=== PATIENT | female | born 1950 | race Caucasian/White ===

== ENCOUNTER → 2018-05-01 14:46 | Outpatient (CLI) | payer OTHER, SELFPAY ==
[2018-05-01 16:40] LABS: Alanine Aminotransfer ALT/SGPT 49 U/L (13-56); Creatinine, Serum 0.75 mg/dL (0.55-1.02); EST Glomerular Filtration Rate 82 mL/min (>60); Est Glom Filt Rate - Afr Amer 99 mL/min (>60); Thyroid Stim Hormone (TSH) 1.56 uIU/mL (0.358-3.74)
[2018-05-05 13:39] LABS: Hep C Antibodies <0.1 s/co ratio (0.0-0.9)
== END ==
PROVIDERS: Family Provider Family Medicine; PCP Family Medicine; Visit Provider Family Medicine
DX: E03.9 Hypothyroidism, unspecified (principal); E78.6 Lipoprotein deficiency
CPT/HCPCS: 36415; 82565; 84443; 84460; 86803

== ENCOUNTER → 2018-06-19 12:01 | Outpatient (CLI) | payer MEDICARE, SELFPAY ==
--- NOTE | 2018-06-19 12:05 | BI_ITS ---
MAMMOGRAPHY - BILATERAL SCREENING REASON FOR EXAM: Female, 67 years old. Routine annual screening examination. PERTINENT HISTORY: Mother with breast cancer. Aunt with breast cancer. TECHNIQUE: Digital bilateral breast rashawn (3D mammographic acquisition) in the CC and MLO projections. 2-D mediolateral oblique (MLO) and craniocaudad (CC) views of both breasts were obtained. CAD: Full Field Digital Mammography with Computer Added Detection was performed. COMPARISON: Comparison is made with prior study dated April 30, 2016 and January 26, 2015. FINDINGS: Breast Composition: The breasts are almost entirely fatty. There are no dominant masses or suspicious calcifications. Stable small bilateral axillary lymph nodes. No other significant abnormalities are identified. There has been no significant change since the prior study. BI/SCREENING MAMM (CAD), BILAT IMPRESSION: Stable bilateral screening mammogram. Yearly follow-up mammogram recommended. (A) ASSESSMENT CATEGORY: BIRADS Category 2: Benign. A letter regarding these results will be sent to the patient by the facility within 30 days. Approximately 10% of breast cancers are not detected by mammography. A normal mammogram should not delay biopsy of a clinically suspicious abnormality. [id number] Electronically Signed: Ritchie Mittal MD at 13:20 EST Tel [phone], Service support ,
== END ==
PROVIDERS: Family Provider Family Medicine; PCP Family Medicine; Referring Provider Family Medicine; Visit Provider Family Medicine
DX: Z12.31 Encounter for screening mammogram for malignant neoplasm of breast (principal)
CPT/HCPCS: 77063; 77067

== ENCOUNTER → 2019-07-08 14:52 | Outpatient (CLI) | payer MEDICARE, SELFPAY ==
[2019-07-08 16:10] LABS: Absolute Lymphocyte Count 2.86 X10^3/uL (0.83-4.51); Absolute Neutrophil Count 2.9 X10^3/uL (2.0-7.7); Basophil# 0.04 X10^3/uL; Basophil% 0.6 % (0-1); Eosinophil# 0.05 X10^3/uL; Eosinophils% 0.8 % (0-5); Hematocrit 41.3 % (37-47); Hemoglobin 13.6 g/dL (12.0-15.0); Lymphocyte # 2.86 X10^3/ul (4.0); Mean Corp Hgb Conc 32.9 g/dL (32-36); Mean Corpuscular Hgb 29.5 pg (27.0-32.0); Mean Corpuscular Volume 89.6 fL (81-99); Mean Platelet Vol. 10.2 fl (6.2-12.0); Monocyte# 0.44 X10^3/uL; Monocyte% 6.9 % (0-10); NRBC Flagged by Analyzer 0 % (0-5); Neutrophil # 2.94 X10^3/uL (2.7-7.7); Neutrophil % 46.2 % (47-70); Platelet Count 355 K/mm3 (150-450); RBC Distribution Width CV 13.6 % (11.6-14.6); RBC Distribution Width SD 44.6 fl (35.1-43.9); Red Blood Count 4.61 M/mm3 (4.2-5.4); White Blood Count 6.4 K/mm3 (4.4-11.0)
[2019-07-08 16:55] LABS: Vitamin D,25 Hydroxy 31.5 ng/mL (29.95-100.01)
[2019-07-08 17:13] LABS: ALB/GLOB Ratio 1.2 RATIO (0.9-2.4); AST(SGOT) 33 U/L (15-37); Alanine Aminotransfer ALT/SGPT 46 U/L (13-56); Albumin, Serum 4.3 g/dL (3.2-5.0); Alkaline Phosphatase 54 U/L (45-117); Anion Gap 5 (5-15); BUN 21 mg/dL (7-18); BUN/Creat Ratio 20.4 RATIO (10-20); Calcium,Total 9.2 mg/dL (8.5-10.1); Chloride 106 mmol/L (98-107); Cholesterol 186 mg/dL (200); Creatinine, Serum 1.03 mg/dL (0.55-1.02); EST Glomerular Filtration Rate 57 mL/min (>60); Est Glom Filt Rate - Afr Amer 69 mL/min (>60); Globulin 3.6 g/dL (2.2-4.2); Glucose 90 mg/dL (74-106); High Density Lipoprotein 52 mg/dL; Potassium 3.9 mmol/L (3.5-5.1); Protein, Total 7.9 g/dL (6.4-8.2); Sodium Level 139 mmol/L (136-145); Thyroid Stim Hormone (TSH) 2.04 uIU/mL (0.358-3.74); Triglycerides 93 mg/dL; Very Low Density Lipoprotein 19 mg/dL (5-40)
== END ==
PROVIDERS: Family Provider Family Medicine; PCP Family Medicine; Referring Provider Family Medicine; Visit Provider Family Medicine
DX: E78.1 Pure hyperglyceridemia (principal); M85.80 Other specified disorders of bone density and structure, unspecified site; E03.9 Hypothyroidism, unspecified
CPT/HCPCS: 36415; 80053; 80061; 82306; 84443; 85025

== ENCOUNTER → 2020-04-11 | Outpatient (CLI) | payer MEDICARE, SELFPAY ==
--- NOTE | 2020-04-11 09:45 | BI_ITS ---
MAMMOGRAPHY - BILATERAL SCREENING REASON FOR EXAM: Female, 69 years old. Routine annual screening examination. PERTINENT HISTORY: Mother with breast cancer. Aunt with breast cancer. TECHNIQUE: Digital bilateral breast chavo (3D mammographic acquisition) in the CC and MLO projections. 2-D mediolateral oblique (MLO) and craniocaudad (CC) views of both breasts were obtained. CAD: Full Field Digital Mammography with Computer Added Detection was performed. COMPARISON: Comparison is made with prior examination dated 06/19/2018 and 04/30/2016. FINDINGS: Breast Composition: The breasts are almost entirely fatty. There are no dominant masses or suspicious calcifications. Stable small benign appearing bilateral axillary lymph nodes. No other significant abnormalities are identified. There has been no significant change since the prior study. BI/SCREEN MAMM (CAD) W/CHAVO BILAT IMPRESSION: Stable bilateral screening mammogram. Yearly follow-up mammogram recommended. (A) ASSESSMENT CATEGORY: BIRADS Category 1: Negative. A letter regarding these results will be sent to the patient by the facility within 30 days. Approximately 10% of breast cancers are not detected by mammography. A normal mammogram should not delay biopsy of a clinically suspicious abnormality. [id number] Electronically Signed: Ritchie Mittal, at 11:17 EDT , Service support ,
== END | disposition home or self-care (01) ==
LOC: OPBI 09:43
PROVIDERS: Family Provider Family Medicine; PCP Family Medicine; Referring Provider Family Medicine; Visit Provider Family Medicine
DX: Z12.31 Encounter for screening mammogram for malignant neoplasm of breast (principal)
CPT/HCPCS: 77063; 77067

== ENCOUNTER → 2020-10-30 10:08 | Outpatient (CLI) | payer MEDICARE, SELFPAY ==
[2020-10-30 12:39] LABS: Vitamin D,25 Hydroxy 29.1 ng/mL
[2020-10-30 12:41] LABS: ALB/GLOB Ratio 1.1 RATIO (0.9-2.4); AST(SGOT) 26 U/L (15-37); Alanine Aminotransfer ALT/SGPT 37 U/L (13-56); Albumin, Serum 4.2 g/dL (3.2-5.0); Alkaline Phosphatase 51 U/L (45-117); Anion Gap 5 (5-15); BUN 16 mg/dL (7-18); BUN/Creat Ratio 18.4 RATIO (10-20); Calcium,Total 9.1 mg/dL (8.5-10.1); Chloride 101 mmol/L (98-107); Cholesterol 199 mg/dL (200); Creatinine, Serum 0.87 mg/dL (0.55-1.02); EST Glomerular Filtration Rate 69 mL/min (>60); Est Glom Filt Rate - Afr Amer 83 mL/min (>60); Globulin 3.7 g/dL (2.2-4.2); Glucose 94 mg/dL (74-106); High Density Lipoprotein 52 mg/dL; Potassium 4.3 mmol/L (3.5-5.1); Protein, Total 7.9 g/dL (6.4-8.2); Sodium Level 137 mmol/L (136-145); Thyroid Stim Hormone (TSH) 2.42 uIU/mL (0.358-3.74); Triglycerides 171 mg/dL; Very Low Density Lipoprotein 34 mg/dL (5-40)
[2020-10-30 13:00] LABS: Microalbumin,Random Urine < 5.0 mg/L (NO RANGE EST.)
== END ==
PROVIDERS: PCP Family Medicine; Visit Provider Family Medicine
DX: N18.2 Chronic kidney disease, stage 2 (mild) (principal); E03.9 Hypothyroidism, unspecified; E78.1 Pure hyperglyceridemia
CPT/HCPCS: 36415; 80053; 80061; 82043; 82306; 82570; 84443

== ENCOUNTER → 2020-11-09 08:18 | Outpatient (CLI) | payer MEDICARE, SELFPAY ==
--- NOTE | 2020-11-09 08:29 | BD_ITS ---
STUDY: DUAL ENERGY X-RAY ABSORPTIOMETRY / DXA REASON FOR EXAM: Female, 70 years old. M85.89. Early menopause. TECHNIQUE: Bone Mineral Density (BMD) measurements of lumbar spine and bilateral hips were obtained. COMPARISON: Comparison is made with prior study dated 04/30/2016. FINDINGS: Lumbar Spine (L1-L4): g/cm2 (0.928) / T-score (-2.0) / Z-score (-0.4) Findings are suggestive of osteopenia with a moderate fracture risk. Left Femur Total: g/cm2 (0.857) / T-score (-1.2) / Z-score (0.2) Left Femoral Neck: g/cm2 (0.863) / T-score (-1.3) / Z-score (0.4) Right Femur Total: g/cm2 (0.790) / T-score (-1.7) / Z-score (-0.3) Right Femoral Neck: g/cm2 (0.789) / T-score (-1.8) / Z-score (-0.1) The T-Scores on the most recent prior examination were: Lumbar Spine (L1-L4): There has been improvement of bone density since the previous examination. Left Femur Total: which represents a worsening of 3.3%. Right Femur Total: which represents a worsening of 5.7%. BD/Dexa Bone Density Study IMPRESSION: The patient is considered osteopenic as outlined below according to World [employer] Organization (WHO) criteria with a moderate fracture risk. There has been worsening of bone density since the previous examination. Reference Information: The T-score is the number of standard deviations above or below the standard which is normal for young adults at their peak bone mineral density. The World Health Organization (WHO) interprets the T-scores as follows: Above -1 Normal bone density Between -1 and -2.5 Osteopenia Equal to / or below -2.5 Osteoporosis As a practical clinical guideline, osteopenia may be graded as follows: Mild -1 through -1.5 Moderate -1.6 through -2.0 Severe -2.1 through -2.4 The Z-score is the number of standard deviations above or below age-matched controls. A Z-score of less than -1.5 would be considered abnormal. References: 1. NIH Osteoporosis and Related Bone Diseases www osteo.org 2. International Society for Clinical Densitometry www iscd.org 3. National Osteoporosis Foundation www nof.org Electronically Signed: Ritchie Mittal MD at 10:50 EDT , Service support ,
== END ==
PROVIDERS: PCP Family Medicine; Referring Provider Family Medicine; Visit Provider Family Medicine
DX: M85.89 Other specified disorders of bone density and structure, multiple sites (principal)
CPT/HCPCS: 77080

== ENCOUNTER → 2021-04-12 08:00 | Outpatient (CLI) | payer MEDICARE, SELFPAY ==
--- NOTE | 2021-04-12 08:16 | BI_ITS ---
MAMMOGRAPHY - BILATERAL SCREENING REASON FOR EXAM: Female, 70 years old. Routine annual screening examination. PERTINENT HISTORY: Mother with breast cancer. Aunt with breast cancer. TECHNIQUE: Digital bilateral breast chavo (3D mammographic acquisition) in the CC and MLO projections. 2-D mediolateral oblique (MLO) and craniocaudad (CC) views of both breasts were obtained. CAD: Full Field Digital Mammography with Computer Added Detection was performed. COMPARISON: Comparison is made with prior study 04/11/2020 and 06/19/2018. FINDINGS: Breast Composition: The breasts are almost entirely fatty. There are no dominant masses or suspicious calcifications. No other significant abnormalities are identified. There has been no significant change since the prior study. BI/SCRN MAMM (CAD)W/CHAVO BILAT IMPRESSION: Stable bilateral screening mammogram. Yearly follow-up mammogram recommended. (A) ASSESSMENT CATEGORY: BIRADS Category 1: Negative. A letter regarding these results will be sent to the patient by the facility within 30 days. Approximately 10% of breast cancers are not detected by mammography. A normal mammogram should not delay biopsy of a clinically suspicious abnormality. [id number] Electronically Signed: Ritchie Mittal MD at 8:56 EDT , Service support ,
== END ==
PROVIDERS: PCP Family Medicine; Referring Provider Family Medicine; Visit Provider Family Medicine
DX: Z12.31 Encounter for screening mammogram for malignant neoplasm of breast (principal)
CPT/HCPCS: 77063; 77067

== ENCOUNTER → 2021-12-04 | Outpatient (CLI) | payer MEDICARE, SELFPAY ==
[2021-12-04 10:08] LABS: Hematocrit 37.7 % (37-47); Mean Corp Hgb Conc 31.8 g/dL (32-36); Mean Corpuscular Hgb 27.1 pg (27.0-32.0); Mean Corpuscular Volume 85.3 fL (81-99); Mean Platelet Vol. 9.2 fl (6.2-12.0); Platelet Count 400 K/mm3 (150-450); RBC Distribution Width CV 14.6 % (11.6-14.6); RBC Distribution Width SD 45.1 fl (35.1-43.9); Red Blood Count 4.42 M/mm3 (4.2-5.4); White Blood Count 5.9 K/mm3 (4.4-11.0)
[2021-12-04 11:18] LABS: AST(SGOT) 26 U/L (15-37); Alanine Aminotransfer ALT/SGPT 40 U/L (13-56); Albumin, Serum 3.7 g/dL (3.2-5.0); Alkaline Phosphatase 57 U/L (45-117); Anion Gap 9 (5-15); BUN 15 mg/dL (7-18); BUN/Creat Ratio 19.9 RATIO (10-20); Chloride 102 mmol/L (98-107); Cholesterol 192 mg/dL (200); Creatinine, Serum 0.75 mg/dL (0.55-1.02); EST Glomerular Filtration Rate 81 mL/min (>60); Est Glom Filt Rate - Afr Amer 98 mL/min (>60); Globulin 3.8 g/dL (2.2-4.2); Glucose 98 mg/dL (74-106); High Density Lipoprotein 43 mg/dL; Potassium 3.9 mmol/L (3.5-5.1); Protein, Total 7.5 g/dL (6.4-8.2); Sodium Level 136 mmol/L (136-145); T4 Free Direct 1.15 ng/dL (0.76-1.46); Thyroid Stim Hormone (TSH) 3.78 uIU/mL (0.358-3.74); Triglycerides 139 mg/dL; Very Low Density Lipoprotein 28 mg/dL (5-40)
[2021-12-04 15:05] LABS: Microalbumin,Random Urine < 5.0 mg/L (NO RANGE EST.)
== END | disposition home or self-care (01) ==
LOC: MFPLAB 08:39
PROVIDERS: PCP Family Medicine; Referring Provider Family Medicine; Visit Provider Family Medicine
DX: I10 Essential (primary) hypertension (principal); E78.1 Pure hyperglyceridemia; E03.9 Hypothyroidism, unspecified; M25.50 Pain in unspecified joint
CPT/HCPCS: 36415; 80053; 80061; 82043; 82570; 84439; 84443; 85027

== ENCOUNTER 2022-04-05 17:12 | Emergency (ER) | payer MEDICARE, SELFPAY ==
[2022-04-05 17:14] VITALS: BP 135/64; PULSE 84; RESP 16; TEMP 36.4; O2SAT 98; BMI 23.8
--- NOTE | 2022-04-05 18:39 | EDS_ITS ---
HPI <LELA Vaughan - Last Filed: 04/05/22 19:56> History of Present Illness Chief Complaint: Vision Prob Narrative Narrative: Patient is a 71-year-old female with history of hyperlipidemia, hypothyroidism who presents to the emergency department with intermittent vision changes of the right eye. [facility] She saw her eye doctor today, had a full exam. He requested her to come to the emergency department for laboratory values including sed rate, CRP as well as 1 g of Solu- Medrol. Patient complains that for the last 5 days, she has had 3 separate instances where her right vision goes dark and blurry and then it comes back. 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 She is here for evaluation. PFSH <LELA Vaughan - Last Filed: 04/05/22 19:56> PFSH Allergy/AdvReac Type Severity Reaction Status Date / Time No Known Allergies Allergy Verified 04/05/22 18:53 Social History Smoking Status: Never smoker ROS <LELA Vaughan - Last Filed: 04/05/22 19:56> ROS ED ROS Narrative Constitutional: Negative for fever, chills, weight loss, weakness Eyes: Negative for double vision. Positive for vision loss, vision change of the right eye x3 the last 5 days ENT: Negative for any sore throat, ear pain, congestion Cardiovascular: Negative for any chest pain, tightness, palpitations Respiratory: Negative for any cough, sputum production, hemoptysis, dyspnea, dyspnea on exertion, orthopnea Gastrointestinal: Negative for any abdominal pain, nausea, vomiting, diarrhea, constipation, blood in stool, blood in vomit : Negative for any urinary frequency, dysuria, retention, blood in urine Muscle skeletal: Negative for any muscle joint pain, stiffness, myalgias, arthralgias, neck pain, back pain Neurological: Negative for any headache, syncope, numbness or tingling, dizziness Skin: Negative for any rashes, lumps, itching, abrasions, lacerations Psychiatric: Negative for any depression, anxiety, stress, suicidal ideation, homicidal ideation Hematologic: Negative for any easy bruising, excessive bruising, easy bleeding Allergies: Negative for any eczema, hives, rash EXAM <LELA Vaughan Last Filed: 04/05/22 19:56> Physical Exam Narrative Exam Narrative: Vital signs reviewed. Patient does not complain of any symptoms at this time. HEET: Head normocephalic atraumatic, TMs clear bilaterally. Posterior pharynx is clear, moist mucous membranes. Nares clear bilaterally. Pupils are large however the patient did have them dilated at the eye doctor. EOMs are intact. Asymptomatic at this time full vision. Neck: Supple with no lymphadenopathy or tenderness. No signs of meningismus, negative jolt sign. Cardiac: Regular rate and rhythm no murmurs gallops or rubs, equal peripheral pulses bilaterally. Respiratory: Lungs clear to auscultation bilaterally. No chest tenderness. Abdomen: Soft, nontender, nondistended. No abdominal bruit or pulsatile masses. No hepatosplenomegaly Extremities: No peripheral edema, no signs of gross trauma or deformity. Active full range of motion of all extremities. Neuro: Cranial nerves II through XII intact, no focal neurological deficits. Skin: Clean dry and intact with no rash, purpura, petechiae, vesicles or pustules. Backs/flank: No CVA tenderness, no midline spinal tenderness, no deformity. Psych: Normal mood and affect. No SI, HI or acute psychosis. Const Vital Signs: 04/05/22 17:14 Temperature 97.6 F L Temperature Source Temporal Pulse Rate 84 Respiratory Rate 16 Blood Pressure 135/64 H Blood Pressure Mean 87 Pulse Ox 98 Oxygen Delivery Method Room Air <Dr. Vicente Butcher MD - Last Filed: 04/05/22 19:56> Physical Exam Const Vital Signs: 04/05/22 17:14 Temperature 97.6 F L Temperature Source Temporal Pulse Rate 84 Respiratory Rate 16 Blood Pressure 135/64 H Blood Pressure Mean 87 Pulse Ox 98 Oxygen Delivery Method Room Air [facility] <LELA Vaughan - Last Filed: 04/05/22 19:56> [facility] Lab Data Labs: Laboratory Results - last 24 hr 04/05/22 04/05/22 18:50 18:50 WBC 8.2 RBC 4.71 Hgb 12.1 Hct 38.0 MCV 80.7 L MCH 25.7 L MCHC 31.8 L RDW Std Deviation 46.7 H RDW Coeff of Becki 16.0 H Plt Count 567 H MPV 8.8 Immature Gran % (Auto) 0.400 Neut % (Auto) 56.0 Lymph % (Auto) 34.6 [place] % (Auto) 7.2 Eos % (Auto) 1.2 Baso % (Auto) 0.6 Absolute Neuts (auto) 4.6 Absolute Lymphs (auto) 2.82 Nucleated RBC % 0 ESR 37 H Sodium 135 L Potassium 4.2 Chloride 101 Carbon Dioxide 27.0 Anion Gap 7 BUN 11 Creatinine 0.76 Estim Creat Clear Calc 41.40 Est GFR (MDRD) Af Amer 97 Est GFR (MDRD) Non-Af 80 BUN/Creatinine Ratio 14.6 Glucose 101 Calcium 9.6 C-React Prot Ext Range 19.30 H Treatment and Re-Evaluation Narrative: Patient appears well, patient appears nontoxic, vital signs are stable. Patient presents to the emergency department for intermittent vision loss to the right eye. Patient was seen after wood room supervisor who sent over for blood work as well as Solu-Medrol 1 g IV. Patient CBC, chemistries were unremarkable, patient's inflammatory markers were elevated with a sed rate of 37 as well as a C-reactive protein 19.3. Patient was given 1 g of Solu-Medrol. She is going to the infusion center for 2 days for Solu-Medrol 1 g. Patient during my exam here was unremarkable. Patient has no symptoms at this time. Patient is stable for discharge instructed return for any worsening symptoms. 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 <Dr. Vicente Butcher MD - Last Filed: 04/05/22 19:56> [facility] Narrative Medical decision making narrative: I have personally performed a face to face assessment of the patient and have reviewed the MARILYN Note. I performed a substantive portion of the visit including all aspects of the following. My moore findings include: History is [71-year-old sent in by ophthalmology for concern for giant cell arteritis. She has had right zoroastrian discomfort and visual change. He examined her today. He wanted her to get screening labs and a gram of Solu-Medrol. He set up the infusions for Friday and Friday. She denies other complaints.] Exam is [well-appearing 8-year-old. Vital signs stable afebrile. H EENT exam pupils round react light expressions are intact. Pupils are dilated equal and symmetrical. There are dilated eye doctor's office. Neck nontender. Lungs are clear. Heart regular rhythm no murmur. Moving all 4 extremities. Neurologically she is awake and alert. No focal motor deficits.] Medical Decision Making [screening labs are obtained.] Other additions or changes: [None] Lab Data Attestation: I reviewed the patient's lab results. Lab results narrative: Given a gram of IV Solu-Medrol. Discharge. CBC shows white count 8. H&H 12.1 and 38. Platelets 567. Electrolytes unremarkable gap of 7 normal BUN and creatinine. Glucose 101. C-reactive protein elevated 19.3. Sed rate elevated 37. Labs: Laboratory Results - last 24 hr 04/05/22 04/05/22 18:50 18:50 WBC 8.2 RBC 4.71 Hgb 12.1 Hct 38.0 MCV 80.7 L MCH 25.7 L MCHC 31.8 L RDW Std Deviation 46.7 H RDW Coeff of Becki 16.0 H Plt Count 567 H MPV 8.8 Immature Gran % (Auto) 0.400 Neut % (Auto) 56.0 Lymph % (Auto) 34.6 [place] % (Auto) 7.2 Eos % (Auto) 1.2 Baso % (Auto) 0.6 Absolute Neuts (auto) 4.6 Absolute Lymphs (auto) 2.82 Nucleated RBC % 0 ESR 37 H Sodium 135 L Potassium 4.2 Chloride 101 Carbon Dioxide 27.0 Anion Gap 7 BUN 11 Creatinine 0.76 Estim Creat Clear Calc 41.40 Est GFR (MDRD) Af Amer 97 Est GFR (MDRD) Non-Af 80 BUN/Creatinine Ratio 14.6 Glucose 101 Calcium 9.6 C-React Prot Ext Range 19.30 H Discharge Plan Triage Chief Complaint: Vision Prob ED Midlevel Provider: Louie Pérez ED Provider: Vicente Butcher Dx/Rx/DC Orders Primary Care Provider: Presley Tidwell Referrals: Presley Tidwell MD [Primary Care Provider] -
[2022-04-05 19:04] LABS: Erythrocyte Sedimentation Rate 37 mm/hr (0-30)
[2022-04-05 19:05] LABS: Absolute Lymphocyte Count 2.82 X10^3/uL (0.83-4.51); Absolute Neutrophil Count 4.6 X10^3/uL (2.0-7.7); Basophil# 0.05 X10^3/uL; Basophil% 0.6 % (0-1); Eosinophils% 1.2 % (0-5); Hemoglobin 12.1 g/dL (12.0-15.0); Lymphocyte # 2.82 X10^3/ul (0.83-4.51); Lymphocyte % 34.6 % (19-41); Mean Corp Hgb Conc 31.8 g/dL (32-36); Mean Corpuscular Hgb 25.7 pg (27.0-32.0); Mean Corpuscular Volume 80.7 fL (81-99); Mean Platelet Vol. 8.8 fl (6.2-12.0); Monocyte# 0.59 X10^3/uL; Monocyte% 7.2 % (0-10); NRBC Flagged by Analyzer 0 % (0-5); Neutrophil # 4.57 X10^3/uL (2.7-7.7); Platelet Count 567 K/mm3 (150-450); RBC Distribution Width SD 46.7 fl (35.1-43.9); Red Blood Count 4.71 M/mm3 (4.2-5.4); White Blood Count 8.2 K/mm3 (4.4-11.0)
[2022-04-05 19:13] LABS: Anion Gap 7 (5-15); BUN 11 mg/dL (7-18); BUN/Creat Ratio 14.6 RATIO (10-20); Calcium,Total 9.6 mg/dL (8.5-10.1); Chloride 101 mmol/L (98-107); Creatinine, Serum 0.76 mg/dL (0.55-1.02); EST Glomerular Filtration Rate 80 mL/min (>60); Est Glom Filt Rate - Afr Amer 97 mL/min (>60); Glucose 101 mg/dL (74-106); Potassium 4.2 mmol/L (3.5-5.1); Sodium Level 135 mmol/L (136-145)
== END 2022-04-05 20:23 | disposition home or self-care (01) ==
PROVIDERS: Nurse Practitioner; Emergency Provider Emergency Medicine; PCP Family Medicine; Visit Provider Emergency Medicine
DX: H53.9 Unspecified visual disturbance (principal); M31.6 Other giant cell arteritis; E78.5 Hyperlipidemia, unspecified; E03.9 Hypothyroidism, unspecified; G44.89 Other headache syndrome
CPT/HCPCS: 36415; 80048; 85025; 85652; 86140; 96365; 99282; A4216; J2930

== ENCOUNTER → 2022-04-05 | Outpatient (CLI) | payer MEDICARE, SELFPAY ==
[2022-04-05 17:13] LABS: Absolute Lymphocyte Count 3.06 X10^3/uL (0.83-4.51); Absolute Neutrophil Count 4.4 X10^3/uL (2.0-7.7); Basophil# 0.05 X10^3/uL; Basophil% 0.6 % (0-1); Eosinophil# 0.12 X10^3/uL; Eosinophils% 1.5 % (0-5); Hematocrit 37.6 % (37-47); Lymphocyte # 3.06 X10^3/ul (0.83-4.51); Lymphocyte % 37.5 % (19-41); Mean Corp Hgb Conc 31.9 g/dL (32-36); Mean Corpuscular Volume 81.4 fL (81-99); Monocyte# 0.52 X10^3/uL; Monocyte% 6.4 % (0-10); NRBC Flagged by Analyzer 0 % (0-5); Neutrophil % 53.8 % (47-70); Platelet Count 578 K/mm3 (150-450); RBC Distribution Width CV 15.9 % (11.6-14.6); RBC Distribution Width SD 47.5 fl (35.1-43.9); Red Blood Count 4.62 M/mm3 (4.2-5.4); White Blood Count 8.2 K/mm3 (4.4-11.0)
[2022-04-05 17:17] LABS: Erythrocyte Sedimentation Rate 28 mm/hr (0-30)
== END | disposition home or self-care (01) ==
LOC: LAB 16:44
PROVIDERS: PCP Family Medicine; Referring Provider Ophthalmology; Visit Provider Ophthalmology
DX: M31.6 Other giant cell arteritis (principal)
CPT/HCPCS: 36415; 85025; 85652; 86140

== ENCOUNTER 2022-04-06 15:27 | Outpatient (CLI) | payer MEDICARE, SELFPAY ==
[2022-04-06 16:46] VITALS: BP 151/72; PULSE 72; RESP 18; TEMP 36.6; O2SAT 98
== END 2022-04-06 18:20 | disposition home or self-care (01) ==
LOC: PCUOUT 15:29 → PCU 15:31
PROVIDERS: PCP Family Medicine; Visit Provider Ophthalmology
DX: M31.6 Other giant cell arteritis (principal)
CPT/HCPCS: 96365; 96366; J7040; J2930

== ENCOUNTER 2022-04-07 13:52 | Outpatient (CLI) | payer MEDICARE, SELFPAY | END 2022-04-07 16:22 | disposition home or self-care (01) | LOC: PCUOUT 13:53 → PCU 14:19 | PROVIDERS: PCP Family Medicine; Visit Provider Ophthalmology | DX: M31.6 Other giant cell arteritis (principal) | CPT/HCPCS: 96365; 96366; J7040; J2930 ==

== ENCOUNTER → 2022-04-08 | Outpatient (CLI) | payer MEDICARE, SELFPAY ==
[2022-04-08 10:27] LABS: Erythrocyte Sedimentation Rate 31 mm/hr (0-30)
[2022-04-08 10:29] LABS: Absolute Lymphocyte Count 1.91 X10^3/uL (0.83-4.51); Absolute Neutrophil Count 7.9 X10^3/uL (2.0-7.7); Basophil# 0.01 X10^3/uL; Basophil% 0.1 % (0-1); Hematocrit 35.2 % (37-47); Hemoglobin 11.1 g/dL (12.0-15.0); Lymphocyte # 1.91 X10^3/ul (0.83-4.51); Mean Corp Hgb Conc 31.5 g/dL (32-36); Mean Corpuscular Volume 82.4 fL (81-99); Mean Platelet Vol. 9.7 fl (6.2-12.0); Monocyte# 0.73 X10^3/uL; Monocyte% 6.9 % (0-10); NRBC Flagged by Analyzer 0 % (0-5); Neutrophil # 7.88 X10^3/uL (2.7-7.7); Neutrophil % 74.2 % (47-70); Platelet Count 611 K/mm3 (150-450); RBC Distribution Width CV 16.4 % (11.6-14.6); RBC Distribution Width SD 49.1 fl (35.1-43.9); Red Blood Count 4.27 M/mm3 (4.2-5.4); White Blood Count 10.6 K/mm3 (4.4-11.0)
[2022-04-08 11:20] LABS: ALB/GLOB Ratio 0.9 RATIO (0.9-2.4); AST(SGOT) 10 U/L (15-37); Alanine Aminotransfer ALT/SGPT 20 U/L (13-56); Albumin, Serum 3.6 g/dL (3.2-5.0); Alkaline Phosphatase 65 U/L (45-117); Anion Gap 9 (5-15); BUN 20 mg/dL (7-18); BUN/Creat Ratio 27.1 RATIO (10-20); CRP < 2.90 mg/L (0.0-3.0); Calcium,Total 9.5 mg/dL (8.5-10.1); Chloride 103 mmol/L (98-107); Creatinine, Serum 0.74 mg/dL (0.55-1.02); EST Glomerular Filtration Rate 83 mL/min (>60); Est Glom Filt Rate - Afr Amer 100 mL/min (>60); Globulin 4.1 g/dL (2.2-4.2); Glucose 111 mg/dL (74-106); Potassium 3.4 mmol/L (3.5-5.1); Protein, Total 7.7 g/dL (6.4-8.2); Sodium Level 140 mmol/L (136-145)
[2022-04-09 13:08] LABS: Anti-Centromere B Ab <0.2 AI (0.0-0.9); Anti-Chromatin <0.2 AI (0.0-0.9); Anti-Jo <0.2 AI (0.0-0.9); Anti-Scleroderma-70 AB <0.2 AI (0.0-0.9); Anti-ribosomal P Antibodies <0.2 AI (0.0-0.9); RNP Ab 0.4 AI (0.0-0.9); SJOGREN'S Anti-SS-A test < 0.2 AI (0.0-0.9); SJOGREN'S Anti-SS-B test < 0.2 AI (0.0-0.9); Smith Ab <0.2 AI (0.0-0.9); Smith/RNP Ab <0.2 AI (0.0-0.9)
[2022-04-09 14:09] LABS: PROEL- Albumin 3.6 g/dL (2.9-4.4); PROEL- Alpha-1 Globulin 0.3 g/dL (0.0-0.4); PROEL- Beta Globulin 1.1 g/dL (0.7-1.3); PROEL- Globulin, Total 3.5 g/dL (2.2-3.9); PROEL- TOTAL PROTEIN 7.1 g/dL (6.0-8.5)
[2022-04-09 15:22] LABS: ANTINUCLEAR ANTIBODIES DIRECT Negative (Negative); Anti-dsDNA Ab 1 IU/mL (0-9)
== END | disposition home or self-care (01) ==
LOC: MFPLAB 08:37
PROVIDERS: PCP Family Medicine; Visit Provider Family Medicine
DX: M31.6 Other giant cell arteritis (principal)
CPT/HCPCS: 36415; 80053; 84165; 85025; 85652; 86038; 86140; 86225; 86235

== ENCOUNTER 2022-04-15 10:57 | Day surgery (SDC) | payer MEDICARE, SELFPAY ==
[2022-04-15] VITALS (7 sets, daily range): BP systolic 139–155; BP diastolic 5–75; PULSE 54–61; RESP 14–16; TEMP 36.9–37.3; O2SAT 95–99; BMI 23.1
--- NOTE | 2022-04-15 | TEM_PTH ---
PATIENT: JOSH MONTES [place] [facility][id number] AGE/SX: 71/F ROOM: RE04/15/[address]: Dr. Lyle Tran MD : 1950 BED: DIS: 04/15/2022 SPEC #: [id number] RECD: 04/15/22 13:14 STATUS: GAURAV RERobbie #: [id number] FABIANA: 04/15/22 00:[address]: Lyle Tran DEPT: SURGICAL PATHOLOGY RECD BY: Sebastian Celis ENTERED: 04/15/22 13:14 SP TYPE: TEMPORAL OTHR DR: Dr. 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 See comment. AM:carla 04/16/2022 COMMENT Elastin stain with matched control was used in the evaluation of this case. Case has been reviewed in consultation with Dr. Kitchen who concurs with the above diagnosis. IDC:LISSY MICROSCOPIC DESCRIPTION Slides are reviewed. GROSS DESCRIPTION Received in fixative is one container labeled with the patient's name and designated right temporal artery biopsy. The specimen consists of a tubular piece of andrade-pink soft tissue measuring 2 cm in length and 0.2 cm in diameter. The entire specimen is submitted in one cassette. / SJ:carla 04/15/2022 TC:3 CPT: 15401, 07086
[2022-04-15] MEDS: Lactated Ringers 1,000 ML 15 ML IV (11:35)
--- NOTE | 2022-04-15 12:15 | HP.PCM_ITS ---
History and Physical Date of Admission: 04/15/22 Intake Vital Signs ? 04/05/2217:14 04/11/2208:11 Height 5 ft 2 in ? Weight: ? 128 lb 8 oz BP ? 168/82 H Blood Pressure Location ? Rt popliteal Position ? Sitting Respiration ? 18 Pulse ? 70 Pulse Source ? Monitor Temp ? 97.7 F L Temp Source ? Temporal Pulse Oximetry (%) ? 96 Oxygen Delivery Method ? room air Intake Visit Reasons:?R TEMPORAL ARTERY BIOPSY Chief Complaint: right temporal artery biopsy Domestic Freight Forwarder Required: No Is patient in pain?: No Allergies No Known Allergies Allergy (Verified 04/11/22 08:21) Medications Ca 600 mg-D3 20 mcg-mag oxide 50 ql-Fq-klsuid-manganese-boron tablet (Calcium 600-D3 Plus (mag-zinc)) 2 tab PO BID 04/11/22 [History Confirmed 04/11/22] cinnamon bark 500 mg capsule (Cinnamon) 500 mg PO DAILY 04/11/22 [History Confirmed 04/11/22] famotidine 20 mg tablet 20 mg PO BID 04/11/22 [History Confirmed 04/11/22] fenofibrate nanocrystallized 145 mg tablet 145 mg PO DAILY 04/11/22 [History Confirmed 04/11/22] flaxseed oil 1,000 mg capsule 1,000 mg PO DAILY 04/11/22 [History Confirmed 04/11/22] levothyroxine 88 mcg tablet (Synthroid) 88 mcg PO DAILY 04/11/22 [History Confirmed 04/11/22] milk thistle 175 mg tablet 175 mg PO DAILY 04/11/22 [History Confirmed 04/11/22] prednisone 20 mg tablet 80 mg PO DAILY 04/11/22 [History Confirmed 04/11/22] PFSH Surgical History?(Updated 04/11/22 @ 08:09 by Mirna Bonilla) H/O: hysterectomy Family History?(Updated 04/11/22 @ 08:10 by Mirna Bonilla) Father Asthma HypertensionMother Breast cancer Hypertension Thyroid disorderSister Diabetes Social History?(Updated 04/11/22 @ 08:11 by Mirna Bonilla) Smoking Status:? Never smoker alcohol intake:? current alcohol intake frequency: holidays/special occasions only HPI HPI HPI: Patient is a 71-year-old female here for temporal artery biopsy.? She has been having visual and jaw symptoms on the right side and she has been started on steroids. ROS General General: Yes weight change; No appetite, fatigue, colon cancer, breast cancer or weakness HEENT HEENT: No difficulty swallowing, eye injury, eye surgery, swollen glands or hoarseness Endo Endocrine: Yes thyroid disease; No diabetes mellitus, thyroid cancer, Hair loss, heat intolerance or cold intolerance Skin Skin: No rash or changing moles Breast Breast: No left breast lump, right breast lump, nipple discharge, breast pain, abnormal mammogram, abnormal US or breast enlargement Musc Musculoskeletal: No back problems, arthritis, rheumatoid arthritis, gout or joint pain Cardio Cardiovascular: No murmur, pacemaker, heart disease, atrial fibrillation, high blood pressure, heart attack, heart stent, palpitations, shortness of breat with exertion or chest pain Psych Psychiatric: No depression, anxiety or hearing voices Resp Respiratory: No shortness of breath, No sleep apnea, No cough, No COPD, No asthma, No emphysema and No wheezing Gastro Gastrointestinal: No abdominal pain, No nausea or vomiting, No diarrhea, No constipation, No blood in stool, No acid reflux, No hemorrhoids, No ulcers, No gallbladder problem and No black,tarry stools Rene Hematologic: No blood thinners, No blood disorders, No bleeding, No anemia and No blood clots Neuro Neurologic: No system reviewed and no additional complaints, except as documented, No as per HPI, No abnormal gait, No abnormal hearing, No abnormal movements, No abnormal speech, No behavioral changes, No burning sensations, No confusion, No convulsions, No disequilibrium, No dizziness, No localized weakness, No frequent falls, No headache(s), No lack of coordination, No loss of vision, No memory loss, No numbness, No other visual disturbances, No radicular pain, No restless legs, No sensory deficit, No syncope, No tingling, No tremor(s), No weakness and No other Exam Const General: cooperative Orientation: alert and oriented x3 HENND Head: normal to inspection Neck Neck: normal visual inspection and full ROM Chest Chest palpation & inspection: normal inspection of the chest Resp Effort & Inspection: normal respiratory effort Auscultation: clear to auscultation bilaterally Cardio Rate: regular rate Rhythm: regular rhythm GI Inspection: non-distended Palpation: soft and nontender Skin General: no rashes or lesions noted Neuro General: patient alert and patient oriented x3 Extrem General: full ROM Psych Appearance: grossly normal Mental Status: mental status grossly normal Assessment and Plan Assessment and Plan (1) Temporal headache: ?Status:?Acute ?Plan: Patient was having headache and vision changes and jaw pain on the right side which have slightly improved.? Patient is here for temporal artery biopsy.? I discussed temporal artery biopsy in detail with her.? I discussed the risks including not limited to bleeding, infection, nondiagnosis.? Patient understands the risks and is willing to proceed. Lyle Tran MD Pager: [facility] [address] [place] [address], [address] [place] [address] Office: I have re-examined the patient. There are no clinical changes since date of exam.
[2022-04-15] MEDS: Lidocaine 1% (20 ml mdv) 20 ML Vial (12:36)
--- NOTE | 2022-04-15 12:41 | OP.PCM_ITS ---
Report of Operation Date of Procedure: 04/15/22 Pre-Operative Diagnosis: Right temporal headaches and vision changes Post-Operative Diagnosis: Same Surgery/Procedure Performed:: Ultrasound-guided right temporal artery biopsy Specimen's removed: Right temporal artery Description of Procedure: Patient was brought back to the operating room and MAC anesthesia was induced. The right alevism was trimmed of hair and inspected with ultrasound and the route of the temporal artery was marked with marker. Next the right alevism was prepped and draped in usual sterile fashion and then the proposed incision area was injected with local anesthetic. An incision was made with a scalpel and then retractors were placed and then the deep fascia was incised using scissors and this exposed the temporal artery. Dissection was carried circumferentially superiorly and inferiorly. On either end of the artery segment the artery was clipped and then suture-ligated. The artery was sent for pathology. The cavity had good hemostasis. He was irrigated and then closed with 4-0 Monocryl suture. Glue was applied. Patient tolerated the procedure was brought to PACU in stable condition. Admit VTE Documentation VTE Mechan Device Prophylaxis: SCD's
--- NOTE | 2022-04-15 12:43 | DCINST_ITS ---
Discharge Instructions Diet Discharge Diet: No restrictions Activity Discharge Activity: May Drive (After 24 hours) and May Shower Lifting Restrictions: 15 lbs and light activity for 7 days Additional Activity Instructions:: Ibuprofen and Tylenol alternating for pain Dressing / Incision Call your doctor if your incision/area has: Continuous Slow Oozing, Sudden Increased Bleeding, Increased Pain/ Swelling, Increased Redness, Foul Smelling Discharge and Swelling at the incision site Call your doctor if you observe: Fever of 101 or Higher Cleanse incision/area with: Soap & Water Follow Up Care Please Follow Up With: Lyle Tran MD When: Please call to schedule 2 week follow up appointment. [phone] Test Results: Test results from this visit will be discussed in further detail at your follow- up appointment, if applicable. Discharge Plan Admission Attending Provider: Lyle Tran Primary Care Provider: Presley Tidwell Discharge Orders/Prescriptions Prescriptions: No Action levothyroxine [Synthroid] 88 mcg tablet 88 mcg PO DAILY fenofibrate nanocrystallized 145 mg tablet 145 mg PO DAILY famotidine 20 mg tablet 20 mg PO BID prednisone 20 mg tablet 80 mg PO DAILY cinnamon bark [Cinnamon] 500 mg capsule 500 mg PO DAILY flaxseed oil 1,000 mg capsule 1,000 mg PO DAILY Rx Instructions: administer with a meal milk thistle 175 mg tablet 175 mg PO DAILY Rx Instructions: give with meal/snack Ca-D3-mag aq-ffxv-zsj-omero-bor [Calcium 600-D3 Plus (mag-zinc)] 600 mg calcium- 20 mcg-50 mg tablet 2 tab PO BID aspirin [Aspir-81] 81 mg Tablet,Delayed Release (Dr/Ec) 81 mg PO DAILY Referrals / Follow Up: Presley Tidwell MD [Primary Care Provider] - Disposition Disposition (needs filled in before D/C Order can be placed): Home, Self Care
== END 2022-04-15 13:59 | disposition home or self-care (01) ==
LOC: SDC 10:59 → AC 11:36
PROVIDERS: PCP Family Medicine; Referring Provider Surgery; Visit Provider Surgery
PROC: (CPT 37609; principal; 2022-04-15 12:15)
DX: R51.9 Headache, unspecified (principal); R68.84 Jaw pain; E78.00 Pure hypercholesterolemia, unspecified; E07.9 Disorder of thyroid, unspecified
CPT/HCPCS: 37609; 00352; 88305; 88313; J7120

== ENCOUNTER → 2022-04-18 | Outpatient (CLI) | payer MEDICARE, SELFPAY ==
--- NOTE | 2022-04-18 09:12 | BI_ITS ---
MAMMOGRAPHY - BILATERAL SCREENING 3-D TOMOSYNTHESIS REASON FOR EXAM: Female, 71 years old. SCREENING PERTINENT HISTORY: Mother and aunt with breast cancer.. TECHNIQUE: 2-D mammograms and 3-D Tomosynthesis of the breast (s) were performed. CAD was performed. COMPARISON: 04/11/2020 FINDINGS: The breast composition is almost entirely fat. Scattered benign calcifications are seen. No dense spiculated masses or suspicious microcalcifications are identified. No architectural distortion is identified. There is no skin thickening or retraction. There has been no significant change since the prior study. BI/SCRN MAMM (CAD)W/CHAVO BILAT IMPRESSION: No mammographic signs of malignancy. Routine yearly mammograms recommended. ASSESSMENT CATEGORY: BIRADS Category 1: Negative. A letter regarding these results will be sent to the patient by the facility within 30 days. FOLLOW UP RECOMMENDATION: Yearly follow up mammogram recommended. (A) Approximately 10% of breast cancers are not detected by mammography. A normal mammogram should not delay biopsy of a clinically suspicious abnormality. Electronically Signed: Campbell Sánchez MD at 10:09 EDT ,
== END | disposition home or self-care (01) ==
LOC: OPBI 09:10
PROVIDERS: PCP Family Medicine; Referring Provider Family Medicine; Visit Provider Family Medicine
DX: Z12.31 Encounter for screening mammogram for malignant neoplasm of breast (principal); Z80.3 Family history of malignant neoplasm of breast
CPT/HCPCS: 77063; 77067

== ENCOUNTER → 2022-04-20 | Outpatient (CLI) | payer MEDICARE, SELFPAY ==
--- NOTE | 2022-04-20 09:32 | MRI_ITS ---
STUDY: MRI BRAIN WITHOUT CONTRAST REASON FOR EXAM: Female, 71 years old. Vision loss, probable arteritis, possible CVA TECHNIQUE: Standardized multiplanar fat and water weighted pulse sequences were obtained. COMPARISON: None. FINDINGS: Normal size of the ventricles and extra-axial spaces for the patient''s age. Normal white matter tracts of the supratentorial brain. Normal bilateral basal ganglia. Normal thalami. There is no extra-axial fluid accumulation. Normal flow voids within the major intracranial circulation suggesting patency by spin echo criteria. Normal sella turcica, pituitary gland, infundibular stalk, optic chiasm and hypothalamus. Normal tectal plate and pineal gland. Normal midbrain, lorri and medulla. Normal cerebellum. Normal basal cisterns. Normal bilateral temporal bones. Normal bilateral internal auditory canals. No demonstrated orbital abnormality, within the constraints of a routine brain study. Normal visualized paranasal sinuses. Normal calvarium and skull base. Normal visualized soft tissue structures. Normal visualized upper cervical spine. MRI/Brain without Contrast IMPRESSION: Normal unenhanced MRI of the brain. Electronically Signed: Vladimir Monte MD at 12:16 EDT ,
== END | disposition home or self-care (01) ==
LOC: MRI 09:27
PROVIDERS: PCP Family Medicine; Referring Provider Family Medicine; Visit Provider Family Medicine
DX: H53.139 Sudden visual loss, unspecified eye (principal); M31.6 Other giant cell arteritis
CPT/HCPCS: 70551

== ENCOUNTER → 2022-04-30 | Outpatient (CLI) | payer MEDICARE, SELFPAY ==
--- NOTE | 2022-04-30 08:55 | CDU_ITS ---
Reason For Study: Sudden vision loss Rt. Velocities/BP Lt. Velocities/BP Prox CCA 77.8/21.1 cm/sec. Prox CCA 87.2/30 cm/sec. Mid CCA 76.8/23 cm/sec. Mid CCA 79.5/23.4 cm/sec. Dist CCA 58.9/14.5 cm/sec. Dist CCA 82.8/27.8 cm/sec. Prox ICA 51.3/14.5 cm/sec. Prox ICA 69.6/24.5 cm/sec. Mid ICA 75.9/27.7 cm/sec. Mid ICA 76.2/31.1 cm/sec. Dist ICA 74.9/25.8 cm/sec. Dist ICA 83.9/33.3 cm/sec. Rt. ICA/CCA = 0.99. Lt. ICA/CCA = 1.01. Prox ECA 70.2/11.6 cm/sec. Prox ECA 83.9/13.5 cm/sec. Rt. Vert. 59.8/16.3 cm/sec. Lt. Vert. 47.6/16.8 cm/sec. Right Extracranial There is intimal thickening but no significant atherosclerotic plaque noted in the right common carotid artery. There is homogeneous, smooth atherosclerotic plaque noted in the right internal carotid artery. There is intimal thickening but no significant atherosclerotic plaque noted in the right external carotid artery. Antegrade flow is noted in the right vertebral artery. Left Extracranial There is homogeneous, smooth atherosclerotic plaque noted in the left common carotid artery. There is intimal thickening but no significant atherosclerotic plaque noted in the left internal carotid artery. There is intimal thickening but no significant atherosclerotic plaque noted in the left external carotid artery. Antegrade flow is noted in the left vertebral artery. Procedure Carotid Duplex [id number]. This is a Carotid Duplex examination using B-mode, color flow and specral Doppler. Exam performed in department. VL/Carotid Duplex Ultrasound Interpretation Summary Smooth plaque at the proximal right internal carotid artery with less than 50% stenosis Less than 50% stenosis right external carotid artery Intimal thickening at the proximal left internal carotid artery with less than 50% stenosis Less than 50% stenosis left external carotid artery Patent and antegrade vertebral arteries bilaterally Ordering Physician: Presley Tidwell Referring Physician: Presley Tidwell Performed By: Gabriella Camarillo RVT
== END | disposition home or self-care (01) ==
LOC: CVS 08:54
PROVIDERS: PCP Family Medicine; Referring Provider Family Medicine; Visit Provider Family Medicine
DX: H53.139 Sudden visual loss, unspecified eye (principal); I65.23 Occlusion and stenosis of bilateral carotid arteries
CPT/HCPCS: 93880

== ENCOUNTER → 2022-09-02 | Outpatient (CLI) | payer MEDICARE, OTHER, SELFPAY ==
[2022-09-02 12:49] LABS: Absolute Lymphocyte Count 3.01 X10^3/uL (0.83-4.51); Basophil# 0.04 X10^3/uL; Basophil% 0.5 % (0-1); Eosinophil# 0.06 X10^3/uL; Eosinophils% 0.8 % (0-5); Hematocrit 40.9 % (37-47); Lymphocyte # 3.01 X10^3/ul (0.83-4.51); Lymphocyte % 39.7 % (19-41); Mean Corp Hgb Conc 31.8 g/dL (32-36); Mean Corpuscular Hgb 28.4 pg (27.0-32.0); Mean Corpuscular Volume 89.5 fL (81-99); Mean Platelet Vol. 10.1 fl (6.2-12.0); Monocyte% 6.6 % (0-10); NRBC Flagged by Analyzer 0 % (0-5); Neutrophil # 3.95 X10^3/uL (2.7-7.7); Platelet Count 302 K/mm3 (150-450); RBC Distribution Width CV 13.5 % (11.6-14.6); RBC Distribution Width SD 44.3 fl (35.1-43.9); Red Blood Count 4.57 M/mm3 (4.2-5.4); White Blood Count 7.6 K/mm3 (4.4-11.0)
[2022-09-02 12:57] LABS: Erythrocyte Sedimentation Rate 1 mm/hr (0-30)
[2022-09-02 13:08] LABS: Microalbumin:Creatinine Ratio 11.6 mg/g CRE (<30 mg/g CRE)
[2022-09-02 13:39] LABS: Vitamin D,25 Hydroxy 32.9 ng/mL
[2022-09-02 14:13] LABS: ALB/GLOB Ratio 1.4 RATIO (0.9-2.4); AST(SGOT) 21 U/L (15-37); Alanine Aminotransfer ALT/SGPT 29 U/L (13-56); Albumin, Serum 3.9 g/dL (3.2-5.0); Alkaline Phosphatase 38 U/L (45-117); Anion Gap 7 (5-15); BUN 21 mg/dL (7-18); BUN/Creat Ratio 23.4 RATIO (10-20); CRP < 2.90 mg/L (0.0-3.0); Calcium,Total 8.9 mg/dL (8.5-10.1); Chloride 105 mmol/L (98-107); EST Glomerular Filtration Rate 66 mL/min (>60); Est Glom Filt Rate - Afr Amer 80 mL/min (>60); Globulin 2.8 g/dL (2.2-4.2); Glucose 109 mg/dL (74-106); Potassium 3.7 mmol/L (3.5-5.1); Protein, Total 6.7 g/dL (6.4-8.2); Sodium Level 138 mmol/L (136-145); T4 Free Direct 1.16 ng/dL (0.76-1.46); Thyroid Stim Hormone (TSH) 2.24 uIU/mL (0.358-3.74)
== END | disposition home or self-care (01) ==
LOC: MFPLAB 09:59
PROVIDERS: PCP Family Medicine; Visit Provider Family Medicine
DX: M85.80 Other specified disorders of bone density and structure, unspecified site (principal); E03.9 Hypothyroidism, unspecified
CPT/HCPCS: 36415; 80053; 82043; 82306; 82570; 84439; 84443; 85025; 85652; 86140

== ENCOUNTER → 2022-09-25 | Outpatient (CLI) | payer MEDICARE, SELFPAY ==
--- NOTE | 2022-09-25 11:00 | BD_ITS ---
STUDY: DUAL ENERGY X-RAY ABSORPTIOMETRY / DXA REASON FOR EXAM: Female, 72 years old. Z79.52 TECHNIQUE: Bone Mineral Density (BMD) measurements of lumbar spine and bilateral hips were obtained. COMPARISON: Comparison is made with prior study dated November 09, 2020. FINDINGS: Lumbar Spine (L1-L4): g/cm2 (0.865) / T-score (-1.7) / Z-score (0.5) Findings are suggestive of osteopenia with a moderate fracture risk. Left Femur Total: g/cm2 (0.763) / T-score (-1.5) / Z-score (0.1) Left Femoral Neck: g/cm2 (0.655) / T-score (-1.7) / Z-score (0.1) Right Femur Total: g/cm2 (0.751) / T-score (-1.6) / Z-score (0.0) Right Femoral Neck: g/cm2 (0.598) / T-score (-2.3) / Z-score (-0.4) The T-Scores on the most recent prior examination were: Lumbar Spine (L1-L4): There has been improvement of bone density since the previous examination. Left Femur Total: which represents a worsening of 4%. Right Femur Total: which represents an improvement of 3%. BD/Dexa Bone Density Study IMPRESSION: The patient is considered osteopenic as outlined below according to World [employer] Organization (WHO) criteria with a high fracture risk. There has been improvement of bone density since the previous examination. Reference Information: The T-score is the number of standard deviations above or below the standard which is normal for young adults at their peak bone mineral density. The World Health Organization (WHO) interprets the T-scores as follows: Above -1 Normal bone density Between -1 and -2.5 Osteopenia Equal to / or below -2.5 Osteoporosis As a practical clinical guideline, osteopenia may be graded as follows: Mild -1 through -1.5 Moderate -1.6 through -2.0 Severe -2.1 through -2.4 The Z-score is the number of standard deviations above or below age-matched controls. A Z-score of less than -1.5 would be considered abnormal. References: 1. NIH Osteoporosis and Related Bone Diseases www osteo.org 2. International Society for Clinical Densitometry www iscd.org 3. National Osteoporosis Foundation www nof.org Electronically Signed: Ritchie Mittal MD at 11:17 EDT ,
== END | disposition home or self-care (01) ==
LOC: OPBD 10:52
PROVIDERS: PCP Family Medicine; Visit Provider Family Medicine
DX: M85.80 Other specified disorders of bone density and structure, unspecified site (principal); M31.6 Other giant cell arteritis; Z79.52 Long term (current) use of systemic steroids
CPT/HCPCS: 77080

== ENCOUNTER → 2023-04-28 | Outpatient (CLI) | payer MEDICARE, SELFPAY ==
--- NOTE | 2023-04-28 09:53 | BI_ITS ---
MAMMOGRAPHY - BILATERAL SCREENING REASON FOR EXAM: Female, 72 years old. Routine annual screening examination. PERTINENT HISTORY: Mother with breast cancer. Aunt with breast cancer. TECHNIQUE: Digital bilateral breast chavo (3D mammographic acquisition) in the CC and MLO projections. 2-D mediolateral oblique (MLO) and craniocaudad (CC) views of both breasts were obtained. CAD: Full Field Digital Mammography with Computer Added Detection was performed. COMPARISON: Comparison is made with prior study April 18, 2022 and April 12, 2020 FINDINGS: Breast Composition: The breasts are almost entirely fatty. There are no dominant masses or suspicious calcifications. Stable small benign-appearing bilateral axillary lymph nodes. No other significant abnormalities are identified. There has been no significant change since the prior study. BI/SCRN MAMM (CAD)W/CHAVO BILAT IMPRESSION: Stable bilateral screening mammogram. Yearly follow-up mammogram recommended. (A) ASSESSMENT CATEGORY: BIRADS Category 2: Benign. A letter regarding these results will be sent to the patient by the facility within 30 days. Approximately 10% of breast cancers are not detected by mammography. A normal mammogram should not delay biopsy of a clinically suspicious abnormality. [id number] Electronically Signed: Ritchie Mittal MD at 12:49 EDT ,
== END | disposition home or self-care (01) ==
LOC: OPBI 09:52
PROVIDERS: PCP Family Medicine; Referring Provider Family Medicine; Visit Provider Family Medicine
DX: Z12.31 Encounter for screening mammogram for malignant neoplasm of breast (principal); Z80.3 Family history of malignant neoplasm of breast
CPT/HCPCS: 77063; 77067

== ENCOUNTER → 2023-11-12 | Outpatient (CLI) | payer MEDICARE, SELFPAY ==
--- NOTE | 2023-11-12 09:20 | BD_ITS ---
STUDY: DUAL ENERGY X-RAY ABSORPTIOMETRY / DXA REASON FOR EXAM: Female, 73 years old. M85.89 TECHNIQUE: Bone Mineral Density (BMD) measurements of lumbar spine and bilateral hips were obtained. COMPARISON: Comparison is made with prior study September 25, 2022. FINDINGS: Lumbar Spine (L1-L4): g/cm2 (0.873) / T-score (-1.6) / Z-score (0.7) Findings are suggestive of osteopenia with a moderate fracture risk. Left Femur Total: g/cm2 (0.756) / T-score (-1.5) / Z-score (0.1) Left Femoral Neck: g/cm2 (0.686) / T-score (-1.5) / Z-score (0.5) Right Femur Total: g/cm2 (0.771) / T-score (-1.4) / Z-score (0.2) Right Femoral Neck: g/cm2 (0.632) / T-score (-2.0) / Z-score (0.0) The T-Scores on the most recent prior examination were: Lumbar Spine (L1-L4): There has been improvement of bone density since the previous examination. Left Femur Total: which represents a worsening of 0.9%. Right Femur Total: which represents an improvement of 2.6%. BD/Dexa Bone Density Study IMPRESSION: The patient is considered osteopenic as outlined below according to World [employer] Organization (WHO) criteria with a moderate fracture risk. There has been improvement of bone density since the previous examination. Reference Information: The T-score is the number of standard deviations above or below the standard which is normal for young adults at their peak bone mineral density. The World Health Organization (WHO) interprets the T-scores as follows: Above -1 Normal bone density Between -1 and -2.5 Osteopenia Equal to / or below -2.5 Osteoporosis As a practical clinical guideline, osteopenia may be graded as follows: Mild -1 through -1.5 Moderate -1.6 through -2.0 Severe -2.1 through -2.4 The Z-score is the number of standard deviations above or below age-matched controls. A Z-score of less than -1.5 would be considered abnormal. References: 1. NIH Osteoporosis and Related Bone Diseases www osteo.org 2. International Society for Clinical Densitometry www iscd.org 3. National Osteoporosis Foundation www nof.org Electronically Signed: Ritchie Mittal MD at 9:46 EDT ,
== END | disposition home or self-care (01) ==
PROVIDERS: PCP Family Medicine; Referring Provider Internal Medicine Rheumatology; Visit Provider Internal Medicine Rheumatology
DX: M85.80 Other specified disorders of bone density and structure, unspecified site (principal); T38.0X5A Adverse effect of glucocorticoids and synthetic analogues, initial encounter
CPT/HCPCS: 77080

== ENCOUNTER → 2023-11-28 | Outpatient (CLI) | payer MEDICARE, SELFPAY ==
[2023-11-28 11:15] LABS: ALB/GLOB Ratio 1.3 RATIO (0.9-2.4); AST(SGOT) 32 U/L (15-37); Alanine Aminotransfer ALT/SGPT 35 U/L (13-56); Albumin, Serum 4.1 g/dL (3.2-5.0); Alkaline Phosphatase 34 U/L (45-117); Anion Gap 5 (5-15); BUN 21 mg/dL (7-18); BUN/Creat Ratio 23.9 RATIO (10-20); Calcium,Total 8.9 mg/dL (8.5-10.1); Chloride 104 mmol/L (98-107); Cholesterol 165 mg/dL (200); Creatinine, Serum 0.88 mg/dL (0.55-1.02); EST Glomerular Filtration Rate 67 mL/min (>60); Est Glom Filt Rate - Afr Amer 81 mL/min (>60); Globulin 3.1 g/dL (2.2-4.2); Glucose 104 mg/dL (74-106); High Density Lipoprotein 45 mg/dL; Potassium 4.3 mmol/L (3.5-5.1); Protein, Total 7.2 g/dL (6.4-8.2); Sodium Level 137 mmol/L (136-145); Thyroid Stim Hormone (TSH) 2.68 uIU/mL (0.358-3.74); Triglycerides 137 mg/dL; Very Low Density Lipoprotein 27 mg/dL (5-40)
[2023-11-28 11:53] LABS: Vitamin D,25 Hydroxy 42.7 ng/mL
[2023-11-28 12:06] LABS: Microalbumin,Random Urine < 5.0 mg/L (NO RANGE EST.)
[2023-11-28 12:30] LABS: Hemoglobin A1c 5.7 % (3.8-5.6)
== END | disposition home or self-care (01) ==
LOC: MFPLAB 08:35
PROVIDERS: PCP Family Medicine; Visit Provider Family Medicine
DX: M85.80 Other specified disorders of bone density and structure, unspecified site (principal); E78.1 Pure hyperglyceridemia; Z79.899 Other long term (current) drug therapy
CPT/HCPCS: 36415; 80053; 80061; 82043; 82306; 82570; 83036; 84443

== ENCOUNTER → 2024-05-24 | Outpatient (CLI) | payer MEDICARE, SELFPAY ==
[2024-05-24 10:35] LABS: Erythrocyte Sedimentation Rate < 1 mm/hr (0-30)
[2024-05-24 11:14] LABS: Microalbumin,Random Urine < 5.0 mg/L (NO RANGE EST.)
[2024-05-24 11:47] LABS: Anion Gap 9 (5-15); BUN 17 mg/dL (7-18); BUN/Creat Ratio 19.7 RATIO (10-20); CRP < 2.90 mg/L (0.0-3.0); Calcium,Total 9.1 mg/dL (8.5-10.1); Chloride 106 mmol/L (98-107); Creatinine, Serum 0.86 mg/dL (0.55-1.02); EST Glomerular Filtration Rate 69 mL/min (>60); Est Glom Filt Rate - Afr Amer 83 mL/min (>60); Glucose 101 mg/dL (74-106); Potassium 4.1 mmol/L (3.5-5.1); Sodium Level 138 mmol/L (136-145)
== END | disposition home or self-care (01) ==
LOC: MFPLAB 08:49
PROVIDERS: PCP Family Medicine; Visit Provider Family Medicine
DX: E03.9 Hypothyroidism, unspecified (principal); M31.6 Other giant cell arteritis; I10 Essential (primary) hypertension
CPT/HCPCS: 36415; 80048; 82043; 82570; 84443; 85652; 86140

== ENCOUNTER → 2024-07-01 | Outpatient (CLI) | payer MEDICARE, SELFPAY ==
--- NOTE | 2024-07-01 09:35 | BI_ITS ---
MAMMOGRAPHY - BILATERAL SCREENING 3-D TOMOSYNTHESIS REASON FOR EXAM: Female, 73 years old. Routine screening PERTINENT HISTORY: No significant family history. TECHNIQUE: 2-D mammograms and 3-D Tomosynthesis of the breast (s) were performed. CAD was performed. COMPARISON: 04/28/2023 FINDINGS: The breast composition is almost entirely fat. Scattered benign calcifications are seen. No dense spiculated masses or suspicious microcalcifications are identified. No architectural distortion is identified. There is no skin thickening or retraction. There has been no significant change since the prior study. BI/SCRN MAMM (CAD)W/CHAVO BILAT IMPRESSION: No mammographic signs of malignancy. Routine yearly mammograms recommended. ASSESSMENT CATEGORY: BIRADS Category 1: Negative. A letter regarding these results will be sent to the patient by the facility within 30 days. FOLLOW UP RECOMMENDATION: Yearly follow up mammogram recommended. (A) Approximately 10% of breast cancers are not detected by mammography. A normal mammogram should not delay biopsy of a clinically suspicious abnormality. Electronically Signed: Campbell Sánchez MD at 11:15 EST ,
== END | disposition home or self-care (01) ==
LOC: OPBI 09:35
PROVIDERS: PCP Family Medicine; Referring Provider Family Medicine; Visit Provider Family Medicine
DX: Z12.31 Encounter for screening mammogram for malignant neoplasm of breast (principal)
CPT/HCPCS: 77063; 77067

== ENCOUNTER → 2024-12-17 | Outpatient (CLI) | payer MEDICARE, SELFPAY ==
--- OUTSIDE RECORDS SUMMARY | 2024-12-17 09:20 | XMS RPT_ITS | CCD ---
Author Organization [facility] Care Team Providers Care Launch Check Out Name Role Phone Dr. Berenice Tidwell Primary Care Provider [phone] Berenice Tidwell Referring Provider Dr. Lyle Tran Attending Provider Pcp, No Primary Care Provider Alyssa Fernandez MD Unavailable Dr. Lyle Tran Referring Provider Dr. Lyle Tran Other Provider Berenice Tidwell MD Primary Care Provider [phone] Dr. Berenice Tidwell Primary Care Provider [phone] Berenice Tidwell Referring Provider Dr. Lyle Tran Attending Provider Dr. Lyle Tran Referring Provider Dr. Lyle Tran Other Provider Dr. Gianni Goodman Attending Provider Alyssa Riggs MD Unavailable Berenice Tidwell MD Primary Care Provider Berenice Tidwell MD Primary Care Provider [phone] Berenice Tidwell MD Primary Care Provider [phone] Berenice Tidwell MD Primary Care Provider Dr. Berenice Tidwell MD Primary Care Provider Dr. Berenice Tidwell MD Attending Provider [phone] Berenice Tidwell MD Referring Provider [phone] Sandhu Forte, Feli Referring Unavailab le Tidwell, Berneice Primary Care Unavailable Sandhu Imamnuele, Feli Attending Unavailab le Tidwell, Berenice Primary Care Unavailable Tidwell, Berenice Attending Unavailable Tidwell, Berenice Primary Care Unavailable Tidwell, Berenice Attending Unavailable Tidwell, Berenice Attending Unavailable Tidwell, Berenice Referring Unavailable Tidwell, Berenice Primary Care Unavailable SANDHU FORTE, FELI Referring Unavailab le TIDWELL, BERENICE A Primary Care Unavailable SANDHU FORTE, FELI Referring Unavailab le TIDWELL, BERENICE A Primary Care Unavailable SANDHU FORTE, FELI Attending Unavailab le TIDWELL, BERENICE A Primary Care Unavailable SANDHU FORTE, FELI Referring Unavailab le TIDWELL, BERENICE A Primary Care Unavailable SANDHU FORTE, FELI Referring Unavailab le TIDWELL, BERENICE A Primary Care Unavailable SANDHU FORTE, FELI Referring Unavailab le TIDWELL, BERENICE A Primary Care Unavailable Allergies Allergy Classification Reported Allergen(s) Allergy Type Date of Onset Reaction(s) Facility Adrenergic Agonists (2 sources) Pseudoephedrine Drug Allergy 5 [facility] (20 sources) Pseudoephedrine; Translations: [PSEUDOEPHEDRINE HCL] Drug Allergy 5 [facility] (7 sources) Pseudoephedrine Drug Allergy 2 Other [facility] Comment on above: anxiety (1 source) Pseudoephedrine Drug Allergy 2 [facility] Repository Medications Current Medications Medication Drug Class(es) Dates Sig (Normalized) Sig (Original) alendronic acid 70 mg oral tablet (20 sources) Bisphosphonate Start: 07-07-2024 alendronate (FOSAMAX) 70 mg tablet Indications: Steroid-induced osteopenia TAKE 1 TABLET BY MOUTH WEEKLY IN THE MORNING WITH FULL GLASS OF WATER ON EMPTY STOMACH. NOTHING ELSE FOR 1/2 HOUR AND STAY UPRIGHT FOR 60 MINUTES 12 tablet 1 07/07/2024 Active Start: 05-08-2023 End: 03-26-2024 alendronate (FOSAMAX) 70 mg tablet Indications: Steroid-induced osteopenia TAKE 1 TABLET BY MOUTH ONCE A WEEK IN THE MORNING WITH FULL GLASS OF WATER ON EMPTY STOMACH. NOTHING ELSE BY MOUTH FOR 30 MIN AND STAY UPRIGHT FOR 60 MIN. 12 tablet 1 03/26/2024 Active Start: 09-07-2023 alendronate (F OSAMAX) 70 mg tablet Indications: Steroid- induced osteopenia Take 1 tablet by mouth one time a week. In AM with full glass of water on empty stomach. Nothing else by mouth for 30 min and stay upright for 60 min. 12 tablet 0 03/06/2023 Active Comment on above: Take 1 tablet by margaret one time a week. In AM with full glass of water on empty stomach. Nothing else by mouth for 30 min and stay upright for 60 min. TAKE 1 TABLET BY MARGARET ONCE A WEEK IN THE MORNING WITH FULL GLASS OF WATER ON EMPTY STOMACH. NOTHING ELSE BY MOUTH FOR 30 MIN AND STAY UPRIGHT FOR 60 MIN. aspirin 81 mg delayed release oral tablet (20 sources) Platelet Aggregation Inhibitor, Nonsteroidal Anti-inflammatory Drug Start: 04-11-2022 take 1 tablet by mouth once daily Aspirin (Aspir-81) 81 mg Tablet,Delayed Release (Dr/Ec) Active 81 mg PO DAILY April 11, 2022 12:00am take 1 capsule by mouth once valeriy ly aspirin 81 mg cap Take 81 mg by mouth once daily. Active B1/B2/niacin/B12/protease (B-COMPLEX WITH B-12 ORAL) (20 sources) Start: 12-10-2022 B1/B2/niacin/B 12/protease (B-COMPLEX WITH B-12 ORAL) once daily. 12/10/2022 Active Start: 12-10-2022 B1/B2/niacin/B 12/protease (B-COMPLEX WITH B-12 ORAL) once daily. 0 12/10/2022 Active Comment on above: once daily. Ca-D3-Mag Ic-Joij-Byn-Tito-Bor (Calcium 600-D3 Plus (Mag-Zinc)) 600 mg calcium- 20 mcg-50 mg tablet (8 sources) Start: 04-11-2022 Ca-D3-Mag Ol-Gdms-Uzo-Tito-Bor (Calcium 600-D3 Plus (Mag-Zinc)) 600 mg calcium- 20 mcg-50 mg tablet Active 2 {tbl} PO TWICE A DAY April 11, 2022 12:00am Start: 04-11-2022 take 2 tablets by mo [facility] twice daily Ca-D3-Mag Ml-Evvp-Dsb-Tito-Bor (Calcium 600-D3 Plus (Mag-Zinc)) 600 mg calcium- 20 mcg-50 mg tablet Active 2 TABLET PO TWICE A DAY April 10, 2022 11:00pm Start: 04-11-2022 take 2 tablets by [facility] twice daily Ca-D3-Mag Cx-Hkzm-Epg-Tito-Bor (Calcium 600-D3 Plus (Mag-Zinc)) 600 mg calcium- 20 mcg-50 mg tablet Active 2 TABLET PO TWICE A DAY April 11, 2022 12:00am CALCIUM-VITAMIN D3-MAGNESIUM ORAL (14 sources) CALCIUM-VITAMIN D3-MAGNESIUM ORAL Take by mouth once daily. Active cinnamon bark 500 mg oral capsule (20 sources) Start: take 1 capsule by mouth once daily Cinnamon Bark 500 mg cap Take by mouth once daily. 04/11/2022 Active estrogens, conjugated ([facility]) 0.625 mg/ml vaginal cream (20 sources) Estrogen Start: PREMARIN 0.625 MG/G VAGL CREA 2 times a week 0 03/22/2005 Active Comment on above: 2 times a week famotidine 20 mg oral tablet (20 sources) Histamine-2 Receptor Antagonist Start: End: take 1 tablet by mouth twice daily Famotidine 20 mg tablet Active 20 mg PO TWICE A DAY April 11, 2022 12:00am fenofibrate 145 mg oral tablet (20 sources) Peroxisome Proliferator Receptor alpha Agonist Start: fenofibrate nanocrystallized (TRICOR) 145 mg tablet 04/20/2022 Active FLAXSEED OIL ORAL (14 sources) take 1000 mg by mouth twice daily FLAXSEED OIL ORAL Take 1,000 mg by mouth two times a day. Active levothyroxine sodium 0.088 mg oral tablet (20 sources) l-Thyroxine Start: SYNTHROID 88 mcg tablet 04/20/2022 Active linseed oil 1000 mg oral capsule (8 sources) Start: take 1 capsule by mouth once daily Flaxseed Oil 1,000 mg capsule Active 1000 mg PO DAILY April 11, 2022 12:00am administer with a meal Milk Thistle (20 sources) Start: take 1 tablet by mouth once daily Milk Thistle 175 mg tablet Active 175 mg PO DAILY April 11, 2022 12:00am give with meal/snack Start: 04-11-2022 take 175 mg by mouth once yaima y Milk Thistle Active 175 MG PO DAILY April 10, 2022 11:00pm give with meal/snack Start: 04-11-2022 take 175 mg by mouth once yaima y Milk Thistle Active 175 MG PO DAILY April 11, 2022 12:00am give with meal/snack take 1 tablet by margaret th once daily Milk Thistle 175 mg tab Take 175 mg by mouth once daily. Active ramipril 1.25 mg oral tablet (20 sources) Angiotensin Converting Enzyme Inhibitor Start: 12-10-2022 take 1.25 mg by mouth once daily RAMIPRIL ORAL 1.25 mg once daily. 12/10/2022 Active Comment on above: 1.25 mg once daily. 0.9 ml tocilizumab 180 mg/ml auto-injector (20 sources) Interleukin-6 Receptor Antagonist Start: 07-15-2024 tocilizumab (ACTEMRA ACTPEN) 162 mg/0.9 mL Indications: Giant cell arteritis (HCC) Inject 1 pen (162 mg) under the skin once weekly 3.6 mL 5 11/10/2024 11:27 AM EDT 07/15/2024 Active Start: 02-05-2024 End: 07-13-2024 tocilizumab (ACTEMRA ACTPEN) 162 mg/0.9 mL Indications: Giant cell arteritis (HCC) Inject 1 pen (162 mg) under the skin once weekly 3.6 mL 5 02/05/2024 07/13/2024 Discontinued Start: 08-22-2023 tocilizumab (A CTEMRA ACTPEN) 162 mg/0.9 mL Indications: Giant cell arteritis (HCC) Inject 1 pen (162 mg) under the skin once weekly 3.6 mL 5 08/22/2023 Active Start: 12-12-2022 End: 08-18-2023 tocilizumab (ACTEMRA ACTPEN) 162 mg/0.9 mL Inject 1 pen (162 mg) under the skin once weekly 3.6 mL 5 03/06/2023 08/18/2023 Discontinued Start: 08-22-2022 End: 12-09-2022 tocilizumab (ACTEMRA ACTPEN) 162 mg/0.9 mL Inject 1 pen (162 mg) under the skin once weekly 3.6 mL 3 08/22/2022 12/09/2022 Discontinued Start: 05-02-2022 tocilizumab (A CTEMRA ACTPEN) 162 mg/0.9 mL Inject 1 pen (162 mg) under the skin once weekly 3.6 mL 3 05/02/2022 Active Start: 04-22-2022 inject 162 mg by sub cutaneous injection every week tocilizumab (ACTEMRA) 162 mg/0.9 mL Indications: Giant cell arteritis (HCC) Inject 162mg (1 syringe) subcutaneously one time a week. 3.6 mL 3 04/22/2022 Active Comment on above: Inject 162mg (1 syri nge) subcutaneously one time a week. Inject 1 pen (162 mg ) under the skin once weekly Completed/Discontinued Medications Medication Drug Class(es) Dates Sig (Normalized) Sig (Original) iv contrast (will be provided with radiology test) (1 source) Start: 04-01-2024 End: 04-02-2024 inject 1 dose intravenously once iv contrast (will be provided with radiology test) Indications: Large vessel vasculitis (HCC) MRA Arteries Inject, intravenously, once for 1 dose. No IV access, insert saline lock prior to the beginning of sedation, infusion, injection of imaging exam. Discontinue saline lock post exam. If Pt has a central line or IVAD, may access for administration according to line specific nursing protocol.Once exam is complete flush line and de-access according to line specific nursing protocol in the MR contrast administration guidelines link 1 Each 04/01/2024 04/02/2024 predniSONE 2.5 mg oral tablet (20 sources) Start: 08-22-2022 End: 10-11-2022 take 1 tablet by mouth once daily predniSONE (DELTASONE) 2.5 mg tablet Take 1 tablet by mouth once daily. 60 tablet 0 08/22/2022 10/11/2022 Start: 06-16-2022 End: 03-06-2023 take 2 tablets by mouth once daily predniSONE (DELTASONE) 10 mg tablet TAKE 2 TABLETS BY MOUTH EVERY DAY 60 tablet 0 07/24/2022 03/06/2023 Discontinued Start: 06-16-2022 End: 03-06-2023 take 3 tablets by mouth once daily predniSONE (DELTASONE) 5 mg tablet TAKE 3 TABLETS BY MOUTH EVERY DAY 90 tablet 0 07/24/2022 03/06/2023 Discontinued Start: 04-29-2022 End: 03-06-2023 take 2 tablets by mouth once daily predniSONE (DELTASONE) 20 mg tablet Take 2 tablets by mouth once daily. 60 tablet 2 05/09/2022 03/06/2023 Discontinued Start: 04-29-2022 take 40 mg by mouth once daily Prednisone Active 40 MG PO DAILY April 29, 2022 12:00am Start: 04-18-2022 End: 05-08-2022 predniSONE (DELTASONE) 20 mg tablet Start: 04-11-2022 End: 04-29-2022 take 4 tablets by mouth once daily Prednisone 20 mg tablet Discontinued 80 mg PO DAILY April 11, 2022 12:00am April 29, 2022 9:08am Start: 04-11-2022 End: 04-29-2022 take 80 mg by mouth once daily Prednisone Discontinued 80 MG PO DAILY April 11, 2022 12:00am April 29, 2022 9:08am Comment on above: Take 2 tablets by mo uth once daily. Take 3 tablets by mo uth once daily. TAKE 2 TABLETS BY MO UTH EVERY DAY TAKE 3 TABLETS BY MO UTH EVERY DAY Take 1 tablet by margaret th once daily. Problems Active Problems Problem Classification Problem Date Documented Da te Episodic/Chronic Blindness and vision defects (12 sources) Visual alteration; Translations: [Unspecified visual loss] 04-13-2022 Chronic Headache; including migraine (14 sources) Temporal headache; Translations: [Temporal headache] Episodic Menopausal disorders (1 source) Menopausal and postmenopausal disorders; Translations: [Other specified menopausal and perimenopausal disorders] Chronic Other aftercare (1 source) Long-term current use of systemic steroid; Translations: [intermediate (current) use of systemic steroids] Episodic Other bone disease and musculoskeletal deformities (3 sources) Steroid-induced osteopenia; Translations: [Other specified disorders of bone density and structure, unspecified site] 03-06-2023 Episodic Other bone disease and musculoskeletal deformities (1 source) Other specified disorders of bone density and structure, unspecified site; Translations: [Other specified disorders of bone density and structure, unspecified site] Onset: 10-04-2024 Episodic Other circulatory disease (2 sources) Vasculitis 11-23-2024 Chronic Other screening for suspected conditions (not mental disorders or infectious disease) (2 sources) Patient encounter status; Translations: [Encounter for screening for osteoporosis] Onset: 07-24-2024 Episodic Systemic lupus erythematosus and connective tissue disorders (20 sources) Temporal arteritis; Translations: [Other giant cell arteritis] Onset: 01-02-2024 Chronic Thyroid disorders (1 source) Hypothyroidism, unspecified; Translations: [Hypothyroidism, unspecified] Onset: 06-21-2024 Chronic Thyroid disorders (8 sources) Disorder of thyroid gland; Translations: [Disorder of thyroid, unspecified] 04-11-2022 Episodic Past or Other Problems Problem Classification Problem Date Documented Da te Episodic/Chronic Melanomas of skin (20 sources) History of malignant melanoma of the skin; Translations: [Personal history of malignant melanoma of skin] Onset: 09-29-2006 09-29-2006 Episodic Results Test Name Value Interpretation Reference Range Facility MRA ABDOMEN WO/W IVCONon MRA ABDOMEN WO/W IVCON * * *Final Report * * * DATE OF EXAM: Nov 23 2024 12:48PM [facility] 0673 - MRA ABDOMEN WO/W IVCON / PROCEDURE REASON: Large vessel vasculitis (HCC) * * * * Physician Interpretation * * * * Cardiac MRI Report: [facility] Date of service: 11/23/2024 12:25:14 PM Linked orders:[id number] CHEST W IVCON;[id number] ABDOMEN WO/W IVCON. Ordering physician: FELI GAMBOA Technologist: PATRICIO ANDERSON Fellow: Ezequiel Francois MD Interpreting physician: Jez Koch MD PATIENT: Name: MRS. ANDREEA MONTES Age: 74 years Gender: F MRI Scanner: Siemens Tianna 1.5T 74-year-old female with history of giant cell arteritis. This study is performed to assess thoracic aortic anatomy, with a clinical need to assess aortic/large vessel wall thickening, stenosis, and/or aneurysmal change. MRI Techniques: * Turbo spin echo and gradient echo imaging for anatomic definition. * Dynamic cine imaging (SSFP and GRE) for cardiac chamber and wall-motion analysis, and valvular analysis. * Contrast-enhanced volume sets acquired for three-dimensional MRA reconstructions after injection of gadolinium-chelate. Gadolinium Agent: 9 cc of Gadavist was administered. Height: 158.00 cm BSA: 1.64 m? Weight: 61.00 kg BMI: 24.4 kg/m? FINDINGS: Extracardiac findings: The chest wall appears normal. The mediastinum is normal. No significant adenopathy is identified. Limited imaging of the lungs reveals no gross abnormalities. Cardiac structures: The cardiac chambers demonstrate normal atrioventricular and normal ventriculoarterial concordance. Systemic and pulmonary venous return is normal. Aorta: Mid ascendin.4 cm Mid arch: 2.7 cm Proximal descending isthmus: 2.7 cm Descending mid thoracic: 2.4 cm Distal descending diaphragmatic level: 2.3 cm Mesenteric: 2.2 cm Renal: 1.7 cm Inferior renal: 1.6 cm Symmetric aortic root. Acute Aortic Pathology: no Sinotubular Junction: Preserved Wall thickening: None Arch: Left Arch vessel branching pattern: separate left vertebral artery Arch branch vessels: Widely patent Celiac axis: Widely patent SMA: Widely patent Renal arteries: Widely patent Common Iliac Arteries: Widely patent Normal caliber of aorta and branch arteries. No significant narrowings or dilation identified. No definitive wall thickening seen. Pulmonary Arteries: Pulmonary Arteries: Normal Limited imaging of the abdomen reveals no gross abnormalities. IMPRESSION: Normal thoracoabdominal aorta course, caliber and contour. The arch, abdominal visceral branch vessels and iliac arteries appear unremarkable. There is no definitive wall thickening, irregularities or stenoses identified. There is no acute aortic pathology. * * * Final * * * RP Podiatric Technician: GINA Transcribe Date/Time: Nov 23 2024 12:25P Dictated by : JEZ KOCH MD This examination was interpreted and the report reviewed and electronically signed by: JEZ KOCH MD on Nov 23 2024 3:25PM EST [id number] Normal [facility] MRA Abdominal vessels WO and W contrast Alverto 11-23-2024 * * *Final Report* * * DATE OF EXAM: Nov 23 2024 12:48PM [facility] 0673 - MRA ABDOMEN WO/W IVCON / PROCEDURE REASON: Large vessel vasculitis (HCC) * * * * Physician Interpretation * * * * Cardiac MRI Report: [facility] Date of service: 11/23/2024 12:25:14 PM Linked orders:[id number] CHEST W IVCON;[id number] ABDOMEN WO/W IVCON. Ordering physician: FELI GAMBOA Technologist: PATRICIO ANDERSON Fellow: Ezequiel Francois MD Interpreting physician: Jez Koch MD PATIENT: Name: MRS. ANDREEA MONTES Age: 74 years Gender: F MRI Scanner: Siemens Tianna 1.5T 74-year-old female with history of giant cell arteritis. This study is performed to assess thoracic aortic anatomy, with a clinical need to assess aortic/large vessel wall thickening, stenosis, and/or aneurysmal change. MRI Techniques: * Turbo spin echo and gradient echo imaging for anatomic definition. * Dynamic cine imaging (SSFP and GRE) for cardiac chamber and wall-motion analysis, and valvular analysis. * Contrast-enhanced volume sets acquired for three-dimensional MRA reconstructions after injection of gadolinium-chelate. Gadolinium Agent: 9 cc of Gadavist was administered. Height: 158.00 cm BSA: 1.64 m Weight: 61.00 kg BMI: 24.4 kg/m FINDINGS: Extracardiac findings: The chest wall appears normal. The mediastinum is normal. No significant adenopathy is identified. Limited imaging of the lungs reveals no gross abnormalities. Cardiac structures: The cardiac chambers demonstrate normal atrioventricular and normal ventriculoarterial concordance. Systemic and pulmonary venous return is normal. Aorta: Mid ascendin.4 cm Mid arch: 2.7 cm Proximal descending isthmus: 2.7 cm Descending mid thoracic: 2.4 cm Distal descending diaphragmatic level: 2.3 cm Mesenteric: 2.2 cm Renal: 1.7 cm Inferior renal: 1.6 cm Symmetric aortic root. Acute Aortic Pathology: no Sinotubular Junction: Preserved Wall thickening: None Arch: Left Arch vessel branching pattern: separate left vertebral artery Arch branch vessels: Widely patent Celiac axis: Widely patent SMA: Widely patent Renal arteries: Widely patent Common Iliac Arteries: Widely patent Normal caliber of aorta and branch arteries. No significant narrowings or dilation identified. No definitive wall thickening seen. Pulmonary Arteries: Pulmonary Arteries: Normal Limited imaging of the abdomen reveals no gross abnormalities. DIVISION OF RADIOLOGY Provider, [facility] - 11/23/2024 * * *Final Report* * * DATE OF EXAM: Nov 23 2024 12:48PM [facility] 0673 - MRA ABDOMEN WO/W IVCON / PROCEDURE REASON: Large vessel vasculitis (HCC) * * * * Physician Interpretation * * * * Cardiac MRI Report: [facility] [place] Date of service: 11/23/2024 12:25:14 PM Linked orders:[id number] CHEST W IVCON;[id number] ABDOMEN WO/W IVCON. Ordering physician: FELI GAMBOA Technologist: PATRICIO ANDERSON Fellow: Ezequiel Francois MD Interpreting physician: Jez Koch MD PATIENT: Name: MRS. ANDREEA MONTES Age: 74 years Gender: F MRI Scanner: Siemens Tianna 1.5T 74-year-old female with history of giant cell arteritis. This study is performed to assess thoracic aortic anatomy, with a clinical need to assess aortic/large vessel wall thickening, stenosis, and/or aneurysmal change. MRI Techniques: * Turbo spin echo and gradient echo imaging for anatomic definition. * Dynamic cine imaging (SSFP and GRE) for cardiac chamber and wall-motion analysis, and valvular analysis. * Contrast-enhanced volume sets acquired for three-dimensional MRA reconstructions after injection of gadolinium-chelate. Gadolinium Agent: 9 cc of Gadavist was administered. Height: 158.00 cm BSA: 1.64 m Weight: 61.00 kg BMI: 24.4 kg/m FINDINGS: Extracardiac findings: The chest wall appears normal. The mediastinum is normal. No significant adenopathy is identified. Limited imaging of the lungs reveals no gross abnormalities. Cardiac structures: The cardiac chambers demonstrate normal atrioventricular and normal ventriculoarterial concordance. Systemic and pulmonary venous return is normal. Aorta: Mid ascendin.4 cm Mid arch: 2.7 cm Proximal descending isthmus: 2.7 cm Descending mid thoracic: 2.4 cm Distal descending diaphragmatic level: 2.3 cm Mesenteric: 2.2 cm Renal: 1.7 cm Inferior renal: 1.6 cm Symmetric aortic root. Acute Aortic Pathology: no Sinotubular Junction: Preserved Wall thickening: None Arch: Left Arch vessel branching pattern: separate left vertebral artery Arch branch vessels: Widely patent Celiac axis: Widely patent SMA: Widely patent Renal arteries: Widely patent Common Iliac Arteries: Widely patent Normal caliber of aorta and branch arteries. No significant narrowings or dilation identified. No definitive wall thickening seen. Pulmonary Arteries: Pulmonary Arteries: Normal Limited imaging of the abdomen reveals no gross abnormalities. IMPRESSION IMPRESSION: Normal thoracoabdominal aorta course, caliber and contour. The arch, abdominal visceral branch vessels and iliac arteries appear unremarkable. There is no definitive wall thickening, irregularities or stenoses identified. There is no acute aortic pathology. * * * Final * * * RP Podiatric Technician: GINA Transcribe Date/Time: Nov 23 2024 12:25P Dictated by : JEZ KOCH MD This examination was interpreted and the report reviewed and electronically signed by: JEZ KOCH MD on Nov 23 2024 3:25PM [facility] MRA CAROTID WO IVCONon 11-23 MRA CAROTID WO IVCON * * *Final Report* * * DATE OF EXAM: Nov 23 2024 12:29PM [id number] - MRA CAROTID WO IVCON / PROCEDURE REASON: Large vessel vasculitis (HCC) * * * * Physician Interpretation * * * * EXAMINATION: MRA CAROTID WO IVCON CLINICAL HISTORY: Large vessel vasculitis TECHNIQUE: Extracranial 3D sify-wc-dwupji MRA with post-processing performed at the modality and 2D multiplanar and 3D maximum intensity projections were created, reviewed and archived. Axial T2 fat sat sequence through the neck was also obtained. MQ: [id number] COMPARISON: None. RESULT: EXTRACRANIAL MRA: Conventional branching pattern is super aortic great vessels seen on T2-weighted sequence Carotid Stenosis: Right Common: No significant stenosis. Right Internal Plaque: No significant plaque formation. Right Internal Carotid Stenosis (% by NASCET Criteria): 0% Left Common: No significant stenosis. Left Internal Carotid Plaque: No significant plaque formation. Left Internal Carotid Stenosis (% by NASCET Criteria): 0% Cervical Vertebral Arteries: Patency: Bilateral Dominance: Codominant There is a small subcentimeter T2 hyperintense nodule of the thyroid isthmus. Soft tissues of the neck are otherwise grossly unremarkable. IMPRESSION: Bilateral carotid and vertebral vessels in the neck are patent without hemodynamically significant stenosis Podiatric Technician: PSCB Transcribe Date/Time: Nov 23 2024 1:02P Dictated by : RAJESH MERCHANT MD This examination was interpreted and the report reviewed and electronically signed by: RAJESH MERCHANT MD on Nov 23 2024 1:27PM EST [id number] Normal [facility] MRA CHEST W IVCONon 11-24-19 25 MRA CHEST W IVCON * * *Final Report* * * DATE OF EXAM: Nov 23 2024 12:48PM [facility] [id number] - MRA CHEST W IVCON / PROCEDURE REASON: Large vessel vasculitis (HCC) * * * * Physician Interpretation * * * * Cardiac MRI Report: [facility] Date of service: 11/23/2024 12:25:14 PM Linked orders:[id number] CHEST W IVCON;[id number] ABDOMEN WO/W IVCON. Ordering physician: FELI GAMBOA Technologist: PATRICIO ANDERSON Fellow: Ezequiel Francois MD Interpreting physician: Jez Koch MD PATIENT: Name: MRS. ANDREEA MONTES Age: 74 years Gender: F MRI Scanner: Siemens Tianna 1.5T 74-year-old female with history of giant cell arteritis. This study is performed to assess thoracic aortic anatomy, with a clinical need to assess aortic/large vessel wall thickening, stenosis, and/or aneurysmal change. MRI Techniques: * Turbo spin echo and gradient echo imaging for anatomic definition. * Dynamic cine imaging (SSFP and GRE) for cardiac chamber and wall-motion analysis, and valvular analysis. * Contrast-enhanced volume sets acquired for three-dimensional MRA reconstructions after injection of gadolinium-chelate. Gadolinium Agent: 9 cc of Gadavist was administered. Height: 158.00 cm BSA: 1.64 m? Weight: 61.00 kg BMI: 24.4 kg/m? FINDINGS: Extracardiac findings: The chest wall appears normal. The mediastinum is normal. No significant adenopathy is identified. Limited imaging of the lungs reveals no gross abnormalities. Cardiac structures: The cardiac chambers demonstrate normal atrioventricular and normal ventriculoarterial concordance. Systemic and pulmonary venous return is normal. Aorta: Mid ascendin.4 cm Mid arch: 2.7 cm Proximal descending isthmus: 2.7 cm Descending mid thoracic: 2.4 cm Distal descending diaphragmatic level: 2.3 cm Mesenteric: 2.2 cm Renal: 1.7 cm Inferior renal: 1.6 cm Symmetric aortic root. Acute Aortic Pathology: no Sinotubular Junction: Preserved Wall thickening: None Arch: Left Arch vessel branching pattern: separate left vertebral artery Arch branch vessels: Widely patent Celiac axis: Widely patent SMA: Widely patent Renal arteries: Widely patent Common Iliac Arteries: Widely patent Normal caliber of aorta and branch arteries. No significant narrowings or dilation identified. No definitive wall thickening seen. Pulmonary Arteries: Pulmonary Arteries: Normal Limited imaging of the abdomen reveals no gross abnormalities. IMPRESSION: Normal thoracoabdominal aorta course, caliber and contour. The arch, abdominal visceral branch vessels and iliac arteries appear unremarkable. There is no definitive wall thickening, irregularities or stenoses identified. There is no acute aortic pathology. * * * Final * * * RP Podiatric Technician: Startist Transcribe Date/Time: Nov 23 2024 12:25P Dictated by : JEZ KOCH MD This examination was interpreted and the report reviewed and electronically signed by: JEZ KOCH MD on Nov 23 2024 3:25PM EST [id number] Normal [facility] MRA Chest vessels W contrast Alverto 11-23-2024 * * *Final Report* * * DATE OF EXAM: Nov 23 2024 12:48PM [facility] 0674 - MRA CHEST W IVCON / PROCEDURE REASON: Large vessel vasculitis (HCC) * * * * Physician Interpretation * * * * Cardiac MRI Report: [facility] Date of service: 11/23/2024 12:25:14 PM Linked orders:[id number] CHEST W IVCON;[id number] ABDOMEN WO/W IVCON. Ordering physician: FELI GAMBOA Technologist: PATRICIO ANDERSON Fellow: Ezequiel Francois MD Interpreting physician: Jez Koch MD PATIENT: Name: MRS. ANDREEA MONTES Age: 74 years Gender: F MRI Scanner: Siemens Tianna 1.5T 74-year-old female with history of giant cell arteritis. This study is performed to assess thoracic aortic anatomy, with a clinical need to assess aortic/large vessel wall thickening, stenosis, and/or aneurysmal change. MRI Techniques: * Turbo spin echo and gradient echo imaging for anatomic definition. * Dynamic cine imaging (SSFP and GRE) for cardiac chamber and wall-motion analysis, and valvular analysis. * Contrast-enhanced volume sets acquired for three-dimensional MRA reconstructions after injection of gadolinium-chelate. Gadolinium Agent: 9 cc of Gadavist was administered. Height: 158.00 cm BSA: 1.64 m Weight: 61.00 kg BMI: 24.4 kg/m FINDINGS: Extracardiac findings: The chest wall appears normal. The mediastinum is normal. No significant adenopathy is identified. Limited imaging of the lungs reveals no gross abnormalities. Cardiac structures: The cardiac chambers demonstrate normal atrioventricular and normal ventriculoarterial concordance. Systemic and pulmonary venous return is normal. Aorta: Mid ascendin.4 cm Mid arch: 2.7 cm Proximal descending isthmus: 2.7 cm Descending mid thoracic: 2.4 cm Distal descending diaphragmatic level: 2.3 cm Mesenteric: 2.2 cm Renal: 1.7 cm Inferior renal: 1.6 cm Symmetric aortic root. Acute Aortic Pathology: no Sinotubular Junction: Preserved Wall thickening: None Arch: Left Arch vessel branching pattern: separate left vertebral artery Arch branch vessels: Widely patent Celiac axis: Widely patent SMA: Widely patent Renal arteries: Widely patent Common Iliac Arteries: Widely patent Normal caliber of aorta and branch arteries. No significant narrowings or dilation identified. No definitive wall thickening seen. Pulmonary Arteries: Pulmonary Arteries: Normal Limited imaging of the abdomen reveals no gross abnormalities. DIVISION OF RADIOLOGY Provider, [facility] - 11/23/2024 * * *Final Report* * * DATE OF EXAM: Nov 23 2024 12:48PM [facility] 0674 - MRA CHEST W IVCON / PROCEDURE REASON: Large vessel vasculitis (HCC) * * * * Physician Interpretation * * * * Cardiac MRI Report: [facility] [place] Date of service: 11/23/2024 12:25:14 PM Linked orders:[id number] CHEST W IVCON;[id number] ABDOMEN WO/W IVCON. Ordering physician: FELI GAMBOA Technologist: PATRICIO ANDERSON Fellow: Ezequiel Francois MD Interpreting physician: Jez Koch MD PATIENT: Name: MRS. ANDREEA MONTES Age: 74 years Gender: F MRI Scanner: Siemens Tianna 1.5T 74-year-old female with history of giant cell arteritis. This study is performed to assess thoracic aortic anatomy, with a clinical need to assess aortic/large vessel wall thickening, stenosis, and/or aneurysmal change. MRI Techniques: * Turbo spin echo and gradient echo imaging for anatomic definition. * Dynamic cine imaging (SSFP and GRE) for cardiac chamber and wall-motion analysis, and valvular analysis. * Contrast-enhanced volume sets acquired for three-dimensional MRA reconstructions after injection of gadolinium-chelate. Gadolinium Agent: 9 cc of Gadavist was administered. Height: 158.00 cm BSA: 1.64 m Weight: 61.00 kg BMI: 24.4 kg/m FINDINGS: Extracardiac findings: The chest wall appears normal. The mediastinum is normal. No significant adenopathy is identified. Limited imaging of the lungs reveals no gross abnormalities. Cardiac structures: The cardiac chambers demonstrate normal atrioventricular and normal ventriculoarterial concordance. Systemic and pulmonary venous return is normal. Aorta: Mid ascendin.4 cm Mid arch: 2.7 cm Proximal descending isthmus: 2.7 cm Descending mid thoracic: 2.4 cm Distal descending diaphragmatic level: 2.3 cm Mesenteric: 2.2 cm Renal: 1.7 cm Inferior renal: 1.6 cm Symmetric aortic root. Acute Aortic Pathology: no Sinotubular Junction: Preserved Wall thickening: None Arch: Left Arch vessel branching pattern: separate left vertebral artery Arch branch vessels: Widely patent Celiac axis: Widely patent SMA: Widely patent Renal arteries: Widely patent Common Iliac Arteries: Widely patent Normal caliber of aorta and branch arteries. No significant narrowings or dilation identified. No definitive wall thickening seen. Pulmonary Arteries: Pulmonary Arteries: Normal Limited imaging of the abdomen reveals no gross abnormalities. IMPRESSION IMPRESSION: Normal thoracoabdominal aorta course, caliber and contour. The arch, abdominal visceral branch vessels and iliac arteries appear unremarkable. There is no definitive wall thickening, irregularities or stenoses identified. There is no acute aortic pathology. * * * Final * * * RP Podiatric Technician: GINA Transcribe Date/Time: Nov 23 2024 12:25P Dictated by : JEZ KOCH MD This examination was interpreted and the report reviewed and electronically signed by: JEZ KOCH MD on Nov 23 2024 3:25PM EST [facility] MRA Neck vessels WO contrast on 11-23-2024 IMPRESSION: Bilateral carotid and vertebral vessels in the neck are patent without hemodynamically significant stenosis Podiatric Technician: JESSICA Transcribe Date/Time: Nov 23 2024 1:02P Dictated by : RAJESH MERCHANT MD This examination was interpreted and the report reviewed and electronically signed by: RAJESH MERCHANT MD on Nov 23 2024 1:27PM [facility] DIVISION OF RADIOLOGY * * *Final Report* * * DATE OF EXAM: Nov 23 2024 12:29PM [facility] 0275 - MRA CAROTID WO IVCON / PROCEDURE REASON: Large vessel vasculitis (HCC) * * * * Physician Interpretation * * * * EXAMINATION: MRA CAROTID WO IVCON CLINICAL HISTORY: Large vessel vasculitis TECHNIQUE: Extracranial 3D [id number] MRA with post-processing performed at the modality and 2D multiplanar and 3D maximum intensity projections were created, reviewed and archived. Axial T2 fat sat sequence through the neck was also obtained. MQ: MRAB_4 COMPARISON: None. RESULT: EXTRACRANIAL MRA: Conventional branching pattern is super aortic great vessels seen on T2-weighted sequence Carotid Stenosis: Right Common: No significant stenosis. Right Internal Plaque: No significant plaque formation. Right Internal Carotid Stenosis (% by NASCET Criteria): 0% Left Common: No significant stenosis. Left Internal Carotid Plaque: No significant plaque formation. Left Internal Carotid Stenosis (% by NASCET Criteria): 0% Cervical Vertebral Arteries: Patency: Bilateral Dominance: Codominant There is a small subcentimeter T2 hyperintense nodule of the thyroid isthmus. Soft tissues of the neck are otherwise grossly unremarkable. DIVISION OF RADIOLOGY Provider, [facility] - 11/23/2024 * * *Final Report* * * DATE OF EXAM: Nov 23 2024 12:29PM [facility] 0275 - MRA CAROTID WO IVCON / PROCEDURE REASON: Large vessel vasculitis (HCC) * * * * Physician Interpretation * * * * EXAMINATION: MRA CAROTID WO IVCON CLINICAL HISTORY: Large vessel vasculitis TECHNIQUE: Extracranial 3D sehu-cs-zdvaje MRA with post-processing performed at the modality and 2D multiplanar and 3D maximum intensity projections were created, reviewed and archived. Axial T2 fat sat sequence through the neck was also obtained. MQ: MRAB_4 COMPARISON: None. RESULT: EXTRACRANIAL MRA: Conventional branching pattern is super aortic great vessels seen on T2-weighted sequence Carotid Stenosis: Right Common: No significant stenosis. Right Internal Plaque: No significant plaque formation. Right Internal Carotid Stenosis (% by NASCET Criteria): 0% Left Common: No significant stenosis. Left Internal Carotid Plaque: No significant plaque formation. Left Internal Carotid Stenosis (% by NASCET Criteria): 0% Cervical Vertebral Arteries: Patency: Bilateral Dominance: Codominant There is a small subcentimeter T2 hyperintense nodule of the thyroid isthmus. Soft tissues of the neck are otherwise grossly unremarkable. IMPRESSION IMPRESSION: Bilateral carotid and vertebral vessels in the neck are patent without hemodynamically significant stenosis Podiatric Technician: JESSICA Transcribe Date/Time: Nov 23 2024 1:02P Dictated by : RAJESH MERCHANT MD This examination was interpreted and the report reviewed and electronically signed by: RAJESH MERCHANT MD on Nov 23 2024 1:27PM [facility] MRA Neck vessels WO contrast Ordered By: [facility] Provider on 11-23-2024 [facility] No Panel Informationon 11-23 IMPRESSION: Normal thoracoabdominal aorta course, caliber and contour. The arch, abdominal visceral branch vessels and iliac arteries appear unremarkable. There is no definitive wall thickening, irregularities or stenoses identified. There is no acute aortic pathology. * * * Final * * * Podiatric Technician: GINA Transcribe Date/Time: Nov 23 2024 12:25P Dictated by : JEZ KOCH MD This examination was interpreted and the report reviewed and electronically signed by: JEZ KOCH MD on Nov 23 2024 3:25PM [facility] DIVISION OF RADIOLOGY [facility] Radiology Study observation (narrative) [facility] CBC W Auto Differential pane l (Bld)on 11-19-2024 Basophils (Bld) [#/Vol] 0.05 10*3/uL Normal <0.11 [facility] Comment on above: Order Comment: Speci men Type: BLOOD SPECIMENOrdering Facility: [facility] Address: [address] [place] [address] Performed By: #### 5 7021-8 ####[facility] MILLWNCLIA [id number] [place] [address] [place] Basophils/100 WBC (Bld) 1.0 % Normal [facility] Comment on above: Order Comment: Speci men Type: BLOOD SPECIMENOrdering Facility: [facility] Address: [address] [place] [address] Performed By: #### 5 7021-8 ####[facility] HOSPITALWGALIA [id number] [place] [address] [place] Differential cell count method Nom (Bld) Auto Normal [facility] Comment on above: Order Comment: Speci men Type: BLOOD SPECIMENOrdering Facility: [facility] Address: [address] [place] [address] Performed By: #### 5 7021-8 ####[facility] MILLTOWNCLIA [id number] [place] [address] [place] Eosinophils (Bld) [#/Vol] 0.16 10*3/uL Normal <0.46 [facility] Comment on above: Order Comment: Speci men Type: BLOOD SPECIMENOrdering Facility: [facility] Address: [address] [place] [address] Performed By: #### 5 7021-8 ####[facility] MILLTOWNCLIA [id number] [place] [address] [place] Eosinophils/100 WBC (Bld) 3.2 % Normal [facility] Comment on above: Order Comment: Speci men Type: BLOOD SPECIMENOrdering Facility: [facility] Address: [address] [place] [address] Performed By: #### 5 7021-8 ####[facility] HOSPITALJARVISKylah [id number] [place] [address] [place] Erythrocyte distribution width (RBC) [Ratio] 15.4 % High 11.5-15.0 [facility] Comment on above: Order Comment: Speci men Type: BLOOD SPECIMENOrdering Facility: [facility] Address: [address] [place] [address] Performed By: #### 5 7021-8 ####[facility] HOSPITALJARVISKylah [id number] [place] [address] [place] Hematocrit (Bld) [Volume fraction] 37.6 % Normal 36.0-46.0 [facility] Comment on above: Order Comment: Speci men Type: BLOOD SPECIMENOrdering Facility: [facility] Address: [address] [place] [address] Performed By: #### 5 7021-8 ####[facility] HOSPITALLI [id number] [place] [address] [place] Hemoglobin (Bld) [Mass/Vol] 12.0 g/dL Normal 11.5-15.5 [facility] Comment on above: Order Comment: Speci men Type: BLOOD SPECIMENOrdering Facility: [facility] Address: [address] [place] [address] Performed By: #### 5 7021-8 ####[facility] HOSPITALNCLIA [id number] [place] [address] [place] Immature granulocytes (Bld) [#/Vol] 10*3/uL Normal <0.10 [facility] Comment on above: Order Comment: Speci men Type: BLOOD SPECIMENOrdering Facility: [facility] Address: [address] [place] [address] Performed By: #### 5 7021-8 ####[facility] SERAJULIANNE [id number] [place] [address] [place] Immature granulocytes/100 WBC (Bld) 0.2 % Normal [facility] Comment on above: Order Comment: Speci men Type: BLOOD SPECIMENOrdering Facility: [facility] Address: [address] [place] [address] Performed By: #### 5 7021-8 ####[facility]OSPITALNCMOAB [facility] [id number] [place] [address] [place] Lymphocytes (Bld) [#/Vol] 3.03 10*3/uL Normal 1.00-4.00 [facility] Comment on above: Order Comment: Speci men Type: BLOOD SPECIMENOrdering Facility: [facility] Address: [address] [place] [address] Performed By: #### 5 7021-8 ####[facility] [id number] [place] [address] [place] Lymphocytes/100 WBC (Bld) 60.6 % Normal [facility] Comment on above: Order Comment: Speci men Type: BLOOD SPECIMENOrdering Facility: [facility] Address: [address] [place] [address] Performed By: #### 5 7021-8 ####[facility] [id number] [place] [address] [place] MCH (RBC) [Entitic mass] 25.8 pg Low 26.0-34.0 [facility] Comment on above: Order Comment: Speci men Type: BLOOD SPECIMENOrdering Facility: [facility] Address: [address] [place] [address] Performed By: #### 5 7021-8 ####[facility] HOSPITALWNCLIA [id number] [place] [address] [place] MCHC (RBC) [Mass/Vol] 31.9 g/dL Normal 30.5-36.0 [facility] Comment on above: Order Comment: Speci men Type: BLOOD SPECIMENOrdering Facility: [facility] Address: [address] [place] [address] Performed By: #### 5 7021-8 ####[facility] HOSPITALNCLIA [id number] [place] [address] [place] MCV (RBC) [Entitic vol] 80.7 fL Normal 80.0-100.0 [facility] Comment on above: Order Comment: Speci men Type: BLOOD SPECIMENOrdering Facility: [facility] Address: [address] [place] [address] Performed By: #### 5 7021-8 ####[facility] HOSPITALNCA [id number] [place] [address] [place] Monocytes (Bld) [#/Vol] 0.39 10*3/uL Normal <0.87 [facility] Comment on above: Order Comment: Speci men Type: BLOOD SPECIMENOrdering Facility: [facility] Address: [address] [place] [address] Performed By: #### 5 7021-8 ####[facility] HOSPITALNCLIA [id number] [address] [facility] Monocytes/100 WBC (Bld) 7.8 % Normal [facility] Comment on above: Order Comment: Speci men Type: BLOOD SPECIMENOrdering Facility: [facility] Address: [address] [place], [place] [address] Performed By: #### 5 7021-8 ####[facility] HOSPITALNCLIA [id number] [place] [id number] [place] Neutrophils (Bld) [#/Vol] 1.36 10*3/uL Low 1.45-7.50 [facility] Comment on above: Order Comment: Speci men Type: BLOOD SPECIMENOrdering Facility: [facility] Address: [address] [place] [address] Performed By: #### 5 7021-8 ####[facility] ERA [id number] [place] [address] [place] Neutrophils/100 WBC (Bld) 27.2 % Normal [facility] Comment on above: Order Comment: Speci men Type: BLOOD SPECIMENOrdering Facility: [facility] Address: [address] [place] [address] Performed By: #### 5 7021-8 ####[facility] HOSPITALNCMOAB [facility] [id number] [place] [address] [place] Nucleated RBC (Bld) [#/Vol] 10*3/uL Normal <0.01 [facility] Comment on above: Order Comment: Speci men Type: BLOOD SPECIMENOrdering Facility: [facility] Address: [address] [place] [address] Performed By: #### 5 7021-8 ####[facility] [id number] [place] [address] [place] Nucleated RBC/100 WBC (Bld) [Ratio] 0.0 /100 WBC Normal [facility] Comment on above: Order Comment: Speci men Type: BLOOD SPECIMENOrdering Facility: [facility] Address: [address] [place] [address] Performed By: #### 5 7021-8 ####[facility] HOSPITALNCLI [id number] [place] [address] [place] Platelet mean volume (Bld) [Entitic vol] 9.5 fL Normal 9.0-12.7 [facility] Comment on above: Order Comment: Speci men Type: BLOOD SPECIMENOrdering Facility: [facility] Address: [address] [place] [address] Performed By: #### 5 7021-8 ####[facility] PENELOPENCLIA [id number] [place] [address] [place] Platelets (Bld) [#/Vol] 271 10*3/uL Normal 150-400 [facility] Comment on above: Order Comment: Speci men Type: BLOOD SPECIMENOrdering Facility: [facility] Address: [address] [place] [address] Performed By: #### 5 7021-8 ####[facility] SERACRANE LAKENCLIA [id number] [place] [address] [place] RBC (Bld) [#/Vol] 4.66 10*6/uL Normal 3.90-5.20 [facility] Comment on above: Order Comment: Speci men Type: BLOOD SPECIMENOrdering Facility: [facility] Address: [address] [place] [address] Performed By: #### 5 7021-8 ####[facility] SERACRANE LAKENCLIA [id number] [place] [address] [place] WBC (Bld) [#/Vol] 5.00 10*3/uL Normal 3.70-11.00 [facility] Comment on above: Order Comment: Speci men Type: BLOOD SPECIMENOrdering Facility: [facility] Address: [address] [place] [address] Performed By: #### 5 7021-8 ####[facility] HOSPITALNCLIA [id number] [place] [address] [place] CRP [facility] 11-19-2024 CRP [Mass/Vol] mg/L Normal <0.9 [facility] Comment on above: Order Comment: Speci men Type: BLOOD SPECIMENOrdering Facility: [facility] Address: [address] [place] [address] Performed By: #### 1 988-5 ####[facility] LABCLIA [id number] [place] [address] [place] [facility] Comprehensive metabolic 2000 panelon 11-19-2024 Albumin [Mass/Vol] 4.5 g/dL Normal 3.9-4.9 [facility] Comment on above: Order Comment: Speci men Type: BLOOD SPECIMENOrdering Facility: [facility] Address: [address] [place] [address] Performed By: #### 2 4323-8 ####[facility] JUAN LUIS MILLTOWNCLIA [id number] [place] [address] [place] ALP [Catalytic activity/Vol] 35 U/L Normal 34-123 [facility] Comment on above: Order Comment: Speci men Type: BLOOD SPECIMENOrdering Facility: [facility] Address: [address] [place] [address] Performed By: #### 2 4323-8 ####[facility] JUAN LUIS MILLTOWNCLIA [id number] [place] [address] [place] ALT [Catalytic activity/Vol] 24 U/L Normal 7-38 [facility] Comment on above: Order Comment: Speci men Type: BLOOD SPECIMENOrdering Facility: [facility] Address: [address] [place] [address] Performed By: #### 2 4323-8 ####[facility] JUAN LUIS MILLTOWNCLIA [id number] [place] [address] [place] Anion gap [Moles/Vol] 12 mmol/L Normal 8-15 [facility] Comment on above: Order Comment: Speci men Type: BLOOD SPECIMENOrdering Facility: [facility] Address: [address] [place] [address] Performed By: #### 2 4323-8 ####[facility] JUAN LUIS MILLTOWNCLIA [id number] [place] [address] [place] AST [Catalytic activity/Vol] 27 U/L Normal 13-35 [facility] Comment on above: Order Comment: Speci men Type: BLOOD SPECIMENOrdering Facility: [facility] Address: [address] [place] [address] Performed By: #### 2 4323-8 ####[facility] MILLWNCLIA [id number] [place] [address] [place] Bilirubin [Mass/Vol] 0.4 mg/dL Normal 0.2-1.3 [facility] Comment on above: Order Comment: Speci men Type: BLOOD SPECIMENOrdering Facility: [facility] Address: [address] [place] [address] Performed By: #### 2 4323-8 ####[facility]ITALNCLIA [id number] [place] [address] [place] Calcium [Mass/Vol] 9.5 mg/dL Normal 8.5-10.2 [facility] Comment on above: Order Comment: Speci men Type: BLOOD SPECIMENOrdering Facility: [facility] Address: [address] [place] [address] Performed By: #### 2 4323-8 ####[facility]ITALWNCLIA [id number] [place] [address] [place] Chloride [Moles/Vol] 105 mmol/L Normal 98-107 [facility] Comment on above: Order Comment: Speci men Type: BLOOD SPECIMENOrdering Facility: [facility] Address: [address] [place] [address] Performed By: #### 2 4323-8 ####[facility] JUAN LUIS MILLTOWNCLIA [id number] [place] [address] [place] CO2 [Moles/Vol] 24 mmol/L Normal 22-30 [facility] Comment on above: Order Comment: Speci men Type: BLOOD SPECIMENOrdering Facility: [facility] Address: [address] [place] [address] Performed By: #### 2 4323-8 ####[facility] JUAN LUIS SERACRANE LAKENCCHARLES [id number] [place] [address] [place] Creatinine [Mass/Vol] 0.85 mg/dL Normal 0.58-0.96 [facility] Comment on above: Order Comment: Speci men Type: BLOOD SPECIMENOrdering Facility: [facility] Address: [address] [place] [address] Performed By: #### 2 4323-8 ####[facility]ITALNCMO[facility] [id number] [place] [address] [place] Creatinine and Glomerular filtration rate.predicted panel (S/P/Bld) 72 mL/min/1.73m??? Normal >=60 [facility] Comment on above: Order Comment: Speci men Type: BLOOD SPECIMENOrdering Facility: [facility] Address: [address] [place] [address] Result Comment: Lucía mated Glomerular Filtration Rate (eGFR) is calculated using the 2020 CKD-EPI creatinine equation. This equation utilizes serum creatinine, sex, and age as parameters. The creatinine assay has traceable calibration to isotope dilution-mass spectrometry. Refer to KDIGO guidelines for clinical interpretation. In patients with unstable renal function, e.g. those with acute kidney injury, the eGFR may not accurately reflect actual GFR. Performed By: #### 2 4323-8 ####[facility] HOSPITALNCLIA [id number] [place] [address] [place] Glucose [Mass/Vol] 101 mg/dL High 74-99 [facility] Comment on above: Order Comment: Speci men Type: BLOOD SPECIMENOrdering Facility: [facility] Address: [address] [place] [address] Result Comment: The [place] Diabetes Association (ADA) provides guidance for cutoff values for fasting glucose and random glucose. The ADA defines fasting as no caloric intake for at least 8 hours. Fasting plasma glucose results between 100 to 125 mg/dL indicate increased risk for diabetes (prediabetes). Fasting plasma glucose results greater than or equal to 126 mg/dL meet the criteria for diagnosis of diabetes. In the absence of unequivocal hyperglycemia, results should be confirmed by repeat testing. In a patient with classic symptoms of hyperglycemia or hyperglycemic crisis, random plasma glucose results greater than or equal to 200 mg/dL meet the criteria for diagnosis of diabetes. Reference: Standards of Medical Care in Diabetes 2016, [place] [employer] Association. Diabetes Care. 2016.39(Suppl 1). Performed By: #### 2 4323-8 ####[facility] MILLTOWNCLIA [id number] [place] [address] [place] Potassium [Moles/Vol] 4.2 mmol/L Normal 3.7-5.1 [facility] Comment on above: Order Comment: Speci men Type: BLOOD SPECIMENOrdering Facility: [facility] Address: [address] [place] [address] Performed By: #### 2 4323-8 ####[facility] MILLTOWNCLIA [id number] [place] [address] [place] Protein [Mass/Vol] 6.7 g/dL Normal 6.3-8.0 [facility] Comment on above: Order Comment: Speci men Type: BLOOD SPECIMENOrdering Facility: [facility] Address: [address] [place] [address] Performed By: #### 2 4323-8 ####[facility] MILLTOWNCLIA [id number] [place] [address] [place] Sodium [Moles/Vol] 141 mmol/L Normal 136-144 [facility] Comment on above: Order Comment: Speci men Type: BLOOD SPECIMENOrdering Facility: [facility] Address: [address] [place], [place] [address] Performed By: #### 2 4323-8 ####[facility] MILLTOWNCLIA [id number] [place] [address] [place] Urea nitrogen [Mass/Vol] 19 mg/dL Normal 7-21 [facility] Comment on above: Order Comment: Speci men Type: BLOOD SPECIMENOrdering Facility: [facility] Address: [address] [place] [address] Performed By: #### 2 4323-8 ####[facility] [id number] [place] [address] [place] ESR Westergren method (Bld) [Velocity]on 11-19-2024 ESR (Bld) [Velocity] 2 mm/h Normal 0-20 [facility] Comment on above: Order Comment: Speci men Type: BLOOD SPECIMENOrdering Facility: [facility] Address: [address] [place] [address] Performed By: #### 4 537-7 ####[facility] LABCLIA [id number] [place] [address] [place] SCRN MAMM (CAD)W/CHAVO BILATo n 07-01-2024 SCRN MAMM (CAD)W/CHAVO BILAT [facility] Imaging Services [address] [place] [address] SCRN MAMM (CAD)W/CHAVO BILAT MR#: [id number] Acct: [id number] Name: ANDREEA MONTES Rep #: [id number] : 1950 F 73 From: Philippe Sánchez MD PCP: Dr. Berenice Tidwell MD Status: REG [facility] Study: SCRN MAMM (CAD)W/CHAVO BILAT Date of Exam: 08/24 Exam# [id number] Ordering [place]: [place] [id number] MAMMOGRAPHY - BILATERAL SCREENING 3-D TOMOSYNTHESIS REASON FOR EXAM: Female, 73 years old. Routine screening PERTINENT HISTORY: No significant family history. TECHNIQUE: 2-D mammograms and 3-D Tomosynthesis of the breast (s) were performed. CAD was performed. COMPARISON: 04/28/2023 FINDINGS: The breast composition is almost entirely fat. Scattered benign calcifications are seen. No dense spiculated masses or suspicious microcalcifications are identified. No architectural distortion is identified. There is no skin thickening or retraction. There has been no significant change since the prior study. BI/SCRN MAMM (CAD)W/CHAVO BILAT IMPRESSION: No mammographic signs of malignancy. Routine yearly mammograms recommended. ASSESSMENT CATEGORY: BIRADS Category 1: Negative. A letter regarding these results will be sent to the patient by the facility within 30 days. FOLLOW UP RECOMMENDATION: Yearly follow up mammogram recommended. (A) Approximately 10% of breast cancers are not detected by mammography. A normal mammogram should not delay biopsy of a clinically suspicious abnormality. Electronically Signed: Campbell Sánchez MD at 11:15 EST Reading Location ID and State: [address] [place] [address] , Service support , CC: Dr. Berenice Tidwell MD Podiatric Technician: Signed Normal [facility] CBC W Auto Differential pane l (Bld)on 06-18-2024 Basophils (Bld) [#/Vol] 0.06 10*3/uL Normal <0.11 [facility] Comment on above: Order Comment: Speci men Type: BLOOD SPECIMENOrdering Facility: [facility] Address: [address] [place] [address] Performed By: #### 5 7021-8 ####[facility] [id number] [place] [address] [place] Basophils/100 WBC (Bld) 1.1 % Normal [facility] Comment on above: Order Comment: Speci men Type: BLOOD SPECIMENOrdering Facility: [facility] Address: [address] [place] [address] Performed By: #### 5 7021-8 ####[facility] [id number] [place] [address] [place] Differential cell count method Nom (Bld) Auto Normal [facility] Comment on above: Order Comment: Speci men Type: BLOOD SPECIMENOrdering Facility: [facility] Address: [address] [place] [address] Performed By: #### 5 7021-8 ####[facility] HOSPITALWNCA [id number] [place] [address] [place] Eosinophils (Bld) [#/Vol] 0.19 10*3/uL Normal <0.46 [facility] Comment on above: Order Comment: Speci men Type: BLOOD SPECIMENOrdering Facility: [facility] Address: [address] [place] [address] Performed By: #### 5 7021-8 ####[facility] [id number] [place] [address] [place] Eosinophils/100 WBC (Bld) 3.4 % Normal [facility] Comment on above: Order Comment: Speci men Type: BLOOD SPECIMENOrdering Facility: [facility] Address: [address] [place] [address] Performed By: #### 5 7021-8 ####[facility]OSPITALNCMO[facility] [id number] [place] [address] [place] Erythrocyte distribution width (RBC) [Ratio] 14.9 % Normal 11.5-15.0 [facility] Comment on above: Order Comment: Speci men Type: BLOOD SPECIMENOrdering Facility: [facility] Address: [address] [place] [address] Performed By: #### 5 7021-8 ####[facility]PITALNCMO[facility] [id number] [place] [address] [place] Hematocrit (Bld) [Volume fraction] 38.5 % Normal 36.0-46.0 [facility] Comment on above: Order Comment: Speci men Type: BLOOD SPECIMENOrdering Facility: [facility] Address: [address] [place] [address] Performed By: #### 5 7021-8 ####[facility] SERACRANE LAKEJARVISKylah [id number] [place] [address] [place] Hemoglobin (Bld) [Mass/Vol] 12.5 g/dL Normal 11.5-15.5 [facility] Comment on above: Order Comment: Speci men Type: BLOOD SPECIMENOrdering Facility: [facility] Address: [address] [place] [address] Performed By: #### 5 7021-8 ####[facility] [id number] [place] [address] [place] Immature granulocytes (Bld) [#/Vol] 10*3/uL Normal <0.10 [facility] Comment on above: Order Comment: Speci men Type: BLOOD SPECIMENOrdering Facility: [facility] Address: [address] [place] [address] Performed By: #### 5 7021-8 ####[facility] [id number] [place] [address] [place] Immature granulocytes/100 WBC (Bld) 0.2 % Normal [facility] Comment on above: Order Comment: Speci men Type: BLOOD SPECIMENOrdering Facility: [facility] Address: [address] [place] [address] Performed By: #### 5 7021-8 ####[facility] HOSPITALNCLIA [id number] [place] [address] [place] Lymphocytes (Bld) [#/Vol] 3.50 10*3/uL Normal 1.00-4.00 [facility] Comment on above: Order Comment: Speci men Type: BLOOD SPECIMENOrdering Facility: [facility] Address: [address] [place] [address] Performed By: #### 5 7021-8 ####[facility] SERARemaNCLIA [id number] [place] [address] [place] Lymphocytes/100 WBC (Bld) 63.2 % Normal [facility] Comment on above: Order Comment: Speci men Type: BLOOD SPECIMENOrdering Facility: [facility] Address: [address] [place] [address] Performed By: #### 5 7021-8 ####[facility] HOSPITALJARVISLIA [id number] [place] [address] [place] MCH (RBC) [Entitic mass] 26.4 pg Normal 26.0-34.0 [facility] Comment on above: Order Comment: Speci men Type: BLOOD SPECIMENOrdering Facility: [facility] Address: [address] [place] [address] Performed By: #### 5 7021-8 ####[facility] HOSPITALJARVISNGHIAKylah [id number] [place] [address] [place] MCHC (RBC) [Mass/Vol] 32.5 g/dL Normal 30.5-36.0 [facility] Comment on above: Order Comment: Speci men Type: BLOOD SPECIMENOrdering Facility: [facility] Address: [address] [place] [address] Performed By: #### 5 7021-8 ####[facility]OSPITALJARVISNGHIAKylah [id number] [place] [address] [place] MCV (RBC) [Entitic vol] 81.2 fL Normal 80.0-100.0 [facility] Comment on above: Order Comment: Speci men Type: BLOOD SPECIMENOrdering Facility: [facility] Address: [address] [place] [address] Performed By: #### 5 7021-8 ####[facility] HOSPITALNCLI [id number] [place] [address] [place] Monocytes (Bld) [#/Vol] 0.45 10*3/uL Normal <0.87 [facility] Comment on above: Order Comment: Speci men Type: BLOOD SPECIMENOrdering Facility: [facility] Address: [address] [place] [address] Performed By: #### 5 7021-8 ####[facility] [id number] [place] [address] [place] Monocytes/100 WBC (Bld) 8.1 % Normal [facility] Comment on above: Order Comment: Speci men Type: BLOOD SPECIMENOrdering Facility: [facility] Address: [address] [place] [address] Performed By: #### 5 7021-8 ####[facility] [id number] [place] [address] [place] Neutrophils (Bld) [#/Vol] 1.33 10*3/uL Low 1.45-7.50 [facility] Comment on above: Order Comment: Speci men Type: BLOOD SPECIMENOrdering Facility: [facility] Address: [address] [place] [address] Performed By: #### 5 7021-8 ####[facility] [id number] [place] [address] [place] Neutrophils/100 WBC (Bld) 24.0 % Normal [facility] Comment on above: Order Comment: Speci men Type: BLOOD SPECIMENOrdering Facility: [facility] Address: [address] [place] [address] Performed By: #### 5 7021-8 ####[facility] [id number] [place] [address] [place] Nucleated RBC (Bld) [#/Vol] 10*3/uL Normal <0.01 [facility] Comment on above: Order Comment: Speci men Type: BLOOD SPECIMENOrdering Facility: [facility] Address: [address] [place] [address] Performed By: #### 5 7021-8 ####[facility] KARIS [id number] [place] [address] [place] Nucleated RBC/100 WBC (Bld) [Ratio] 0.0 /100 WBC Normal [facility] Comment on above: Order Comment: Speci men Type: BLOOD SPECIMENOrdering Facility: [facility] Address: [address] [place] [address] Performed By: #### 5 7021-8 ####[facility] SERACRANE LAKECAITLYN [id number] [place] [address] [place] Platelet mean volume (Bld) [Entitic vol] 9.4 fL Normal 9.0-12.7 [facility] Comment on above: Order Comment: Speci men Type: BLOOD SPECIMENOrdering Facility: [facility] Address: [address] [place] [address] Performed By: #### 5 7021-8 ####[facility] HOSPITALCAITLYN [id number] [place] [address] [place] Platelets (Bld) [#/Vol] 272 10*3/uL Normal 150-400 [facility] Comment on above: Order Comment: Speci men Type: BLOOD SPECIMENOrdering Facility: [facility] Address: [address] [place] [address] Performed By: #### 5 7021-8 ####[facility] HOSPITALJARVISLIKylah [id number] [place] [address] [place] RBC (Bld) [#/Vol] 4.74 10*6/uL Normal 3.90-5.20 [facility] Comment on above: Order Comment: Speci men Type: BLOOD SPECIMENOrdering Facility: [facility] Address: [address] [place] [address] Performed By: #### 5 7021-8 ####[facility] MILLWNCLIA [id number] [place] [address] [place] WBC (Bld) [#/Vol] 5.54 10*3/uL Normal 3.70-11.00 [facility] Comment on above: Order Comment: Speci men Type: BLOOD SPECIMENOrdering Facility: [facility] Address: [address] [place] [address] Performed By: #### 5 7021-8 ####[facility] HOSPITALNCLIA [id number] [place] [address] [place] [facility] Comprehensive metabolic 2000 panelon 06-18-2024 Albumin [Mass/Vol] 4.8 g/dL Normal 3.9-4.9 [facility] Comment on above: Order Comment: Speci men Type: BLOOD SPECIMENOrdering Facility: [facility] Address: [address] [place] [address] Performed By: #### 2 4323-8 ####[facility] HOSPITALNCLIA [id number] [place] [address] [place] ALP [Catalytic activity/Vol] 32 U/L Low 34-123 [facility] Comment on above: Order Comment: Speci men Type: BLOOD SPECIMENOrdering Facility: [facility] Address: [address] [place] [address] Performed By: #### 2 4323-8 ####[facility] HOSPITALWNCLIA [id number] [address] [place] ALT [Catalytic activity/Vol] 21 U/L Normal 7-38 [facility] Comment on above: Order Comment: Speci men Type: BLOOD SPECIMENOrdering Facility: [facility] Address: [address] [place] [address] Performed By: #### 2 4323-8 ####[facility] HOSPITALNCLIA [id number] [place] [address] [place] Anion gap [Moles/Vol] 12 mmol/L Normal 8-15 [facility] Comment on above: Order Comment: Speci men Type: BLOOD SPECIMENOrdering Facility: [facility] Address: [address] [place] [address] Performed By: #### 2 4323-8 ####[facility]OSPITALWNCLIA [id number] [place] [address] [place] AST [Catalytic activity/Vol] 30 U/L Normal 13-35 [facility] Comment on above: Order Comment: Speci men Type: BLOOD SPECIMENOrdering Facility: [facility] Address: [address] [place] [address] Performed By: #### 2 4323-8 ####[facility] HOSPITALNCA [id number] [place] [address] [place] Bilirubin [Mass/Vol] 0.5 mg/dL Normal 0.2-1.3 [facility] Comment on above: Order Comment: Speci men Type: BLOOD SPECIMENOrdering Facility: [facility] Address: [address] [place] [address] Performed By: #### 2 4323-8 ####[facility] HOSPITALNCLIA [id number] [place] [address] [place] Calcium [Mass/Vol] 9.2 mg/dL Normal 8.5-10.2 [facility] Comment on above: Order Comment: Speci men Type: BLOOD SPECIMENOrdering Facility: [facility] Address: [address] [place] [address] Performed By: #### 2 4323-8 ####[facility] HOSPITALNCLIA [id number] [place] [address] [place] Chloride [Moles/Vol] 102 mmol/L Normal 98-107 [facility] Comment on above: Order Comment: Speci men Type: BLOOD SPECIMENOrdering Facility: [facility] Address: [address] [place] [address] Performed By: #### 2 4323-8 ####[facility] HOSPITALNCLI [id number] [place] [address] [place] CO2 [Moles/Vol] 27 mmol/L Normal 22-30 [facility] Comment on above: Order Comment: Speci men Type: BLOOD SPECIMENOrdering Facility: [facility] Address: [address] [place] [address] Performed By: #### 2 4323-8 ####[facility]PITALNCMO[facility] [id number] [place] [address] [place] Creatinine [Mass/Vol] 0.83 mg/dL Normal 0.58-0.96 [facility] Comment on above: Order Comment: Speci men Type: BLOOD SPECIMENOrdering Facility: [facility] Address: [address] [place] [address] Performed By: #### 2 4323-8 ####[facility] HOSPITALNCLIA [id number] [address] [place] Creatinine and Glomerular filtration rate.predicted panel (S/P/Bld) 75 mL/min/1.73m??? Normal >=60 [facility] Comment on above: Order Comment: Speci men Type: BLOOD SPECIMENOrdering Facility: [facility] Address: [address] [place] [address] Result Comment: Lucía mated Glomerular Filtration Rate (eGFR) is calculated using the 2020 CKD-EPI creatinine equation. This equation utilizes serum creatinine, sex, and age as parameters. The creatinine assay has traceable calibration to isotope dilution-mass spectrometry. Refer to KDIGO guidelines for clinical interpretation. In patients with unstable renal function, e.g. those with acute kidney injury, the eGFR may not accurately reflect actual GFR. Performed By: #### 2 4323-8 ####[facility] HOSPITALWNCLIA [id number] [place] [address] [place] Glucose [Mass/Vol] 101 mg/dL High 74-99 [facility] Comment on above: Order Comment: Speci men Type: BLOOD SPECIMENOrdering Facility: [facility] Address: [address] [place], [place] [id number] Result Comment: The [place] [employer] (ADA) provides guidance for cutoff values for fasting glucose and random glucose. The ADA defines fasting as no caloric intake for at least 8 hours. Fasting plasma glucose results between 100 to 125 mg/dL indicate increased risk for diabetes (prediabetes). Fasting plasma glucose results greater than or equal to 126 mg/dL meet the criteria for diagnosis of diabetes. In the absence of unequivocal hyperglycemia, results should be confirmed by repeat testing. In a patient with classic symptoms of hyperglycemia or hyperglycemic crisis, random plasma glucose results greater than or equal to 200 mg/dL meet the criteria for diagnosis of diabetes. Reference: Standards of Medical Care in Diabetes 2016, [place] [employer] Association. Diabetes Care. 2016.39(Suppl 1). Performed By: #### 2 4323-8 ####[facility]ITALTOWNCLIA [id number] [place] [address] [place] Potassium [Moles/Vol] 4.4 mmol/L Normal 3.7-5.1 [facility] Comment on above: Order Comment: Speci men Type: BLOOD SPECIMENOrdering Facility: [facility] Address: [address] [place], [place] [address] Performed By: #### 2 4323-8 ####[facility] MILLTOWNCLIA [id number] [place] [address] [place] Protein [Mass/Vol] 6.8 g/dL Normal 6.3-8.0 [facility] Comment on above: Order Comment: Speci men Type: BLOOD SPECIMENOrdering Facility: [facility] Address: [address] [place], [place] [address] Performed By: #### 2 4323-8 ####[facility]ITALWNCLIA [id number] [place] [address] [place] Sodium [Moles/Vol] 141 mmol/L Normal 136-144 [facility] Comment on above: Order Comment: Speci men Type: BLOOD SPECIMENOrdering Facility: [facility] Address: [address] [place], [place] [address] Performed By: #### 2 4323-8 ####[facility] [id number] [place] [address] [place] Urea nitrogen [Mass/Vol] 20 mg/dL Normal 7-21 [facility] Comment on above: Order Comment: Speci men Type: BLOOD SPECIMENOrdering Facility: [facility] Address: [address] [place] [address] Performed By: #### 2 4323-8 ####[facility]OSPITALLI [id number] [place] [address] [place] Basic Metabolic Profile (BMP )on 05-24-2024 BUN/CRE 19.7 RATIO Normal 10-20 [facility] Comment on above: Order Comment: Order Date: 12/12/23 Order Info: [id number] - BMP Order Info: [id number] - CRP Order Info: 3016-3 - TSH Performed By: #### L 502.0250, L101.9900, L500.2500, L501.6710, L501.9520 #### [facility] [address] [place], [address] CA,Total 9.1 mg/dL Normal 8.5-10.1 [facility] Comment on above: Order Comment: Order Date: 12/12/23 Order Info: [id number] - BMP Order Info: [id number] - CRP Order Info: 3016-3 - TSH Performed By: #### L 502.0250, L101.9900, L500.2500, L501.6710, L501.9520 #### [facility] [address] [place], [address] Chloride [Moles/Vol] 106 mmol/L Normal 98-107 [facility] Comment on above: Order Comment: Order Date: 12/12/23 Order Info: 666-06 - BMP Order Info: [id number] - CRP Order Info: 3015-08 - TSH Performed By: #### L 502.0250, L101.9900, L500.2500, L501.6710, L501.9520 #### [facility] [address] [place], [address] CO2 [Moles/Vol] 23.0 mmol/L Normal 21.0-32.0 [facility] Comment on above: Order Comment: Order Date: 12/12/23 Order Info: 666-06 - BMP Order Info: - CRP Order Info: [id number] - TSH Performed By: #### L 502.0250, L101.9900, L500.2500, L501.6710, L501.9520 #### [facility] [address] [place], [address] Creatinine [Mass/Vol] 0.86 mg/dL Normal 0.55-1.02 [facility] Comment on above: Order Comment: Order Date: 12/12/23 Order Info: 666-06 - BMP Order Info: - CRP Order Info: 3015-08 - TSH Result Comment: The validity of the calculated GFR GFRAA in patients over 70 years has not been determined. Clinical correlation is essential. Performed By: #### L 502.0250, L101.9900, L500.2500, L501.6710, L501.9520 #### [facility] [address] [place], [address] EST GFR - AA 83 mL/min Normal >60 [facility] Comment on above: Order Comment: Order Date: 12/12/23 Order Info: 666-06 - BMP Order Info: [id number] - CRP Order Info: 3015-08 - TSH Result Comment: Afri can [place] GFR Calc Performed By: #### L 502.0250, L101.9900, L500.2500, L501.6710, L501.9520 #### [facility] [address] [place], [address] GAP 9 Normal 5-15 [facility] Comment on above: Order Comment: Order Date: 12/12/23 Order Info: 06- - BMP Order Info: [id number] - CRP Order Info: 3 - TSH Performed By: #### L 502.0250, L101.9900, L500.2500, L501.6710, L501.9520 #### [facility] [address] [place], [address] GFR/1.73 sq M.predicted among non-blacks MDRD (S/P/Bld) [Vol rate/Area] 69 mL/min/{1.73_m2} Normal >60 [facility] Comment on above: Order Comment: Order Date: 12/12/23 Order Info: 666-06 - BMP Order Info: [id number] - CRP Order Info: 3 - TSH Result Comment: Non- GFR Calc Performed By: #### L 502.0250, L101.9900, L500.2500, L501.6710, L501.9520 #### [facility] [address] [place], [address] Glucose [Mass/Vol] 101 mg/dL Normal 74-106 [facility] Comment on above: Order Comment: Order Date: 12/12/23 Order Info: 06- - BMP Order Info: [id number] - CRP Order Info: 3015-3 - TSH Result Comment: Fast ing Glucose result from 100 to 125 mg/dL suggests [employer] per A.D.A. criteria. Performed By: #### L 502.0250, L101.9900, L500.2500, L501.6710, L501.9520 #### [facility] [address] [place], [address] Potassium [Moles/Vol] 4.1 mmol/L Normal 3.5-5.1 [facility] Comment on above: Order Comment: Order Date: 12/12/23 Order Info: 0667-1 - BMP Order Info: [id number] - CRP Order Info: 3015-08 - TSH Performed By: #### L 502.0250, L101.9900, L500.2500, L501.6710, L501.9520 #### [facility] [address] [place], [address] Sodium [Moles/Vol] 138 mmol/L Normal 136-145 [facility] Comment on above: Order Comment: Order Date: 12/12/23 Order Info: 0667-1 - BMP Order Info: [id number] - CRP Order Info: 3015-08 - TSH Performed By: #### L 502.0250, L101.9900, L500.2500, L501.6710, L501.9520 #### [facility] [address] [place], [address] Urea nitrogen [Mass/Vol] 17 mg/dL Normal 7-18 [facility] Comment on above: Order Comment: Order Date: 12/12/23 Order Info: 0667- - BMP Order Info: [id number] - CRP Order Info: 3015-08 - TSH Performed By: #### L 502.0250, L101.9900, L500.2500, L501.6710, L501.9520 #### [facility] [address] [place], [address] CRPon 05-24-2024 C-REACTIVE PROT < 2.90 Normal 0.0-3.0 [facility] Comment on above: Order Comment: Order Date: 06/10/23 Order Info: 0786-1 - CMP Order Info: [id number] - LIPID Order Info: 3013 - TSH Result Comment: C-Re active Protein (CRP) provides useful information for the diagnosis, therapy and monitoring of inflammatory processes and associated diseases. For the evaluation of Relative Risk for Cardiovascular Disease, a High Sensitivity CRP (HSCRP) should be ordered. Performed By: #### L 501.9985, L500.4100, L501.9520, L502.0250, L506.1000, L500.4050 #### [facility] [address] [place], [address] Erythrocyte Sed Rateon 05-24 SED RATE < 1 Normal 0-30 [facility] Comment on above: Order Comment: Order Date: 12/12/23 Order Info: [id number] - SED Performed By: #### L 502.0250, L101.9900, L500.2500, L501.6710, L501.9520 #### [facility] [address] [place], [address] Microalb:Creat Ratio,Random URon 05-24-2024 Creatinine [Mass/Vol] 30.40 mg/dL Normal NO RANGE EST. [facility] Comment on above: Order Comment: Order Date: 12/12/23 Order Info: [id number] - MIACRE Performed By: #### L 502.0250, L101.9900, L500.2500, L501.6710, L501.9520 #### [facility] [address] [place], [address] MALB:CRE TNP Normal <30 mg/g CRE [facility] Comment on above: Order Comment: Order Date: 12/12/23 Order Info: 0779-1 - MIACRE Performed By: #### L 502.0250, L101.9900, L500.2500, L501.6710, L501.9520 #### [facility] [address] [place], [address] MICROALBUMIN,UR < 5.0 Normal NO RANGE EST. [facility] Comment on above: Order Comment: Order Date: 12/12/23 Order Info: [id number] - MIACRE Performed By: #### L 502.0250, L101.9900, L500.2500, L501.6710, L501.9520 #### [facility] [address] [place], [address] Thyroid Stim Hormone (TSH)on 05-24-2024 TSH 1.530 uIU/mL Normal 0.358-3.740 [facility] Comment on above: Order Comment: Order Date: 06/10/23 Order Info: 0786-1 - CMP Order Info: [id number] - LIPID Order Info: 3016-3 - TSH Performed By: #### L 501.9985, L500.4100, L501.9520, L502.0250, L506.1000, L500.4050 #### [facility] [address] [place], [address] CNOVon 04-01-2024 CNOV Office Visit (RHEUMN ) ANDREEA MONTES ([id number]) 1950 F Date Time Provider Department 04/01/24 11:00 AM FELI HEBERT During your visit today, we recorded the following information about you: Temperature Pulse Blood pressure Weight 98.1 degrees 63/minute 149/73 61.4 kg Height 1.575 m Feli Hbeert MD 04/13/2024 8:00 AM Signed Andreea Montes is a 73 year old female here for follow-up of GCA Evaluation Date: 04/01/2024 Last Visit in Rheumatology: 09/04/2023 (with Feli Maddox) ACTIVE PROBLEM LIST Personal History of Malignant Melanoma of Skin - 09/29/2006 INTERVAL HX: At today's visit Andreea Montes states that she has been doing well No cranial or PMR symptoms No fever or weight loss no claudication tolerating treatment well - on TCZ off prednisone > 1 yr exercises on a regular basis Review of Systems CONSTITUTION: Negative for: Fever and Recent weight change HEENT: Negative for: Nosebleeds, Mouth sores, Trouble swallowing and Dry mouth RESPIRATORY: Negative for: Cough, Shortness of breath and Pain with breathing GASTROINTESTINAL: Negative for: Melena, Diarrhea, Heartburn and Abdominal pain MUSCULOSKELETAL: Negative for: Arthralgias, Myalgias, Muscle weakness, Joint swelling and Morning Joint Stiffness NEUROLOGICAL: Negative for: Headaches, Numbness and Memory loss SKIN: Negative for: Rash, Skin changes, Hair loss and Nail changes EYES: Negative for: Eye pain, Eye redness, Eye dryness and visual disturbance CARDIOVASCULAR: Negative for: Chest pain and Leg swelling GENITOURINARY: Negative for: Dysuria and Hematuria HEMATOLOGIC/LYMPHATIC: Negative for: Swollen glands HEAD: negative for, scalp tenderness, jaw claudication, headache, tongue claudication, temporal tenderness EYES: negative for , pain, redness, visual blurring, permanent visual loss, transient visual loss, diplopia REVIEW OF FAMILY AND/OR SOCIAL HISTORY: The family and/or social were reviewed at todays visit and no changes were noted. Current Outpatient Medications Medication Sig alendronate (FOSAMAX) 70 mg tablet TAKE 1 TABLET BY MOUTH ONCE A WEEK IN THE MORNING WITH FULL GLASS OF WATER ON EMPTY STOMACH. NOTHING ELSE BY MOUTH FOR 30 MIN AND STAY UPRIGHT FOR 60 MIN. tocilizumab (ACTEMRA ACTPEN) 162 mg/0.9 mL Inject 1 pen (162 mg) under the skin once weekly RAMIPRIL ORAL 1.25 mg once daily. B1/B2/niacin/B12/protea se (B-COMPLEX WITH B-12 ORAL) once daily. SYNTHROID 88 mcg tablet famotidine (PEPCID) 20 mg tablet fenofibrate nanocrystallized (TRICOR) 145 mg tablet PREMARIN 0.625 MG/G VAGL CREA 2 times a week No current facility-administered medications for this visit. PHYSICAL EXAMINATION BP 149/73 Pulse 63 Temp 36.7 ?C (98.1 ?F) (Temporal) Ht 157.5 cm (5' 2) Wt 61.4 kg (135 lb 5.8 oz) BMI 24.76 kg/m? GENERAL APPEARANCE: well SKIN: normal without rashes or lesions HEAD: normal; temporal arteries with normal pulsation without nodularity or tenderness EYES: conjunctiva clear, PERRL, EOM normal OROPHARYNX: no oral lesions present, no oral ulcers. NECK: supple, without adenopathy. LUNGS: clear HEART: RRR, no gallops, rubs or murmurs ABDOMEN: soft, non-tender, normal BS, no bruits MUSCULOSKELETAL: no joint tenderness or swelling VASCULAR EXAM Carotid: normal and equal bilaterally Brachial: normal and equal bilaterally Radial: normal and equal bilaterally Popliteal: normal and equal bilaterally Dorsalis pedis: normal and equal bilaterally Posterior tibial: normal and equal bilaterally Bruit over large vessels: negative NEURO: motor 5 Lab results: WBC Date Value Ref Range Status 03/26/2024 5.37 3.70 - 11.00 k/uL Final Hemoglobin Date Value Ref Range Status 03/26/2024 12.3 11.5 - 15.5 g/dL Final Hematocrit Date Value Ref Range Status 03/26/2024 37.7 36.0 - 46.0 % Final Platelet Count Date Value Ref Range Status 03/26/2024 283 150 - 400 k/uL Final Abs Lymph Date Value Ref Range Status 03/26/2024 3.40 1.00 - 4.00 k/uL Final Creatinine Date Value Ref Range Status 03/26/2024 0.79 0.58 - 0.96 mg/dL Final Glucose Date Value Ref Range Status 03/26/2024 112 (H) 74 - 99 mg/dL Final Comment: The [place] Diabetes Association (ADA) provides guidance for cutoff values for fasting glucose and random glucose. The ADA defines fasting as no caloric intake for at least 8 hours. Fasting plasma glucose results between 100 to 125 mg/dL indicate increased risk for diabetes (prediabetes). Fasting plasma glucose results greater than or equal to 126 mg/dL meet the criteria for diagnosis of diabetes. In the absence of unequivocal hyperglycemia, results should be confirmed by repeat testing. In a patient with classic symptoms of hyperglycemia or hyperglycemic crisis, random plasma glucose results greater than or equal to 200 mg/dL meet t (more content not included)... Normal [facility] CBC W Auto Differential pane l (Bld)on 03-26-2024 Basophils (Bld) [#/Vol] 0.06 10*3/uL Normal <0.11 [facility] Comment on above: Order Comment: Speci men Type: BLOOD SPECIMENOrdering Facility: [facility] Address: [address], [place] [address] Performed By: #### 5 7021-8 ####[facility] MILLWNCLIA [id number] [place] [address] [place] Basophils/100 WBC (Bld) 1.1 % Normal [facility] Comment on above: Order Comment: Speci men Type: BLOOD SPECIMENOrdering Facility: [facility] Address: [address] [place] [address] Performed By: #### 5 7021-8 ####[facility]ALL[facility] [id number] [place] [address] [place] Differential cell count method Nom (Bld) Auto Normal [facility] Comment on above: Order Comment: Speci men Type: BLOOD SPECIMENOrdering Facility: [facility] Address: [address] [place] [address] Performed By: #### 5 7021-8 ####[facility] [id number] [place] [address] [place] Eosinophils (Bld) [#/Vol] 0.13 10*3/uL Normal <0.46 [facility] Comment on above: Order Comment: Speci men Type: BLOOD SPECIMENOrdering Facility: [facility] Address: [address] [place] [address] Performed By: #### 5 7021-8 ####[facility] [id number] [place] [address] [place] Eosinophils/100 WBC (Bld) 2.4 % Normal [facility] Comment on above: Order Comment: Speci men Type: BLOOD SPECIMENOrdering Facility: [facility] Address: [address] [place] [address] Performed By: #### 5 7021-8 ####[facility]ITALNCLIA [id number] [place] [address] [place] Erythrocyte distribution width (RBC) [Ratio] 15.7 % High 11.5-15.0 [facility] Comment on above: Order Comment: Speci men Type: BLOOD SPECIMENOrdering Facility: [facility] Address: [address] [place] [address] Performed By: #### 5 7021-8 ####[facility] [id number] [place] [address] [place] Hematocrit (Bld) [Volume fraction] 37.7 % Normal 36.0-46.0 [facility] Comment on above: Order Comment: Speci men Type: BLOOD SPECIMENOrdering Facility: [facility] Address: [address] [place] [address] Performed By: #### 5 7021-8 ####[facility] [id number] [place] [address] [place] Hemoglobin (Bld) [Mass/Vol] 12.3 g/dL Normal 11.5-15.5 [facility] Comment on above: Order Comment: Speci men Type: BLOOD SPECIMENOrdering Facility: [facility] Address: [address] [place] [address] Performed By: #### 5 7021-8 ####[facility] [id number] [place] [address] [place] Immature granulocytes (Bld) [#/Vol] 10*3/uL Normal <0.10 [facility] Comment on above: Order Comment: Speci men Type: BLOOD SPECIMENOrdering Facility: [facility] Address: [address] [place] [address] Performed By: #### 5 7021-8 ####[facility] [id number] [place] [address] [place] Immature granulocytes/100 WBC (Bld) 0.2 % Normal [facility] Comment on above: Order Comment: Speci men Type: BLOOD SPECIMENOrdering Facility: [facility] Address: [address] [place] [address] Performed By: #### 5 7021-8 ####[facility] [id number] [place] [address] [place] Lymphocytes (Bld) [#/Vol] 3.40 10*3/uL Normal 1.00-4.00 [facility] Comment on above: Order Comment: Speci men Type: BLOOD SPECIMENOrdering Facility: [facility] Address: [address] [place] [address] Performed By: #### 5 7021-8 ####[facility] [id number] [place] [address] [place] Lymphocytes/100 WBC (Bld) 63.3 % Normal [facility] Comment on above: Order Comment: Speci men Type: BLOOD SPECIMENOrdering Facility: [facility] Address: [address] [place] [address] Performed By: #### 5 7021-8 ####[facility] [id number] [place] [address] [place] MCH (RBC) [Entitic mass] 26.5 pg Normal 26.0-34.0 [facility] Comment on above: Order Comment: Speci men Type: BLOOD SPECIMENOrdering Facility: [facility] Address: [address] [place] [address] Performed By: #### 5 7021-8 ####[facility] [id number] [place] [address] [place] MCHC (RBC) [Mass/Vol] 32.6 g/dL Normal 30.5-36.0 [facility] Comment on above: Order Comment: Speci men Type: BLOOD SPECIMENOrdering Facility: [facility] Address: [address] [place] [address] Performed By: #### 5 7021-8 ####[facility]ITALNCLIA [id number] [place] [address] [place] MCV (RBC) [Entitic vol] 81.1 fL Normal 80.0-100.0 [facility] Comment on above: Order Comment: Speci men Type: BLOOD SPECIMENOrdering Facility: [facility] Address: [address] [place] [address] Performed By: #### 5 7021-8 ####[facility] HOSPITALDEMETRISA [id number] [place] [address] [place] Monocytes (Bld) [#/Vol] 0.42 10*3/uL Normal <0.87 [facility] Comment on above: Order Comment: Speci men Type: BLOOD SPECIMENOrdering Facility: [facility] Address: [address] [place] [address] Performed By: #### 5 7021-8 ####[facility] [id number] [place] [address] [place] Monocytes/100 WBC (Bld) 7.8 % Normal [facility] Comment on above: Order Comment: Speci men Type: BLOOD SPECIMENOrdering Facility: [facility] Address: [address] [place] [address] Performed By: #### 5 7021-8 ####[facility] [id number] [place] [address] [place] Neutrophils (Bld) [#/Vol] 1.35 10*3/uL Low 1.45-7.50 [facility] Comment on above: Order Comment: Speci men Type: BLOOD SPECIMENOrdering Facility: [facility] Address: [address] [place] [address] Performed By: #### 5 7021-8 ####[facility]ITALNCLIA [id number] [place] [address] [place] Neutrophils/100 WBC (Bld) 25.2 % Normal [facility] Comment on above: Order Comment: Speci men Type: BLOOD SPECIMENOrdering Facility: [facility] Address: [address] [place] [address] Performed By: #### 5 7021-8 ####[facility] [id number] [place] [address] [place] Nucleated RBC (Bld) [#/Vol] 10*3/uL Normal <0.01 [facility] Comment on above: Order Comment: Speci men Type: BLOOD SPECIMENOrdering Facility: [facility] Address: [address] [place] [address] Performed By: #### 5 7021-8 ####[facility] [id number] [place] [address] [place] Nucleated RBC/100 WBC (Bld) [Ratio] 0.0 /100 WBC Normal [facility] Comment on above: Order Comment: Speci men Type: BLOOD SPECIMENOrdering Facility: [facility] Address: [address] [place] [address] Performed By: #### 5 7021-8 ####[facility] [id number] [place] [address] [place] Platelet mean volume (Bld) [Entitic vol] 10.0 fL Normal 9.0-12.7 [facility] Comment on above: Order Comment: Speci men Type: BLOOD SPECIMENOrdering Facility: [facility] Address: [address] [place] [address] Performed By: #### 5 7021-8 ####[facility] [id number] [place] [address] [place] Platelets (Bld) [#/Vol] 283 10*3/uL Normal 150-400 [facility] Comment on above: Order Comment: Speci men Type: BLOOD SPECIMENOrdering Facility: [facility] Address: [address] [place] [address] Performed By: #### 5 7021-8 ####[facility]ENTERKAMERON CASTELANA [id number] [place] [address] [place] RBC (Bld) [#/Vol] 4.65 10*6/uL Normal 3.90-5.20 [facility] Comment on above: Order Comment: Speci men Type: BLOOD SPECIMENOrdering Facility: [facility] Address: [address] [place] [address] Performed By: #### 5 7021-8 ####[facility] SERARemaNCLIA [id number] [place] [address] [place] WBC (Bld) [#/Vol] 5.37 10*3/uL Normal 3.70-11.00 [facility] Comment on above: Order Comment: Speci men Type: BLOOD SPECIMENOrdering Facility: [facility] [facility] Address: [address] [place] [address] Performed By: #### 5 7021-8 ####[facility] HOSPITALJARVISLIA [id number] [place] [address] [place] Comprehensive metabolic 2000 panelon 03-26-2024 Albumin [Mass/Vol] 4.6 g/dL Normal 3.9-4.9 [facility] Comment on above: Order Comment: Speci men Type: BLOOD SPECIMENOrdering Facility: [facility] Address: [address] [place] [address] Performed By: #### 2 4323-8 ####[facility] HOSPITALNCLIA [id number] [place] [address] [place] ALP [Catalytic activity/Vol] 33 U/L Low 34-123 [facility] Comment on above: Order Comment: Speci men Type: BLOOD SPECIMENOrdering Facility: [facility] Address: [address] [place] [address] Performed By: #### 2 4323-8 ####[facility] JUAN LUIS MILLTOWNCLIA [id number] [place] [address] [place] ALT [Catalytic activity/Vol] 26 U/L Normal 7-38 [facility] Comment on above: Order Comment: Speci men Type: BLOOD SPECIMENOrdering Facility: [facility] Address: [address] [place] [address] Performed By: #### 2 4323-8 ####[facility] MILLTOWNCLIA [id number] [place] [address] [place] Anion gap [Moles/Vol] 10 mmol/L Normal 8-15 [facility] Comment on above: Order Comment: Speci men Type: BLOOD SPECIMENOrdering Facility: [facility] Address: [address] [place] [address] Performed By: #### 2 4323-8 ####[facility] HOSPITALLIA [id number] [place] [address] [place] AST [Catalytic activity/Vol] 30 U/L Normal 13-35 [facility] Comment on above: Order Comment: Speci men Type: BLOOD SPECIMENOrdering Facility: [facility] Address: [address] [place] [address] Performed By: #### 2 4323-8 ####[facility] HOSPITALWNCLIA [id number] [place] [address] [place] Bilirubin [Mass/Vol] 0.3 mg/dL Normal 0.2-1.3 [facility] Comment on above: Order Comment: Speci men Type: BLOOD SPECIMENOrdering Facility: [facility] Address: [address] [place] [address] Performed By: #### 2 4323-8 ####[facility] HOSPITALNCLIA [id number] [place] [address] [place] Calcium [Mass/Vol] 9.3 mg/dL Normal 8.5-10.2 [facility] Comment on above: Order Comment: Speci men Type: BLOOD SPECIMENOrdering Facility: [facility] Address: [address] [place] [address] Performed By: #### 2 4323-8 ####[facility] HOSPITALWGALIA [id number] [place] [address] [place] Chloride [Moles/Vol] 107 mmol/L Normal 98-107 [facility] Comment on above: Order Comment: Speci men Type: BLOOD SPECIMENOrdering Facility: [facility] Address: [address] [place] [address] Performed By: #### 2 4323-8 ####[facility] HOSPITALLI [id number] [place] [address] [place] CO2 [Moles/Vol] 25 mmol/L Normal 22-30 [facility] Comment on above: Order Comment: Speci men Type: BLOOD SPECIMENOrdering Facility: [facility] Address: [address] [place] [address] Performed By: #### 2 4323-8 ####[facility] HOSPITALLIA [id number] [place] [address] [place] Creatinine [Mass/Vol] 0.79 mg/dL Normal 0.58-0.96 [facility] Comment on above: Order Comment: Speci men Type: BLOOD SPECIMENOrdering Facility: [facility] Address: [address] [place] [address] Performed By: #### 2 4323-8 ####[facility] HOSPITALLIA [id number] [place] [address] [place] Creatinine and Glomerular filtration rate.predicted panel (S/P/Bld) 80 mL/min/1.73m??? Normal >=60 [facility] Comment on above: Order Comment: Speci men Type: BLOOD SPECIMENOrdering Facility: [facility] Address: [address] [id number] Result Comment: Lucía mated Glomerular Filtration Rate (eGFR) is calculated using the 2020 CKD-EPI creatinine equation. This equation utilizes serum creatinine, sex, and age as parameters. The creatinine assay has traceable calibration to isotope dilution-mass spectrometry. Refer to KDIGO guidelines for clinical interpretation. In patients with unstable renal function, e.g. those with acute kidney injury, the eGFR may not accurately reflect actual GFR. Performed By: #### 2 4323-8 ####[facility] [id number] [place] [address] [place] Glucose [Mass/Vol] 112 mg/dL High 74-99 [facility] Comment on above: Order Comment: Noelle alcocer Type: BLOOD SPECIMENOrdering Facility: [facility] Address: [address] [place] [address] Result Comment: The [place] Diabetes Association (ADA) provides guidance for cutoff values for fasting glucose and random glucose. The ADA defines fasting as no caloric intake for at least 8 hours. Fasting plasma glucose results between 100 to 125 mg/dL indicate increased risk for diabetes (prediabetes). Fasting plasma glucose results greater than or equal to 126 mg/dL meet the criteria for diagnosis of diabetes. In the absence of unequivocal hyperglycemia, results should be confirmed by repeat testing. In a patient with classic symptoms of hyperglycemia or hyperglycemic crisis, random plasma glucose results greater than or equal to 200 mg/dL meet the criteria for diagnosis of diabetes. Reference: Standards of Medical Care in Diabetes 2016, [place] [employer]. Diabetes Care. 2016.39(Suppl 1). Performed By: #### 2 4323-8 ####[facility] HOSPITALLI [id number] [place] [address] [place] Potassium [Moles/Vol] 4.4 mmol/L Normal 3.7-5.1 [facility] Comment on above: Order Comment: Noelle alcocer Type: BLOOD SPECIMENOrdering Facility: [facility] Address: [address] [id number] Performed By: #### 2 4323-8 ####[facility] MILLWNCLIA [id number] [place] [address] [place] Protein [Mass/Vol] 6.7 g/dL Normal 6.3-8.0 [facility] Comment on above: Order Comment: Speci men Type: BLOOD SPECIMENOrdering Facility: [facility] Address: [address] [place] [address] Performed By: #### 2 4323-8 ####[facility] HOSPITALLIA [id number] [place] [address] [place] Sodium [Moles/Vol] 142 mmol/L Normal 136-144 [facility] Comment on above: Order Comment: Speci men Type: BLOOD SPECIMENOrdering Facility: [facility] Address: [address] [place] [address] Performed By: #### 2 4323-8 ####[facility] [id number] [address] [place] Urea nitrogen [Mass/Vol] 18 mg/dL Normal 7-21 [facility] Comment on above: Order Comment: Speci men Type: BLOOD SPECIMENOrdering Facility: [facility] Address: [address] [place] [address] Performed By: #### 2 4323-8 ####[facility] HOSPITALLIA [id number] [address] [place] CBC W Auto Differential pane l (Bld)on 01-02-2024 Basophils (Bld) [#/Vol] 0.05 10*3/uL Normal <0.11 [facility] Comment on above: Order Comment: Speci men Type: BLOOD SPECIMENOrdering Facility: [facility] Address: [address] [place] [address] Performed By: #### 5 7021-8 ####[facility] HOSPITALLIA [id number] [place] [address] [place] Basophils/100 WBC (Bld) 0.8 % Normal [facility] Comment on above: Order Comment: Speci men Type: BLOOD SPECIMENOrdering Facility: [facility] Address: [address] [place] [address] Performed By: #### 5 7021-8 ####[facility] ERA [id number] [place] [address] [place] Differential cell count method Nom (Bld) Auto Normal [facility] Comment on above: Order Comment: Speci men Type: BLOOD SPECIMENOrdering Facility: [facility] Address: [address] [place] [address] Performed By: #### 5 7021-8 ####[facility] [id number] [place] [address] [place] Eosinophils (Bld) [#/Vol] 0.15 10*3/uL Normal <0.46 [facility] Comment on above: Order Comment: Speci men Type: BLOOD SPECIMENOrdering Facility: [facility] Address: [address] [place] [address] Performed By: #### 5 7021-8 ####[facility] HOSPITALLIA [id number] [place] [address] [place] Eosinophils/100 WBC (Bld) 2.5 % Normal [facility] Comment on above: Order Comment: Speci men Type: BLOOD SPECIMENOrdering Facility: [facility] Address: [address] [place] [address] Performed By: #### 5 7021-8 ####[facility] ERA [id number] [place] [address] [place] Erythrocyte distribution width (RBC) [Ratio] 14.9 % Normal 11.5-15.0 [facility] Comment on above: Order Comment: Speci men Type: BLOOD SPECIMENOrdering Facility: [facility] Address: [address] [place] [address] Performed By: #### 5 7021-8 ####[facility] SERACRANE LAKECAITLYN [id number] [place] [address] [place] Hematocrit (Bld) [Volume fraction] 38.1 % Normal 36.0-46.0 [facility] Comment on above: Order Comment: Speci men Type: BLOOD SPECIMENOrdering Facility: [facility] Address: [address] [place] [address] Performed By: #### 5 7021-8 ####[facility]OSPITALNCMOAB [facility] [id number] [place] [address] [place] Hemoglobin (Bld) [Mass/Vol] 12.3 g/dL Normal 11.5-15.5 [facility] Comment on above: Order Comment: Speci men Type: BLOOD SPECIMENOrdering Facility: [facility] Address: [address] [place] [address] Performed By: #### 5 7021-8 ####[facility] [id number] [place] [address] [place] Immature granulocytes (Bld) [#/Vol] 10*3/uL Normal <0.10 [facility] Comment on above: Order Comment: Speci men Type: BLOOD SPECIMENOrdering Facility: [facility] Address: [address] [place] [address] Performed By: #### 5 7021-8 ####[facility] HOSPITALLIA [id number] [place] [address] [place] Immature granulocytes/100 WBC (Bld) 0.2 % Normal [facility] Comment on above: Order Comment: Speci men Type: BLOOD SPECIMENOrdering Facility: [facility] Address: [address] [place] [address] Performed By: #### 5 7021-8 ####[facility] HOSPITALWNCLIA [id number] [place] [address] [place] Lymphocytes (Bld) [#/Vol] 3.66 10*3/uL Normal 1.00-4.00 [facility] Comment on above: Order Comment: Speci men Type: BLOOD SPECIMENOrdering Facility: [facility] Address: [address] [place] [address] Performed By: #### 5 7021-8 ####[facility] [id number] [place] [address] [place] Lymphocytes/100 WBC (Bld) 61.3 % Normal [facility] Comment on above: Order Comment: Speci men Type: BLOOD SPECIMENOrdering Facility: [facility] Address: [address] [place] [address] Performed By: #### 5 7021-8 ####[facility] [id number] [place] [address] [place] MCH (RBC) [Entitic mass] 26.5 pg Normal 26.0-34.0 [facility] Comment on above: Order Comment: Speci men Type: BLOOD SPECIMENOrdering Facility: [facility] Address: [address] [place] [address] Performed By: #### 5 7021-8 ####[facility] [id number] [place] [address] [place] MCHC (RBC) [Mass/Vol] 32.3 g/dL Normal 30.5-36.0 [facility] Comment on above: Order Comment: Speci men Type: BLOOD SPECIMENOrdering Facility: [facility] Address: [address] [place] [address] Performed By: #### 5 7021-8 ####[facility] HOSPITALNCLI [id number] [place] [address] [place] MCV (RBC) [Entitic vol] 81.9 fL Normal 80.0-100.0 [facility] Comment on above: Order Comment: Speci men Type: BLOOD SPECIMENOrdering Facility: [facility] Address: [address] [place] [address] Performed By: #### 5 7021-8 ####[facility] HOSPITALNCMOAB [facility] [id number] [place] [address] [place] Monocytes (Bld) [#/Vol] 0.48 10*3/uL Normal <0.87 [facility] Comment on above: Order Comment: Speci men Type: BLOOD SPECIMENOrdering Facility: [facility] Address: [address] [place] [address] Performed By: #### 5 7021-8 ####[facility] [id number] [place] [address] [place] Monocytes/100 WBC (Bld) 8.0 % Normal [facility] Comment on above: Order Comment: Speci men Type: BLOOD SPECIMENOrdering Facility: [facility] Address: [address] [place] [address] Performed By: #### 5 7021-8 ####[facility] [id number] [place] [address] [place] Neutrophils (Bld) [#/Vol] 1.62 10*3/uL Normal 1.45-7.50 [facility] Comment on above: Order Comment: Speci men Type: BLOOD SPECIMENOrdering Facility: [facility] Address: [address] [place] [address] Performed By: #### 5 7021-8 ####[facility]PITALNCMOAB [facility] [id number] [place] [address] [place] Neutrophils/100 WBC (Bld) 27.2 % Normal [facility] Comment on above: Order Comment: Speci men Type: BLOOD SPECIMENOrdering Facility: [facility] Address: [address] [place] [address] Performed By: #### 5 7021-8 ####[facility] SERACRANE LAKECAITLYN [id number] [place] [address] [place] Nucleated RBC (Bld) [#/Vol] 10*3/uL Normal <0.01 [facility] Comment on above: Order Comment: Speci men Type: BLOOD SPECIMENOrdering Facility: [facility] Address: [address] [place] [address] Performed By: #### 5 7021-8 ####[facility] [id number] [place] [address] [place] Nucleated RBC/100 WBC (Bld) [Ratio] 0.0 /100 WBC Normal [facility] Comment on above: Order Comment: Speci men Type: BLOOD SPECIMENOrdering Facility: [facility] Address: [address] [place] [address] Performed By: #### 5 7021-8 ####[facility] ERA [id number] [place] [address] [place] Platelet mean volume (Bld) [Entitic vol] 9.9 fL Normal 9.0-12.7 [facility] Comment on above: Order Comment: Speci men Type: BLOOD SPECIMENOrdering Facility: [facility] Address: [address] [place] [address] Performed By: #### 5 7021-8 ####[facility]PITALNCLIA [id number] [place] [address] [place] Platelets (Bld) [#/Vol] 248 10*3/uL Normal 150-400 [facility] Comment on above: Order Comment: Speci men Type: BLOOD SPECIMENOrdering Facility: [facility] Address: [address] [place] [address] Performed By: #### 5 7021-8 ####[facility] HOSPITALWNCLIA [id number] [place] [address] [place] RBC (Bld) [#/Vol] 4.65 10*6/uL Normal 3.90-5.20 [facility] Comment on above: Order Comment: Speci men Type: BLOOD SPECIMENOrdering Facility: [facility] Address: [address] [place] [address] Performed By: #### 5 7021-8 ####[facility]PITALNCLIA [id number] [place] [address] [place] WBC (Bld) [#/Vol] 5.97 10*3/uL Normal 3.70-11.00 [facility] Comment on above: Order Comment: Speci men Type: BLOOD SPECIMENOrdering Facility: [facility] Address: [address] [place] [address] Performed By: #### 5 7021-8 ####[facility] H[facility]PITALNCLIA [id number] [place] [address] [place] Comprehensive metabolic 2000 panelon 01-02-2024 Albumin [Mass/Vol] 4.6 g/dL Normal 3.9-4.9 [facility] Comment on above: Order Comment: Speci men Type: BLOOD SPECIMENOrdering Facility: [facility] Address: [address] [place] [address] Performed By: #### 2 4323-8 ####[facility] H[facility]PITALNCLIA [id number] [place] [address] [place] ALP [Catalytic activity/Vol] 36 U/L Normal 34-123 [facility] Comment on above: Order Comment: Speci men Type: BLOOD SPECIMENOrdering Facility: [facility] Address: [address] [place] [address] Performed By: #### 2 4323-8 ####[facility] HOSPITALNCLIA [id number] [place] [address] [place] ALT [Catalytic activity/Vol] 25 U/L Normal 7-38 [facility] Comment on above: Order Comment: Speci men Type: BLOOD SPECIMENOrdering Facility: [facility] Address: [address] [place] [address] Performed By: #### 2 4323-8 ####[facility] JUAN LUIS MILLWNCLIA [id number] [place] [address] [place] Anion gap [Moles/Vol] 11 mmol/L Normal 8-15 [facility] Comment on above: Order Comment: Speci men Type: BLOOD SPECIMENOrdering Facility: [facility] Address: [address] [place] [address] Performed By: #### 2 4323-8 ####[facility]PITALNCLIA [id number] [place] [address] [place] AST [Catalytic activity/Vol] 28 U/L Normal 13-35 [facility] Comment on above: Order Comment: Speci men Type: BLOOD SPECIMENOrdering Facility: [facility] Address: [address] [place] [address] Performed By: #### 2 4323-8 ####[facility] H[facility]PITALNCLIA [id number] [place] [address] [place] Bilirubin [Mass/Vol] 0.3 mg/dL Normal 0.2-1.3 [facility] Comment on above: Order Comment: Speci men Type: BLOOD SPECIMENOrdering Facility: [facility] Address: [address] [place] [address] Performed By: #### 2 4323-8 ####[facility] HOSPITALNCLIA [id number] [place] [address] [place] Calcium [Mass/Vol] 9.4 mg/dL Normal 8.5-10.2 [facility] Comment on above: Order Comment: Speci men Type: BLOOD SPECIMENOrdering Facility: [facility] Address: [address] [place] [address] Performed By: #### 2 4323-8 ####[facility] HOSPITALWNCLIA [id number] [place] [address] [place] Chloride [Moles/Vol] 103 mmol/L Normal 98-107 [facility] Comment on above: Order Comment: Speci men Type: BLOOD SPECIMENOrdering Facility: [facility] Address: [address] [place] [address] Performed By: #### 2 4323-8 ####[facility]ITALNCLIA [id number] [place] [address] [place] CO2 [Moles/Vol] 25 mmol/L Normal 22-30 [facility] Comment on above: Order Comment: Speci men Type: BLOOD SPECIMENOrdering Facility: [facility] Address: [address] [place] [address] Performed By: #### 2 4323-8 ####[facility]PITALNCLIA [id number] [place] [address] [place] Creatinine [Mass/Vol] 0.79 mg/dL Normal 0.58-0.96 [facility] Comment on above: Order Comment: Speci men Type: BLOOD SPECIMENOrdering Facility: [facility] Address: [address] [place] [address] Performed By: #### 2 4323-8 ####[facility]ITALNCLIA [id number] [place] [address] [place] Creatinine and Glomerular filtration rate.predicted panel (S/P/Bld) 80 mL/min/1.73m??? Normal >=60 [facility] Comment on above: Order Comment: Speci men Type: BLOOD SPECIMENOrdering Facility: [facility] Address: [address] [place] [address] Result Comment: Lucía mated Glomerular Filtration Rate (eGFR) is calculated using the 2020 CKD-EPI creatinine equation. This equation utilizes serum creatinine, sex, and age as parameters. The creatinine assay has traceable calibration to isotope dilution-mass spectrometry. Refer to KDIGO guidelines for clinical interpretation. In patients with unstable renal function, e.g. those with acute kidney injury, the eGFR may not accurately reflect actual GFR. Performed By: #### 2 4323-8 ####[facility] HOSPITALCAITLYN [id number] [place] [address] [place] Glucose [Mass/Vol] 108 mg/dL High 74-99 [facility] Comment on above: Order Comment: Noelle alcocer Type: BLOOD SPECIMENOrdering Facility: [facility] Address: [address] [place] [address] Result Comment: The [place] [employer] (ADA) provides guidance for cutoff values for fasting glucose and random glucose. The ADA defines fasting as no caloric intake for at least 8 hours. Fasting plasma glucose results between 100 to 125 mg/dL indicate increased risk for diabetes (prediabetes). Fasting plasma glucose results greater than or equal to 126 mg/dL meet the criteria for diagnosis of diabetes. In the absence of unequivocal hyperglycemia, results should be confirmed by repeat testing. In a patient with classic symptoms of hyperglycemia or hyperglycemic crisis, random plasma glucose results greater than or equal to 200 mg/dL meet the criteria for diagnosis of diabetes. Reference: Standards of Medical Care in Diabetes 2016, [place] [employer]. Diabetes Care. 2016.39(Suppl 1). Performed By: #### 2 4323-8 ####[facility] HOSPITALDEMETRISA [id number] [place] [address] [place] [place] Potassium [Moles/Vol] 4.6 mmol/L Normal 3.7-5.1 [facility] Comment on above: Order Comment: Noelle alcocer Type: BLOOD SPECIMENOrdering Facility: [facility] Address: [address] [place] [address] Performed By: #### 2 4323-8 ####[facility] [id number] [place] [id number] [place] Protein [Mass/Vol] 6.5 g/dL Normal 6.3-8.0 [facility] Comment on above: Order Comment: Speci men Type: BLOOD SPECIMENOrdering Facility: [facility] Address: [address] [place] [address] Performed By: #### 2 4323-8 ####[facility] [id number] [place] [address] [place] Sodium [Moles/Vol] 139 mmol/L Normal 136-144 [facility] Comment on above: Order Comment: Speci men Type: BLOOD SPECIMENOrdering Facility: [facility] Address: [address] [place] [address] Performed By: #### 2 4323-8 ####[facility] [id number] [place] [address] [place] Urea nitrogen [Mass/Vol] 25 mg/dL High 7-21 [facility] Comment on above: Order Comment: Speci men Type: BLOOD SPECIMENOrdering Facility: [facility] Address: [address] [place] [address] Performed By: #### 2 4323-8 ####[facility] [id number] [place] [address] [place] Comprehensive Metabolic Prof [facility] 11-28-2023 Albumin [Mass/Vol] 4.1 g/dL Normal 3.2-5.0 [facility] Comment on above: Order Comment: Order Date: 06/10/23 Order Info: [id number] - CMP Order Info: [id number] - LIPID Order Info: [id number] - TSH Performed By: #### L 501.9985, L500.4100, L501.9520, L502.0250, L506.1000, L500.4050 #### [facility] [address] [place], [place], [id number] Albumin/Globulin [Mass ratio] 1.3 {ratio} Normal 0.9-2.4 [facility] Comment on above: Order Comment: Order Date: 06/10/23 Order Info: [id number] - CMP Order Info: - LIPID Order Info: [id number] - TSH Performed By: #### L 501.9985, L500.4100, L501.9520, L502.0250, L506.1000, L500.4050 #### [facility] [address] [place], [address] ALK P 34 U/L Low 45-117 [facility] Comment on above: Order Comment: Order Date: 06/10/23 Order Info: [id number] - CMP Order Info: [id number] - LIPID Order Info: [id number] - TSH Performed By: #### L 501.9985, L500.4100, L501.9520, L502.0250, L506.1000, L500.4050 #### [facility] [address] [place], [address] ALT [Catalytic activity/Vol] 35 U/L Normal 13-56 [facility] Comment on above: Order Comment: Order Date: 06/10/23 Order Info: [id number] - CMP Order Info: [id number] - LIPID Order Info: [id number] - TSH Performed By: #### L 501.9985, L500.4100, L501.9520, L502.0250, L506.1000, L500.4050 #### [facility] [address] [place], [address] AST [Catalytic activity/Vol] 32 U/L Normal 15-37 [facility] Comment on above: Order Comment: Order Date: 06/10/23 Order Info: 0786 - CMP Order Info: [id number] - LIPID Order Info: [id number] - TSH Performed By: #### L 501.9985, L500.4100, L501.9520, L502.0250, L506.1000, L500.4050 #### [facility] [address] [place], [address] Bilirubin [Mass/Vol] 0.50 mg/dL Normal 0.20-1.00 [facility] Comment on above: Order Comment: Order Date: 06/10/23 Order Info: [id number] - CMP Order Info: [id number] - LIPID Order Info: [id number] - TSH Result Comment: For patients on eltrombopag therapy, use of Dimension [place] TBIL is not recommended. Performed By: #### L 501.9985, L500.4100, L501.9520, L502.0250, L506.1000, L500.4050 #### [facility] [address] [place], [address] BUN/CRE 23.9 RATIO High 10-20 [facility] Comment on above: Order Comment: Order Date: 06/10/23 Order Info: 07 - CMP Order Info: [id number] - LIPID Order Info: [id number] - TSH Performed By: #### L 501.9985, L500.4100, L501.9520, L502.0250, L506.1000, L500.4050 #### [facility] [address] [place], [address] CA,Total 8.9 mg/dL Normal 8.5-10.1 [facility] Comment on above: Order Comment: Order Date: 06/10/23 Order Info: 0786- - CMP Order Info: [id number] - LIPID Order Info: [id number] - TSH Performed By: #### L 501.9985, L500.4100, L501.9520, L502.0250, L506.1000, L500.4050 #### [facility] [address] [place], [address] Chloride [Moles/Vol] 104 mmol/L Normal 98-107 [facility] Comment on above: Order Comment: Order Date: 06/10/23 Order Info: 07 - CMP Order Info: - LIPID Order Info: [id number] - TSH Performed By: #### L 501.9985, L500.4100, L501.9520, L502.0250, L506.1000, L500.4050 #### [facility] [address] [place], [address] CO2 [Moles/Vol] 28.0 mmol/L Normal 21.0-32.0 [facility] Comment on above: Order Comment: Order Date: 06/10/23 Order Info: [id number] - CMP Order Info: - LIPID Order Info: [id number] - TSH Performed By: #### L 501.9985, L500.4100, L501.9520, L502.0250, L506.1000, L500.4050 #### [facility] [address] [place], [address] Creatinine [Mass/Vol] 0.88 mg/dL Normal 0.55-1.02 [facility] Comment on above: Order Comment: Order Date: 06/10/23 Order Info: [id number] - CMP Order Info: - LIPID Order Info: [id number] - TSH Result Comment: The validity of the calculated GFR GFRAA in patients over 70 years has not been determined. Clinical correlation is essential. Performed By: #### L 501.9985, L500.4100, L501.9520, L502.0250, L506.1000, L500.4050 #### [facility] [address] [place], [address] EST GFR - AA 81 mL/min Normal >60 [facility] Comment on above: Order Comment: Order Date: 06/10/23 Order Info: [id number] - CMP Order Info: - LIPID Order Info: [id number] - TSH Result Comment: Afri can [place] GFR Calc Performed By: #### L 501.9985, L500.4100, L501.9520, L502.0250, L506.1000, L500.4050 #### [facility] [address] [place], [address] GAP 5 Normal 5-15 [facility] Comment on above: Order Comment: Order Date: 06/10/23 Order Info: [id number] - CMP Order Info: [id number] - LIPID Order Info: [id number] - TSH Performed By: #### L 501.9985, L500.4100, L501.9520, L502.0250, L506.1000, L500.4050 #### [facility] [address] [place], [address] GFR/1.73 sq M.predicted among non-blacks MDRD (S/P/Bld) [Vol rate/Area] 67 mL/min/{1.73_m2} Normal >60 [facility] Comment on above: Order Comment: Order Date: 06/10/23 Order Info: [id number]- - CMP Order Info: [id number] - LIPID Order Info: [id number] - TSH Result Comment: Non- GFR Calc Performed By: #### L 501.9985, L500.4100, L501.9520, L502.0250, L506.1000, L500.4050 #### [facility] [address] [place], [address] Globulin (S) [Mass/Vol] 3.1 g/dL Normal 2.2-4.2 [facility] Comment on above: Order Comment: Order Date: 06/10/23 Order Info: [id number] - CMP Order Info: [id number] - LIPID Order Info: [id number] - TSH Performed By: #### L 501.9985, L500.4100, L501.9520, L502.0250, L506.1000, L500.4050 #### [facility] [address] [place], [address] Glucose [Mass/Vol] 104 mg/dL Normal 74-106 [facility] Comment on above: Order Comment: Order Date: 06/10/23 Order Info: [id number] - CMP Order Info: - LIPID Order Info: [id number] - TSH Result Comment: Fast ing Glucose result from 100 to 125 mg/dL suggests IMPAIRED HOMEOSTASIS per A.D.A. criteria. Performed By: #### L 501.9985, L500.4100, L501.9520, L502.0250, L506.1000, L500.4050 #### [facility] [address] [place], [address] Potassium [Moles/Vol] 4.3 mmol/L Normal 3.5-5.1 [facility] Comment on above: Order Comment: Order Date: 06/10/23 Order Info: [id number] - CMP Order Info: - LIPID Order Info: [id number] - TSH Performed By: #### L 501.9985, L500.4100, L501.9520, L502.0250, L506.1000, L500.4050 #### [facility] [address] [place], [address] Sodium [Moles/Vol] 137 mmol/L Normal 136-145 [facility] Comment on above: Order Comment: Order Date: 06/10/23 Order Info: [id number] - CMP Order Info: - LIPID Order Info: [id number] - TSH Performed By: #### L 501.9985, L500.4100, L501.9520, L502.0250, L506.1000, L500.4050 #### [facility] [address] [place], [address] T PROT 7.2 g/dL Normal 6.4-8.2 [facility] Comment on above: Order Comment: Order Date: 06/10/23 Order Info: 07 - CMP Order Info: - LIPID Order Info: [id number] - TSH Performed By: #### L 501.9985, L500.4100, L501.9520, L502.0250, L506.1000, L500.4050 #### [facility] [address] [place], [address] Urea nitrogen [Mass/Vol] 21 mg/dL High 7-18 [facility] Comment on above: Order Comment: Order Date: 06/10/23 Order Info: [id number] - CMP Order Info: [id number] - LIPID Order Info: [id number] - TSH Performed By: #### L 501.9985, L500.4100, L501.9520, L502.0250, L506.1000, L500.4050 #### [facility] [address] [place], [address] Hemoglobin A1con 11-28-2023 HbA1c (Bld) [Mass fraction] 5.7 % High 3.8-5.6 [facility] Comment on above: Order Comment: Order Date: 06/10/23 Order Info: [id number] - A1C Result Comment: Norm al < 5.7 % Prediabetic 5.7 - 6.4 % Diabetic >or= 6.5 % Please note range changes. Performed By: #### L 501.9985, L500.4100, L501.9520, L502.0250, L506.1000, L500.4050 #### [facility] [address] [place], [address] Lipid Profileon 11-28-2023 Cholesterol [Mass/Vol] 165 mg/dL Normal 200 [facility] Comment on above: Order Comment: Order Date: 06/10/23 Order Info: [id number] - CMP Order Info: [id number] - LIPID Order Info: [id number] - TSH Result Comment: <200 mg/dL Desirable 200-240 mg/dL Borderline >240 mg/dL High Risk Performed By: #### L 501.9985, L500.4100, L501.9520, L502.0250, L506.1000, L500.4050 #### [facility] [address] [place], [address] Cholesterol in HDL [Mass/Vol] 45 mg/dL Normal [facility] Comment on above: Order Comment: Order Date: 06/10/23 Order Info: 785- - CMP Order Info: - LIPID Order Info: [id number] - TSH Result Comment: The drugs N-Acetylcysteine and Metamizole may falsely depress this assay. Reference Range HDL <40 mg/dL Low HDL Cholesterol HDL >or= 60 mg/dL High HDL Cholesterol Performed By: #### L 501.9985, L500.4100, L501.9520, L502.0250, L506.1000, L500.4050 #### [facility] [address] [place], [address] Cholesterol in LDL [Mass/Vol] 93 mg/dL Normal 0-130 [facility] Comment on above: Order Comment: Order Date: 06/10/23 Order Info: [id number] - CMP Order Info: - LIPID Order Info: [id number] - TSH Performed By: #### L 501.9985, L500.4100, L501.9520, L502.0250, L506.1000, L500.4050 #### [facility] [address] [place], [address] Cholesterol in VLDL [Mass/Vol] 27 mg/dL Normal 5-40 [facility] Comment on above: Order Comment: Order Date: 06/10/23 Order Info: [id number] - CMP Order Info: - LIPID Order Info: [id number] - TSH Performed By: #### L 501.9985, L500.4100, L501.9520, L502.0250, L506.1000, L500.4050 #### [facility] [address] [place], [address] Triglyceride [Mass/Vol] 137 mg/dL Normal [facility] Comment on above: Order Comment: Order Date: 06/10/23 Order Info: [id number] - CMP Order Info: - LIPID Order Info: [id number] - TSH Result Comment: The drugs N-Acetylcysteine and Metamizole may falsely depress this assay. Serum Triglycerides Reference Interval Normal <150 mg/dL Borderline high 150 - 199 mg/dL High 200 - 499 mg/dL Very High > or = 500 mg/dL Performed By: #### L 501.9985, L500.4100, L501.9520, L502.0250, L506.1000, L500.4050 #### [facility] [address] [place], [address] Microalb:Creat Ratio,Random URon 11-28-2023 Creatinine [Mass/Vol] 39.10 mg/dL Normal NO RANGE EST. [facility] Comment on above: Order Comment: Order Date: 06/10/23 Order Info: [id number] - MIACRE Performed By: #### L 501.9985, L500.4100, L501.9520, L502.0250, L506.1000, L500.4050 #### [facility] [address] [place], [address] MALB:CRE TNP Normal <30 mg/g CRE [facility] Comment on above: Order Comment: Order Date: 06/10/23 Order Info: [id number] - MIACRE Performed By: #### L 501.9985, L500.4100, L501.9520, L502.0250, L506.1000, L500.4050 #### [facility] [address] [place], [address] MICROALBUMIN,UR < 5.0 Normal NO RANGE EST. [facility] Comment on above: Order Comment: Order Date: 06/10/23 Order Info: [id number] - MIACRE Performed By: #### L 501.9985, L500.4100, L501.9520, L502.0250, L506.1000, L500.4050 #### [facility] [address] [place], [address] Thyroid Stim Hormone (TSH)on 11-28-2023 TSH 2.68 uIU/mL Normal 0.358-3.74 [facility] Comment on above: Order Comment: Order Date: 06/10/23 Order Info: [id number] - CMP Order Info: [id number] - LIPID Order Info: [id number] - TSH Performed By: #### L 501.9985, L500.4100, L501.9520, L502.0250, L506.1000, L500.4050 #### [facility] [address] [place], [address] Vitamin D,25 Hydroxyon 11-27 Vitamin D 25-OH 42.7 ng/mL Normal [facility] Comment on above: Order Comment: Order Date: 06/10/23 Order Info: [id number] - VITD25 Result Comment: Zehra min D 25(OH) Status Range Deficiency <20 ng/mL (50nmol/L) Insufficiency 20 - 30 ng/mL (50 - 75 nmol/L) Sufficiency 30 - 100 ng/mL (75 - 250 nmol/L) Toxicity >100 ng/mL (>250 nmol/L) Performed By: #### L 501.9985, L500.4100, L501.9520, L502.0250, L506.1000, L500.4050 #### [facility] [address] [place], [address] Dexa Bone Density Studyon Dexa Bone Density Study [facility] Services [address] [place] [address] Dexa Bone Density Study MR#: [id number] Acct: [id number] Name: ANDREEA MONTES Rep #: [id number] : 1950 F 73 From: Ritchie amezcua MD PCP: Dr. Berenice Tidwell MD Status: REG CLI Study: Dexa Bone Density Study Date of Exam: 11/12/23 Exam# [id number] Ordering Dr: [address] [id number] STUDY: DUAL ENERGY X-RAY ABSORPTIOMETRY / DXA REASON FOR EXAM: Female, 73 years old. M85.89 TECHNIQUE: Bone Mineral Density (BMD) measurements of lumbar spine and bilateral hips were obtained. COMPARISON: Comparison is made with prior study September 25, 2022. FINDINGS: Lumbar Spine (L1-L4): g/cm2 (0.873) / T-score (-1.6) / Z-score (0.7) Findings are suggestive of osteopenia with a moderate fracture risk. Left Femur Total: g/cm2 (0.756) / T-score (-1.5) / Z-score (0.1) Left Femoral Neck: g/cm2 (0.686) / T-score (-1.5) / Z-score (0.5) Right Femur Total: g/cm2 (0.771) / T-score (-1.4) / Z-score (0.2) Right Femoral Neck: g/cm2 (0.632) / T-score (-2.0) / Z-score (0.0) The T-Scores on the most recent prior examination were: Lumbar Spine (L1-L4): There has been improvement of bone density since the previous examination. Left Femur Total: which represents a worsening of 0.9%. Right Femur Total: which represents an improvement of 2.6%. BD/Dexa Bone Density Study IMPRESSION: The patient is considered osteopenic as outlined below according to World [employer] Organization (WHO) criteria with a moderate fracture risk. There has been improvement of bone density since the previous examination. Reference Information: The T-score is the number of standard deviations above or below the standard which is normal for young adults at their peak bone mineral density. The World Health Organization (WHO) interprets the T-scores as follows: Above -1 Normal bone density Between -1 and -2.5 Osteopenia Equal to / or below -2.5 Osteoporosis As a practical clinical guideline, osteopenia may be graded as follows: Mild -1 through -1.5 Moderate -1.6 through -2.0 Severe -2.1 through -2.4 The Z-score is the number of standard deviations above or below age-matched controls. A Z-score of less than -1.5 would be considered abnormal. References: 1. NIH Osteoporosis and Related Bone Diseases www osteo.org 2. International Society for Clinical Densitometry www iscd.org 3. National Osteoporosis Foundation www nof.org Electronically Signed: Ritchie Mittal MD at 9:46 EDT , CC: FELI MADDOX; Dr. Berenice Tidwell MD Podiatric Technician: Signed Normal [facility] VITAMIN D 25 HYDROXYon 03-06 25-hydroxyvitamin D3 [Mass/Vol] 46.2 ng/mL 31.0 - 80.0 ng/mL [facility] Absolute lymphocyte countOrd ered By: Dr. Tidwell on 09-02-2022 Lymphocytes Auto (Unsp spec) [#/Vol] 3.01 10*3/uL 0.83-4.51 [facility] Basophil percentageOrdered B y: Dr. Tidwell on 09-02-2022 Basophils/100 WBC (Bld) 0.5 % 0-1 [facility] Bilirubin [Mass/Vol] 0.40 mg/dL 0.20-1.00 [facility] Comment on above: For patients on eltr ombopag therapy, use of Dimension [place] TBIL is not recommended. Chloride [Moles/Vol] 105 mmol/L 98-107 [facility] Eosinophils/100 WBC (Bld) 0.8 % 0-5 [facility] Glucose [Mass/Vol] 109 mg/dL 74-106 [facility] Comment on above: Fasting Glucose resu lt from 100 to 125 mg/dL suggests IMPAIRED HOMEOSTASIS per A.D.A. criteria. Neutrophils (Bld) [#/Vol] 4.0 10*3/uL 2.0-7.7 [facility] Neutrophils/100 WBC (Bld) 52.0 % 47-70 [facility] Potassium [Moles/Vol] 3.7 mmol/L 3.5-5.1 [facility] Protein [Mass/Vol] 6.7 g/dL 6.4-8.2 [facility] Sodium [Moles/Vol] 138 mmol/L 136-145 [facility] WBC (Bld) [#/Vol] 7.6 10*3/uL 4.4-11.0 [facility] Blood erythrocytes count (nu mber/volume)Ordered By: Dr. Tidwell on 09-02-2022 RBC (Bld) [#/Vol] 4.57 10*6/uL 4.2-5.4 [facility] Blood hemoglobin measurement (mass/volume)Ordered By: Dr. Tidwell on 09-02-2022 Hemoglobin (Bld) [Mass/Vol] 13.0 g/dL 12.0-15.0 [facility] Blood lymphocytes/100 leukoc ytesOrdered By: Dr. Tidwell on 09-02-2022 Lymphocytes/100 WBC (Bld) 39.7 % 19-41 [facility] Blood monocytes/100 leukocyt esOrdered By: Dr. Tidwell on 09-02-2022 Monocytes/100 WBC (Bld) 6.6 % 0-10 [facility] Blood platelet mean volumeOr dered By: Dr. Tidwell on 09-02-2022 Platelet mean volume (Bld) [Entitic vol] 10.1 fL 6.2-12.0 [facility] Determination of erythrocyte mean corpuscular volume (MCV)Ordered By: Dr. Tidwell on 09-02-2022 MCV (RBC) [Entitic vol] 89.5 fL 81-99 [facility] Erythrocyte sedimentation ra teOrdered By: Dr. Tidwell on 09-02-2022 ESR (Bld) [Velocity] 1 mm/h 0-30 [facility] Hematocrit Auto (Bld) [Volum e fraction]Ordered By: Dr. Tidwell on 09-02-2022 Hematocrit (Bld) [Volume fraction] 40.9 % 37-47 [facility] - Chemistry and C hemistry - challengeOrdered By: Dr. Tidwell on 09-02-2022 ALP [Catalytic activity/Vol] 38 U/L 45-117 [facility] ALT [Catalytic activity/Vol] 29 U/L 13-56 [facility] CO2 [Moles/Vol] 26.0 mmol/L 21.0-32.0 [facility] Free T4 [Mass/Vol] 1.16 ng/dL 0.76-1.46 [facility] Globulin (S) [Mass/Vol] 2.8 g/dL 2.2-4.2 [facility] Urea nitrogen/Creatinine [Mass ratio] 23.4 mg/mg 10-20 [facility] - Hematology and Cell countsOrdered By: Dr. Tidwell on 09-02-2022 Erythrocyte distribution width (RBC) [Entitic vol] 44.3 fL 35.1-43.9 [facility] Erythrocyte distribution width (RBC) [Ratio] 13.5 % 11.6-14.6 [facility] Immature granulocytes/100 WBC (Bld) 0.400 % 0.0-0.9 [facility] Comment on above: IG% - Immature Granu locytes (promyelocytes, myelocytes and metamyelocytes) > 1% indicates that a LEFT SHIFT is Present. MCH (RBC) [Entitic mass] 28.4 pg 27.0-32.0 [facility] Nucleated RBC/100 WBC (Bld) [Ratio] 0 % 0-5 [facility] MCHC Auto (RBC) [Mass/Vol]Or dered By: Dr. Tidwell on 09-02-2022 MCHC (RBC) [Mass/Vol] 31.8 g/dL 32-36 [facility] No Panel InformationOrdered By: Dr. Tidwell on 09-02-2022 Estimated GFR (MDRD) Amer 80 mL/min >60 [facility] Comment on above: GFR Calc Estimated GFR (MDRD) Non-Af Amer 66 mL/min >60 [facility] Comment on above: Non- GFR Calc Thyroid Stimulating Hormone (TSH) 2.24 uIU/mL 0.358-3.74 [facility] Urine Microalbumin/Creatinin e Ratio 11.6 mg/g CRE <30 [facility] Vitamin D 25-Hydroxy 32.9 ng/mL [facility] Comment on above: Vitamin D 25(OH) Sta tus Range Deficiency <20 ng/mL (50nmol/L) Insufficiency 20 - 30 ng/mL (50 - 75 nmol/L) Sufficiency 30 - 100 ng/mL (75 - 250 nmol/L) Toxicity >100 ng/mL (>250 nmol/L) Platelets bldOrdered By: Dr. Tidwell on 09-02-2022 Platelets (Bld) [#/Vol] 302 10*3/uL 150-450 [facility] Serum or plasma C reactive p rotein measurement (mass/volume)Ordered By: Dr. Tidwell on 09-02-2022 CRP [Mass/Vol] mg/L 0.0-3.0 [facility] Comment on above: C-Reactive Protein ( CRP) provides useful information for thediagnosis, therapy and monitoring of inflammatory processesand associated diseases. For the evaluation of Relative Riskfor Cardiovascular Disease, a High Sensitivity CRP (HSCRP)should be ordered. Serum or plasma albumin stephen urement (mass/volume)Ordered By: Dr. Tidwell on 09-02-2022 Albumin [Mass/Vol] 3.9 g/dL 3.2-5.0 [facility] Serum or plasma albumin/glob ulin mass ratioOrdered By: Dr. Tidwell on 09-02-2022 Albumin/Globulin [Mass ratio] 1.4 {ratio} 0.9-2.4 [facility] Serum or plasma calcium stephen urement (mass/volume)Ordered By: Dr. Tidwell on 09-02-2022 Calcium [Mass/Vol] 8.9 mg/dL 8.5-10.1 [facility] Serum or plasma creatinine m easurement (mass/volume)Ordered By: Dr. Tidwell on 09-02-2022 Creatinine [Mass/Vol] 0.90 mg/dL 0.55-1.02 [facility] Comment on above: The validity of the calculated GFR & GFRAA in patients over 70 years has not been determined. Clinical correlation is essential. Serum or plasma urea nitroge n measurement (mass/volume)Ordered By: Dr. Tidwell on 09-02-2022 Urea nitrogen [Mass/Vol] 21 mg/dL 7-18 [facility] Thin prep Papanicolaou smear with manual screeningOrdered By: Dr. Tidwell on 09-02-2022 Thin prep Papanicolaou smear with manual screening 21 U/L 15-37 [facility] Thin prep Papanicolaou smear with manual screening 7 5-15 [facility] Thin prep Papanicolaou smear with manual screening 5.0 mg/L NO RANGE EST. [facility] Urine creatinine measurement (mass/volume)Ordered By: Dr. Tidwell on 09-02-2022 Creatinine (U) [Mass/Vol] 43.30 mg/dL NO RANGE EST. [facility] Absolute lymphocyte counton 04-08-2022 Lymphocytes Auto (Unsp spec) [#/Vol] 1.91 10*3/uL 0.83-4.51 [facility] Work Phone: Basophil percentageon 2021 Basophil percentage < 0.2 AI 0.0-0.9 [facility] Work Phone: Basophils/100 WBC (Bld) 0.1 % 0-1 [facility] Work Phone: Bilirubin [Mass/Vol] 0.40 mg/dL 0.20-1.00 [facility] Work Phone: Comment on above: For patients on eltr ombopag therapy, use of Dimension [place] TBIL is not recommended. Chloride [Moles/Vol] 103 mmol/L 98-107 [facility] Work Phone: Eosinophils/100 WBC (Bld) 0.0 % 0-5 [facility] Work Phone: Glucose [Mass/Vol] 111 mg/dL 74-106 [facility] Work Phone: Comment on above: Fasting Glucose resu lt from 100 to 125 mg/dL suggests IMPAIRED HOMEOSTASIS per A.D.A. criteria. Neutrophils (Bld) [#/Vol] 7.9 10*3/uL 2.0-7.7 [facility] Work Phone: Neutrophils/100 WBC (Bld) 74.2 % 47-70 [facility] Work Phone: Potassium [Moles/Vol] 3.4 mmol/L 3.5-5.1 [facility] Work Phone: Protein [Mass/Vol] 7.7 g/dL 6.4-8.2 [facility] Work Phone: Sodium [Moles/Vol] 140 mmol/L 136-145 [facility] Work Phone: WBC (Bld) [#/Vol] 10.6 10*3/uL 4.4-11.0 [facility] Work Phone: Blood erythrocytes count (nu mber/volume)on 04-08-2022 RBC (Bld) [#/Vol] 4.27 10*6/uL 4.2-5.4 [facility] Work Phone: Blood hemoglobin measurement (mass/volume)on 04-08-2022 Hemoglobin (Bld) [Mass/Vol] 11.1 g/dL 12.0-15.0 [facility] Work Phone: Blood lymphocytes/100 leukoc yteson 04-08-2022 Lymphocytes/100 WBC (Bld) 18.0 % 19-41 [facility] Work Phone: Blood monocytes/100 leukocyt eson 04-08-2022 Monocytes/100 WBC (Bld) 6.9 % 0-10 [facility] Work Phone: Blood platelet mean volumeon 04-08-2022 Platelet mean volume (Bld) [Entitic vol] 9.7 fL 6.2-12.0 [facility] Work Phone: Determination of erythrocyte mean corpuscular volume (MCV)on 04-08-2022 MCV (RBC) [Entitic vol] 82.4 fL 81-99 [facility] Work Phone: Erythrocyte sedimentation ra paulino 04-08-2022 ESR (Bld) [Velocity] 31 mm/h 0-30 [facility] Work Phone: Hematocrit Auto (Bld) [Volum e fraction]on 04-08-2022 Hematocrit (Bld) [Volume fraction] 35.2 % 37-47 [facility] Work Phone: [phone] Laboratory - Chemistry and C hemistry - challengeon 04-08-2022 ALP [Catalytic activity/Vol] 65 U/L 45-117 [facility] Work Phone: [phone] ALT [Catalytic activity/Vol] 20 U/L 13-56 [facility] Work Phone: [phone] CO2 [Moles/Vol] 28.0 mmol/L 21.0-32.0 [facility] Work Phone: [phone] Globulin (S) [Mass/Vol] 4.1 g/dL 2.2-4.2 [facility] Work Phone: [phone] Urea nitrogen/Creatinine [Mass ratio] 27.1 mg/mg 10-20 [facility] Work Phone: [phone] Laboratory - Hematology and Cell countson 04-08-2022 Erythrocyte distribution width (RBC) [Entitic vol] 49.1 fL 35.1-43.9 [facility] Work Phone: [phone] Erythrocyte distribution width (RBC) [Ratio] 16.4 % 11.6-14.6 [facility] Work Phone: [phone] Immature granulocytes/100 WBC (Bld) 0.800 % 0.0-0.9 [facility] Work Phone: [phone] Comment on above: IG% - Immature Granu locytes (promyelocytes, myelocytes and metamyelocytes) > 1% indicates that a LEFT SHIFT is Present. MCH (RBC) [Entitic mass] 26.0 pg 27.0-32.0 [facility] Work Phone: [phone] Nucleated RBC/100 WBC (Bld) [Ratio] 0 % 0-5 [facility] Work Phone: [phone] MCHC Auto (RBC) [Mass/Vol]on 04-08-2022 MCHC (RBC) [Mass/Vol] 31.5 g/dL 32-36 [facility] Work Phone: [phone] Panel Informationon 04-08 Addendum Document Comment . [facility] Work Phone: Comment on above: The SPE pattern appe ars unremarkable. Evidence ofmonoclonal protein is not apparent.Performed at: [address] [id number] Director: Shaheen Morris PhD, Phone: [phone] Gxoen-8-Ubagnkowu 0.3 g/dL 0.0-0.4 [facility] Work Phone: [phone] Pcjwa-3-Bimsshasc 1.0 g/dL 0.4-1.0 [facility] Work Phone: [phone] GABRIELA 8 Profile Comment . [facility] Work Phone: Comment on above: Autoantibody Disease Association Condition Frequency Antinuclear Antibody, SLE, mixed connectiveDirect (GABRIELA-D) tissue diseases dsDNA SLE 40 - 60% Chromatin Drug induced SLE 90% SLE 48 - 97% SSA (Ro) SLE 25 - 35% Sjogren's Syndrome 40 - 70% Lupus 100% SSB (La) SLE 10% Sjogren's Syndrome 30% Sm (anti-Tidwell) SLE 15 - 30% RNP Mixed Connective Tissue Disease 95%(U1 nRNP, SLE 30 - 50%anti-ribonucleoprotein) Polymyositis and/or Dermatomyositis 20% Scl-70 (antiDNA Scleroderma (diffuse) 20 - 35%topoisomerase) Crest 13% Jo-1 Polymyositis and/or Dermatomyositis 20 - 40% Centromere B Scleroderma - Crest variant 80% Ribosomal P SLE 10 - 20% Anti-Nuclear Antibody Screen Negative Negative [facility] Work Phone: Comment on above: Performed at: [facility] [address] [id number] Director: Shaheen Morris PhD, Phone: [phone] Centromere B Antibody <0.2 AI 0.0-0.9 [facility] Work Phone: Estimated GFR (MDRD) Amer 100 mL/min >60 [facility] Work Phone: Comment on above: GFR Calc Estimated GFR (MDRD) Non-Af Amer 83 mL/min >60 [facility] Work Phone: Comment on above: Non- GFR Calc Gamma Globulins 1.0 g/dL 0.4-1.8 [facility] Work Phone: [employer] [place] [employer]PPORT Antibody 0.4 AI 0.0-0.9 [facility] Work Phone: Platelets bldon 04-08-2022 Platelets (Bld) [#/Vol] 611 10*3/uL 150-450 [facility] Work Phone: Protein Fractions Elph [Inte rp]on 04-08-2022 Protein Fractions [Interp] Comment . [facility] Work Phone: Comment on above: Protein electrophore sis scan will follow via computer,mail, or admissions dean delivery. Serum DNA double strand anti body assay (units/volume)on 04-08-2022 DNA double strand Ab Qn (S) 1 [IU]/mL 0-9 [facility] Work Phone: Comment on above: Negative <5 Equivoca l 5 - 9 Positive >9 Serum [place]-1 antibody assay (u nits/volume)on 04-08-2022 [place]-1 extractable nuclear Ab Qn (S) <0.2 AI 0.0-0.9 [facility] Work Phone: [phone] Serum Scl-70 extractable nuc lear antibody assay (units/volume)on 04-08-2022 SCL-70 extractable nuclear Ab Qn (S) <0.2 AI 0.0-0.9 [facility] Work Phone: Serum Tidwell extractable nucl ear antibody detectionon 04-08-2022 Tidwell extractable nuclear Ab Ql (S) <0.2 AI 0.0-0.9 [facility] Work Phone: [phone] Serum albumin to globulin ra dayna by protein electrophoresison 04-08-2022 Albumin/Globulin Elph [Mass ratio] 1.0 0.7-1.7 [facility] Work Phone: [phone] Serum globulin measurement ( mass/volume)on 04-08-2022 Globulin (S) [Mass/Vol] 3.5 g/dL 2.2-3.9 [facility] Work Phone: Serum or plasma C reactive p rotein measurement (mass/volume)on 04-08-2022 CRP [Mass/Vol] mg/L 0.0-3.0 [facility] Work Phone: Comment on above: C-Reactive Protein ( CRP) provides useful information for thediagnosis, therapy and monitoring of inflammatory processesand associated diseases. For the evaluation of Relative Riskfor Cardiovascular Disease, a High Sensitivity CRP (HSCRP)should be ordered. Serum or plasma albumin stephen urement (mass/volume)on 04-08-2022 Albumin [Mass/Vol] 3.6 g/dL 2.9-4.4 [facility] Work Phone: Serum or plasma albumin/glob ulin mass ratioon 04-08-2022 Albumin/Globulin [Mass ratio] 0.9 {ratio} 0.9-2.4 [facility] Work Phone: [phone] Serum or plasma beta globuli n measurement by electrophoresis (mass/volume)on 04-08-2022 Beta globulin Elph [Mass/Vol] 1.1 g/dL 0.7-1.3 [facility] Work Phone: [phone] Serum or plasma calcium stephen urement (mass/volume)on 04-08-2022 Calcium [Mass/Vol] 9.5 mg/dL 8.5-10.1 [facility] Work Phone: [phone] Serum or plasma creatinine m easurement (mass/volume)on 04-08-2022 Creatinine [Mass/Vol] 0.74 mg/dL 0.55-1.02 [facility] Work Phone: Comment on above: The validity of the calculated GFR & GFRAA in patients over 70 years has not been determined. Clinical correlation is essential. Serum or plasma urea nitroge n measurement (mass/volume)on 04-08-2022 Urea nitrogen [Mass/Vol] 20 mg/dL 7-18 [facility] Work Phone: Thin prep Papanicolaou smear with manual screeningon 04-08-2022 Thin prep Papanicolaou smear with manual screening 10 U/L 15-37 [facility] Work Phone: Thin prep Papanicolaou smear with manual screening 9 5-15 [facility] Work Phone: Thin prep Papanicolaou smear with manual screening See comment [facility] Work Phone: Comment on above: Result: Not Observed Total protein bloodon 2021 Protein [Mass/Vol] 7.1 g/dL 6.0-8.5 [facility] Work Phone: Absolute lymphocyte counton 04-05-2022 Lymphocytes Auto (Unsp spec) [#/Vol] 2.82 10*3/uL 0.83-4.51 [facility] Work Phone: Lymphocytes Auto (Unsp spec) [#/Vol] 3.06 10*3/uL 0.83-4.51 [facility] Work Phone: Basophil percentageon 2021 Basophils/100 WBC (Bld) 0.6 % 0-1 [facility] Work Phone: Chloride [Moles/Vol] 101 mmol/L 98-107 [facility] Work Phone: Eosinophils/100 WBC (Bld) 1.2 % 0-5 [facility] Work Phone: Glucose [Mass/Vol] 101 mg/dL 74-106 [facility] Work Phone: Comment on above: Fasting Glucose resu lt from 100 to 125 mg/dL suggests IMPAIRED HOMEOSTASIS per A.D.A. criteria. Neutrophils (Bld) [#/Vol] 4.6 10*3/uL 2.0-7.7 [facility] Work Phone: Neutrophils/100 WBC (Bld) 56.0 % 47-70 [facility] Work Phone: Potassium [Moles/Vol] 4.2 mmol/L 3.5-5.1 [facility] Work Phone: Sodium [Moles/Vol] 135 mmol/L 136-145 [facility] Work Phone: WBC (Bld) [#/Vol] 8.2 10*3/uL 4.4-11.0 [facility] Work Phone: Basophils/100 WBC (Bld) 0.6 % 0-1 [facility] Work Phone: Eosinophils/100 WBC (Bld) 1.5 % 0-5 [facility] Work Phone: Neutrophils (Bld) [#/Vol] 4.4 10*3/uL 2.0-7.7 [facility] Work Phone: Neutrophils/100 WBC (Bld) 53.8 % 47-70 [facility] Work Phone: WBC (Bld) [#/Vol] 8.2 10*3/uL 4.4-11.0 [facility] Work Phone: Blood erythrocytes count (nu mber/volume)on 04-05-2022 RBC (Bld) [#/Vol] 4.71 10*6/uL 4.2-5.4 [facility] Work Phone: RBC (Bld) [#/Vol] 4.62 10*6/uL 4.2-5.4 [facility] Work Phone: Blood hemoglobin measurement (mass/volume)on 04-05-2022 Hemoglobin (Bld) [Mass/Vol] 12.1 g/dL 12.0-15.0 [facility] Work Phone: Hemoglobin (Bld) [Mass/Vol] 12.0 g/dL 12.0-15.0 [facility] Work Phone: Blood lymphocytes/100 leukoc yteson 04-05-2022 Lymphocytes/100 WBC (Bld) 34.6 % 19-41 [facility] Work Phone: [phone] Lymphocytes/100 WBC (Bld) 37.5 % 19-41 [facility] Work Phone: [phone] Blood monocytes/100 leukocyt eson 04-05-2022 Monocytes/100 WBC (Bld) 7.2 % 0-10 [facility] Work Phone: [phone] Monocytes/100 WBC (Bld) 6.4 % 0-10 [facility] Work Phone: [phone] Blood platelet mean volumeon 04-05-2022 Platelet mean volume (Bld) [Entitic vol] 8.8 fL 6.2-12.0 [facility] Work Phone: Platelet mean volume (Bld) [Entitic vol] 9.0 fL 6.2-12.0 [facility] Work Phone: Determination of erythrocyte mean corpuscular volume (MCV)on 04-05-2022 MCV (RBC) [Entitic vol] 80.7 fL 81-99 [facility] Work Phone: [phone] MCV (RBC) [Entitic vol] 81.4 fL 81-99 [facility] Work Phone: [phone] Erythrocyte sedimentation ra paulino 04-05-2022 ESR (Bld) [Velocity] 37 mm/h 0-30 [facility] Work Phone: [phone] ESR (Bld) [Velocity] 28 mm/h 0-30 [facility] Work Phone: [phone] Hematocrit Auto (Bld) [Volum e fraction]on 04-05-2022 Hematocrit (Bld) [Volume fraction] 38.0 % 37-47 [facility] Work Phone: [phone] Hematocrit (Bld) [Volume fraction] 37.6 % 37-47 [facility] Work Phone: [phone] Laboratory - Chemistry and C hemistry - challengeon 04-05-2022 CO2 [Moles/Vol] 27.0 mmol/L 21.0-32.0 [facility] Work Phone: [phone] Urea nitrogen/Creatinine [Mass ratio] 14.6 mg/mg 10-20 [facility] Work Phone: [phone] Laboratory - Hematology and Cell countson 04-05-2022 Erythrocyte distribution width (RBC) [Entitic vol] 46.7 fL 35.1-43.9 [facility] Work Phone: [phone] Erythrocyte distribution width (RBC) [Ratio] 16.0 % 11.6-14.6 [facility] Work Phone: [phone] Immature granulocytes/100 WBC (Bld) 0.400 % 0.0-0.9 [facility] Work Phone: [phone] Comment on above: IG% - Immature Granu locytes (promyelocytes, myelocytes and metamyelocytes) > 1% indicates that a LEFT SHIFT is Present. MCH (RBC) [Entitic mass] 25.7 pg 27.0-32.0 [facility] Work Phone: [phone] Nucleated RBC/100 WBC (Bld) [Ratio] 0 % 0-5 [facility] Work Phone: [phone] Erythrocyte distribution width (RBC) [Entitic vol] 47.5 fL 35.1-43.9 [facility] Work Phone: [phone] Erythrocyte distribution width (RBC) [Ratio] 15.9 % 11.6-14.6 [facility] Work Phone: [phone] Immature granulocytes/100 WBC (Bld) 0.200 % 0.0-0.9 [facility] Work Phone: [phone] Comment on above: IG% - Immature Granu locytes (promyelocytes, myelocytes and metamyelocytes) > 1% indicates that a LEFT SHIFT is Present. MCH (RBC) [Entitic mass] 26.0 pg 27.0-32.0 [facility] Work Phone: [phone] Nucleated RBC/100 WBC (Bld) [Ratio] 0 % 0-5 [facility] Work Phone: [phone] MCHC Auto (RBC) [Mass/Vol]on 04-05-2022 MCHC (RBC) [Mass/Vol] 31.8 g/dL - [facility] Work Phone: [phone] MCHC (RBC) [Mass/Vol] 31.9 g/dL -36 [facility] Work Phone: [phone] Panel Informationon 04-05 Estimated Creatinine Clearance Calc 41.40 ml/min [facility] Work Phone: [phone] Estimated GFR (MDRD) Amer 97 mL/min >60 [facility] Work Phone: [phone] Comment on above: GFR Calc Estimated GFR (MDRD) Non-Af Amer 80 mL/min >60 [facility] Work Phone: [phone] Comment on above: Non- GFR Calc Platelets bldon 04-05-2022 Platelets (Bld) [#/Vol] 567 10*3/uL 150-450 [facility] Work Phone: [phone] Platelets (Bld) [#/Vol] 578 10*3/uL 150-450 [facility] Work Phone: [phone] Serum or plasma C reactive p rotein measurement (mass/volume)on 04-05-2022 CRP [Mass/Vol] 19.30 mg/L 0.0-3.0 [facility] Work Phone: [phone] Comment on above: C-Reactive Protein ( CRP) provides useful information for thediagnosis, therapy and monitoring of inflammatory processesand associated diseases. For the evaluation of Relative Riskfor Cardiovascular Disease, a High Sensitivity CRP (HSCRP)should be ordered. CRP [Mass/Vol] 18.90 mg/L 0.0-3.0 [facility] Work Phone: [phone] Comment on above: C-Reactive Protein ( CRP) provides useful information for thediagnosis, therapy and monitoring of inflammatory processesand associated diseases. For the evaluation of Relative Riskfor Cardiovascular Disease, a High Sensitivity CRP (HSCRP)should be ordered. Serum or plasma calcium stephen urement (mass/volume)on 04-05-2022 Calcium [Mass/Vol] 9.6 mg/dL 8.5-10.1 [facility] Work Phone: [phone] Serum or plasma creatinine m easurement (mass/volume)on 04-05-2022 Creatinine [Mass/Vol] 0.76 mg/dL 0.55-1.02 [facility] Work Phone: [phone] Comment on above: The validity of the calculated GFR & GFRAA in patients over 70 years has not been determined. Clinical correlation is essential. Serum or plasma urea nitroge n measurement (mass/volume)on 04-05-2022 Urea nitrogen [Mass/Vol] 11 mg/dL 7-18 [facility] Work Phone: [phone] Thin prep Papanicolaou smear with manual screeningon 04-05-2022 Thin prep Papanicolaou smear with manual screening 7 5-15 [facility] Work Phone: Basophil percentageon 2021 Bilirubin [Mass/Vol] 0.40 mg/dL 0.20-1.00 [facility] Work Phone: [phone] Comment on above: For patients on eltr ombopag therapy, use of Dimension [place] TBIL is not recommended. Chloride [Moles/Vol] 102 mmol/L 98-107 [facility] Work Phone: [phone] Cholesterol [Mass/Vol] 192 mg/dL <200 [facility] Work Phone: [phone] Comment on above: <200 mg/dL Desirable 200-240 mg/dL Borderline >240 mg/dL High Risk Glucose [Mass/Vol] 98 mg/dL 74-106 [facility] Work Phone: [phone] Potassium [Moles/Vol] 3.9 mmol/L 3.5-5.1 [facility] Work Phone: [phone] Protein [Mass/Vol] 7.5 g/dL 6.4-8.2 [facility] Work Phone: [phone] Sodium [Moles/Vol] 136 mmol/L 136-145 [facility] Work Phone: [phone] Triglyceride [Mass/Vol] 139 mg/dL [facility] Work Phone: [phone] Comment on above: The drugs N-Acetylcy steine and Metamizole may falsely depress this assay.Serum Triglycerides Reference Interval Normal <150 mg/dL Borderline high 150 - 199 mg/dL High 200 - 499 mg/dL Very High > or = 500 mg/dL WBC (Bld) [#/Vol] 5.9 10*3/uL 4.4-11.0 [facility] Work Phone: [phone] Blood erythrocytes count (nu mber/volume)on 12-04-2021 RBC (Bld) [#/Vol] 4.42 10*6/uL 4.2-5.4 [facility] Work Phone: [phone] Blood hemoglobin measurement (mass/volume)on 12-04-2021 Hemoglobin (Bld) [Mass/Vol] 12.0 g/dL 12.0-15.0 [facility] Work Phone: [phone] Blood platelet mean volumeon 12-04-2021 Platelet mean volume (Bld) [Entitic vol] 9.2 fL 6.2-12.0 [facility] Work Phone: [phone] Determination of erythrocyte mean corpuscular volume (MCV)on 12-04-2021 MCV (RBC) [Entitic vol] 85.3 fL 81-99 [facility] Work Phone: [phone] Hematocrit Auto (Bld) [Volum e fraction]on 12-04-2021 Hematocrit (Bld) [Volume fraction] 37.7 % 37-47 [facility] Work Phone: [phone] Laboratory - Chemistry and C hemistry - challengeon 12-04-2021 ALP [Catalytic activity/Vol] 57 U/L 45-117 [facility] Work Phone: [phone] ALT [Catalytic activity/Vol] 40 U/L 13-56 [facility] Work Phone: [phone] CO2 [Moles/Vol] 25.0 mmol/L 21.0-32.0 [facility] Work Phone: [phone] Free T4 [Mass/Vol] 1.15 ng/dL 0.76-1.46 [facility] Work Phone: [phone] Globulin (S) [Mass/Vol] 3.8 g/dL 2.2-4.2 [facility] Work Phone: [phone] Urea nitrogen/Creatinine [Mass ratio] 19.9 mg/mg 10-20 [facility] Work Phone: [phone] Laboratory - Hematology and Cell countson 12-04-2021 Erythrocyte distribution width (RBC) [Entitic vol] 45.1 fL 35.1-43.9 [facility] Work Phone: [phone] Erythrocyte distribution width (RBC) [Ratio] 14.6 % 11.6-14.6 [facility] Work Phone: [phone] MCH (RBC) [Entitic mass] 27.1 pg 27.0-32.0 [facility] Work Phone: [phone] MCHC Auto (RBC) [Mass/Vol]on 12-04-2021 MCHC (RBC) [Mass/Vol] 31.8 g/dL 32-36 [facility] Work Phone: No Panel Informationon 12-04 Estimated GFR (MDRD) Amer 98 mL/min >60 [facility] Work Phone: [phone] Comment on above: GFR Calc Estimated GFR (MDRD) Non-Af Amer 81 mL/min >60 [facility] Work Phone: [phone] Comment on above: Non- GFR Calc Thyroid Stimulating Hormone (TSH) 3.78 uIU/mL 0.358-3.74 [facility] Work Phone: [phone] Urine Microalbumin/Creatinin e Ratio TNP [facility] Work Phone: [phone] Comment on above: Test not performed Platelets bldon 12-04-2021 Platelets (Bld) [#/Vol] 400 10*3/uL 150-450 [facility] Work Phone: Serum or plasma albumin stephen urement (mass/volume)on 12-04-2021 Albumin [Mass/Vol] 3.7 g/dL 3.2-5.0 [facility] Work Phone: Serum or plasma albumin/glob ulin mass ratioon 12-04-2021 Albumin/Globulin [Mass ratio] 1.0 {ratio} 0.9-2.4 [facility] Work Phone: Serum or plasma calcium stephen urement (mass/volume)on 12-04-2021 Calcium [Mass/Vol] 9.0 mg/dL 8.5-10.1 [facility] Work Phone: Serum or plasma cholesterol in HDL measurement (mass/volume)on 12-04-2021 Cholesterol in HDL [Mass/Vol] 43 mg/dL [facility] Work Phone: Comment on above: The drugs N-Acetylcy steine and Metamizole may falsely depress this assay. Reference Range HDL <40 mg/dL Low HDL Cholesterol HDL >or= 60 mg/dL High HDL Cholesterol Serum or plasma cholesterol in VLDL measurement (mass/volume)on 12-04-2021 Cholesterol in VLDL [Mass/Vol] 28 mg/dL 5-40 [facility] Work Phone: Serum or plasma creatinine m easurement (mass/volume)on 12-04-2021 Creatinine [Mass/Vol] 0.75 mg/dL 0.55-1.02 [facility] Work Phone: Comment on above: The validity of the calculated GFR & GFRAA in patients over 70 years has not been determined. Clinical correlation is essential. Serum or plasma low density lipoprotein (LDL) cholesterol measurement (mass/volume)on 12-04-2021 Cholesterol in LDL [Mass/Vol] 121 mg/dL 0-130 [facility] Work Phone: Serum or plasma urea nitroge n measurement (mass/volume)on 12-04-2021 Urea nitrogen [Mass/Vol] 15 mg/dL 7-18 [facility] Work Phone: Thin prep Papanicolaou smear with manual screeningon 12-04-2021 Thin prep Papanicolaou smear with manual screening 26 U/L 15-37 [facility] Work Phone: Thin prep Papanicolaou smear with manual screening 9 5-15 [facility] Work Phone: Thin prep Papanicolaou smear with manual screening < 5.0 mg/L NO RANGE EST. [facility] Work Phone: Urine creatinine measurement (mass/volume)on 12-04-2021 Creatinine (U) [Mass/Vol] 33.00 mg/dL NO RANGE EST. [facility] Work Phone: Vital Signs Date Time Vital Sign Value Performing Clinician Facility 11-23-2024 10:32-0400 Diastolic blood pressure 89 mm[Hg] Mri (I-Stat/1.5t) [facility] 11-23-2024 10:32-0400 Heart rate 85 /min Mri (I-Stat/1.5t) [facility] 11-23-2024 10:32-0400 Systolic blood pressure 170 mm[Hg] Mri (I-Stat/1.5t) [facility] 04-01-2024 11:00-0400 Body height 157.5 cm Feli Maddox MD Work Phone: [facility] 04-01-2024 11:00-0400 Body mass index (BMI) [Ratio] 24.76 kg/m2 Feli Maddox MD Work Phone: [facility] 04-01-2024 11:00-0400 Body temperature 98.1 [degF] Feli Maddox MD Work Phone: [facility] 04-01-2024 11:00-0400 Body weight 61.4 kg Feli Maddox MD Work Phone: [facility] 04-01-2024 11:00-0400 Diastolic blood pressure 73 mm[Hg] Feli Maddox MD Work Phone: [facility] 04-01-2024 11:00-0400 Heart rate 63 /min Feli Maddox MD Work Phone: [facility] 04-01-2024 11:00-0400 Systolic blood pressure 149 mm[Hg] Feli Maddox MD Work Phone: [facility] 09-04-2023 11:01-0500 Body temperature 97.5 [degF] Feli Maddox MD Work Phone: [facility] 09-04-2023 11:01-0500 Body weight 62.1 kg Feli Maddox MD Work Phone: [facility] 09-04-2023 11:01-0500 Diastolic blood pressure 71 mm[Hg] Feli Maddox MD Work Phone: [facility] 09-04-2023 11:01-0500 Heart rate 63 /min Feli Maddox MD Work Phone: [facility] 09-04-2023 11:01-0500 Systolic blood pressure 158 mm[Hg] Feli Maddox MD Work Phone: [facility] 03-06-2023 12:13-0400 Body temperature 97.39 [degF] Feli Maddox MD Work Phone: [facility] 03-06-2023 12:13-0400 Body weight 60.24 kg Feli Maddox MD Work Phone: [facility] 03-06-2023 12:13-0400 Diastolic blood pressure 70 mm[Hg] Feli Maddox MD Work Phone: [facility] 03-06-2023 12:13-0400 Heart rate 67 /min Feli Maddox MD Work Phone: [facility] 03-06-2023 12:13-0400 Systolic blood pressure 129 mm[Hg] Feli Maddox MD Work Phone: [facility] 09-25-2022 10:55-0400 Body height 157.[address] [facility] 08-22-2022 11:18-0500 Body weight 61.01 kg Feli Maddox MD Work Phone: [facility] 08-22-2022 11:18-0500 Diastolic blood pressure 74 mm[Hg] Feli Maddox MD Work Phone: [facility] 08-22-2022 11:18-0500 Heart rate 70 /min Feli Maddox MD Work Phone: [facility] 08-22-2022 11:18-0500 Systolic blood pressure 150 mm[Hg] Feli Maddox MD Work Phone: [facility] 04-15-2022 13:15-0400 Body temperature 99.2 [degF] Dr. Berenice Tidwell Work Phone: [facility] Work Phone: 04-15-2022 13:15-0400 Diastolic blood pressure 73 mm[Hg] Dr. Berenice Tidwell Work Phone: [facility] Work Phone: 04-15-2022 13:15-0400 Heart rate 54 /min Dr. Berenice Tidwell Work Phone: [facility] Work Phone: 04-15-2022 13:15-0400 Respiratory rate 16 /min Dr. Berenice Tidwell Work Phone: [facility] Work Phone: 04-15-2022 13:15-0400 SaO2% (BldA) [Mass fraction] 99 % Dr. Berenice Tidwell Work Phone: [facility] Work Phone: 04-15-2022 13:15-0400 Systolic blood pressure 149 mm[Hg] Dr. Berenice Tidwell Work Phone: [facility] Work Phone: 04-15-2022 11:31-0400 Body height 157.[address] Berenice Tidwell Work Phone: [facility] Work Phone: 04-15-2022 11:31-0400 Body mass index (BMI) [Ratio] 23.1 kg/m2 Dr. Berenice Tidwell Work Phone: [facility] Work Phone: 04-15-2022 11:31-0400 Body weight 57.[address] Berenice Tidwell Work Phone: [facility] Work Phone: 04-11-2022 08:11-0400 Body temperature 97.7 [degF] Dr. Berenice Tidwell Work Phone: [facility] Work Phone: 04-11-2022 08:11-0400 Body weight 58.[address] Berenice Tidwell Work Phone: [facility] Work Phone: 04-11-2022 08:11-0400 Diastolic blood pressure 82 mm[Hg] Dr. Berenice Tidwell Work Phone: [facility] Work Phone: 04-11-2022 08:11-0400 Heart rate 70 /min Dr. Berenice Tidwell Work Phone: [facility] Work Phone: 04-11-2022 08:11-0400 Respiratory rate 18 /min Dr. Berenice Tidwell Work Phone: [facility] Work Phone: 04-11-2022 08:11-0400 SaO2% (BldA) [Mass fraction] 96 % Dr. Berenice Tidwell Work Phone: [facility] Work Phone: 04-11-2022 08:11-0400 Systolic blood pressure 168 mm[Hg] Dr. Berenice Tidwell Work Phone: [facility] Work Phone: 04-06-2022 16:46-0400 Body temperature 97.9 [degF] [facility] Work Phone: 04-06-2022 16:46-0400 Diastolic blood pressure 72 mm[Hg] [facility] Work Phone: 04-06-2022 16:46-0400 Heart rate 72 /min [facility] Work Phone: 04-06-2022 16:46-0400 Respiratory rate 18 /min [facility] [place] Work Phone: 04-06-2022 16:46-0400 SaO2% (BldA) [Mass fraction] 98 % [facility] Work Phone: 04-06-2022 16:46-0400 Systolic blood pressure 151 mm[Hg] [facility] Work Phone: 04-05-2022 17:14-0400 Body height 157.[address] [facility] Work Phone: 04-05-2022 17:14-0400 Body mass index (BMI) [Ratio] 23.8 kg/m2 [facility] Work Phone: 04-05-2022 17:14-0400 Body temperature 97.6 [degF] [facility] [place] Work Phone: 04-05-2022 17:14-0400 Body weight 59.[address] [facility] Work Phone: 04-05-2022 17:14-0400 Diastolic blood pressure 64 mm[Hg] [facility] Work Phone: 04-05-2022 17:14-0400 Heart rate 84 /min [facility] Work Phone: 04-05-2022 17:14-0400 Respiratory rate 16 /min [facility] [place] Work Phone: 04-05-2022 17:14-0400 SaO2% (BldA) [Mass fraction] 98 % [facility] Work Phone: 04-05-2022 17:14-0400 Systolic blood pressure 135 mm[Hg] [facility] Work Phone: Encounters Encounter Date Encounter Type Care Provider Facility Start: 11-30-2024 End: 11-30-2024 Specialty Pharmacy Urbano Hernandez 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 Comment on above: SPP Inflammatory Con ditions - Medication Refill Start: 10-11-2024 End: 10-11-2024 Specialty Pharmacy Urbano Hernandez [facility] Comment on above: SPP Inflammatory Con ditions - Medication Refill (Actemra) Start: 09-13-2024 End: 09-13-2024 Specialty Pharmacy Urbano Hernandez [facility] Comment on above: SPP Inflammatory Con ditions - Medication Refill (Actemra Actpen) Start: 09-03-2024 End: 09-04-2024 ambulatory Feli Maddox MD Work Phone: Rheumatology Comment on above: Blood test. Start: 08-17-2024 End: 08-17-2024 Specialty Pharmacy Urbano Hernandez [facility] Comment on above: SPP Inflammatory Con ditions - Medication Refill (Actemra Actpen) Start: 07-20-2024 End: 07-20-2024 Specialty Pharmacy Urbano Hernandez [facility] Comment on above: SPP Inflammatory Con ditions - Medication Refill (Actemra) Start: 07-13-2024 End: 07-15-2024 Refill Feli Maddox MD Work Phone: Rheumatology Comment on above: Refill Request Start: 07-01-2024 End: 07-01-[address] Berenice Tidwell MD -Outpatient Breast Imaging Work Phone: Start: 07-01-2024 End: 07-01-2024 [facility] Berenice Boomer Facility:[facility] Start: 06-21-2024 End: 06-21-2024 Specialty Pharmacy Urbano Hernandez [facility] Comment on above: SPP Inflammatory Con ditions - Medication Refill (Actemra ) Start: 06-18-2024 End: 06-18-2024 ambulatory [facility] Facility:[facility] Start: 05-24-2024 End: 05-24-2024 Specialty Pharmacy Urbano Hernandez [facility] Comment on above: SPP Inflammatory Con ditions - Medication Refill (Actemra NCA 08/2024) Start: 05-24-2024 End: 05-24-2024 [facility] Facility:[facility] Start: 04-26-2024 End: 04-26-2024 Specialty Pharmacy Urbano Hernandez [facility] Comment on above: SPP Inflammatory Con ditions - Medication Refill (Actemra - NCA 08/2024) Start: 04-01-2024 End: 04-01-2024 [facility] Facility:[facility] Start: 04-01-2024 End: 04-01-2024 Patient encounter procedure Feli Maddox MD Work Phone: Rheumatology Comment on above: Large vessel vasculi tis (HCC) (Primary Dx); Giant cell arteritis (HCC) Start: 03-29-2024 End: 03-29-2024 Specialty Pharmacy Urbano Hernandez [facility] Comment on above: SPP Inflammatory Con ditions - Medication Refill (Actemra -NCA 08/2024) Start: 03-26-2024 End: 03-26-2024 Refill Feli Maddox MD Work Phone: Rheumatology Comment on above: Refill Request Start: 03-26-2024 End: 03-26-2024 ambulatory [facility] Facility:[facility] Start: 03-02-2024 End: 03-02-2024 Specialty Pharmacy Urbano Hernandez [facility] Comment on above: SPP Inflammatory Con ditions - Medication Refill (Actemra - NCA 08/2024) Start: 02-05-2024 Specialty Pharmacy Urbano Hernandez [facility] Comment on above: SPP Inflammatory Con ditions - Medication Refill (Actemra) Start: 01-05-2024 Specialty Pharmacy Urbano Hernandez [facility] Comment on above: SPP Inflammatory Con ditions - Medication Refill (Actemra (NCA 08/2024)) Start: 01-02-2024 End: 01-02-2024 ambulatory [facility] Facility:[facility] Start: 12-08-2023 Specialty Pharmacy Urbano Hernandez [facility] Comment on above: SPP Inflammatory Con ditions - Medication Refill (Actemra - NCA 08/2024) Start: 11-28-2023 End: 11-28-2023 ambulatory Berenice Tidwell Facility:[facility] Start: 11-12-2023 End: 11-12-2023 ambulatory [facility] Facility:[facility] Start: 11-10-2023 Specialty Pharmacy Urbano Hernandez [facility] Comment on above: SPP Inflammatory Con ditions - Medication Refill (Actemra ActPen) Start: 10-13-2023 Specialty Pharmacy Urbano Hernandez [facility] Comment on above: SPP Inflammatory Con ditions - Medication Refill (Actemra) Start: 09-15-2023 Specialty Pharmacy Urbano Hernandez [facility] Comment on above: SPP Inflammatory Con ditions - Medication Refill (ACTEMRA) Start: 09-04-2023 End: 09-04-2023 Patient encounter procedure Feli Maddox MD Work Phone: Rheumatology Comment on above: Giant cell arteritis (HCC) (Primary Dx); Steroid-induced osteopenia Start: 08-18-2023 Refill Feli Maddox MD Work Phone: Rheumatology Comment on above: Refill Request; Refi ll Request Start: 06-19-2023 Specialty Pharmacy Joyce Lagunas [facility] Comment on above: SPP Inflammatory Con ditions - Medication Refill (Actemra) Start: 05-26-2023 Specialty Pharmacy Joyce Lagunas [facility] Comment on above: SPP Inflammatory Con ditions - Medication Refill (Actemra) Start: 04-28-2023 End: 04-28-2023 Specialty Pharmacy Joyce Wilksmarek [facility] Comment on above: SPP Inflammatory Con ditions - Medication Refill (Actemra) Start: 04-28-2023 End: 04-28-2023 Patient encounter procedure [facility]-Outpatient Breast Imaging Work Phone: Start: 03-06-2023 End: 03-06-2023 Patient encounter procedure Feli Maddox MD Work Phone: Rheumatology Comment on above: Giant cell arteritis (HCC) (Primary Dx); Steroid-induced osteopenia Start: 03-04-2023 Specialty Pharmacy Joyce Cjhardeep [facility] Comment on above: SPP Inflammatory Con ditions - Medication Refill (Actemra) Start: 01-28-2023 Specialty Pharmacy Joyce Cjhardeep [facility] Comment on above: SPP Inflammatory Con ditions - Medication Refill (Actemra) Start: 01-03-2023 Specialty Pharmacy Joyce Cjhardeep [facility] Comment on above: SPP Inflammatory Con ditions - Medication Refill (Actemra) Start: 12-13-2022 Specialty Pharmacy Joyce Cjhardeep [facility] Comment on above: SPP Inflammatory Con ditions - Medication Refill (Actemra) Start: 12-09-2022 Refill Flei Maddox MD Work Phone: Rheumatology Comment on above: Refill Request Start: 11-11-2022 Specialty Pharmacy Joyce Paulpedrohardeep [facility] Comment on above: SPP Inflammatory Con ditions - Medication Refill (Actemra) Start: 10-14-2022 Specialty Pharmacy Joyce Lagunas [facility] Comment on above: SPP Inflammatory Con ditions - Medication Refill (Actemra) Start: 10-07-2022 ambulatory Feli Maddox MD Work Phone: Rheumatology Comment on above: Bone Density test Start: 10-01-2022 ambulatory Feli Maddox MD Work Phone: Rheumatology Comment on above: Information Start: 09-25-2022 End: 09-25-2022 ambulatory [facility] Work Phone: Start: 09-25-2022 End: 09-25-2022 Patient encounter procedure [facility]-Outpatient Bone Densitometry Start: 09-16-2022 Specialty Pharmacy Joyce Lagunas [facility] Comment on above: SPP Inflammatory Con ditions - Medication Refill (Actemra) Start: 09-02-2022 Telephone encounter Feli Maddox MD Work Phone: Rheumatology Comment on above: Received Outside Med ical Records; Outside Lab Results Start: 09-02-2022 End: 09-02-2022 Patient encounter procedure [facility]-Laboratory, [facility] Start: 08-23-2022 Telephone encounter Feli Maddox MD Work Phone: Rheumatology Comment on above: Patient Question; Pa tient Update Start: 08-22-2022 End: 08-22-2022 Specialty Pharmacy Joyce Lagunas 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 Comment on above: SPP Inflammatory Con ditions - Medication Refill (Actemra) Start: 06-26-2022 Specialty Pharmacy Joyce Lagunas [facility] Comment on above: SPP Inflammatory Con ditions - Medication Refill (Actemra) Start: 06-14-2022 ambulatory Feli Maddox MD Work Phone: Rheumatology Comment on above: What Next? Start: 05-29-2022 Specialty Pharmacy Yadiel Kaur [facility] Comment on above: SPP Inflammatory Con ditions - Medication Refill (Actemra) Start: 05-16-2022 ambulatory Feli Maddox MD Work Phone: Rheumatology Comment on above: Future plans Start: 05-08-2022 Refill Feli Maddox MD Work Phone: Rheumatology Comment on above: Refill Request Start: 05-03-2022 ambulatory Yadiel Kaur [facility] Start: 05-03-2022 Patient encounter procedure Yadiel Kaur [facility] Comment on above: SPP Inflammatory Con ditions - Treatment Referral (Actemra ACTPEN); Insurance Authorization ([place] Already on File) Start: 04-30-2022 Non-patient / Non-visit Dr. Kwabena Tidwell Work Phone: [facility] Start: 04-30-2022 End: 04-30-[address] Berenice Tidwell Work Phone: [facility] Work Phone: Start: 04-30-2022 End: 04-30-[address] Berenice Tidwlel Work Phone: [facility]-Cardiovascul ar Services Start: 04-29-2022 End: 04-29-[address] Berenice Tidwell Work Phone: [facility] Start: 04-22-2022 ambulatory Yadiel Kaur [facility] Start: 04-22-2022 Patient encounter procedure Yadiel Kaur [facility] Comment on above: SPP Inflammatory Con ditions - Treatment Referral (Actemra); Insurance Authorization ([place] Submission Pending) Start: 04-20-2022 End: 04-20-[address] Berenice Tidwell Work Phone: [facility] Work Phone: Start: 04-20-2022 End: 04-20-[address] Berenice Tidwell Work Phone: [facility] Start: 04-18-2022 End: 04-18-[address] Berenice Tidwell Work Phone: [facility] Work Phone: Start: 04-18-2022 End: 04-18-[address] Berenice Tidwell Work Phone: [facility]-Outpatient Breast Imaging Start: 04-15-2022 Non-patient / Non-visit Dr. Kwabena Tidwell Work Phone: [facility] Start: 04-15-2022 End: 04-15-2022 Admission to same day surgery center Dr. Berenice Tidwell Work Phone: [facility]-Surgical Day Care Start: 04-15-2022 End: 04-15-[address] Berenice Tidwell Work Phone: [facility] Work Phone: Start: 04-11-2022 Telephone encounter Feli Madodx MD Work Phone: Rheumatology Comment on above: Received Outside [facility] Records (ophthalmology notes/) Start: 04-11-2022 End: 04-11-[address] Berenice Tidwell Work Phone: [facility] Start: 04-08-2022 End: 04-08-[address] Berenice Tidwell Work Phone: [facility] Work Phone: Start: 04-08-2022 End: 04-08-2022 Patient encounter procedure [facility] Start: 04-07-2022 End: 04-07-2022 ambulatory [facility] Work Phone: Start: 04-07-2022 End: 04-07-2022 Patient encounter procedure [facility]-Progressive Care Unit, Outpt Start: 04-06-2022 End: 04-06-2022 ambulatory [facility] Work Phone: Start: 04-06-2022 End: 04-06-2022 Patient encounter procedure [facility]-Progressive Care Unit, Outpt Start: 04-05-2022 End: 04-05-2022 Emergency department patient visit [facility]-Emergency Department Start: 04-05-2022 End: 04-05-2022 ambulatory [facility] Work Phone: Start: 04-05-2022 End: 04-05-2022 Patient encounter procedure [facility]-Laboratory Start: 12-04-2021 End: 12-04-2021 Patient encounter procedure [facility]Laboratory, [facility] Procedures Date Procedure Procedure Detail Performing Clinician Start: 11-23-2024 End: 11-23-2024 Mra abdomen w/wo contrast material Feli Maddox MD Work Phone: Start: 07-01-2024 Screening mammography Enrique Tidwell MD Work Phone: Start: 04-28-2023 Screening mammography Start: 09-25-2022 Dual energy X-ray absorptiometry Start: 04-20-2022 MRI of brain without contrast Dr. Berenice Tidwell Work Phone: Start: 04-18-2022 Screening mammography Enrique Tidwell Work Phone: Start: 04-15-2022 Biopsy of temporal artery Dr. Berenice Tidwell Work Phone: Plan of Treatment Date Care Activity Detail Author Start: 12-10-2032 Urine microalbumin profile DTaP,Tdap,Td Vaccine (2 - Td or Tdap) [facility] Start: 11-20-2027 Diabetes Screening Diabetes Screenin [facility] Start: 06-18-2027 Diabetes Screening Diabetes Screenin [facility] Start: 03-26-2027 Diabetes Screening Diabetes Screenin [facility] Start: 01-01-2027 Diabetes Screening Diabetes Screenin [facility] Start: 10-09-2026 Diabetes Screening Diabetes Screenin [facility] Start: 03-28-2026 Diabetes Screening Diabetes Screenin [facility] Start: 03-06-2026 Diabetes Screening Diabetes Screenin [facility] Start: 01-24-2026 DIABETES SCREEN DIABETES SCREEN [facility] Start: 11-29-2025 DIABETES SCREEN DIABETES SCREEN [facility] Start: 10-04-2025 DIABETES SCREEN DIABETES SCREEN [facility] Start: 09-04-2025 Screening for malign ant neoplasm of colon [facility] Start: 08-09-2025 DIABETES SCREEN DIABETES SCREEN [facility] Start: 06-13-2025 DIABETES SCREEN DIABETES SCREEN [facility] Start: 04-22-2025 DIABETES SCREEN DIABETES SCREEN [facility] Start: 12-01-2024 End: 12-01-2024 Specialty Pharmacy 12/01/2024 8:30 AM EDT Specialty Pharmacy [facility] [address] [place] [phone] Pharmacist, [facility] [address] [place] [address] [place] [address] REFILL Actemra- pa exp:06/29/25- Wkly/ Thurs, [place] 12/09 [facility] 11/30 [facility] Comment on above: REFILL Actemra- pa e xp:06/29/25- Wkly/ Thurs, [place] 12/09 [facility] 11/30 Start: 11-30-2024 End: 11-30-2024 Specialty Pharmacy 11/30/2024 8:15 AM EDT Specialty Pharmacy [facility] [address] [place] [phone] Pharmacist, [facility] [address] [place] [address] [place] [address] REFILL Actemra- pa exp:06/29/25- Wkly/ Thurs, [place] 12/09 [facility] Comment on above: REFILL Actemra- pa e xp:06/29/25- Wkly/ Thurs, ND 12/09 Start: 11-23-2024 End: 11-23-2024 Patient encounter procedure 11/23/2024 11:30 AM EDT Appointment MRI J [address] [id number] MRA CHEST CARDIOVASCULAR WO/W IVCON MRI J Comment on above: MRA CHEST CARDIOVASC ULAR WO/W IVCON Start: 11-08-2024 End: 11-08-2024 Specialty Pharmacy 11/08/2024 8:00 AM EDT Specialty Pharmacy [facility] [address] [place] [phone] Pharmacist, [facility] [address] [place] [address] [place] [address] REFILL Actemra- pa exp:06/29/25- Wkly/ Th, 11/18 [facility] Comment on above: REFILL Actemra- pa e xp:06/29/25- Wkly/ Th, 11/18 Start: 11-01-2024 Covid-19 Vaccine (8 - Moderna risk ) Covid-19 Vaccine (8 - Moderna risk ) [facility] Start: 10-11-2024 End: 10-11-2024 Specialty Pharmacy 10/11/2024 10:00 AM EDT Specialty Pharmacy [facility] [address] [place] [phone] Pharmacist, [facility] [address] [place] [address] [place] [address] REFILL Actemra- pa exp:06/29/25- Wkly/ Th, 10/21 [facility] Comment on above: REFILL Actemra- pa e xp:06/29/25- Wkly/ Th, 10/21 Start: 09-13-2024 End: 09-13-2024 Specialty Pharmacy 09/13/2024 8:00 AM EDT Specialty Pharmacy [facility] [address] [place] [phone] Pharmacist, [facility] [address] [place] [address] [place] [address] REFILL Actemra- pa exp:06/29/25- Wkly/ Thurs, 09/23-call mobile [facility] Comment on above: REFILL Actemra- pa e xp:06/29/25- Wkly/ Th, 09/23-call mobile Start: 08-17-2024 End: 08-17-2024 Specialty Pharmacy 08/17/2024 8:00 AM EST Specialty Pharmacy [facility] [address] [place] [phone] Pharmacist, [facility] [address] [place] [address] [place] [address] REFILL Actemra- pa exp:06/29/25- Wkly/ Thurs, 08/26-call mobile [facility] Comment on above: REFILL Actemra- pa e xp:06/29/25- Wkly/ Thurs, ND 08/26-call mobile Start: 07-20-2024 End: 07-20-2024 Specialty Pharmacy 07/20/2024 8:15 AM EST Specialty Pharmacy [facility] [address] [place] [phone] Pharmacist, [facility] [address] [place] [address] [place] [address] REFILL Actemra- pa exp:06/29/25- Wkly/ Thurs, ND 07/29-call mobile [facility] Comment on above: REFILL Actemra- pa e xp:06/29/25- Wkly/ Thurs, ND 07/29-call mobile Start: 07-14-2024 End: 07-14-2024 Specialty Pharmacy 07/14/2024 8:00 AM EST Specialty Pharmacy [facility] [address] [place] [phone] Pharmacist, [facility] [address] [place] [address] [place] [address] REFILL Actemra- pa exp:06/29/24- Wkly/ Thurs, 07/29-call mobile, pa renewal? [facility] Comment on above: REFILL Actemra- pa e xp:06/29/24- Wkly/ Thurs, ND 07/29-call mobile, pa renewal? Start: 06-30-2024 Advance Directive Discussion Advance Directive Discussion [facility] Start: 06-29-2024 Covid-19 Vaccine ( season) Covid-19 Vaccine ( season) [facility] Start: 06-21-2024 End: 06-21-2024 Specialty Pharmacy 06/21/2024 8:00 AM EST Specialty Pharmacy [facility] [address] [place] [phone] Pharmacist, [facility] [address] [place] [address] DR [place] [address] REFILL Actemra- pa exp:06/29/24- Wkly/ Thurs, ND 07/01 [facility] Comment on above: REFILL Actemra- pa e xp:06/29/24- Wkly/ Thurs, ND 07/01 Start: 05-24-2024 End: 05-24-2024 Specialty Pharmacy 05/24/2024 8:00 AM EST Specialty Pharmacy [facility] [address] [place] [phone] Pharmacist, [facility] [address] [place] [address] [place] [address] REFILL Actemra- pa exp:06/29/24- NCA 08/2024- Wkly/ Thurs, ND 06/03 - [facility] Comment on above: REFILL Actemra- pa e xp:06/29/24- NCA 08/2024- Wkly/ Th, ND 06/03 - Start: 04-26-2024 End: 04-26-2024 Specialty Pharmacy 04/26/2024 8:00 AM EDT Specialty Pharmacy [facility] [address] [place] [phone] Pharmacist, [facility] 2 [facility] [place] [address] REFILL Actemra- pa exp:06/29/24- NCA 08/2024- Wkly/ Thurs, ND 05/06 - [facility] Comment on above: REFILL Actemra- pa e xp:06/29/24- NCA 08/2024- Wkly/ Thurs, ND 05/06 - Start: 04-01-2024 End: 04-01-2024 Patient encounter procedure 04/01/2024 11:00 AM EDT Office Visit Rheumatology [address] [address] Feli Hebert MD [address] [place] [address] FOLLOW UP APPOINTMENT PER EDSON MADDOX Rheumatology Comment on above: FOLLOW UP APPOINTMEN T PER EDSON MADDOX Start: 03-29-2024 End: 03-29-2024 Specialty Pharmacy 03/29/2024 8:00 AM EDT Specialty Pharmacy [facility] [address] [place] [phone] Pharmacist, [facility] [address] [place] [address] [place] [address] REFILL Actemra- pa exp:06/29/24- NCA 08/2024- Wkly/ Thurs, 04/08 - [facility] Comment on above: REFILL Actemra- pa e xp:06/29/24- NCA 08/2024- Wkly/ Thurs, ND 04/08 - Start: 03-02-2024 End: 03-02-2024 Specialty Pharmacy 03/02/2024 8:15 AM EDT Specialty Pharmacy [facility] [address] [place] [phone] Pharmacist, [facility] [address] [place] [address] [place] [address] REFILL Actemra- pa exp:06/29/24- NCA 08/2024- Wkly/ Thurs, ND 03/11 - [facility] Comment on above: REFILL Actemra- pa e xp:06/29/24- NCA 08/2024- Wkly/ Thurs, ND 03/11 - Start: 02-29-2024 Covid-19 Vaccine ( season) Covid-19 Vaccine ( season) [facility] Start: 02-29-2024 Covid-19 Vaccine ( season) Covid-19 Vaccine ( season) [facility] Start: 02-29-2024 Influenza vaccination Influenza Vacc ine (#1) [facility] Start: 02-02-2024 End: 02-02-2024 Specialty Pharmacy 02/02/2024 8:00 AM EDT Specialty Pharmacy [facility] [address] [place] [phone] Pharmacist, [facility] [address] [place] [address] [place] [address] REFILL Actemra- pa exp:06/29/24- NCA 08/2024- Wkly/ Thurs, 02/11 [facility] Comment on above: REFILL Actemra- pa e xp:06/29/24- NCA 08/2024- Wkly/ Thurs, 02/11 Start: 01-05-2024 End: 01-05-2024 Specialty Pharmacy 01/05/2024 8:00 AM EDT Specialty Pharmacy [facility] [address] [place] [phone] Pharmacist, [facility] [address] [place] [address] [place] [address] REFILL Actemra- PAx 06/29/24- NCA 08/2024- Wkly/ Thurs, ND 01/14- [facility] Comment on above: REFILL Actemra- PAx 06/29/24- NCA 08/2024- Wkly/ Thurs, ND 01/14- Start: 12-08-2023 End: 12-08-2023 Specialty Pharmacy 12/08/2023 8:00 AM EDT Specialty Pharmacy [facility] [address] [place] [phone] Pharmacist, [facility] 2 [facility] [place] [address] REFILL Actemra- PAx 06/29/24- NCA 08/2024- Wkly/ Thurs, ND 12/17- [facility] Comment on above: REFILL Actemra- PAx 06/29/24- NCA 08/2024- Wkly/ Thurs, ND 12/17- Start: 07-15-2023 Covid-19 Vaccine () Covid-19 Vaccine () [facility] Start: 06-30-2023 Advance Directive Discussion Advance Directive Discussion [facility] Start: 06-30-2023 Behavioral Health Screening Behavioral Health Screening [facility] Start: 06-30-2023 Depression Assessment Depression Ass essment [facility] Start: 02-28-2023 Covid-19 Vaccine () Covid-19 Vaccine () [facility] Start: 02-28-2023 Influenza vaccination [facility] Start: 07-29-2022 COVID-19 VACCINE (6 - Moderna risk series) COVID-19 VACCINE (6 - Moderna risk series) [facility] Start: 06-30-2022 ADVANCE DIRECTIVE DISCUSSION ADVANCE DIRECTIVE DISCUSSION [facility] Start: 06-30-2022 DEPRESSION ASSESSMENT DEPRESSION ASS ESSMENT [facility] Start: 04-15-2022 Anesthesia major ves sels neck simple ligation ANESTH NECK VESSEL SURGERY [facility] Work Phone: Start: 04-15-2022 Ligation/biopsy temp oral artery TEMPORAL ARTERY PROCEDURE [facility] Work Phone: Start: 04-15-2022 Patient discharge [facility] Work Phone: Start: 02-28-2022 Influenza vaccination INFLUENZA (#1) [facility] Start: 12-24-2021 COVID-19 VACCINE (5 - Booster for Moderna series) COVID-19 VACCINE (5 - Booster for Moderna series) [facility] Start: 06-30-2021 ADVANCE DIRECTIVE DISCUSSION ADVANCE DIRECTIVE DISCUSSION [facility] Start: 06-30-2021 DEPRESSION ASSESSMENT DEPRESSION ASS ESSMENT [facility] Start: 2016 BONE DENSITY BONE DENSITY [facility] Start: 2016 Bone Density Screening Bone Density Screening [facility] Start: 2016 PNEUMOCOCCAL: 65+ (1 - PCV) PNEUMOCOCCAL: 65+ (1 - PCV) [facility] Start: 2016 Screening for osteoporosis Bone Density Screening [facility] Start: 2011 RSV Vaccine (1 - 1-d ose 60+ series) RSV Vaccine (1 - 1-dose 60+ series) [facility] Start: 2001 SHINGRIX VACCINE (1 of 2) SHINGRIX VACCINE (1 of 2) [facility] Start: 1996 COLOGUARD (FIT-DNA) COLOGUARD (FIT-D NA) [facility] Start: 1996 Colonoscopy COLONOSCOPY [facility] Start: 1996 COLORECTAL CANCER SCREENING COLORECTAL CANCER SCREENING [facility] Start: [address] COLONOGRAPHY [facility] Start: 1996 DIABETES SCREEN DIABETES SCREEN [facility] Start: 1996 FECAL OCCULT BLOOD FECAL OCCULT BLOO D [facility] Start: 1996 Lipid 1996 panel - S ranjan or Plasma Lipid Screening [facility] Start: 1996 Lipid panel Lipid Screening [facility] Start: 1996 LIPID SCREEN LIPID SCREEN [facility] Start: 1996 Screening for malign ant neoplasm of colon [facility] Start: 1996 SIGMOIDOSCOPY SIGMOIDOSCOPY [facility] Start: 1991 Mammography [facility] Start: 1991 Screening for malign ant neoplasm of breast Mammogram Screening [facility] Start: 1970 Urine microalbumin profile DTAP,TDAP,TD (1 - Tdap) [facility] Start: 1969 Anxiety Screening Anxiety Screening [facility] Start: 1969 Depression Screening Depression Scre ening [facility] Start: 1969 HEPATITIS C SCREENING HEPATITIS C SC REENING [facility] Start: 1962 Screening for malign ant neoplasm of cervix Cervical Cancer Screening [facility] Start: 01-17-1952 COVID-19 VACCINE (#1) COVID-19 VACCI NE (#1) [facility] End: 08-22-2023 C reactive protein [Mass/volume] in Serum or Plasma C-REACTIVE PROTEIN (CRP) Lab Routine Giant cell arteritis (HCC) Every 2 months for 6 Occurrences starting 08/22/2022 until 08/22/2023 [facility] Work Phone: Comment on above: Every 2 months for 6 Occurrences starting 08/22/2022 until 08/22/2023 End: 09-03-2025 C reactive protein [Mass/volume] in Serum or Plasma C-REACTIVE PROTEIN Lab Routine Giant cell arteritis (HCC) Every 3 months for 4 Occurrences starting 09/04/2024 until 09/03/2025 [facility] Comment on above: Every 3 months for 4 Occurrences starting 09/04/2024 until 09/03/2025 End: 08-22-2023 CBC W Auto Differential panel - Blood CBC + DIFF Lab Routine Giant cell arteritis (HCC) Every 2 months for 7 Occurrences starting 08/22/2022 until 08/22/2023 [facility] Work Phone: Comment on above: Every 2 months for 7 Occurrences starting 08/22/2022 until 08/22/2023 End: 09-03-2024 CBC W Auto Differential panel - Blood CBC + DIFF Lab Routine Giant cell arteritis (HCC) Every 3 months for 4 Occurrences starting 09/04/2023 until 09/03/2024 [facility] Work Phone: Comment on above: Every 3 months for 4 Occurrences starting 09/04/2023 until 09/03/2024 End: 09-03-2025 CBC W Auto Differential panel - Blood COMPLETE BLOOD COUNT AND DIFFERENTIAL Lab Routine Giant cell arteritis (HCC) Every 3 months for 4 Occurrences starting 09/04/2024 until 09/03/2025 [facility] Work Phone: Comment on above: Every 3 months for 4 Occurrences starting 09/04/2024 until 09/03/2025 End: 08-22-2023 Comprehensive metabolic 2000 panel - Serum or Plasma COMP METABOLIC PANEL Lab Routine Giant cell arteritis (HCC) Every 2 months for 6 Occurrences starting 08/22/2022 until 08/22/2023 [facility] Work Phone: Comment on above: Every 2 months for 6 Occurrences starting 08/22/2022 until 08/22/2023 End: 09-03-2024 Comprehensive metabolic 2000 panel - Serum or Plasma COMP METABOLIC PANEL Lab Routine Giant cell arteritis (HCC) Every 3 months for 4 Occurrences starting 09/04/2023 until 09/03/2024 [facility] Work Phone: Comment on above: Every 3 months for 4 Occurrences starting 09/04/2023 until 09/03/2024 End: 09-03-2025 Comprehensive metabolic 2000 panel - Serum or Plasma COMPREHENSIVE METABOLIC PANEL Lab Routine Giant cell arteritis (HCC) Every 3 months for 4 Occurrences starting 09/04/2024 until 09/03/2025 [facility] Comment on above: Every 3 months for 4 Occurrences starting 09/04/2024 until 09/03/2025 End: 08-22-2023 Erythrocyte sedimentation rate SED RATE WESTERGREN Lab Routine Giant cell arteritis (HCC) Every 2 months for 6 Occurrences starting 08/22/2022 until 08/22/2023 [facility] Work Phone: Comment on above: Every 2 months for 6 Occurrences starting 08/22/2022 until 08/22/2023 End: 09-03-2025 Erythrocyte sedimentation rate SEDIMENTATION RATE, WESTERGREN Lab Routine Giant cell arteritis (HCC) Every 3 months for 4 Occurrences starting 09/04/2024 until 09/03/2025 [facility] Comment on above: Every 3 months for 4 Occurrences starting 09/04/2024 until 09/03/2025 End: 05-01-2025 MRA Abdominal vessels WO and W contrast IV MRA ABDOMEN WO/W IVCON Radiology 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 starting 04/01/2024 until 05/01/2025 [facility] Comment on above: 1 Occurrences starti ng 04/01/2024 until 05/01/2025 End: 05-01-2025 MRA Chest vessels WO and W contrast IV MRA CHEST CARDIOVASCULAR WO/W IVCON Radiology 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 [facility] Work Phone: Patient referral [facility] Work Phone: [facility] Immunizations Immunization Date Immunization Notes Care Provider Shayla paulson 05-03-2023 respiratory syncytia l virus (RSV) vaccine, adjuvanted (AREXVY) [facility]-28-2023 influenza (aIIV4) vaccine, age 65+ yr, quadrivalent, PF (FLUAD QUAD) Urbano [facility] 03-28-2023 influenza virus vacc ine, unspecified formulation [facility] 12-10-2022 pneumococcal (PCV20) vaccine, 20 valent (PREVNAR 20) Feli Maddox MD Work Phone: [facility] 12-10-2022 tetanus toxoid, redu gonzalez diphtheria toxoid, and acellular pertussis vaccine, adsorbed Feli Maddox MD Work Phone: [facility] 04-22-2022 influenza (aIIV4) vaccine, age 65+ yr, quadrivalent, PF (FLUAD QUAD) Feli Maddox MD Work Phone: [facility] 04-22-2022 influenza virus vacc ine, unspecified formulation Feli Maddox MD Work Phone: [facility] 04-12-2021 influenza, high-dose , quadrivalent vaccine (FLUZONE HIGH DOSE QUADRIVALENT) Yadiel Natasha [facility] 04-25-2020 influenza (aIIV4) vaccine, age 65+ yr, quadrivalent, PF (FLUAD QUADRIVALENT) Yadiel Natasha [facility] 12-28-2019 zoster vaccine recombinant Yadiel Natasha [facility] 08-12-2019 zoster vaccine recombinant Yadiel Natasha [facility] 05-20-2019 influenza, injectabl e, quadrivalent, contains preservative Yadiel Natasha [facility] 06-04-2018 pneumococcal polysaccharide vaccine, 23 valent Ydaiel Natasha [facility] 05-01-2018 influenza, injectabl e, quadrivalent, contains preservative Yadiel Natasha [facility] 04-21-2017 influenza, seasonal, injectable Yadiel Natasha [facility] 04-08-2017 pneumococcal conjuga te vaccine, 13 valent Yadiel Natasha [facility] 08-23-2014 zoster vaccine, live Yadiel Natasha [facility] 03-30-2014 influenza virus vacc ine, whole virus Yadiel Natasha [facility] 04-21-2013 influenza virus vacc ine, whole virus Yadiel Natasha [facility] 05-15-2009 influenza virus vacc ine, whole virus Yadiel Natasha [facility] 05-17-2008 influenza virus vacc ine, whole virus Yadiel Natasha [facility] 05-26-2007 influenza virus vacc ine, whole virus Yadiel Natasha [facility] 03-27-1999 hepatitis B vaccine, pediatric or pediatric/adolescent dosage Yadiel Natasha [facility] 07-20-1998 hepatitis B vaccine, pediatric or pediatric/adolescent dosage Yadiel Natasha [facility] 06-06-1998 hepatitis B vaccine, pediatric or pediatric/adolescent dosage Yadiel Natasha [facility] Payers Date Payer Category Payer Self-pay [id number] 2023 Medicare (Managed Care) [facility] PPO [id number] 2023 Unknown [id number] 2021 Medicare [id number] Medicare [id number] Private Health Insurance [id number] Private Health Insurance [facility] [id number] Unknown [id number] Unknown [id number] Unknown [id number] Unknown [id number] Social History Date Type Detail Facility [facility] Work Phone: Start: 1950 Sex Assigned At Female [facility] Start: 04-05-2022 End: 04-11-2022 Tobacco smoking status NHIS Unknown if ever smoked [facility] Start: 04-22-2022 End: 04-01-2024 Tobacco smoking status NHIS Ex-smoker [facility] Work Phone: End: 03-22-1983 History of tobacco use Current smoker [facility] Work Phone: End: 03-22-1983 History of tobacco use Cigarette Smoker [facility] Work Phone: Start: 03-31-2007 End: 04-01-2024 Alcohol intake Current drinker of alcohol (finding) [facility] Start: 1950 Sex Assigned At Not on file [facility] Start: 04-22-2022 End: 04-01-2024 Tobacco use and exposure Smokeless tobacco non-user [facility] Start: 04-12-2022 End: 04-22-2022 Exposure to SARS-CoV-2 (event) Not sure [facility] Start: 08-22-2022 End: 02-04-2024 History of Social function [facility] Start: 08-22-2022 End: 02-04-2024 Tobacco use panel [facility] Adult Depression Screening Assessment 0 [facility] Start: 10-04-2024 Sex Female (finding) [facility] Goals Date Patient Goal Desired Activity /State Mental Status Date Assessment Result Facility 04-15-2022 Cognitive function Voice/Name [facility] Work Phone: Clinical Notes 04-11-2022 to 11-30-2024 Ceci Aguilar RN - 11/23/2024 11:30 AM Patricio Ojeda RT(R) - 11/23/2024 11:30 AM Joaquin Alaniz RP - 11/08/2024 9:52 AM Malena Bey - 10/11/2024 11:07 AM EDT Note Date & Type Note Facility 11-30-2024 Note HNO ID: [id number] Author: ?, ?, ? Service: ? Author Type: ? Type: Progress Notes Filed: 12/01/2024 10:39 Note Text: [facility] Medication(s): Actemra Patient's current medication list and adherence status to current therapy were reviewed by Specialty Pharmacy clinical pharmacist to identify any new drug interactions or non-compliance to therapy. Therapy continues to be appropriate for disease, patient response, and medical condition. Verification of therapeutic benefit and effectiveness with current therapy was completed. Adverse events, barriers in adherence, and side effects were assessed and addressed if applicable. Will proceed with refill with no changes in therapy - patient progressing towards achieving therapeutic goals based on medication-specific laboratory parameters, disease state markers and outcomes. Office/provider notes have been reviewed prior to dispensing the medication. Orthotic And Prosthetic Technician Assessment Patient confirmed: Yes Med/dose confirmed: Yes Supplies needed: No supplies needed Missed doses: No Estimated days supply on hand: 2 Next cycle/dose due: 12/02/24 Copay amount: 0 Payment confirmed: Yes Delivery method: FedEx Signature required: No Delivery address: [address] [place] [address] Delivery date: 12/08/24 Questions or concerns for the pharmacist?: No Did you have any side effects believed to be related to this medication, that resulted in hospitalization?: No Current Outpatient Medications on File Prior to Visit Medication Sig tocilizumab (ACTEMRA ACTPEN) 162 mg/0.9 mL Inject 1 pen (162 mg) under the skin once weekly alendronate (FOSAMAX) 70 mg tablet TAKE 1 TABLET BY MOUTH WEEKLY IN THE MORNING WITH FULL GLASS OF WATER ON EMPTY STOMACH. NOTHING ELSE FOR 1/2 HOUR AND STAY UPRIGHT FOR 60 MINUTES Cinnamon Bark 500 mg cap Take by mouth once daily. aspirin 81 mg cap Take 81 mg by mouth once daily. CALCIUM-VITAMIN D3-MAGNESIUM ORAL Take by mouth once daily. Milk Thistle 175 mg tab Take 175 mg by mouth once daily. FLAXSEED OIL ORAL Take 1,000 mg by mouth two times a day. RAMIPRIL ORAL 1.25 mg once daily. B1/B2/niacin/B12/protease (B-COMPLEX WITH B-12 ORAL) once daily. SYNTHROID 88 mcg tablet fenofibrate nanocrystallized (TRICOR) 145 mg tablet PREMARIN 0.625 MG/G VAGL CREA 2 times a week No current facility-administered medications on file prior to visit. [facility] RX SPECIALTY CLINICAL ASSESSMENT - INFLAMMATORY CONDITIONS V6: Assessment to use: Refill Date of influenza vaccination reminder: 03/29/2024 Date of most recent vaccination assessment: 03/29/2024 Treatment Plan Information: Actemra Inject 1 pen (162 mg) under the skin once weekly (M31.6) Giant cell arteritis (HCC) (primary encounter diagnosis) Est. Tx Plan Start Date: No information available Estimated Start Date Info: Established on therapy Est. Estimated Treatment Duration: Until lack of efficacy Michelle Graham CPhT [facility], Inflammatory P: [phone] F: [phone] [facility] 11-23-2024 History of Presen t illness Narrative Radiology Service Progress Note DATE OF SERVICE: November 23, 2024 TIME: 10:33 AM PATIENT WEIGHT: 134 LBS PATIENT IDENTITY VERIFICATION COMPLETED USING TWO (2) STANDARD IDENTIFIERS: Name and Date of confirmed by patient verbally. FALL SCREENING: Has the patient had 2 falls in the last year or 1 fall with injury or currently using an Ambulatory Assistive Device (Walker, Cane, Wheelchair, Crutches, etc.)? No PATIENT GENDER DATA: Assigned female at . status: : No status: NO. ALLERGIES: Reviewed and unchanged CONTRAST ALLERGY: No EXAM: MRI - CONTRAST TYPE: GROUP II IV SITE: Ambulatory: A peripheral IV was started in the Right antecubital site with a Angio cath: 20 gauge. and A Saline lock was inserted per protocol IV SITE APPEARANCE: Clean,Dry and Intact SIGNATURE: Ceci Aguilar RN PATIENT NAME: Andreea Montes DATE: November 23, 2024 TIME: 10:33 AM Radiology Service Progress Note PATIENT NAME: Andreea Montes DATE OF SERVICE: November 23, 2024 TIME: 11:13 AM PATIENT IDENTITY VERIFICATION COMPLETED USING TWO (2) IDENTIFIERS: Name and Date of confirmed by patient verbally and Name and Date of confirmed by identification band. FALL SCREENING: Has the patient had 2 falls in the last year or 1 fall with injury or currently using an Ambulatory Assistive Device (Walker, Cane, Wheelchair, Crutches, etc.)? No PATIENT GENDER DATA: Assigned female at . status: : No status: NO. PATIENT RELEVANT IMPLANT DATA REVIEWED: Yes PATIENT PRESENTS WITH AN IMPLANTABLE OR ATTACHED FACIALIST: No RADIOLOGY DEPARTMENT: MR; Exam(s) Completed: Cardiac: Cardiac. Lavender Administered: No PERIPHERAL IV DATA: Site assessment: Clean,Dry and Intact, Site disposition Discontinued SIGNED BY: REINA River)Cecille November 23, 2024 11:13 AM documented in this encounter [facility] 11-23-2024 Note HNO ID: [id number] Author: PATRICIO ANDERSON RT (R) Service: Radiology Author Type: Technologist Type: Progress Notes Filed: 11/23/2024 12:57 Note Text: Radiology Service Progress Note PATIENT NAME: Andreea Montes DATE OF SERVICE: November 23, 2024 TIME: 11:13 AM PATIENT IDENTITY VERIFICATION COMPLETED USING TWO (2) IDENTIFIERS: Name and Date of confirmed by patient verbally and Name and Date of confirmed by identification band. FALL SCREENING: Has the patient had 2 falls in the last year or 1 fall with injury or currently using an Ambulatory Assistive Device (Walker, Cane, Wheelchair, Crutches, etc.)? No PATIENT GENDER DATA: Assigned female at . status: : No status: NO. PATIENT RELEVANT IMPLANT DATA REVIEWED: Yes PATIENT PRESENTS WITH AN IMPLANTABLE OR ATTACHED FACIALIST: No RADIOLOGY DEPARTMENT: MR; Exam(s) Completed: Cardiac: Cardiac. Lavender Administered: No PERIPHERAL IV DATA: Site assessment: Clean,Dry and Intact, Site disposition Discontinued SIGNED BY: REINA River)Cecille November 23, 2024 11:13 AM [facility] 11-23-2024 Note HNO ID: [id number] Author: CECI AGUILAR RN Service: Radiology Author Type: Registered Nurse Type: Progress Notes Filed: 11/23/2024 10:34 Note Text: Radiology Service Progress Note DATE OF SERVICE: November 23, 2024 TIME: 10:33 AM PATIENT WEIGHT: 134 LBS PATIENT IDENTITY VERIFICATION COMPLETED USING TWO (2) STANDARD IDENTIFIERS: Name and Date of confirmed by patient verbally. FALL SCREENING: Has the patient had 2 falls in the last year or 1 fall with injury or currently using an Ambulatory Assistive Device (Walker, Cane, Wheelchair, Crutches, etc.)? No PATIENT GENDER DATA: Assigned female at . status: : No status: NO. ALLERGIES: Reviewed and unchanged CONTRAST ALLERGY: No EXAM: MRI - CONTRAST TYPE: GROUP II IV SITE: Ambulatory: A peripheral IV was started in the Right antecubital site with a Angio cath: 20 gauge. and A Saline lock was inserted per protocol IV SITE APPEARANCE: Clean,Dry and Intact SIGNATURE: Ceci Aguilar RN PATIENT NAME: Andreea Montes DATE: November 23, 2024 TIME: 10:33 AM [facility] 11-08-2024 History of Presen t illness Narrative [facility] Medication(s): actemra Patient's current medication list and adherence status to current therapy were reviewed by Specialty Pharmacy clinical pharmacist to identify any new drug interactions or non-compliance to therapy. Therapy continues to be appropriate for disease, patient response, and medical condition. Verification of therapeutic benefit and effectiveness with current therapy was completed. Adverse events, barriers in adherence, and side effects were assessed and addressed if applicable. Will proceed with refill with no changes in therapy - patient progressing towards achieving therapeutic goals based on medication-specific laboratory parameters, disease state markers and outcomes. Office/provider notes have been reviewed prior to dispensing the medication. Orthotic And Prosthetic Technician Assessment Patient confirmed: Yes Med/dose confirmed: Yes Supplies needed: No supplies needed Missed doses: No Estimated days supply on hand: 7 Next cycle/dose due: 11/11/24 Copay amount: 0 Payment confirmed: Yes Delivery method: FedEx Signature required: Waived on patient request Delivery address: [address] [place] [address] Delivery date: 11/11/24 Questions or concerns for the pharmacist?: No Did you have any side effects believed to be related to this medication, that resulted in hospitalization?: No Current Outpatient Medications on File Prior to Visit Medication Sig tocilizumab (ACTEMRA ACTPEN) 162 mg/0.9 mL Inject 1 pen (162 mg) under the skin once weekly alendronate (FOSAMAX) 70 mg tablet TAKE 1 TABLET BY MOUTH WEEKLY IN THE MORNING WITH FULL GLASS OF WATER ON EMPTY STOMACH. NOTHING ELSE FOR 1/2 HOUR AND STAY UPRIGHT FOR 60 MINUTES Cinnamon Bark 500 mg cap Take by mouth once daily. aspirin 81 mg cap Take 81 mg by mouth once daily. CALCIUM-VITAMIN D3-MAGNESIUM ORAL Take by mouth once daily. Milk Thistle 175 mg tab Take 175 mg by mouth once daily. FLAXSEED OIL ORAL Take 1,000 mg by mouth two times a day. RAMIPRIL ORAL 1.25 mg once daily. B1/B2/niacin/B12/protease (B-COMPLEX WITH B-12 ORAL) once daily. SYNTHROID 88 mcg tablet fenofibrate nanocrystallized (TRICOR) 145 mg tablet PREMARIN 0.625 MG/G VAGL CREA 2 times a week No current facility-administered medications on file prior to visit. [facility] RX SPECIALTY CLINICAL ASSESSMENT - INFLAMMATORY CONDITIONS V7 Date of influenza vaccination reminder: 03/29/2024 Date of most recent vaccination assessment: 03/29/2024 Treatment Plan Information: Actemra Inject 1 pen (162 mg) under the skin once weekly (M31.6) Giant cell arteritis (HCC) (primary encounter diagnosis) Est. Tx Plan Start Date: No information available Estimated Start Date Info: Established on therapy Est. Estimated Treatment Duration: Until lack of efficacy Joaquin Benites RPh documented in this encounter [facility] 11-08-2024 Note HNO ID: [id number] Author: BENITES RPh Service: ? Author Type: Pharmacist Type: Progress Notes Filed: 11/08/2024 10:17 Note Text: [facility] Refill Assessment Medication(s): actemra Patient's current medication list and adherence status to current therapy were reviewed by Specialty Pharmacy clinical pharmacist to identify any new drug interactions or non-compliance to therapy. Therapy continues to be appropriate for disease, patient response, and medical condition. Verification of therapeutic benefit and effectiveness with current therapy was completed. Adverse events, barriers in adherence, and side effects were assessed and addressed if applicable. Will proceed with refill with no changes in therapy - patient progressing towards achieving therapeutic goals based on medication-specific laboratory parameters, disease state markers and outcomes. Office/provider notes have been reviewed prior to dispensing the medication. Orthotic And Prosthetic Technician Assessment Patient confirmed: Yes Med/dose confirmed: Yes Supplies needed: No supplies needed Missed doses: No Estimated days supply on hand: 7 Next cycle/dose due: 11/11/24 Copay amount: 0 Payment confirmed: Yes Delivery method: FedEx Signature required: Waived on patient request Delivery address: [address] [place] [address] [address] [facility] [address] Delivery date: 11/11/24 Questions or concerns for the pharmacist?: No Did you have any side effects believed to be related to this medication, that resulted in hospitalization?: No Current Outpatient Medications on File Prior to Visit Medication Sig tocilizumab (ACTEMRA ACTPEN) 162 mg/0.9 mL Inject 1 pen (162 mg) under the skin once weekly alendronate (FOSAMAX) 70 mg tablet TAKE 1 TABLET BY MOUTH WEEKLY IN THE MORNING WITH FULL GLASS OF WATER ON EMPTY STOMACH. NOTHING ELSE FOR 1/2 HOUR AND STAY UPRIGHT FOR 60 MINUTES Cinnamon Bark 500 mg cap Take by mouth once daily. aspirin 81 mg cap Take 81 mg by mouth once daily. CALCIUM-VITAMIN D3-MAGNESIUM ORAL Take by mouth once daily. Milk Thistle 175 mg tab Take 175 mg by mouth once daily. FLAXSEED OIL ORAL Take 1,000 mg by mouth two times a day. RAMIPRIL ORAL 1.25 mg once daily. B1/B2/niacin/B12/protease (B-COMPLEX WITH B-12 ORAL) once daily. SYNTHROID 88 mcg tablet fenofibrate nanocrystallized (TRICOR) 145 mg tablet PREMARIN 0.625 MG/G VAGL CREA 2 times a week No current facility-administered medications on file prior to visit. [facility] RX SPECIALTY CLINICAL ASSESSMENT - INFLAMMATORY CONDITIONS V7 Date of influenza vaccination reminder: 03/29/2024 Date of most recent vaccination assessment: 03/29/2024 Treatment Plan Information: Actemra Inject 1 pen (162 mg) under the skin once weekly (M31.6) Giant cell arteritis (HCC) (primary encounter diagnosis) Est. Tx Plan Start Date: No information available Estimated Start Date Info: Established on therapy Est. Estimated Treatment Duration: Until lack of efficacy Joaquin Benites RPh [facility] 10-11-2024 History of Presen t illness Narrative [facility] Refill Assessment Medication(s): Actemra Patient's current medication list and adherence status to current therapy were reviewed by Specialty Pharmacy clinical pharmacist to identify any new drug interactions or non-compliance to therapy. Therapy continues to be appropriate for disease, patient response, and medical condition. Verification of therapeutic benefit and effectiveness with current therapy was completed. Adverse events, barriers in adherence, and side effects were assessed and addressed if applicable. Will proceed with refill with no changes in therapy - patient progressing towards achieving therapeutic goals based on medication-specific laboratory parameters, disease state markers and outcomes. Office/provider notes have been reviewed prior to dispensing the medication. Orthotic And Prosthetic Technician Assessment Patient confirmed: Yes Med/dose confirmed: Yes Supplies needed: Sharps container Missed doses: No Estimated days supply on hand: 1 Next cycle/dose due: 10/14/24 Copay amount: 0 Payment confirmed: Yes Delivery method: FedEx Signature required: No Delivery address: [address] [place] [address] Delivery date: 10/19/24 Questions or concerns for the pharmacist?: No Did you have any side effects believed to be related to this medication, that resulted in hospitalization?: No Current Outpatient Medications on File Prior to Visit Medication Sig tocilizumab (ACTEMRA ACTPEN) 162 mg/0.9 mL Inject 1 pen (162 mg) under the skin once weekly alendronate (FOSAMAX) 70 mg tablet TAKE 1 TABLET BY MOUTH WEEKLY IN THE MORNING WITH FULL GLASS OF WATER ON EMPTY STOMACH. NOTHING ELSE FOR 1/2 HOUR AND STAY UPRIGHT FOR 60 MINUTES Cinnamon Bark 500 mg cap Take by mouth once daily. aspirin 81 mg cap Take 81 mg by mouth once daily. CALCIUM-VITAMIN D3-MAGNESIUM ORAL Take by mouth once daily. Milk Thistle 175 mg tab Take 175 mg by mouth once daily. FLAXSEED OIL ORAL Take 1,000 mg by mouth two times a day. RAMIPRIL ORAL 1.25 mg once daily. B1/B2/niacin/B12/protease (B-COMPLEX WITH B-12 ORAL) once daily. SYNTHROID 88 mcg tablet fenofibrate nanocrystallized (TRICOR) 145 mg tablet PREMARIN 0.625 MG/G VAGL CREA 2 times a week No current facility-administered medications on file prior to visit. [facility] SPECIALTY CLINICAL ASSESSMENT - INFLAMMATORY CONDITIONS V6: Assessment to use: Refill Date of influenza vaccination reminder: 03/29/2024 Date of most recent vaccination assessment: 03/29/2024 Treatment Plan Information: Actemra Inject 1 pen (162 mg) under the skin once weekly (M31.6) Giant cell arteritis (HCC) (primary encounter diagnosis) Est. Tx Plan Start Date: No information available Estimated Start Date Info: Established on therapy Est. Estimated Treatment Duration: Until lack of efficacy Malena Almonte CPhT [facility] P: [phone] F: [phone] documented in this encounter [facility] 10-11-2024 Note HNO ID: [id number] Author: URBANO HERNANDEZ [facility] Service: ? Author Type: ? Type: Progress Notes Filed: 10/15/2024 10:17 Note Text: [facility] Refill Assessment Medication(s): Actemra Patient's current medication list and adherence status to current therapy were reviewed by Specialty Pharmacy clinical pharmacist to identify any new drug interactions or non-compliance to therapy. Therapy continues to be appropriate for disease, patient response, and medical condition. Verification of therapeutic benefit and effectiveness with current therapy was completed. Adverse events, barriers in adherence, and side effects were assessed and addressed if applicable. Will proceed with refill with no changes in therapy - patient progressing towards achieving therapeutic goals based on medication-specific laboratory parameters, disease state markers and outcomes. Office/provider notes have been reviewed prior to dispensing the medication. Janneth Hernandez, MckayD Clinical Pharmacist, [employer] [facility] ; Pool: P [facility] Pool #: [id number] Orthotic And Prosthetic Technician Assessment Patient confirmed: Yes Med/dose confirmed: Yes Supplies needed: Sharps container Missed doses: No Estimated days supply on hand: 1 Next cycle/dose due: 10/14/24 Copay amount: 0 Payment confirmed: Yes Delivery method: FedEx Signature required: No Delivery address: [address] [place] [address] Delivery date: 10/19/24 Questions or concerns for the pharmacist?: No Did you have any side effects believed to be related to this medication, that resulted in hospitalization?: No Current Outpatient Medications on File Prior to Visit Medication Sig tocilizumab (ACTEMRA ACTPEN) 162 mg/0.9 mL Inject 1 pen (162 mg) under the skin once weekly alendronate (FOSAMAX) 70 mg tablet TAKE 1 TABLET BY MOUTH WEEKLY IN THE MORNING WITH FULL GLASS OF WATER ON EMPTY STOMACH. NOTHING ELSE FOR 1/2 HOUR AND STAY UPRIGHT FOR 60 MINUTES Cinnamon Bark 500 mg cap Take by mouth once daily. aspirin 81 mg cap Take 81 mg by mouth once daily. CALCIUM-VITAMIN D3-MAGNESIUM ORAL Take by mouth once daily. Milk Thistle 175 mg tab Take 175 mg by mouth once daily. FLAXSEED OIL ORAL Take 1,000 mg by mouth two times a day. RAMIPRIL ORAL 1.25 mg once daily. B1/B2/niacin/B12/protease (B-COMPLEX WITH B-12 ORAL) once daily. SYNTHROID 88 mcg tablet fenofibrate nanocrystallized (TRICOR) 145 mg tablet PREMARIN 0.625 MG/G VAGL CREA 2 times a week No current facility-administered medications on file prior to visit. [facility] RX SPECIALTY CLINICAL ASSESSMENT - INFLAMMATORY CONDITIONS V6: Ivent complete: No Assessment to use: Refill Assessment of injection issues: Yes Infection screening, including annual TB assessment when applicable to medication: Yes Current medication list (including drug interaction assessment): Yes Experience of adverse reactions to the medication: Yes Date of influenza vaccination reminder: 03/29/2024 Date of most recent vaccination assessment: 03/29/2024 Treatment Plan Information: Actemra Inject 1 pen (162 mg) under the skin once weekly (M31.6) Giant cell arteritis (HCC) (primary encounter diagnosis) Est. Tx Plan Start Date: No information available Estimated Start Date Info: Established on therapy Est. Estimated Treatment Duration: Until lack of efficacy Malena Almonte CPhT [facility] P: [phone] F: [phone] [facility] 09-13-2024 History of Presen t illness Narrative [facility] Ref[facility] Assessment Medication(s): Actemra Patient's current medication list and adherence status to current therapy were reviewed by Specialty Pharmacy clinical pharmacist to identify any new drug interactions or non-compliance to therapy. Therapy continues to be appropriate for disease, patient response, and medical condition. Verification of therapeutic benefit and effectiveness with current therapy was completed. Adverse events, barriers in adherence, and side effects were assessed and addressed if applicable. Will proceed with refill with no changes in therapy - patient progressing towards achieving therapeutic goals based on medication-specific laboratory parameters, disease state markers and outcomes. Office/provider notes have been reviewed prior to dispensing the medication. Orthotic And Prosthetic Technician Assessment Patient confirmed: Yes Med/dose confirmed: Yes Supplies needed: No supplies needed Missed doses: No Estimated days supply on hand: 1 Next cycle/dose due: 09/16/24 Copay amount: 0 Payment confirmed: Yes Delivery method: FedEx Signature required: Waived on patient request Delivery address: [address] [place] [address] Delivery date: 09/15/24 Questions or concerns for the pharmacist?: No Did you have any side effects believed to be related to this medication, that resulted in hospitalization?: No Current Outpatient Medications on File Prior to Visit Medication Sig tocilizumab (ACTEMRA ACTPEN) 162 mg/0.9 mL Inject 1 pen (162 mg) under the skin once weekly alendronate (FOSAMAX) 70 mg tablet TAKE 1 TABLET BY MOUTH WEEKLY IN THE MORNING WITH FULL GLASS OF WATER ON EMPTY STOMACH. NOTHING ELSE FOR 1/2 HOUR AND STAY UPRIGHT FOR 60 MINUTES Cinnamon Bark 500 mg cap Take by mouth once daily. aspirin 81 mg cap Take 81 mg by mouth once daily. CALCIUM-VITAMIN D3-MAGNESIUM ORAL Take by mouth once daily. Milk Thistle 175 mg tab Take 175 mg by mouth once daily. FLAXSEED OIL ORAL Take 1,000 mg by mouth two times a day. RAMIPRIL ORAL 1.25 mg once daily. B1/B2/niacin/B12/protease (B-COMPLEX WITH B-12 ORAL) once daily. SYNTHROID 88 mcg tablet fenofibrate nanocrystallized (TRICOR) 145 mg tablet PREMARIN 0.625 MG/G VAGL CREA 2 times a week No current facility-administered medications on file prior to visit. [facility] RX SPECIALTY CLINICAL ASSESSMENT - INFLAMMATORY CONDITIONS V6: Assessment to use: Refill Date of influenza vaccination reminder: 03/29/2024 Date of most recent vaccination assessment: 03/29/2024 Treatment Plan Information: Actemra Inject 1 pen (162 mg) under the skin once weekly (M31.6) Giant cell arteritis (HCC) (primary encounter diagnosis) Est. Tx Plan Start Date: No information available Estimated Start Date Info: Established on therapy Est. Estimated Treatment Duration: Until lack of efficacy Kat King CPhT [facility] documented in this encounter [facility] 09-13-2024 Note HNO ID: [id number] Author: ?, ?, ? Service: ? Author Type: ? Type: Progress Notes Filed: 09/13/2024 10:36 Note Text: [facility] Refill Assessment Medication(s): Actemra Patient's current medication list and adherence status to current therapy were reviewed by Specialty Pharmacy clinical pharmacist to identify any new drug interactions or non-compliance to therapy. Therapy continues to be appropriate for disease, patient response, and medical condition. Verification of therapeutic benefit and effectiveness with current therapy was completed. Adverse events, barriers in adherence, and side effects were assessed and addressed if applicable. Will proceed with refill with no changes in therapy - patient progressing towards achieving therapeutic goals based on medication-specific laboratory parameters, disease state markers and outcomes. Office/provider notes have been reviewed prior to dispensing the medication. Orthotic And Prosthetic Technician Assessment Patient confirmed: Yes Med/dose confirmed: Yes Supplies needed: No supplies needed Missed doses: No Estimated days supply on hand: 1 Next cycle/dose due: 09/16/24 Copay amount: 0 Payment confirmed: Yes Delivery method: FedEx Signature required: Waived on patient request Delivery address: [address] [place] [address] Delivery date: 09/15/24 Questions or concerns for the pharmacist?: No Did you have any side effects believed to be related to this medication, that resulted in hospitalization?: No Current Outpatient Medications on File Prior to Visit Medication Sig tocilizumab (ACTEMRA ACTPEN) 162 mg/0.9 mL Inject 1 pen (162 mg) under the skin once weekly alendronate (FOSAMAX) 70 mg tablet TAKE 1 TABLET BY MOUTH WEEKLY IN THE MORNING WITH FULL GLASS OF WATER ON EMPTY STOMACH. NOTHING ELSE FOR 1/2 HOUR AND STAY UPRIGHT FOR 60 MINUTES Cinnamon Bark 500 mg cap Take by mouth once daily. aspirin 81 mg cap Take 81 mg by mouth once daily. CALCIUM-VITAMIN D3-MAGNESIUM ORAL Take by mouth once daily. Milk Thistle 175 mg tab Take 175 mg by mouth once daily. FLAXSEED OIL ORAL Take 1,000 mg by mouth two times a day. RAMIPRIL ORAL 1.25 mg once daily. B1/B2/niacin/B12/protease (B-COMPLEX WITH B-12 ORAL) once daily. SYNTHROID 88 mcg tablet fenofibrate nanocrystallized (TRICOR) 145 mg tablet PREMARIN 0.625 MG/G VAGL CREA 2 times a week No current facility-administered medications on file prior to visit. [facility] RX SPECIALTY CLINICAL ASSESSMENT - INFLAMMATORY CONDITIONS V6: Assessment to use: Refill Date of influenza vaccination reminder: 03/29/2024 Date of most recent vaccination assessment: 03/29/2024 Treatment Plan Information: Actemra Inject 1 pen (162 mg) under the skin once weekly (M31.6) Giant cell arteritis (HCC) (primary encounter diagnosis) Est. Tx Plan Start Date: No information available Estimated Start Date Info: Established on therapy Est. Estimated Treatment Duration: Until lack of efficacy Kat King CPhT [facility] 08-17-2024 History of Presen t illness Narrative [facility] Refill Assessment Medication(s): Actemra Patient's current medication list and adherence status to current therapy were reviewed by Specialty Pharmacy clinical pharmacist to identify any new drug interactions or non-compliance to therapy. Therapy continues to be appropriate for disease, patient response, and medical condition. Verification of therapeutic benefit and effectiveness with current therapy was completed. Adverse events, barriers in adherence, and side effects were assessed and addressed if applicable. Will proceed with refill with no changes in therapy - patient progressing towards achieving therapeutic goals based on medication-specific laboratory parameters, disease state markers and outcomes. Office/provider notes have been reviewed prior to dispensing the medication. Orthotic And Prosthetic Technician Assessment Patient confirmed: Yes Med/dose confirmed: Yes Supplies needed: No supplies needed Missed doses: No Estimated days supply on hand: 1 Next cycle/dose due: 08/19/24 Copay amount: 33 Copay form of payment: Credit card on file ([id number]) Payment confirmed: Yes Delivery method: FedEx Signature required: No Delivery address: [address] [place] [id number] Delivery date: 08/25/24 Questions or concerns for the pharmacist?: No Did you have any side effects believed to be related to this medication, that resulted in hospitalization?: No Current Outpatient Medications on File Prior to Visit Medication Sig tocilizumab (ACTEMRA ACTPEN) 162 mg/0.9 mL Inject 1 pen (162 mg) under the skin once weekly alendronate (FOSAMAX) 70 mg tablet TAKE 1 TABLET BY MOUTH WEEKLY IN THE MORNING WITH FULL GLASS OF WATER ON EMPTY STOMACH. NOTHING ELSE FOR 1/2 HOUR AND STAY UPRIGHT FOR 60 MINUTES Cinnamon Bark 500 mg cap Take by mouth once daily. aspirin 81 mg cap Take 81 mg by mouth once daily. CALCIUM-VITAMIN D3-MAGNESIUM ORAL Take by mouth once daily. Milk Thistle 175 mg tab Take 175 mg by mouth once daily. FLAXSEED OIL ORAL Take 1,000 mg by mouth two times a day. RAMIPRIL ORAL 1.25 mg once daily. B1/B2/niacin/B12/protease (B-COMPLEX WITH B-12 ORAL) once daily. SYNTHROID 88 mcg tablet fenofibrate nanocrystallized (TRICOR) 145 mg tablet PREMARIN 0.625 MG/G VAGL CREA 2 times a week No current facility-administered medications on file prior to visit. [facility] RX SPECIALTY CLINICAL ASSESSMENT - INFLAMMATORY CONDITIONS V6: Assessment to use: Refill Date of influenza vaccination reminder: 03/29/2024 Date of most recent vaccination assessment: 03/29/2024 Treatment Plan Information: Actemra Inject 1 pen (162 mg) under the skin once weekly (M31.6) Giant cell arteritis (HCC) (primary encounter diagnosis) Est. Tx Plan Start Date: No information available Estimated Start Date Info: Established on therapy Est. Estimated Treatment Duration: Until lack of efficacy Claire Christianson documented in this encounter [facility] 08-17-2024 Note HNO ID: [id number] Author: ?, ?, ? Service: ? Author Type: ? Type: Progress Notes Filed: 08/17/2024 10:21 Note Text: [facility] Refill Assessment Medication(s): Actemra Patient's current medication list and adherence status to current therapy were reviewed by Specialty Pharmacy clinical pharmacist to identify any new drug interactions or non-compliance to therapy. Therapy continues to be appropriate for disease, patient response, and medical condition. Verification of therapeutic benefit and effectiveness with current therapy was completed. Adverse events, barriers in adherence, and side effects were assessed and addressed if applicable. Will proceed with refill with no changes in therapy - patient progressing towards achieving therapeutic goals based on medication-specific laboratory parameters, disease state markers and outcomes. Office/provider notes have been reviewed prior to dispensing the medication. Orthotic And Prosthetic Technician Assessment Patient confirmed: Yes Med/dose confirmed: Yes Supplies needed: No supplies needed Missed doses: No Estimated days supply on hand: 1 Next cycle/dose due: 08/19/24 Copay amount: 33 Copay form of payment: Credit card on file ([id number]) Payment confirmed: Yes Delivery method: FedEx Signature required: No Delivery address: [address] [place] [address] [address] [place] [address] Delivery date: 08/25/24 Questions or concerns for the pharmacist?: No Did you have any side effects believed to be related to this medication, that resulted in hospitalization?: No Current Outpatient Medications on File Prior to Visit Medication Sig tocilizumab (ACTEMRA ACTPEN) 162 mg/0.9 mL Inject 1 pen (162 mg) under the skin once weekly alendronate (FOSAMAX) 70 mg tablet TAKE 1 TABLET BY MOUTH WEEKLY IN THE MORNING WITH FULL GLASS OF WATER ON EMPTY STOMACH. NOTHING ELSE FOR 1/2 HOUR AND STAY UPRIGHT FOR 60 MINUTES Cinnamon Bark 500 mg cap Take by mouth once daily. aspirin 81 mg cap Take 81 mg by mouth once daily. CALCIUM-VITAMIN D3-MAGNESIUM ORAL Take by mouth once daily. Milk Thistle 175 mg tab Take 175 mg by mouth once daily. FLAXSEED OIL ORAL Take 1,000 mg by mouth two times a day. RAMIPRIL ORAL 1.25 mg once daily. B1/B2/niacin/B12/protease (B-COMPLEX WITH B-12 ORAL) once daily. SYNTHROID 88 mcg tablet fenofibrate nanocrystallized (TRICOR) 145 mg tablet PREMARIN 0.625 MG/G VAGL CREA 2 times a week No current facility-administered medications on file prior to visit. [facility] RX SPECIALTY CLINICAL ASSESSMENT - INFLAMMATORY CONDITIONS V6: Assessment to use: Refill Date of influenza vaccination reminder: 03/29/2024 Date of most recent vaccination assessment: 03/29/2024 Treatment Plan Information: Actemra Inject 1 pen (162 mg) under the skin once weekly (M31.6) Giant cell arteritis (HCC) (primary encounter diagnosis) Est. Tx Plan Start Date: No information available Estimated Start Date Info: Established on therapy Est. Estimated Treatment Duration: Until lack of efficacy Claire Christianson [facility] 07-20-2024 History of Presen t illness Narrative [facility] Assessment Medication(s): Actemra Patient's current medication list and adherence status to current therapy were reviewed by Specialty Pharmacy clinical pharmacist to identify any new drug interactions or non-compliance to therapy. Therapy continues to be appropriate for disease, patient response, and medical condition. Verification of therapeutic benefit and effectiveness with current therapy was completed. Adverse events, barriers in adherence, and side effects were assessed and addressed if applicable. Will proceed with refill with no changes in therapy - patient progressing towards achieving therapeutic goals based on medication-specific laboratory parameters, disease state markers and outcomes. Office/provider notes have been reviewed prior to dispensing the medication. Orthotic And Prosthetic Technician Assessment Patient confirmed: Yes Med/dose confirmed: Yes Supplies needed: No supplies needed Missed doses: No Estimated days supply on hand: 1 Next cycle/dose due: 07/22/24 Copay amount: 33 Copay form of payment: Credit card on file (*[id number]) Payment confirmed: Yes Delivery method: FedEx Signature required: No Delivery address: [address] [place] [address] Delivery date: 07/27/24 Questions or concerns for the pharmacist?: No Did you have any side effects believed to be related to this medication, that resulted in hospitalization?: No Current Outpatient Medications on File Prior to Visit Medication Sig tocilizumab (ACTEMRA ACTPEN) 162 mg/0.9 mL Inject 1 pen (162 mg) under the skin once weekly alendronate (FOSAMAX) 70 mg tablet TAKE 1 TABLET BY MOUTH WEEKLY IN THE MORNING WITH FULL GLASS OF WATER ON EMPTY STOMACH. NOTHING ELSE FOR 1/2 HOUR AND STAY UPRIGHT FOR 60 MINUTES Cinnamon Bark 500 mg cap Take by mouth once daily. aspirin 81 mg cap Take 81 mg by mouth once daily. CALCIUM-VITAMIN D3-MAGNESIUM ORAL Take by mouth once daily. Milk Thistle 175 mg tab Take 175 mg by mouth once daily. FLAXSEED OIL ORAL Take 1,000 mg by mouth two times a day. RAMIPRIL ORAL 1.25 mg once daily. B1/B2/niacin/B12/protease (B-COMPLEX WITH B-12 ORAL) once daily. SYNTHROID 88 mcg tablet fenofibrate nanocrystallized (TRICOR) 145 mg tablet PREMARIN 0.625 MG/G VAGL CREA 2 times a week No current facility-administered medications on file prior to visit. [facility] SPECIALTY CLINICAL ASSESSMENT - INFLAMMATORY CONDITIONS V6: Assessment to use: Refill Date of influenza vaccination reminder: 03/29/2024 Date of most recent vaccination assessment: 03/29/2024 Treatment Plan Information: Actemra Inject 1 pen (162 mg) under the skin once weekly (M31.6) Giant cell arteritis (HCC) (primary encounter diagnosis) Est. Tx Plan Start Date: No information available Estimated Start Date Info: Established on therapy Est. Estimated Treatment Duration: Until lack of efficacy Malena Almonte CPhT [facility], Inflammatory P: [phone] F: [phone] documented in this encounter [facility] 07-20-2024 Note HNO ID: [id number] Author: ?, ?, ? Service: ? Author Type: ? Type: Progress Notes Filed: 07/20/2024 11:17 Note Text: [facility] Refill Assessment Medication(s): Actemra Patient's current medication list and adherence status to current therapy were reviewed by Specialty Pharmacy clinical pharmacist to identify any new drug interactions or non-compliance to therapy. Therapy continues to be appropriate for disease, patient response, and medical condition. Verification of therapeutic benefit and effectiveness with current therapy was completed. Adverse events, barriers in adherence, and side effects were assessed and addressed if applicable. Will proceed with refill with no changes in therapy - patient progressing towards achieving therapeutic goals based on medication-specific laboratory parameters, disease state markers and outcomes. Office/provider notes have been reviewed prior to dispensing the medication. Orthotic And Prosthetic Technician Assessment Patient confirmed: Yes Med/dose confirmed: Yes Supplies needed: No supplies needed Missed doses: No Estimated days supply on hand: 1 Next cycle/dose due: 07/22/24 Copay amount: 33 Copay form of payment: Credit card on file (*[id number]) Payment confirmed: Yes Delivery method: FedEx Signature required: No Delivery address: [address] [place] [address] Delivery date: 07/27/24 Questions or concerns for the pharmacist?: No Did you have any side effects believed to be related to this medication, that resulted in hospitalization?: No Current Outpatient Medications on File Prior to Visit Medication Sig tocilizumab (ACTEMRA ACTPEN) 162 mg/0.9 mL Inject 1 pen (162 mg) under the skin once weekly alendronate (FOSAMAX) 70 mg tablet TAKE 1 TABLET BY MOUTH WEEKLY IN THE MORNING WITH FULL GLASS OF WATER ON EMPTY STOMACH. NOTHING ELSE FOR 1/2 HOUR AND STAY UPRIGHT FOR 60 MINUTES Cinnamon Bark 500 mg cap Take by mouth once daily. aspirin 81 mg cap Take 81 mg by mouth once daily. CALCIUM-VITAMIN D3-MAGNESIUM ORAL Take by mouth once daily. Milk Thistle 175 mg tab Take 175 mg by mouth once daily. FLAXSEED OIL ORAL Take 1,000 mg by mouth two times a day. RAMIPRIL ORAL 1.25 mg once daily. B1/B2/niacin/B12/protease (B-COMPLEX WITH B-12 ORAL) once daily. SYNTHROID 88 mcg tablet fenofibrate nanocrystallized (TRICOR) 145 mg tablet PREMARIN 0.625 MG/G VAGL CREA 2 times a week No current facility-administered medications on file prior to visit. [facility] RX SPECIALTY CLINICAL ASSESSMENT - INFLAMMATORY CONDITIONS V6: Assessment to use: Refill Date of influenza vaccination reminder: 03/29/2024 Date of most recent vaccination assessment: 03/29/2024 Treatment Plan Information: Actemra Inject 1 pen (162 mg) under the skin once weekly (M31.6) Giant cell arteritis (HCC) (primary encounter diagnosis) Est. Tx Plan Start Date: No information available Estimated Start Date Info: Established on therapy Est. Estimated Treatment Duration: Until lack of efficacy Malena Almonte CPhT [facility], Infl[facility] P: [phone] F: [phone] [facility] 07-14-2024 Telephone encounter Note Patient needs refill of Actemra Date of Andreea Montes's last Rheumatology office visit: 04/01/24 Next appointment date: none scheduled Last labs: 06/18/24 Last TB test: TB Result Date Value Ref Range Status 04/22/2022 Negative Final Requested Prescriptions Pending Prescriptions Disp Refills tocilizumab (ACTEMRA ACTPEN) 162 mg/0.9 mL 3.6 mL 5 Sig: Inject 1 pen (162 mg) under the skin once weekly Patient prefers: [facility] Thank you! Janneth Hernandez PharmD Clinical Pharmacist, [employer] [facility] ; Pool: P [facility] Pool #: [id number] Electronically signed by Urbano Hernandez [facility] at 07/14/2024 10:35 AM EST [facility] 07-14-2024 Miscellaneous Notes Patient needs refill of Actemra Date of Andreea Montes's last Rheumatology office visit: 04/01/24 Next appointment date: none scheduled Last labs: 06/18/24 Last TB test: TB Result Date Value Ref Range Status 04/22/2022 Negative Final Requested Prescriptions Pending Prescriptions Disp Refills tocilizumab (ACTEMRA ACTPEN) 162 mg/0.9 mL 3.6 mL 5 Sig: Inject 1 pen (162 mg) under the skin once weekly Patient prefers: [facility] Thank you! Janneth Hernandez PharmD Clinical Pharmacist, [employer] [facility] ; Pool: P [facility] Pool #: [id number] Electronically signed by Urbano Hernandez [facility] at 07/14/2024 10:35 AM EST documented in this encounter [facility] 06-21-2024 History of Presen t illness Narrative [facility] Assessment Medication(s): Actemra Patient's current medication list and adherence status to current therapy were reviewed by Specialty Pharmacy clinical pharmacist to identify any new drug interactions or non-compliance to therapy. Therapy continues to be appropriate for disease, patient response, and medical condition. Verification of therapeutic benefit and effectiveness with current therapy was completed. Adverse events, barriers in adherence, and side effects were assessed and addressed if applicable. Will proceed with refill with no changes in therapy - patient progressing towards achieving therapeutic goals based on medication-specific laboratory parameters, disease state markers and outcomes. Office/provider notes have been reviewed prior to dispensing the medication. Orthotic And Prosthetic Technician Assessment Patient confirmed: Yes Med/dose confirmed: Yes Supplies needed: No supplies needed Missed doses: No Estimated days supply on hand: 1 Next cycle/dose due: 06/24/24 Copay amount: 0 Payment confirmed: Yes Delivery method: FedEx Signature required: No Delivery address: [address] [place] [address] Delivery date: 06/25/24 Questions or concerns for the pharmacist?: No Did you have any side effects believed to be related to this medication, that resulted in hospitalization?: No Current Outpatient Medications on File Prior to Visit Medication Sig Cinnamon Bark 500 mg cap Take by mouth once daily. aspirin 81 mg cap Take 81 mg by mouth once daily. CALCIUM-VITAMIN D3-MAGNESIUM ORAL Take by mouth once daily. Milk Thistle 175 mg tab Take 175 mg by mouth once daily. FLAXSEED OIL ORAL Take 1,000 mg by mouth two times a day. alendronate (FOSAMAX) 70 mg tablet TAKE 1 TABLET BY MOUTH ONCE A WEEK IN THE MORNING WITH FULL GLASS OF WATER ON EMPTY STOMACH. NOTHING ELSE BY MOUTH FOR 30 MIN AND STAY UPRIGHT FOR 60 MIN. tocilizumab (ACTEMRA ACTPEN) 162 mg/0.9 mL Inject 1 pen (162 mg) under the skin once weekly RAMIPRIL ORAL 1.25 mg once daily. B1/B2/niacin/B12/protease (B-COMPLEX WITH B-12 ORAL) once daily. SYNTHROID 88 mcg tablet fenofibrate nanocrystallized (TRICOR) 145 mg tablet PREMARIN 0.625 MG/G VAGL CREA 2 times a week No current facility-administered medications on file prior to visit. [facility] RX SPECIALTY CLINICAL ASSESSMENT - INFLAMMATORY CONDITIONS V6: Assessment to use: Refill Date of influenza vaccination reminder: 03/29/2024 Date of most recent vaccination assessment: 03/29/2024 Treatment Plan Information: Actemra Inject 1 pen (162 mg) under the skin once weekly (M31.6) Giant cell arteritis (HCC) (primary encounter diagnosis) Est. Tx Plan Start Date: No information available Estimated Start Date Info: Established on therapy Est. Estimated Treatment Duration: Until lack of efficacy Malena Almonte CPhT [facility], Infl[facility] P: [phone] F: [phone] documented in this encounter [facility] 06-21-2024 Note HNO ID: [id number] Author: ?, ?, ? Service: ? Author Type: ? Type: Progress Notes Filed: 06/21/2024 15:41 Note Text: [facility] Refill Assessment Medication(s): Actemra Patient's current medication list and adherence status to current therapy were reviewed by Specialty Pharmacy clinical pharmacist to identify any new drug interactions or non-compliance to therapy. Therapy continues to be appropriate for disease, patient response, and medical condition. Verification of therapeutic benefit and effectiveness with current therapy was completed. Adverse events, barriers in adherence, and side effects were assessed and addressed if applicable. Will proceed with refill with no changes in therapy - patient progressing towards achieving therapeutic goals based on medication-specific laboratory parameters, disease state markers and outcomes. Office/provider notes have been reviewed prior to dispensing the medication. Orthotic And Prosthetic Technician Assessment Patient confirmed: Yes Med/dose confirmed: Yes Supplies needed: No supplies needed Missed doses: No Estimated days supply on hand: 1 Next cycle/dose due: 06/24/24 Copay amount: 0 Payment confirmed: Yes Delivery method: FedEx Signature required: No Delivery address: [address] [place] [address] Delivery date: 06/25/24 Questions or concerns for the pharmacist?: No Did you have any side effects believed to be related to this medication, that resulted in hospitalization?: No Current Outpatient Medications on File Prior to Visit Medication Sig Cinnamon Bark 500 mg cap Take by mouth once daily. aspirin 81 mg cap Take 81 mg by mouth once daily. CALCIUM-VITAMIN D3-MAGNESIUM ORAL Take by mouth once daily. Milk Thistle 175 mg tab Take 175 mg by mouth once daily. FLAXSEED OIL ORAL Take 1,000 mg by mouth two times a day. alendronate (FOSAMAX) 70 mg tablet TAKE 1 TABLET BY MOUTH ONCE A WEEK IN THE MORNING WITH FULL GLASS OF WATER ON EMPTY STOMACH. NOTHING ELSE BY MOUTH FOR 30 MIN AND STAY UPRIGHT FOR 60 MIN. tocilizumab (ACTEMRA ACTPEN) 162 mg/0.9 mL Inject 1 pen (162 mg) under the skin once weekly RAMIPRIL ORAL 1.25 mg once daily. B1/B2/niacin/B12/protease (B-COMPLEX WITH B-12 ORAL) once daily. SYNTHROID 88 mcg tablet fenofibrate nanocrystallized (TRICOR) 145 mg tablet PREMARIN 0.625 MG/G VAGL CREA 2 times a week No current facility-administered medications on file prior to visit. [facility] RX SPECIALTY CLINICAL ASSESSMENT - INFLAMMATORY CONDITIONS V6: Assessment to use: Refill Date of influenza vaccination reminder: 03/29/2024 Date of most recent vaccination assessment: 03/29/2024 Treatment Plan Information: Actemra Inject 1 pen (162 mg) under the skin once weekly (M31.6) Giant cell arteritis (HCC) (primary encounter diagnosis) Est. Tx Plan Start Date: No information available Estimated Start Date Info: Established on therapy Est. Estimated Treatment Duration: Until lack of efficacy Malena Almonte CPhT [facility], Infl[facility] P: [phone] F: [phone] [facility] 05-24-2024 History of Presen t illness Narrative [facility] Assessment Medication(s): Actemra Patient's current medication list and adherence status to current therapy were reviewed by Specialty Pharmacy clinical pharmacist to identify any new drug interactions or non-compliance to therapy. Therapy continues to be appropriate for disease, patient response, and medical condition. Verification of therapeutic benefit and effectiveness with current therapy was completed. Adverse events, barriers in adherence, and side effects were assessed and addressed if applicable. Will proceed with refill with no changes in therapy - patient progressing towards achieving therapeutic goals based on medication-specific laboratory parameters, disease state markers and outcomes. Office/provider notes have been reviewed prior to dispensing the medication. Orthotic And Prosthetic Technician Assessment Patient confirmed: Yes Med/dose confirmed: Yes Supplies needed: No supplies needed Missed doses: No Estimated days supply on hand: 1 Next cycle/dose due: 05/27/24 Copay amount: 0 Payment confirmed: Yes Delivery method: FedEx Signature required: Waived on patient request Delivery address: [address] [place] [address] Delivery date: 06/01/24 Questions or concerns for the pharmacist?: No Did you have any side effects believed to be related to this medication, that resulted in hospitalization?: No Current Outpatient Medications on File Prior to Visit Medication Sig Cinnamon Bark 500 mg cap Take by mouth once daily. aspirin 81 mg cap Take 81 mg by mouth once daily. CALCIUM-VITAMIN D3-MAGNESIUM ORAL Take by mouth once daily. Milk Thistle 175 mg tab Take 175 mg by mouth once daily. FLAXSEED OIL ORAL Take 1,000 mg by mouth two times a day. alendronate (FOSAMAX) 70 mg tablet TAKE 1 TABLET BY MOUTH ONCE A WEEK IN THE MORNING WITH FULL GLASS OF WATER ON EMPTY STOMACH. NOTHING ELSE BY MOUTH FOR 30 MIN AND STAY UPRIGHT FOR 60 MIN. tocilizumab (ACTEMRA ACTPEN) 162 mg/0.9 mL Inject 1 pen (162 mg) under the skin once weekly RAMIPRIL ORAL 1.25 mg once daily. B1/B2/niacin/B12/protease (B-COMPLEX WITH B-12 ORAL) once daily. SYNTHROID 88 mcg tablet fenofibrate nanocrystallized (TRICOR) 145 mg tablet PREMARIN 0.625 MG/G VAGL CREA 2 times a week No current facility-administered medications on file prior to visit. [facility] RX SPECIALTY CLINICAL ASSESSMENT - INFLAMMATORY CONDITIONS V6: Assessment to use: Refill Date of influenza vaccination reminder: 03/29/2024 Date of most recent vaccination assessment: 03/29/2024 Treatment Plan Information: Actemra Inject 1 pen (162 mg) under the skin once weekly (M31.6) Giant cell arteritis (HCC) (primary encounter diagnosis) Est. Tx Plan Start Date: No information available Estimated Start Date Info: Established on therapy Est. Estimated Treatment Duration: Until lack of efficacy Gabriella Jeong CPhT, Inflammatory/Allergy [facility] [phone] documented in this encounter [facility] 05-24-2024 Note HNO ID: [id number] Author: ?, ?, ? Service: ? Author Type: ? Type: Progress Notes Filed: 05/24/2024 11:22 Note Text: [facility] Ref[facility] Assessment Medication(s): Actemra Patient's current medication list and adherence status to current therapy were reviewed by Specialty Pharmacy clinical pharmacist to identify any new drug interactions or non-compliance to therapy. Therapy continues to be appropriate for disease, patient response, and medical condition. Verification of therapeutic benefit and effectiveness with current therapy was completed. Adverse events, barriers in adherence, and side effects were assessed and addressed if applicable. Will proceed with refill with no changes in therapy - patient progressing towards achieving therapeutic goals based on medication-specific laboratory parameters, disease state markers and outcomes. Office/provider notes have been reviewed prior to dispensing the medication. Orthotic And Prosthetic Technician Assessment Patient confirmed: Yes Med/dose confirmed: Yes Supplies needed: No supplies needed Missed doses: No Estimated days supply on hand: 1 Next cycle/dose due: 05/27/24 Copay amount: 0 Payment confirmed: Yes Delivery method: FedEx Signature required: Waived on patient request Delivery address: [address] [place] [address] [address] [address] Delivery date: 06/01/24 Questions or concerns for the pharmacist?: No Did you have any side effects believed to be related to this medication, that resulted in hospitalization?: No Current Outpatient Medications on File Prior to Visit Medication Sig Cinnamon Bark 500 mg cap Take by mouth once daily. aspirin 81 mg cap Take 81 mg by mouth once daily. CALCIUM-VITAMIN D3-MAGNESIUM ORAL Take by mouth once daily. Milk Thistle 175 mg tab Take 175 mg by mouth once daily. FLAXSEED OIL ORAL Take 1,000 mg by mouth two times a day. alendronate (FOSAMAX) 70 mg tablet TAKE 1 TABLET BY MOUTH ONCE A WEEK IN THE MORNING WITH FULL GLASS OF WATER ON EMPTY STOMACH. NOTHING ELSE BY MOUTH FOR 30 MIN AND STAY UPRIGHT FOR 60 MIN. tocilizumab (ACTEMRA ACTPEN) 162 mg/0.9 mL Inject 1 pen (162 mg) under the skin once weekly RAMIPRIL ORAL 1.25 mg once daily. B1/B2/niacin/B12/protease (B-COMPLEX WITH B-12 ORAL) once daily. SYNTHROID 88 mcg tablet fenofibrate nanocrystallized (TRICOR) 145 mg tablet PREMARIN 0.625 MG/G VAGL CREA 2 times a week No current facility-administered medications on file prior to visit. [facility] RX SPECIALTY CLINICAL ASSESSMENT - INFLAMMATORY CONDITIONS V6: Assessment to use: Refill Date of influenza vaccination reminder: 03/29/2024 Date of most recent vaccination assessment: 03/29/2024 Treatment Plan Information: Actemra Inject 1 pen (162 mg) under the skin once weekly (M31.6) Giant cell arteritis (HCC) (primary encounter diagnosis) Est. Tx Plan Start Date: No information available Estimated Start Date Info: Established on therapy Est. Estimated Treatment Duration: Until lack of efficacy Gabriella Jeong CPhT, Inflammatory/Allergy [facility] [phone] [facility] 04-26-2024 History of Presen t illness Narrative [facility] Assessment Medication(s): Actemra Patient's current medication list and adherence status to current therapy were reviewed by Specialty Pharmacy clinical pharmacist to identify any new drug interactions or non-compliance to therapy. Therapy continues to be appropriate for disease, patient response, and medical condition. Verification of therapeutic benefit and effectiveness with current therapy was completed. Adverse events, barriers in adherence, and side effects were assessed and addressed if applicable. Will proceed with refill with no changes in therapy - patient progressing towards achieving therapeutic goals based on medication-specific laboratory parameters, disease state markers and outcomes. Office/provider notes have been reviewed prior to dispensing the medication. Orthotic And Prosthetic Technician Assessment Patient confirmed: Yes Med/dose confirmed: Yes Supplies needed: No supplies needed Missed doses: No Estimated days supply on hand: 1 Next cycle/dose due: 04/29/24 Copay amount: 0 Payment confirmed: Yes Delivery method: FedEx Signature required: Waived on patient request Delivery address: [address] [place] [id number] Delivery date: 04/28/24 Questions or concerns for the pharmacist?: No Did you have any side effects believed to be related to this medication, that resulted in hospitalization?: No Current Outpatient Medications on File Prior to Visit Medication Sig Cinnamon Bark 500 mg cap Take by mouth once daily. aspirin 81 mg cap Take 81 mg by mouth once daily. CALCIUM-VITAMIN D3-MAGNESIUM ORAL Take by mouth once daily. Milk Thistle 175 mg tab Take 175 mg by mouth once daily. FLAXSEED OIL ORAL Take 1,000 mg by mouth two times a day. alendronate (FOSAMAX) 70 mg tablet TAKE 1 TABLET BY MOUTH ONCE A WEEK IN THE MORNING WITH FULL GLASS OF WATER ON EMPTY STOMACH. NOTHING ELSE BY MOUTH FOR 30 MIN AND STAY UPRIGHT FOR 60 MIN. tocilizumab (ACTEMRA ACTPEN) 162 mg/0.9 mL Inject 1 pen (162 mg) under the skin once weekly RAMIPRIL ORAL 1.25 mg once daily. B1/B2/niacin/B12/protease (B-COMPLEX WITH B-12 ORAL) once daily. SYNTHROID 88 mcg tablet fenofibrate nanocrystallized (TRICOR) 145 mg tablet PREMARIN 0.625 MG/G VAGL CREA 2 times a week No current facility-administered medications on file prior to visit. [facility] RX SPECIALTY CLINICAL ASSESSMENT - INFLAMMATORY CONDITIONS V6: Assessment to use: Refill Date of influenza vaccination reminder: 03/29/2024 Date of most recent vaccination assessment: 03/29/2024 Treatment Plan Information: Actemra Inject 1 pen (162 mg) under the skin once weekly Est. Tx Plan Start Date: No information available Estimated Start Date Info: Established on therapy Est. Estimated Treatment Duration: Until lack of efficacy Ramone Rogel [facility] P: [phone] F:[phone] documented in this encounter [facility] 04-26-2024 Note HNO ID: [id number] Author: PAOLA MANN RPh Service: ? Author Type: ? Type: Progress Notes Filed: 04/26/2024 15:39 Note Text: [facility] Ref[facility] Assessment Medication(s): Actemra Patient's current medication list and adherence status to current therapy were reviewed by Specialty Pharmacy clinical pharmacist to identify any new drug interactions or non-compliance to therapy. Therapy continues to be appropriate for disease, patient response, and medical condition. Verification of therapeutic benefit and effectiveness with current therapy was completed. Adverse events, barriers in adherence, and side effects were assessed and addressed if applicable. Will proceed with refill with no changes in therapy - patient progressing towards achieving therapeutic goals based on medication-specific laboratory parameters, disease state markers and outcomes. Office/provider notes have been reviewed prior to dispensing the medication. Tocilizumab (Actemra) - IL-6 Inhibitor - DMARD Latent TB screening prior to therapy initiation (all patients); neutrophils, platelets (prior to therapy, 4 to 8 weeks after start of therapy, and every 3 months thereafter [rheumatoid arthritis (RA), giant cell arteritis (GCA), systemic sclerosis (scleroderma)-associated interstitial lung disease (SSC-ILD)]); ALT/AST, alkaline phosphatase, and total bilirubin (prior to therapy, every 4 to 8 weeks after start of therapy for the first 6 months, and every 3 months thereafter [RA, GCA, SSc-ILD]); neutrophils, platelets, ALT/AST (prior to therapy, at second administration, and every 2 to 4 weeks [systemic juvenile idiopathic arthritis] or 4 to 8 weeks [polyarticular juvenile idiopathic arthritis] thereafter); additional liver function tests (eg, bilirubin) as clinically indicated; lipid panel (prior to and 4 to 8 weeks following initiation of therapy, then subsequently according to current guidelines); monitor all patients for signs and symptoms of infection (prior to, during, and after therapy); signs and symptoms of [employer] demyelinating disorders; new onset abdominal symptoms. TB: TB Result Date Value Ref Range Status 04/22/2022 Negative Final CBC with diff: WBC Date Value Ref Range Status 03/26/2024 5.37 3.70 - 11.00 k/uL Final RBC Date Value Ref Range Status 03/26/2024 4.65 3.90 - 5.20 m/uL Final Hemoglobin Date Value Ref Range Status 03/26/2024 12.3 11.5 - 15.5 g/dL Final Hematocrit Date Value Ref Range Status 03/26/2024 37.7 36.0 - 46.0 % Final MCV Date Value Ref Range Status 03/26/2024 81.1 80.0 - 100.0 fL Final MCH Date Value Ref Range Status 03/26/2024 26.5 26.0 - 34.0 pg Final MCHC Date Value Ref Range Status 03/26/2024 32.6 30.5 - 36.0 g/dL Final RDW-CV Date Value Ref Range Status 03/26/2024 15.7 (H) 11.5 - 15.0 % Final Platelet Count Date Value Ref Range Status 03/26/2024 283 150 - 400 k/uL Final MPV Date Value Ref Range Status 03/26/2024 10.0 9.0 - 12.7 fL Final Neutrophils % Date Value Ref Range Status 03/26/2024 25.2 % Final Lymphocytes % Date Value Ref Range Status 03/26/2024 63.3 % Final Monocytes % Date Value Ref Range Status 03/26/2024 7.8 % Final Eosinophils % Date Value Ref Range Status 03/26/2024 2.4 % Final Basophils % Date Value Ref Range Status 03/26/2024 1.1 % Final Abs Neut Date Value Ref Range Status 03/26/2024 1.35 (L) 1.45 - 7.50 k/uL Final Abs [place] Date Value Ref Range Status 03/26/2024 0.42 <0.87 k/uL Final Abs Eosin Date Value Ref Range Status 03/26/2024 0.13 <0.46 k/uL Final Abs Baso Date Value Ref Range Status 03/26/2024 0.06 <0.11 k/uL Final Liver function: ALT Date Value Ref Range Status 03/26/2024 26 7 - 38 U/L Final AST Date Value Ref Range Status 03/26/2024 30 13 - 35 U/L Final Alkaline Phosphatase Date Value Ref Range Status 03/26/2024 33 (L) 34 - 123 U/L Final Lipids: No results found for: CHOL, TG, HDL, LDL, VLDL Current Outpatient Medications on File Prior to Visit Medication Sig Cinnamon Bark 500 mg cap Take by mouth once daily. aspirin 81 mg cap Take 81 mg by mouth once daily. CALCIUM-VITAMIN D3-MAGNESIUM ORAL Take by mouth once daily. Milk Thistle 175 mg tab Take 175 mg by mouth once daily. FLAXSEED OIL ORAL Take 1,000 mg by mouth two times a day. alendronate (FOSAMAX) 70 mg tablet TAKE 1 TABLET BY MOUTH ONCE A WEEK IN THE MORNING WITH FULL GLASS OF WATER ON EMPTY STOMACH. NOTHING ELSE BY MOUTH FOR 30 MIN AND STAY UPRIGHT FOR 60 MIN. tocilizumab (ACTEMRA ACTPEN) 162 mg/0.9 mL Inject 1 pen (162 mg) under the skin once weekly RAMIPRIL ORAL 1.25 mg once daily. B1/B2/niacin/B12/protease (B-COMPLEX WITH B-12 ORAL) once daily. SYNTHROID 88 mcg tablet fenofibrate nanocrystallized (TRICOR) 145 mg tablet PREMARIN 0.625 MG/G VAGL CREA 2 times a week No current facility-administered medications on file prior to visit. Canceled Appointments: Future Appoin (more content not included)... [facility] 04-01-2024 History of Presen t illness Narrative Andreea Montes is a 73 year old female here for follow-up of G[facility] Evaluation Date: 04/01/2024 Last Visit in Rheumatology: 09/04/2023 (with Feli Maddox) ACTIVE PROBLEM LIST Personal History of Malignant Melanoma of Skin - 09/29/2006 INTERVAL HX: At today's visit Andreea Montes states that she has been doing well No cranial or PMR symptoms No fever or weight loss no claudication tolerating treatment well - on TCZ off prednisone > 1 yr exercises on a regular basis Review of Systems CONSTITUTION: Negative for: Fever and Recent weight change HEENT: Negative for: Nosebleeds, Mouth sores, Trouble swallowing and Dry mouth RESPIRATORY: Negative for: Cough, Shortness of breath and Pain with breathing GASTROINTESTINAL: Negative for: Melena, Diarrhea, Heartburn and Abdominal pain MUSCULOSKELETAL: Negative for: Arthralgias, Myalgias, Muscle weakness, Joint swelling and Morning Joint Stiffness NEUROLOGICAL: Negative for: Headaches, Numbness and Memory loss SKIN: Negative for: Rash, Skin changes, Hair loss and Nail changes EYES: Negative for: Eye pain, Eye redness, Eye dryness and visual disturbance CARDIOVASCULAR: Negative for: Chest pain and Leg swelling GENITOURINARY: Negative for: Dysuria and Hematuria HEMATOLOGIC/LYMPHATIC: Negative for: Swollen glands HEAD: negative for, scalp tenderness, jaw claudication, headache, tongue claudication, temporal tenderness EYES: negative for , pain, redness, visual blurring, permanent visual loss, transient visual loss, diplopia REVIEW OF FAMILY AND/OR SOCIAL HISTORY: The family and/or social were reviewed at todays visit and no changes were noted. Current Outpatient Medications Medication Sig alendronate (FOSAMAX) 70 mg tablet TAKE 1 TABLET BY MOUTH ONCE A WEEK IN THE MORNING WITH FULL GLASS OF WATER ON EMPTY STOMACH. NOTHING ELSE BY MOUTH FOR 30 MIN AND STAY UPRIGHT FOR 60 MIN. tocilizumab (ACTEMRA ACTPEN) 162 mg/0.9 mL Inject 1 pen (162 mg) under the skin once weekly RAMIPRIL ORAL 1.25 mg once daily. B1/B2/niacin/B12/protease (B-COMPLEX WITH B-12 ORAL) once daily. SYNTHROID 88 mcg tablet famotidine (PEPCID) 20 mg tablet fenofibrate nanocrystallized (TRICOR) 145 mg tablet PREMARIN 0.625 MG/G VAGL CREA 2 times a week No current facility-administered medications for this visit. PHYSICAL EXAMINATION BP 149/73 Pulse 63 Temp 36.7 C (98.1 F) (Temporal) Ht 157.5 cm (5' 2) Wt 61.4 kg (135 lb 5.8 oz) BMI 24.76 kg/m GENERAL APPEARANCE: well SKIN: normal without rashes or lesions HEAD: normal; temporal arteries with normal pulsation without nodularity or tenderness EYES: conjunctiva clear, PERRL, EOM normal OROPHARYNX: no oral lesions present, no oral ulcers. NECK: supple, without adenopathy. LUNGS: clear HEART: RRR, no gallops, rubs or murmurs ABDOMEN: soft, non-tender, normal BS, no bruits MUSCULOSKELETAL: no joint tenderness or swelling VASCULAR EXAM Carotid: normal and equal bilaterally Brachial: normal and equal bilaterally Radial: normal and equal bilaterally Popliteal: normal and equal bilaterally Dorsalis pedis: normal and equal bilaterally Posterior tibial: normal and equal bilaterally Bruit over large vessels: negative NEURO: motor 5/5 Lab results: WBC Date Value Ref Range Status 03/26/2024 5.37 3.70 - 11.00 k/uL Final Hemoglobin Date Value Ref Range Status 03/26/2024 12.3 11.5 - 15.5 g/dL Final Hematocrit Date Value Ref Range Status 03/26/2024 37.7 36.0 - 46.0 % Final Platelet Count Date Value Ref Range Status 03/26/2024 283 150 - 400 k/uL Final Abs Lymph Date Value Ref Range Status 03/26/2024 3.40 1.00 - 4.00 k/uL Final Creatinine Date Value Ref Range Status 03/26/2024 0.79 0.58 - 0.96 mg/dL Final Glucose Date Value Ref Range Status 03/26/2024 112 (H) 74 - 99 mg/dL Final Comment: The [place] Diabetes Association (ADA) provides guidance for cutoff values for fasting glucose and random glucose. The ADA defines fasting as no caloric intake for at least 8 hours. Fasting plasma glucose results between 100 to 125 mg/dL indicate increased risk for diabetes (prediabetes). Fasting plasma glucose results greater than or equal to 126 mg/dL meet the criteria for diagnosis of diabetes. In the absence of unequivocal hyperglycemia, results should be confirmed by repeat testing. In a patient with classic symptoms of hyperglycemia or hyperglycemic crisis, random plasma glucose results greater than or equal to 200 mg/dL meet the criteria for diagnosis of diabetes. Reference: Standards of Medical Care in Diabetes 2016, [place] [employer]. Diabetes Care. 2016.39(Suppl 1). 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 Assessment and plan were discussed with the patient. PLAN: Continue current medications. Orders: Large Vessel MRA Monitoring: symptoms, imaging and labs Patient instructed to notify provider of any changes in medical condition. Follow-up: 6 months or before as needed I spent a total of 40 minutes on the date of the service which included preparing to see the patient, [id number] patient care, completing clinical documentation, obtaining and/or reviewing separately obtained history, performing a medically appropriate examination, counseling and educating the patient/family/caregiver, ordering medications, tests, or procedures, and independently interpreting results (not separately reported). Feli Gamboa MD, MPH documented in this encounter [facility] 04-01-2024 Note HNO ID: [id number] Author: FELI HEBERT MD Service: ? Author Type: Physician Type: Progress Notes Filed: 04/13/2024 08:00 Note Text: Andreea Montes is a 73 year old female here for follow-up of GCA Evaluation Date: 04/01/2024 Last Visit in Rheumatology: 09/04/2023 (with Feli Maddox) ACTIVE PROBLEM LIST Personal History of Malignant Melanoma of Skin - 09/29/2006 INTERVAL HX: At today's visit Andreea Montes states that she has been doing well No cranial or PMR symptoms No fever or weight loss no claudication tolerating treatment well - on TCZ off prednisone > 1 yr exercises on a regular basis Review of Systems CONSTITUTION: Negative for: Fever and Recent weight change HEENT: Negative for: Nosebleeds, Mouth sores, Trouble swallowing and Dry mouth RESPIRATORY: Negative for: Cough, Shortness of breath and Pain with breathing GASTROINTESTINAL: Negative for: Melena, Diarrhea, Heartburn and Abdominal pain MUSCULOSKELETAL: Negative for: Arthralgias, Myalgias, Muscle weakness, Joint swelling and Morning Joint Stiffness NEUROLOGICAL: Negative for: Headaches, Numbness and Memory loss SKIN: Negative for: Rash, Skin changes, Hair loss and Nail changes EYES: Negative for: Eye pain, Eye redness, Eye dryness and visual disturbance CARDIOVASCULAR: Negative for: Chest pain and Leg swelling GENITOURINARY: Negative for: Dysuria and Hematuria HEMATOLOGIC/LYMPHATIC: Negative for: Swollen glands HEAD: negative for, scalp tenderness, jaw claudication, headache, tongue claudication, temporal tenderness EYES: negative for , pain, redness, visual blurring, permanent visual loss, transient visual loss, diplopia REVIEW OF FAMILY AND/OR SOCIAL HISTORY: The family and/or social were reviewed at todays visit and no changes were noted. Current Outpatient Medications Medication Sig alendronate (FOSAMAX) 70 mg tablet TAKE 1 TABLET BY MOUTH ONCE A WEEK IN THE MORNING WITH FULL GLASS OF WATER ON EMPTY STOMACH. NOTHING ELSE BY MOUTH FOR 30 MIN AND STAY UPRIGHT FOR 60 MIN. tocilizumab (ACTEMRA ACTPEN) 162 mg/0.9 mL Inject 1 pen (162 mg) under the skin once weekly RAMIPRIL ORAL 1.25 mg once daily. B1/B2/niacin/B12/protease (B-COMPLEX WITH B-12 ORAL) once daily. SYNTHROID 88 mcg tablet famotidine (PEPCID) 20 mg tablet fenofibrate nanocrystallized (TRICOR) 145 mg tablet PREMARIN 0.625 MG/G VAGL CREA 2 times a week No current facility-administered medications for this visit. PHYSICAL EXAMINATION BP 149/73 Pulse 63 Temp 36.7 ?C (98.1 ?F) (Temporal) Ht 157.5 cm (5' 2) Wt 61.4 kg (135 lb 5.8 oz) BMI 24.76 kg/m? GENERAL APPEARANCE: well SKIN: normal without rashes or lesions HEAD: normal; temporal arteries with normal pulsation without nodularity or tenderness EYES: conjunctiva clear, PERRL, EOM normal OROPHARYNX: no oral lesions present, no oral ulcers. NECK: supple, without adenopathy. LUNGS: clear HEART: RRR, no gallops, rubs or murmurs ABDOMEN: soft, non-tender, normal BS, no bruits MUSCULOSKELETAL: no joint tenderness or swelling VASCULAR EXAM Carotid: normal and equal bilaterally Brachial: normal and equal bilaterally Radial: normal and equal bilaterally Popliteal: normal and equal bilaterally Dorsalis pedis: normal and equal bilaterally Posterior tibial: normal and equal bilaterally Bruit over large vessels: negative NEURO: motor 11/01 Lab results: WBC Date Value Ref Range Status 03/26/2024 5.37 3.70 - 11.00 k/uL Final Hemoglobin Date Value Ref Range Status 03/26/2024 12.3 11.5 - 15.5 g/dL Final Hematocrit Date Value Ref Range Status 03/26/2024 37.7 36.0 - 46.0 % Final Platelet Count Date Value Ref Range Status 03/26/2024 283 150 - 400 k/uL Final Abs Lymph Date Value Ref Range Status 03/26/2024 3.40 1.00 - 4.00 k/uL Final Creatinine Date Value Ref Range Status 03/26/2024 0.79 0.58 - 0.96 mg/dL Final Glucose Date Value Ref Range Status 03/26/2024 112 (H) 74 - 99 mg/dL Final Comment: The [place] Diabetes Association (ADA) provides guidance for cutoff values for fasting glucose and random glucose. The ADA defines fasting as no caloric intake for at least 8 hours. Fasting plasma glucose results between 100 to 125 mg/dL indicate increased risk for diabetes (prediabetes). Fasting plasma glucose results greater than or equal to 126 mg/dL meet the criteria for diagnosis of diabetes. In the absence of unequivocal hyperglycemia, results should be confirmed by repeat testing. In a patient with classic symptoms of hyperglycemia or hyperglycemic crisis, random plasma glucose results greater than or equal to 200 mg/dL meet the criteria for diagnosis of diabetes. Reference: Standards of Medical Care in Diabetes 2016, [place] [employer]. Diabetes Care. 2016.39(Suppl 1). AST Date Value Ref Range Status 03/26/2024 30 13 - 35 U/L Final ALT Date Value Ref Range Status 03/26/2024 26 7 - 38 U/L Final (more content not included)... [facility] 03-29-2024 History of Presen t illness Narrative [facility] Refill Assessment Medication(s): Actemra Patient's current medication list and adherence status to current therapy were reviewed by Specialty Pharmacy clinical pharmacist to identify any new drug interactions or non-compliance to therapy. Therapy continues to be appropriate for disease, patient response, and medical condition. Verification of therapeutic benefit and effectiveness with current therapy was completed. Adverse events, barriers in adherence, and side effects were assessed and addressed if applicable. Will proceed with refill with no changes in therapy - patient progressing towards achieving therapeutic goals based on medication-specific laboratory parameters, disease state markers and outcomes. Office/provider notes have been reviewed prior to dispensing the medication. Orthotic And Prosthetic Technician Assessment Patient confirmed: Yes Med/dose confirmed: Yes Supplies needed: No supplies needed Missed doses: No Estimated days supply on hand: 1 Next cycle/dose due: 04/01/24 Copay amount: 0 Payment confirmed: Yes Delivery method: FedEx Signature required: Waived on patient request Delivery address: [address] [place] [id number] Delivery date: 03/31/24 Questions or concerns for the pharmacist?: No Did you have any side effects believed to be related to this medication, that resulted in hospitalization?: No Current Outpatient Medications on File Prior to Visit Medication Sig alendronate (FOSAMAX) 70 mg tablet TAKE 1 TABLET BY MOUTH ONCE A WEEK IN THE MORNING WITH FULL GLASS OF WATER ON EMPTY STOMACH. NOTHING ELSE BY MOUTH FOR 30 MIN AND STAY UPRIGHT FOR 60 MIN. tocilizumab (ACTEMRA ACTPEN) 162 mg/0.9 mL Inject 1 pen (162 mg) under the skin once weekly RAMIPRIL ORAL 1.25 mg once daily. B1/B2/niacin/B12/protease (B-COMPLEX WITH B-12 ORAL) once daily. SYNTHROID 88 mcg tablet famotidine (PEPCID) 20 mg tablet fenofibrate nanocrystallized (TRICOR) 145 mg tablet PREMARIN 0.625 MG/G VAGL CREA 2 times a week No current facility-administered medications on file prior to visit. [facility] SPECIAL[facility] CLINICAL ASSESSMENT - INFLAMMATORY CONDITIONS V6: Assessment to use: Refill Date of influenza vaccination reminder: 03/06/2023 Date of most recent vaccination assessment: 03/06/2023 Treatment Plan Information: Actemra Inject 1 pen (162 mg) under the skin once weekly Est. Tx Plan Start Date: No information available Estimated Start Date Info: Established on therapy Est. Estimated Treatment Duration: Until lack of efficacy Ramone Rogel [facility] P: [phone] F:[phone] documented in this encounter [facility] 03-29-2024 Note HNO ID: [id number] Author: JOYCE LAGUNAS RPh Service: ? Author Type: ? Type: Progress Notes Filed: 03/29/2024 23:08 Note Text: [facility] Refill Assessment Medication(s): Actemra Patient's current medication list and adherence status to current therapy were reviewed by Specialty Pharmacy clinical pharmacist to identify any new drug interactions or non-compliance to therapy. Therapy continues to be appropriate for disease, patient response, and medical condition. Verification of therapeutic benefit and effectiveness with current therapy was completed. Adverse events, barriers in adherence, and side effects were assessed and addressed if applicable. Will proceed with refill with no changes in therapy - patient progressing towards achieving therapeutic goals based on medication-specific laboratory parameters, disease state markers and outcomes. Office/provider notes have been reviewed prior to dispensing the medication. Joyce Lagunas, PharmD Clinical Pharmacist [facility] Pool: P [facility] Pool #: [id number] Orthotic And Prosthetic Technician Assessment Patient confirmed: Yes Med/dose confirmed: Yes Supplies needed: No supplies needed Missed doses: No Estimated days supply on hand: 1 Next cycle/dose due: 04/01/24 Copay amount: 0 Payment confirmed: Yes Delivery method: FedEx Signature required: Waived on patient request Delivery address: [address] [place] [address],[place], [place] Delivery date: 03/31/24 Questions or concerns for the pharmacist?: No Did you have any side effects believed to be related to this medication, that resulted in hospitalization?: No Current Outpatient Medications on File Prior to Visit Medication Sig alendronate (FOSAMAX) 70 mg tablet TAKE 1 TABLET BY MOUTH ONCE A WEEK IN THE MORNING WITH FULL GLASS OF WATER ON EMPTY STOMACH. NOTHING ELSE BY MOUTH FOR 30 MIN AND STAY UPRIGHT FOR 60 MIN. tocilizumab (ACTEMRA ACTPEN) 162 mg/0.9 mL Inject 1 pen (162 mg) under the skin once weekly RAMIPRIL ORAL 1.25 mg once daily. B1/B2/niacin/B12/protease (B-COMPLEX WITH B-12 ORAL) once daily. SYNTHROID 88 mcg tablet famotidine (PEPCID) 20 mg tablet fenofibrate nanocrystallized (TRICOR) 145 mg tablet PREMARIN 0.625 MG/G VAGL CREA 2 times a week No current facility-administered medications on file prior to visit. [facility] SPECIALTY CLINICAL ASSESSMENT - INFLAMMATORY CONDITIONS V6: Ivent complete: No Assessment to use: Refill Assessment of injection issues: Yes Infection screening, including annual TB assessment when applicable to medication: Yes Current medication list (including drug interaction assessment): Yes Experience of adverse reactions to the medication: Yes Date of influenza vaccination reminder: 03/06/2023 Date of most recent vaccination assessment: 03/06/2023 Treatment Plan Information: Actemra Inject 1 pen (162 mg) under the skin once weekly Est. Tx Plan Start Date: No information available Estimated Start Date Info: Established on therapy Est. Estimated Treatment Duration: Until lack of efficacy [facility] P: [phone] F:[phone] [facility] 03-02-2024 History of Presen t illness Narrative [facility] Refill Assessment Medication(s): Actemra Patient's current medication list and adherence status to current therapy were reviewed by Specialty Pharmacy clinical pharmacist to identify any new drug interactions or non-compliance to therapy. Therapy continues to be appropriate for disease, patient response, and medical condition. Verification of therapeutic benefit and effectiveness with current therapy was completed. Adverse events, barriers in adherence, and side effects were assessed and addressed if applicable. Will proceed with refill with no changes in therapy - patient progressing towards achieving therapeutic goals based on medication-specific laboratory parameters, disease state markers and outcomes. Office/provider notes have been reviewed prior to dispensing the medication. Janneth Hernandez PharmD Clinical Pharmacist, [employer] [facility] ; Pool: P [facility] Pool #: [id number] Orthotic And Prosthetic Technician Assessment Patient confirmed: Yes Med/dose confirmed: Yes Supplies needed: No supplies needed Missed doses: No Estimated days supply on hand: 1 Next cycle/dose due: 03/11/24 Copay amount: 0 Payment confirmed: Yes Delivery method: FedEx Signature required: Waived on patient request Delivery address: [address] [place] [address],[place], [place] Delivery date: 03/04/24 Questions or concerns for the pharmacist?: No Did you have any side effects believed to be related to this medication, that resulted in hospitalization?: No Current Outpatient Medications on File Prior to Visit Medication Sig tocilizumab (ACTEMRA ACTPEN) 162 mg/0.9 mL Inject 1 pen (162 mg) under the skin once weekly alendronate (FOSAMAX) 70 mg tablet TAKE 1 TABLET BY MOUTH ONCE A WEEK IN THE MORNING WITH FULL GLASS OF WATER ON EMPTY STOMACH. NOTHING ELSE BY MOUTH FOR 30 MIN AND STAY UPRIGHT FOR 60 MIN. RAMIPRIL ORAL 1.25 mg once daily. B1/B2/niacin/B12/protease (B-COMPLEX WITH B-12 ORAL) once daily. SYNTHROID 88 mcg tablet famotidine (PEPCID) 20 mg tablet fenofibrate nanocrystallized (TRICOR) 145 mg tablet PREMARIN 0.625 MG/G VAGL CREA 2 times a week No current facility-administered medications on file prior to visit. [facility] SPECIALTY CLINICAL ASSESSMENT - INFLAMMATORY CONDITIONS V6: Ivent complete: No Assessment to use: Refill Assessment of injection issues: Yes Infection screening, including annual TB assessment when applicable to medication: Yes Current medication list (including drug interaction assessment): Yes Experience of adverse reactions to the medication: Yes Date of influenza vaccination reminder: 03/06/2023 Date of most recent vaccination assessment: 03/06/2023 Treatment Plan Information: Actemra Inject 1 pen (162 mg) under the skin once weekly Est. Tx Plan Start Date: No information available Estimated Start Date Info: Established on therapy Est. Estimated Treatment Duration: Until lack of efficacy Ramone Rogel [facility] P: [phone] F:[phone] documented in this encounter [facility] 03-02-2024 Note HNO ID: [id number] Author: URBANO HERNANDEZ [facility] Service: ? Author Type: ? Type: Progress Notes Filed: 03/02/2024 12:40 Note Text: [facility] Refill Assessment Medication(s): Actemra Patient's current medication list and adherence status to current therapy were reviewed by Specialty Pharmacy clinical pharmacist to identify any new drug interactions or non-compliance to therapy. Therapy continues to be appropriate for disease, patient response, and medical condition. Verification of therapeutic benefit and effectiveness with current therapy was completed. Adverse events, barriers in adherence, and side effects were assessed and addressed if applicable. Will proceed with refill with no changes in therapy - patient progressing towards achieving therapeutic goals based on medication-specific laboratory parameters, disease state markers and outcomes. Office/provider notes have been reviewed prior to dispensing the medication. Janneth Hernandez, MckayD Clinical Pharmacist, [employer] [facility] ; Pool: P [facility] Pool #: [id number] Orthotic And Prosthetic Technician Assessment Patient confirmed: Yes Med/dose confirmed: Yes Supplies needed: No supplies needed Missed doses: No Estimated days supply on hand: 1 Next cycle/dose due: 03/11/24 Copay amount: 0 Payment confirmed: Yes Delivery method: FedEx Signature required: Waived on patient request Delivery address: [address] [place] [address] Delivery date: 03/04/24 Questions or concerns for the pharmacist?: No Did you have any side effects believed to be related to this medication, that resulted in hospitalization?: No Current Outpatient Medications on File Prior to Visit Medication Sig tocilizumab (ACTEMRA ACTPEN) 162 mg/0.9 mL Inject 1 pen (162 mg) under the skin once weekly alendronate (FOSAMAX) 70 mg tablet TAKE 1 TABLET BY MOUTH ONCE A WEEK IN THE MORNING WITH FULL GLASS OF WATER ON EMPTY STOMACH. NOTHING ELSE BY MOUTH FOR 30 MIN AND STAY UPRIGHT FOR 60 MIN. RAMIPRIL ORAL 1.25 mg once daily. B1/B2/niacin/B12/protease (B-COMPLEX WITH B-12 ORAL) once daily. SYNTHROID 88 mcg tablet famotidine (PEPCID) 20 mg tablet fenofibrate nanocrystallized (TRICOR) 145 mg tablet PREMARIN 0.625 MG/G VAGL CREA 2 times a week No current facility-administered medications on file prior to visit. [facility] SPECIALTY CLINICAL ASSESSMENT - INFLAMMATORY CONDITIONS V6: Ivent complete: No Assessment to use: Refill Assessment of injection issues: Yes Infection screening, including annual TB assessment when applicable to medication: Yes Current medication list (including drug interaction assessment): Yes Experience of adverse reactions to the medication: Yes Date of influenza vaccination reminder: 03/06/2023 Date of most recent vaccination assessment: 03/06/2023 Treatment Plan Information: Actemra Inject 1 pen (162 mg) under the skin once weekly Est. Tx Plan Start Date: No information available Estimated Start Date Info: Established on therapy Est. Estimated Treatment Duration: Until lack of efficacy Li Carmona Lida [facility] P: [phone] F:[phone] [facility] 02-05-2024 History of Presen t illness Narrative [facility] Refill Assessment Medication(s): Actemra Patient's current medication list and adherence status to current therapy were reviewed by Specialty Pharmacy clinical pharmacist to identify any new drug interactions or non-compliance to therapy. Therapy continues to be appropriate for disease, patient response, and medical condition. Verification of therapeutic benefit and effectiveness with current therapy was completed. Adverse events, barriers in adherence, and side effects were assessed and addressed if applicable. Will proceed with refill with no changes in therapy - patient progressing towards achieving therapeutic goals based on medication-specific laboratory parameters, disease state markers and outcomes. Orthotic And Prosthetic Technician Assessment Patient confirmed: Yes Med/dose confirmed: Yes Supplies needed: No supplies needed Estimated days supply on hand: 0 Next cycle/dose due: 02/12/24 Copay amount: 0 Payment confirmed: Yes Delivery method: FedEx Signature required: Waived on patient request Delivery address: [address] [place] [address] Questions or concerns for the pharmacist?: No Did you have any side effects believed to be related to this medication, that resulted in hospitalization?: No Current Outpatient Medications on File Prior to Visit Medication Sig tocilizumab (ACTEMRA ACTPEN) 162 mg/0.9 mL Inject 1 pen (162 mg) under the skin once weekly alendronate (FOSAMAX) 70 mg tablet TAKE 1 TABLET BY MOUTH ONCE A WEEK IN THE MORNING WITH FULL GLASS OF WATER ON EMPTY STOMACH. NOTHING ELSE BY MOUTH FOR 30 MIN AND STAY UPRIGHT FOR 60 MIN. RAMIPRIL ORAL 1.25 mg once daily. B1/B2/niacin/B12/protease (B-COMPLEX WITH B-12 ORAL) once daily. SYNTHROID 88 mcg tablet famotidine (PEPCID) 20 mg tablet fenofibrate nanocrystallized (TRICOR) 145 mg tablet PREMARIN 0.625 MG/G VAGL CREA 2 times a week No current facility-administered medications on file prior to visit. [facility] SPECIALTY CLINICAL ASSESSMENT - INFLAMMATORY CONDITIONS V6: Assessment to use: Refill Date of influenza vaccination reminder: 03/06/2023 Date of most recent vaccination assessment: 03/06/2023 Treatment Plan Information: Actemra Inject 1 pen (162 mg) under the skin once weekly Est. Tx Plan Start Date: No information available Estimated Start Date Info: Established on therapy Est. Estimated Treatment Duration: Until lack of efficacy Li Carmona Lida [facility] P: [phone] F:[phone] documented in this encounter [facility] 02-05-2024 Note HNO ID: [id number] Author: ?, ?, ? Service: ? Author Type: ? Type: Progress Notes Filed: 02/05/2024 12:17 Note Text: [facility] Refill Assessment Medication(s): Actemra Patient's current medication list and adherence status to current therapy were reviewed by Specialty Pharmacy clinical pharmacist to identify any new drug interactions or non-compliance to therapy. Therapy continues to be appropriate for disease, patient response, and medical condition. Verification of therapeutic benefit and effectiveness with current therapy was completed. Adverse events, barriers in adherence, and side effects were assessed and addressed if applicable. Will proceed with refill with no changes in therapy - patient progressing towards achieving therapeutic goals based on medication-specific laboratory parameters, disease state markers and outcomes. Orthotic And Prosthetic Technician Assessment Patient confirmed: Yes Med/dose confirmed: Yes Supplies needed: No supplies needed Estimated days supply on hand: 0 Next cycle/dose due: 02/12/24 Copay amount: 0 Payment confirmed: Yes Delivery method: FedEx Signature required: Waived on patient request Delivery address: [address] [place] [address],[place], [place],[address] Questions or concerns for the pharmacist?: No Did you have any side effects believed to be related to this medication, that resulted in hospitalization?: No Current Outpatient Medications on File Prior to Visit Medication Sig tocilizumab (ACTEMRA ACTPEN) 162 mg/0.9 mL Inject 1 pen (162 mg) under the skin once weekly alendronate (FOSAMAX) 70 mg tablet TAKE 1 TABLET BY MOUTH ONCE A WEEK IN THE MORNING WITH FULL GLASS OF WATER ON EMPTY STOMACH. NOTHING ELSE BY MOUTH FOR 30 MIN AND STAY UPRIGHT FOR 60 MIN. RAMIPRIL ORAL 1.25 mg once daily. B1/B2/niacin/B12/protease (B-COMPLEX WITH B-12 ORAL) once daily. SYNTHROID 88 mcg tablet famotidine (PEPCID) 20 mg tablet fenofibrate nanocrystallized (TRICOR) 145 mg tablet PREMARIN 0.625 MG/G VAGL CREA 2 times a week No current facility-administered medications on file prior to visit. [facility] SPECIALTY CLINICAL ASSESSMENT - INFLAMMATORY CONDITIONS V6: Assessment to use: Refill Date of influenza vaccination reminder: 03/06/2023 Date of most recent vaccination assessment: 03/06/2023 Treatment Plan Information: Actemra Inject 1 pen (162 mg) under the skin once weekly Est. Tx Plan Start Date: No information available Estimated Start Date Info: Established on therapy Est. Estimated Treatment Duration: Until lack of efficacy Ramone Rogel [facility] P: [phone] F:[phone] [facility] 02-05-2024 Note HNO ID: [id number] Author: NATA FLOWERS RPh Service: ? Author Type: ? Type: Progress Notes Filed: 02/10/2024 14:36 Note Text: [facility] Refill Assessment Medication(s): Actemra Patient's current medication list and adherence status to current therapy were reviewed by Specialty Pharmacy clinical pharmacist to identify any new drug interactions or non-compliance to therapy. Therapy continues to be appropriate for disease, patient response, and medical condition. Verification of therapeutic benefit and effectiveness with current therapy was completed. Adverse events, barriers in adherence, and side effects were assessed and addressed if applicable. Will proceed with refill with no changes in therapy - patient progressing towards achieving therapeutic goals based on medication-specific laboratory parameters, disease state markers and outcomes. Nata Flowers PharmD Clinical Pharmacist, [employer] [facility] ; Pool: P [facility] Pool #: [id number] Orthotic And Prosthetic Technician Assessment Patient confirmed: Yes Med/dose confirmed: Yes Supplies needed: No supplies needed Estimated days supply on hand: 0 Next cycle/dose due: 02/12/24 Copay amount: 0 Payment confirmed: Yes Delivery method: FedEx Signature required: Waived on patient request Delivery address: [address] [place] [address] Delivery date: 02/11/24 Questions or concerns for the pharmacist?: No Did you have any side effects believed to be related to this medication, that resulted in hospitalization?: No Current Outpatient Medications on File Prior to Visit Medication Sig tocilizumab (ACTEMRA ACTPEN) 162 mg/0.9 mL Inject 1 pen (162 mg) under the skin once weekly alendronate (FOSAMAX) 70 mg tablet TAKE 1 TABLET BY MOUTH ONCE A WEEK IN THE MORNING WITH FULL GLASS OF WATER ON EMPTY STOMACH. NOTHING ELSE BY MOUTH FOR 30 MIN AND STAY UPRIGHT FOR 60 MIN. RAMIPRIL ORAL 1.25 mg once daily. B1/B2/niacin/B12/protease (B-COMPLEX WITH B-12 ORAL) once daily. SYNTHROID 88 mcg tablet famotidine (PEPCID) 20 mg tablet fenofibrate nanocrystallized (TRICOR) 145 mg tablet PREMARIN 0.625 MG/G VAGL CREA 2 times a week No current facility-administered medications on file prior to visit. [facility] SPECIALTY CLINICAL ASSESSMENT - INFLAMMATORY CONDITIONS V6: Assessment to use: Refill Assessment of injection issues: Yes Infection screening, including annual TB assessment when applicable to medication: Yes Current medication list (including drug interaction assessment): Yes Experience of adverse reactions to the medication: Yes Date of influenza vaccination reminder: 03/06/2023 Date of most recent vaccination assessment: 03/06/2023 Treatment Plan Information: Actemra Inject 1 pen (162 mg) under the skin once weekly Est. Tx Plan Start Date: No information available Estimated Start Date Info: Established on therapy Est. Estimated Treatment Duration: Until lack of efficacy Li Mathew, [facility] P: [phone] F:[phone] [facility] 01-05-2024 History of Presen t illness Narrative [facility] Assessment Medication(s): Actemra Patient's current medication list and adherence status to current therapy were reviewed by Specialty Pharmacy clinical pharmacist to identify any new drug interactions or non-compliance to therapy. Therapy continues to be appropriate for disease, patient response, and medical condition. Verification of therapeutic benefit and effectiveness with current therapy was completed. Adverse events, barriers in adherence, and side effects were assessed and addressed if applicable. Will proceed with refill with no changes in therapy - patient progressing towards achieving therapeutic goals based on medication-specific laboratory parameters, disease state markers and outcomes. Orthotic And Prosthetic Technician Assessment Patient confirmed: Yes Med/dose confirmed: Yes Supplies needed: No supplies needed Missed doses: No Estimated days supply on hand: 1 Next cycle/dose due: 01/08/24 Copay amount: 0 Payment confirmed: No Delivery method: FedEx Signature required: No Delivery address: [address] [place] [address] Delivery date: 01/08/24 Questions or concerns for the pharmacist?: No Did you have any side effects believed to be related to this medication, that resulted in hospitalization?: No Current Outpatient Medications on File Prior to Visit Medication Sig tocilizumab (ACTEMRA ACTPEN) 162 mg/0.9 mL Inject 1 pen (162 mg) under the skin once weekly alendronate (FOSAMAX) 70 mg tablet TAKE 1 TABLET BY MOUTH ONCE A WEEK IN THE MORNING WITH FULL GLASS OF WATER ON EMPTY STOMACH. NOTHING ELSE BY MOUTH FOR 30 MIN AND STAY UPRIGHT FOR 60 MIN. RAMIPRIL ORAL 1.25 mg once daily. B1/B2/niacin/B12/protease (B-COMPLEX WITH B-12 ORAL) once daily. SYNTHROID 88 mcg tablet famotidine (PEPCID) 20 mg tablet fenofibrate nanocrystallized (TRICOR) 145 mg tablet PREMARIN 0.625 MG/G VAGL CREA 2 times a week No current facility-administered medications on file prior to visit. [facility] Visit Assessment - Inflammatory Conditions: Assessment to use: Refill Vaccination Assessment: Date of influenza vaccination reminder: 03/06/2023 Date of most recent vaccination assessment: 03/06/2023 Treatment Plan Information: Treatment Plan Information: Actemra Inject 1 pen (162 mg) under the skin once weekly Estimated Start Date Info: Established on therapy Estimated Treatment Duration: Until lack of efficacy Maryuri Mccall documented in this encounter [facility] 01-05-2024 Note HNO ID: [id number] Author: URBANO HERNANDEZ RPh Service: ? Author Type: ? Type: Progress Notes Filed: 01/06/2024 20:05 Note Text: [facility] Ref[facility] Assessment Medication(s): Actemra Patient's current medication list and adherence status to current therapy were reviewed by Specialty Pharmacy clinical pharmacist to identify any new drug interactions or non-compliance to therapy. Therapy continues to be appropriate for disease, patient response, and medical condition. Verification of therapeutic benefit and effectiveness with current therapy was completed. Adverse events, barriers in adherence, and side effects were assessed and addressed if applicable. Will proceed with refill with no changes in therapy - patient progressing towards achieving therapeutic goals based on medication-specific laboratory parameters, disease state markers and outcomes. Janneth Hernandez, PharmD Clinical Pharmacist, [employer] [facility] ; Pool: P [facility] Pool #: [id number] Orthotic And Prosthetic Technician Assessment Patient confirmed: Yes Med/dose confirmed: Yes Supplies needed: No supplies needed Missed doses: No Estimated days supply on hand: 1 Next cycle/dose due: 01/08/24 Copay amount: 0 Payment confirmed: No Delivery method: FedEx Signature required: No Delivery address: [address] [place] [address] Delivery date: 01/08/24 Questions or concerns for the pharmacist?: No Did you have any side effects believed to be related to this medication, that resulted in hospitalization?: No Current Outpatient Medications on File Prior to Visit Medication Sig tocilizumab (ACTEMRA ACTPEN) 162 mg/0.9 mL Inject 1 pen (162 mg) under the skin once weekly alendronate (FOSAMAX) 70 mg tablet TAKE 1 TABLET BY MOUTH ONCE A WEEK IN THE MORNING WITH FULL GLASS OF WATER ON EMPTY STOMACH. NOTHING ELSE BY MOUTH FOR 30 MIN AND STAY UPRIGHT FOR 60 MIN. RAMIPRIL ORAL 1.25 mg once daily. B1/B2/niacin/B12/protease (B-COMPLEX WITH B-12 ORAL) once daily. SYNTHROID 88 mcg tablet famotidine (PEPCID) 20 mg tablet fenofibrate nanocrystallized (TRICOR) 145 mg tablet PREMARIN 0.625 MG/G VAGL CREA 2 times a week No current facility-administered medications on file prior to visit. [facility] Visit Assessment - Inflammatory Conditions: Ivent complete: No Assessment to use: Refill Vaccination Assessment: Date of influenza vaccination reminder: 03/06/2023 Date of most recent vaccination assessment: 03/06/2023 Treatment Plan Information: Treatment Plan Information: Actemra Inject 1 pen (162 mg) under the skin once weekly Estimated Start Date Info: Established on therapy Estimated Treatment Duration: Until lack of efficacy Refill Assessment: Concurrent med therapy and DMARD screening: Yes Assessment of injection issues: Yes Screening for infection: Yes Adverse reactions and mitigation: Yes COPD monitoring (Orencia): N/A Assessment of efficacy: Yes Maryuri Mccall [facility] 12-08-2023 History of Presen t illness Narrative [facility] Assessment Medication(s): Actemra Patient's current medication list and adherence status to current therapy were reviewed by Specialty Pharmacy clinical pharmacist to identify any new drug interactions or non-compliance to therapy. Therapy continues to be appropriate for disease, patient response, and medical condition. Verification of therapeutic benefit and effectiveness with current therapy was completed. Adverse events, barriers in adherence, and side effects were assessed and addressed if applicable. Will proceed with refill with no changes in therapy - patient progressing towards achieving therapeutic goals based on medication-specific laboratory parameters, disease state markers and outcomes. Orthotic And Prosthetic Technician Assessment Patient confirmed: Yes Med/dose confirmed: Yes Supplies needed: Sharps container Missed doses: No Estimated days supply on hand: 1 Next cycle/dose due: 12/11/23 Copay amount: 0 Payment confirmed: Yes Delivery method: FedEx Signature required: Waived on patient request Delivery address: [address] [place] [address] Delivery date: 12/11/23 Questions or concerns for the pharmacist?: No Current Outpatient Medications on File Prior to Visit Medication Sig tocilizumab (ACTEMRA ACTPEN) 162 mg/0.9 mL Inject 1 pen (162 mg) under the skin once weekly alendronate (FOSAMAX) 70 mg tablet TAKE 1 TABLET BY MOUTH ONCE A WEEK IN THE MORNING WITH FULL GLASS OF WATER ON EMPTY STOMACH. NOTHING ELSE BY MOUTH FOR 30 MIN AND STAY UPRIGHT FOR 60 MIN. RAMIPRIL ORAL 1.25 mg once daily. B1/B2/niacin/B12/protease (B-COMPLEX WITH B-12 ORAL) once daily. SYNTHROID 88 mcg tablet famotidine (PEPCID) 20 mg tablet fenofibrate nanocrystallized (TRICOR) 145 mg tablet PREMARIN 0.625 MG/G VAGL CREA 2 times a week No current facility-administered medications on file prior to visit. [facility] Visit Assessment - Inflammatory Conditions: Assessment to use: Refill Vaccination Assessment: Date of influenza vaccination reminder: 03/06/2023 Date of most recent vaccination assessment: 03/06/2023 Treatment Plan Information: Treatment Plan Information: Actemra Inject 1 pen (162 mg) under the skin once weekly Estimated Start Date Info: Established on therapy Estimated Treatment Duration: Until lack of efficacy Li Carmona documented in this encounter [facility] 12-08-2023 Note HNO ID: [id number] Author: URBANO HERNANDEZ RPh Service: ? Author Type: ? Type: Progress Notes Filed: 12/09/2023 10:49 Note Text: [facility] Refill Assessment Medication(s): Actemra Patient's current medication list and adherence status to current therapy were reviewed by Specialty Pharmacy clinical pharmacist to identify any new drug interactions or non-compliance to therapy. Therapy continues to be appropriate for disease, patient response, and medical condition. Verification of therapeutic benefit and effectiveness with current therapy was completed. Adverse events, barriers in adherence, and side effects were assessed and addressed if applicable. Will proceed with refill with no changes in therapy - patient progressing towards achieving therapeutic goals based on medication-specific laboratory parameters, disease state markers and outcomes. Janneth Hernandez, MckayD Clinical Pharmacist, [employer] [facility] ; Pool: P [facility] Pool #: [id number] Orthotic And Prosthetic Technician Assessment Patient confirmed: Yes Med/dose confirmed: Yes Supplies needed: Sharps container Missed doses: No Estimated days supply on hand: 1 Next cycle/dose due: 12/11/23 Copay amount: 0 Payment confirmed: Yes Delivery method: FedEx Signature required: Waived on patient request Delivery address: [address] [place] [address] Delivery date: 12/11/23 Questions or concerns for the pharmacist?: No Current Outpatient Medications on File Prior to Visit Medication Sig tocilizumab (ACTEMRA ACTPEN) 162 mg/0.9 mL Inject 1 pen (162 mg) under the skin once weekly alendronate (FOSAMAX) 70 mg tablet TAKE 1 TABLET BY MOUTH ONCE A WEEK IN THE MORNING WITH FULL GLASS OF WATER ON EMPTY STOMACH. NOTHING ELSE BY MOUTH FOR 30 MIN AND STAY UPRIGHT FOR 60 MIN. RAMIPRIL ORAL 1.25 mg once daily. B1/B2/niacin/B12/protease (B-COMPLEX WITH B-12 ORAL) once daily. SYNTHROID 88 mcg tablet famotidine (PEPCID) 20 mg tablet fenofibrate nanocrystallized (TRICOR) 145 mg tablet PREMARIN 0.625 MG/G VAGL CREA 2 times a week No current facility-administered medications on file prior to visit. [facility] Visit Assessment - Inflammatory Conditions: Ivent complete: No Assessment to use: Refill Vaccination Assessment: Date of influenza vaccination reminder: 03/06/2023 Date of most recent vaccination assessment: 03/06/2023 Treatment Plan Information: Treatment Plan Information: Actemra Inject 1 pen (162 mg) under the skin once weekly Estimated Start Date Info: Established on therapy Estimated Treatment Duration: Until lack of efficacy Refill Assessment: Concurrent med therapy and DMARD screening: Yes Assessment of injection issues: Yes Screening for infection: Yes Adverse reactions and mitigation: Yes COPD monitoring (Orencia): N/A Assessment of efficacy: Yes Li Carmona [facility] 11-10-2023 History of Presen t illness Narrative [facility] Assessment Medication(s): Actemra Patient's current medication list and adherence status to current therapy were reviewed by Specialty Pharmacy clinical pharmacist to identify any new drug interactions or non-compliance to therapy. Therapy continues to be appropriate for disease, patient response, and medical condition. Verification of therapeutic benefit and effectiveness with current therapy was completed. Adverse events, barriers in adherence, and side effects were assessed and addressed if applicable. Will proceed with refill with no changes in therapy - patient progressing towards achieving therapeutic goals based on medication-specific laboratory parameters, disease state markers and outcomes. Orthotic And Prosthetic Technician Assessment Patient confirmed: Yes Med/dose confirmed: Yes Supplies needed: No supplies needed Missed doses: No Estimated days supply on hand: 1 Next cycle/dose due: 11/13/23 Copay amount: 19.72 Copay form of payment: Credit card on file Payment confirmed: Yes Delivery method: FedEx Signature required: Waived on patient request Delivery address: [address] [place] [address] Delivery date: 11/13/23 Questions or concerns for the pharmacist?: No Current Outpatient Medications on File Prior to Visit Medication Sig tocilizumab (ACTEMRA ACTPEN) 162 mg/0.9 mL Inject 1 pen (162 mg) under the skin once weekly alendronate (FOSAMAX) 70 mg tablet TAKE 1 TABLET BY MOUTH ONCE A WEEK IN THE MORNING WITH FULL GLASS OF WATER ON EMPTY STOMACH. NOTHING ELSE BY MOUTH FOR 30 MIN AND STAY UPRIGHT FOR 60 MIN. RAMIPRIL ORAL 1.25 mg once daily. B1/B2/niacin/B12/protease (B-COMPLEX WITH B-12 ORAL) once daily. SYNTHROID 88 mcg tablet famotidine (PEPCID) 20 mg tablet fenofibrate nanocrystallized (TRICOR) 145 mg tablet PREMARIN 0.625 MG/G VAGL CREA 2 times a week No current facility-administered medications on file prior to visit. [facility] Visit Assessment - Inflammatory Conditions: Assessment to use: Refill Vaccination Assessment: Date of influenza vaccination reminder: 03/06/2023 Date of most recent vaccination assessment: 03/06/2023 Treatment Plan Information: Treatment Plan Information: Actemra Inject 1 pen (162 mg) under the skin once weekly Estimated Start Date Info: Established on therapy Estimated Treatment Duration: Until lack of efficacy Gabrielal Jeong CPhT, Inflammatory/Allergy [facility] [phone] documented in this encounter [facility] 10-13-2023 History of Presen t illness Narrative [facility] Assessment Medication(s): Actemra Patient's current medication list and adherence status to current therapy were reviewed by Specialty Pharmacy clinical pharmacist to identify any new drug interactions or non-compliance to therapy. Therapy continues to be appropriate for disease, patient response, and medical condition. Verification of therapeutic benefit and effectiveness with current therapy was completed. Adverse events, barriers in adherence, and side effects were assessed and addressed if applicable. Will proceed with refill with no changes in therapy - patient progressing towards achieving therapeutic goals based on medication-specific laboratory parameters, disease state markers and outcomes. Janneth Hernandez, MckayD Clinical Pharmacist, [employer] [facility] ; Pool: P [facility] Pool #: [id number] Orthotic And Prosthetic Technician Assessment Patient confirmed: Yes Med/dose confirmed: Yes Supplies needed: No supplies needed Missed doses: No Estimated days supply on hand: 1 Next cycle/dose due: 10/16/23 Copay amount: 33 Copay form of payment: Credit card on file Payment confirmed: Yes Delivery method: FedEx Signature required: No Delivery address: [facility] [address] [place] [address] Delivery date: 10/15/23 Questions or concerns for the pharmacist?: No Current Outpatient Medications on File Prior to Visit Medication Sig tocilizumab (ACTEMRA ACTPEN) 162 mg/0.9 mL Inject 1 pen (162 mg) under the skin once weekly alendronate (FOSAMAX) 70 mg tablet TAKE 1 TABLET BY MOUTH ONCE A WEEK IN THE MORNING WITH FULL GLASS OF WATER ON EMPTY STOMACH. NOTHING ELSE BY MOUTH FOR 30 MIN AND STAY UPRIGHT FOR 60 MIN. RAMIPRIL ORAL 1.25 mg once daily. B1/B2/niacin/B12/protease (B-COMPLEX WITH B-12 ORAL) once daily. SYNTHROID 88 mcg tablet famotidine (PEPCID) 20 mg tablet fenofibrate nanocrystallized (TRICOR) 145 mg tablet PREMARIN 0.625 MG/G VAGL CREA 2 times a week No current facility-administered medications on file prior to visit. [facility] Visit Assessment - Inflammatory Conditions: Ivent complete: No Assessment to use: Refill Vaccination Assessment: Date of influenza vaccination reminder: 03/06/2023 Date of most recent vaccination assessment: 03/06/2023 Treatment Plan Information: Treatment Plan Information: Actemra Inject 1 pen (162 mg) under the skin once weekly Estimated Start Date Info: Established on therapy Estimated Treatment Duration: Until lack of efficacy Refill Assessment: Concurrent med therapy and DMARD screening: Yes Assessment of injection issues: Yes Screening for infection: Yes Adverse reactions and mitigation: Yes COPD monitoring (Orencia): N/A Assessment of efficacy: Yes Viraj Lorenzo CPhT, Inflammatory/allergy [facility] [phone] documented in this encounter [facility] 09-15-2023 History of Presen t illness Narrative [facility] Refill Assessment Medication(s): ACTEMRA Patient's current medication list and adherence status to current therapy were reviewed by Specialty Pharmacy clinical pharmacist to identify any new drug interactions or non-compliance to therapy. Therapy continues to be appropriate for disease, patient response, and medical condition. Verification of therapeutic benefit and effectiveness with current therapy was completed. Adverse events, barriers in adherence, and side effects were assessed and addressed if applicable. Will proceed with refill with no changes in therapy - patient progressing towards achieving therapeutic goals based on medication-specific laboratory parameters, disease state markers and outcomes. Last Rheum OV: 09/04/2023 (with Feli Maddox) OV note incomplete, but no change to Actemra dose mentioned. Janneth Hernandez, MckayD Clinical Pharmacist, [employer] [facility] ; Pool: P [facility] Pool #: [id number] Orthotic And Prosthetic Technician Assessment Patient confirmed: Yes Med/dose confirmed: Yes Supplies needed: No supplies needed Missed doses: No Estimated days supply on hand: 1 Next cycle/dose due: 09/18/23 Copay amount: 0 Delivery method: FedEx Delivery address: [address] [place] [address] Delivery date: 09/17/23 Questions or concerns for the pharmacist?: No [facility] Visit Assessment - Inflammatory Conditions: Ivent complete: No Assessment to use: Refill Vaccination Assessment: Date of influenza vaccination reminder: 03/06/2023 Date of most recent vaccination assessment: 03/06/2023 Treatment Plan Information: Treatment Plan Information: Actemra Inject 1 pen (162 mg) under the skin once weekly Estimated Start Date Info: Established on therapy Estimated Treatment Duration: Until lack of efficacy Refill Assessment: Concurrent med therapy and DMARD screening: Yes Assessment of injection issues: Yes Screening for infection: Yes Adverse reactions and mitigation: Yes COPD monitoring (Orencia): N/A Assessment of efficacy: Yes Viraj Lorenzo CPhT, Inflammatory/allergy [facility] [phone] Electronically signed by Urbano Hernandez [facility] at 09/15/2023 11:54 AM EDT documented in this encounter [facility] 09-04-2023 History of Presen t illness Narrative Andreea Montes is a 73 year old female here for follow-up of [facility] Evaluation Date: 09/04/2023 Last Visit in Rheumatology: 03/06/2023 (with Feli Maddox) ACTIVE PROBLEM LIST Personal History of Malignant Melanoma of Skin - 09/29/2006 INTERVAL HX: At today's visit Andreea Montes states that she has been doing well. Very active, exercises at least 5 days a week TCZ started in Apr 2022 Off prednisone since September 2022 LARGE VESSEL VASCULITIS ROS: GENERAL: negative for, malaise, fatigue, night sweats FEVER: none WEIGHT CHANGE: none HEAD: negative for, scalp tenderness, jaw claudication, headache, tongue claudication, temporal tenderness EYES: negative for , pain, redness, visual blurring, permanent visual loss, transient visual loss, diplopia RESPIRATORY: negative for, cough, shortness of breath, pleuritic chest pain CARDIOVASCULAR: negative for, chest pain, extremity claudication, digital ischemia GASTROINTESTINAL: negative for, abdominal pain, vomiting, diarrhea MUSCULOSKELETAL: negative for, myalgias NEUROLOGIC: negative for, numbness, weakness SKIN: negative for, rash REVIEW OF FAMILY AND/OR SOCIAL HISTORY: The family and/or social were reviewed at todays visit and no changes were noted. Date of last DEXA: 08/2022 ([facility]), Lowest T-Score: -2 Location of last DEXA:outside hospital Current Outpatient Medications Medication Sig tocilizumab (ACTEMRA ACTPEN) 162 mg/0.9 mL Inject 1 pen (162 mg) under the skin once weekly alendronate (FOSAMAX) 70 mg tablet TAKE 1 TABLET BY MOUTH ONCE A WEEK IN THE MORNING WITH FULL GLASS OF WATER ON EMPTY STOMACH. NOTHING ELSE BY MOUTH FOR 30 MIN AND STAY UPRIGHT FOR 60 MIN. RAMIPRIL ORAL 1.25 mg once daily. B1/B2/niacin/B12/protease (B-COMPLEX WITH B-12 ORAL) once daily. SYNTHROID 88 mcg tablet fenofibrate nanocrystallized (TRICOR) 145 mg tablet PREMARIN 0.625 MG/G VAGL CREA 2 times a week famotidine (PEPCID) 20 mg tablet No current facility-administered medications for this visit. PHYSICAL EXAMINATION Blood pressure 158/71, pulse 63, temperature 36.4 C (97.5 F), temperature source Temporal, weight 62.1 kg (136 lb 14.5 oz). GENERAL APPEARANCE: well SKIN: normal without rashes or lesions HEAD: normal; temporal arteries with normal pulsation without nodularity or tenderness EYES: conjunctiva clear, PERRL, EOM normal OROPHARYNX: no oral lesions present, no oral ulcers. NECK: supple, without adenopathy. LUNGS: clear HEART: RRR, no gallops, rubs or murmurs ABDOMEN: no bruits MUSCULOSKELETAL: no joint tenderness or swelling VASCULAR EXAM Carotid: normal and equal bilaterally Brachial: normal and equal bilaterally Radial: normal and equal bilaterally Popliteal: normal and equal bilaterally Dorsalis pedis: normal and equal bilaterally Posterior tibial: normal and equal bilaterally Bruit over large vessels: negative NEURO: motor 5/5 Lab results: WBC Date Value Ref Range Status 07/17/2023 5.70 3.70 - 11.00 k/uL Final Hemoglobin Date Value Ref Range Status 07/17/2023 13.1 11.5 - 15.5 g/dL Final Hematocrit Date Value Ref Range Status 07/17/2023 38.5 36.0 - 46.0 % Final Platelet Count Date Value Ref Range Status 07/17/2023 286 150 - 400 k/uL Final Abs Lymph Date Value Ref Range Status 07/17/2023 3.61 1.00 - 4.00 k/uL Final Creatinine Date Value Ref Range Status 03/28/2023 0.85 0.58 - 0.96 mg/dL Final Glucose Date Value Ref Range Status 03/28/2023 102 (H) 74 - 99 mg/dL Final Comment: The [place] [employer] Association (ADA) provides guidance for cutoff values for fasting glucose and random glucose. The ADA defines fasting as no caloric intake for at least 8 hours. Fasting plasma glucose results between 100 to 125 mg/dL indicate increased risk for diabetes (prediabetes). Fasting plasma glucose results greater than or equal to 126 mg/dL meet the criteria for diagnosis of diabetes. In the absence of unequivocal hyperglycemia, results should be confirmed by repeat testing. In a patient with classic symptoms of hyperglycemia or hyperglycemic crisis, random plasma glucose results greater than or equal to 200 mg/dL meet the criteria for diagnosis of diabetes. Reference: Standards of Medical Care in Diabetes 2016, [place] [employer]. Diabetes Care. 2016.39(Suppl 1). AST Date Value Ref Range Status 03/28/2023 30 13 - 35 U/L Final ALT Date Value Ref Range Status 03/28/2023 23 7 - 38 U/L Final Sed Rate, Westergren Date Value Ref Range Status 05/26/2023 2 0 - 20 mm/hr Final CRP Date Value Ref Range Status 05/26/2023 <0.3 <0.9 mg/dL Final Alkaline Phosphatase Date Value Ref Range Status 03/28/2023 52 34 - 123 U/L Final ASSESSMENT: M31.6 Giant cell arteritis (HCC) (primary encounter diagnosis) Comment: At today's visit the patient's disease appears to be in remission. 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 PLAN: Continue current medications. Orders: Labs DEXA Consults: none Monitoring: Continue labs every 2 months Patient instructed to notify provider of any changes in medical condition. Follow-up: 6 months or before as needed I spent a total of 40 minutes on the date of the service which included preparing to see the patient, [id number] patient care, completing clinical documentation, obtaining and/or reviewing separately obtained history, performing a medically appropriate examination, counseling and educating the patient/family/caregiver, and ordering medications, tests, or procedures. Feli Gamboa MD, MPH documented in this encounter [facility] 08-22-2023 Miscellaneous Notes The following approved medication requests have been transmitted electronically. Requested Prescriptions Signed Prescriptions Disp Refills tocilizumab (ACTEMRA ACTPEN) 162 mg/0.9 mL 3.6 mL 5 Sig: Inject 1 pen (162 mg) under the skin once weekly Authorizing Provider: FELI HEBERT MD Patient needs refill of Actemra Date of Andreea Montes's last Rheumatology office visit: 03/06/2023 Next appointment date: 09/04/2023 Last labs: 07/17/2023 Last TB test: TB Result Date Value Ref Range Status 04/22/2022 Negative Final Requested Prescriptions Pending Prescriptions Disp Refills tocilizumab (ACTEMRA ACTPEN) 162 mg/0.9 mL 3.6 mL 5 Sig: Inject 1 pen (162 mg) under the skin once weekly Patient prefers: [facility] Joyce Lagunas PharmD Clinical Pharmacist [facility] Pool: P [facility] Pool #: [id number] documented in this encounter [facility] 06-19-2023 History of Presen t illness Narrative [facility] Assessment Medication(s): Actemra Patient's current medication list and adherence status to current therapy were reviewed by Specialty Pharmacy clinical pharmacist to identify any new drug interactions or non-compliance to therapy. Therapy continues to be appropriate for disease, patient response, and medical condition. Verification of therapeutic benefit and effectiveness with current therapy was completed. Adverse events, barriers in adherence, and side effects were assessed and addressed if applicable. Will proceed with refill with no changes in therapy - patient progressing towards achieving therapeutic goals based on medication-specific laboratory parameters, disease state markers and outcomes. Orthotic And Prosthetic Technician Assessment Patient confirmed: Yes Med/dose confirmed: Yes Supplies needed: No supplies needed Missed doses: No Estimated days supply on hand: 1 Copay amount: 40 Copay form of payment: Credit card on file Payment confirmed: Yes Delivery method: FedEx Signature required: Waived on patient request Delivery address: [facility] [address] [id number] Delivery date: 06/25/23 Questions or concerns for the pharmacist?: No [facility] Visit Assessment - Inflammatory Conditions: Assessment to use: Refill Vaccination Assessment: Date of influenza vaccination reminder: 03/06/2023 Date of most recent vaccination assessment: 03/06/2023 Treatment Plan Information: Treatment Plan Information: Actemra Inject 1 pen (162 mg) under the skin once weekly Estimated Start Date Info: Established on therapy Estimated Treatment Duration: Until lack of efficacy Darcy Berumen ([facility]) [facility] FAX: documented in this encounter [facility] 05-26-2023 History of Presen t illness Narrative [facility] Refill Assessment Medication(s): Actemra No new charted information to review since last refill encounter. Anu Simmons [facility] Patient's current medication list and adherence status to current therapy were reviewed by Specialty Pharmacy clinical pharmacist to identify any new drug interactions or non-compliance to therapy. Therapy continues to be appropriate for disease, patient response, and medical condition. Verification of therapeutic benefit and effectiveness with current therapy was completed. Adverse events, barriers in adherence, and side effects were assessed and addressed if applicable. Will proceed with refill with no changes in therapy - patient progressing towards achieving therapeutic goals based on medication-specific laboratory parameters, disease state markers and outcomes. Orthotic And Prosthetic Technician Assessment Patient confirmed: Yes Med/dose confirmed: Yes Supplies needed: No supplies needed Missed doses: No Estimated days supply on hand: 1 Next cycle/dose due: 05/29/23 Copay amount: 0 Payment confirmed: Yes Delivery method: FedEx Signature required: Waived on patient request Delivery address: [facility] [address] [address] Delivery date: 05/29/23 Questions or concerns for the pharmacist?: No [facility] Visit Assessment - Inflammatory Conditions: Assessment to use: Refill Vaccination Assessment: Date of influenza vaccination reminder: 03/06/2023 Date of most recent vaccination assessment: 03/06/2023 Treatment Plan Information: Treatment Plan Information: Actemra Inject 1 pen (162 mg) under the skin once weekly Estimated Start Date Info: Established on therapy Estimated Treatment Duration: Until lack of efficacy Refill Assessment: Concurrent med therapy and DMARD screening: Yes Assessment of injection issues: Yes Screening for infection: Yes Adverse reactions and mitigation: Yes COPD monitoring (Orencia): N/A Assessment of efficacy: Yes Darcy Berumen ([facility]) [facility] FAX: documented in this encounter [facility] 04-28-2023 History of Presen t illness Narrative [facility] Assessment Medication(s): Actemra Patient's current medication list and adherence status to current therapy were reviewed by Specialty Pharmacy clinical pharmacist to identify any new drug interactions or non-compliance to therapy. Therapy continues to be appropriate for disease, patient response, and medical condition. Verification of therapeutic benefit and effectiveness with current therapy was completed. Adverse events, barriers in adherence, and side effects were assessed and addressed if applicable. Will proceed with refill with no changes in therapy - patient progressing towards achieving therapeutic goals based on medication-specific laboratory parameters, disease state markers and outcomes. Orthotic And Prosthetic Technician Assessment Patient confirmed: Yes Med/dose confirmed: Yes Supplies needed: No supplies needed Missed doses: No Estimated days supply on hand: 1 Next cycle/dose due: 05/01/23 Copay amount: 40 Copay form of payment: Credit card on file ([id number]) Payment confirmed: Yes Delivery method: FedEx Signature required: Waived on patient request Delivery address: [facility] [address] [place], [place] [address] Delivery date: 05/02/23 Questions or concerns for the pharmacist?: No [facility] Visit Assessment - Inflammatory Conditions: Assessment to use: Refill Vaccination Assessment: Date of influenza vaccination reminder: 03/06/2023 Date of most recent vaccination assessment: 03/06/2023 Treatment Plan Information: Treatment Plan Information: Actemra Inject 1 pen (162 mg) under the skin once weekly Estimated Start Date Info: Established on therapy Estimated Treatment Duration: Until lack of efficacy [facility] in this encounter [facility] 03-06-2023 History of Presen t illness Narrative Andreea Montes is a 72 year old female here for follow-up of [facility] Evaluation Date: 03/06/2023 Last Visit in Rheumatology: 08/22/2022 (with Feli Maddox) ACTIVE PROBLEM LIST Personal History of Malignant Melanoma of Skin - 09/29/2006 INTERVAL HX: At today's visit Andreea Montes states that she has been doing well No cranial or PMR symptoms. no fever or unintentional weight loss. No claudication Exercise: Yoga once a week, treadmill or stationary bike almost everyday off prednisone Review of Systems CONSTITUTION: Negative for: Fever and Recent weight change HEENT: Negative for: Nosebleeds, Mouth sores, Trouble swallowing and Dry mouth RESPIRATORY: Negative for: Cough, Shortness of breath and Pain with breathing GASTROINTESTINAL: Negative for: Melena, Diarrhea, Heartburn and Abdominal pain MUSCULOSKELETAL: Positive for: Morning Joint Stiffness Negative for: Arthralgias, Myalgias, Muscle weakness and Joint swelling NEUROLOGICAL: Negative for: Headaches, Numbness and Memory loss SKIN: Negative for: Rash, Skin changes, Hair loss and Nail changes EYES: Positive for: Eye dryness Negative for: Eye pain, Eye redness and visual disturbance CARDIOVASCULAR: Negative for: Chest pain and Leg swelling GENITOURINARY: Negative for: Dysuria and Hematuria HEMATOLOGIC/LYMPHATIC: Negative for: Swollen glands HEAD: negative for, scalp tenderness, jaw claudication, headache, tongue claudication, temporal tenderness EYES: negative for , pain, permanent visual loss, transient visual loss, diplopia REVIEW OF FAMILY AND/OR SOCIAL HISTORY: The family and/or social were reviewed at todays visit and no changes were noted. Current Outpatient Medications Medication Sig RAMIPRIL ORAL 1.25 mg once daily. B1/B2/niacin/B12/protease (B-COMPLEX WITH B-12 ORAL) once daily. tocilizumab (ACTEMRA ACTPEN) 162 mg/0.9 mL Inject 1 pen (162 mg) under the skin once weekly SYNTHROID 88 mcg tablet fenofibrate nanocrystallized (TRICOR) 145 mg tablet PREMARIN 0.625 MG/G VAGL CREA 2 times a week predniSONE (DELTASONE) 10 mg tablet TAKE 2 TABLETS BY MOUTH EVERY DAY predniSONE (DELTASONE) 5 mg tablet TAKE 3 TABLETS BY MOUTH EVERY DAY predniSONE (DELTASONE) 20 mg tablet Take 2 tablets by mouth once daily. famotidine (PEPCID) 20 mg tablet No current facility-administered medications for this visit. PHYSICAL EXAMINATION Blood pressure 129/70, pulse 67, temperature 36.3 C (97.4 F), temperature source Temporal, weight 60.2 kg (132 lb 12.8 oz). GENERAL APPEARANCE: well SKIN: normal without rashes or lesions HEAD: normal; temporal arteries with normal pulsation without nodularity or tenderness EYES: conjunctiva clear, PERRL, EOM normal OROPHARYNX: no oral lesions present, no oral ulcers. NECK: supple, without adenopathy. LUNGS: clear HEART: RRR, no gallops, rubs or murmurs ABDOMEN: no bruits MUSCULOSKELETAL: no joint tenderness or swelling VASCULAR EXAM Carotid: normal and equal bilaterally Brachial: normal and equal bilaterally Radial: normal and equal bilaterally Popliteal: normal and equal bilaterally Dorsalis pedis: normal and equal bilaterally Posterior tibial: normal and equal bilaterally Bruit over large vessels: negative NEURO: motor 5/5 Lab results: WBC Date Value Ref Range Status 01/24/2023 6.17 3.70 - 11.00 k/uL Final Hemoglobin Date Value Ref Range Status 01/24/2023 12.6 11.5 - 15.5 g/dL Final Hematocrit Date Value Ref Range Status 01/24/2023 38.6 36.0 - 46.0 % Final Platelet Count Date Value Ref Range Status 01/24/2023 265 150 - 400 k/uL Final Abs Lymph Date Value Ref Range Status 01/24/2023 3.93 1.00 - 4.00 k/uL Final Creatinine Date Value Ref Range Status 01/24/2023 0.96 0.58 - 0.96 mg/dL Final Glucose Date Value Ref Range Status 01/24/2023 101 (H) 74 - 99 mg/dL Final Comment: The [place] [employer] (ADA) provides guidance for cutoff values for fasting glucose and random glucose. The ADA defines fasting as no caloric intake for at least 8 hours. Fasting plasma glucose results between 100 to 125 mg/dL indicate increased risk for diabetes (prediabetes). Fasting plasma glucose results greater than or equal to 126 mg/dL meet the criteria for diagnosis of diabetes. In the absence of unequivocal hyperglycemia, results should be confirmed by repeat testing. In a patient with classic symptoms of hyperglycemia or hyperglycemic crisis, random plasma glucose results greater than or equal to 200 mg/dL meet the criteria for diagnosis of diabetes. Reference: Standards of Medical Care in Diabetes 2016, [place] [employer]. Diabetes Care. 2016.39(Suppl 1). AST Date Value Ref Range Status 01/24/2023 31 13 - 35 U/L Final ALT Date Value Ref Range Status 01/24/2023 26 7 - 38 U/L Final Sed Rate, Westergren Date Value Ref Range Status 01/24/2023 2 0 - 20 mm/hr Final CRP Date Value Ref Range Status 01/24/2023 <0.3 <0.9 mg/dL Final Alkaline Phosphatase Date Value Ref Range Status 01/24/2023 55 34 - 123 U/L Final Urine: No results found for: PH, SPGR, UGLUC, UBILI, UKET, UHB, UPROT, UROBIL, UWBC, SSA Imaging impressions: Last 2 CTA/MRI/MRA of Neck - Impressions Only No resulted procedures found. Last 2 CTA/MRI/MRA of Chest - Impressions Only No resulted procedures found. Last 2 CTA/MRI/MRA of Abdomen - Impressions Only No resulted procedures found. ASSESSMENT: M31.6 Giant cell arteritis (HCC) (primary encounter diagnosis) Comment: At today's visit the patient's disease appears to be in remission. 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 PLAN: Continue current medications: Tocilizumab once a week SC Start Alendronate 70 mg once a week: discussed with patient today. Orders: BMD test in 09/2023 Consults: none Monitoring: Continue labs every 2 months Patient instructed to notify provider of any changes in medical condition. Follow-up: 6 months I spent a total of 40 minutes on the date of the service which included preparing to see the patient, [id number] patient care, completing clinical documentation, obtaining and/or reviewing separately obtained history, performing a medically appropriate examination, counseling and educating the patient/family/caregiver, ordering medications, tests, or procedures, and independently interpreting results (not separately reported). Feli Gamboa MD, MPH documented in this encounter [facility] 03-04-2023 History of Presen t illness Narrative [facility]ill Assessment Medication(s): Actemra Patient's current medication list and adherence status to current therapy were reviewed by Specialty Pharmacy clinical pharmacist to identify any new drug interactions or non-compliance to therapy. Therapy continues to be appropriate for disease, patient response, and medical condition. Verification of therapeutic benefit and effectiveness with current therapy was completed. Adverse events, barriers in adherence, and side effects were assessed and addressed if applicable. Will proceed with refill with no changes in therapy - patient progressing towards achieving therapeutic goals based on medication-specific laboratory parameters, disease state markers and outcomes. Orthotic And Prosthetic Technician Assessment Patient confirmed: Yes Med/dose confirmed: Yes Supplies needed: No supplies needed Missed doses: No Estimated days supply on hand: 1 Next cycle/dose due: 03/06/23 Copay amount: 40 Copay form of payment: Credit card on file ([id number]) Payment confirmed: Yes Delivery method: FedEx Signature required: No Delivery address: [address] [place] [address] Delivery date: 03/11/23 Questions or concerns for the pharmacist?: No [facility] Visit Assessment - Inflammatory Conditions: Assessment to use: Refill Vaccination Assessment: Date of influenza vaccination reminder: 05/06/2022 Date of most recent vaccination assessment: 05/06/2022 Claire Christianson ([employer]) documented in this encounter [facility] 01-28-2023 History of Presen t illness Narrative [facility] Refill Assessment Medication(s): Actemra Patient's current medication list and adherence status to current therapy were reviewed by Specialty Pharmacy clinical pharmacist to identify any new drug interactions or non-compliance to therapy. Therapy continues to be appropriate for disease, patient response, and medical condition. Verification of therapeutic benefit and effectiveness with current therapy was completed. Adverse events, barriers in adherence, and side effects were assessed and addressed if applicable. Will proceed with refill with no changes in therapy - patient progressing towards achieving therapeutic goals based on medication-specific laboratory parameters, disease state markers and outcomes. Orthotic And Prosthetic Technician Assessment Patient confirmed: Yes Med/dose confirmed: Yes Supplies needed: Sharps container Missed doses: No Estimated days supply on hand: 2 Next cycle/dose due: 01/30/23 Copay amount: 40 Copay form of payment: Credit card on file ([id number]) Payment confirmed: Yes Delivery method: FedEx Signature required: Waived on patient request Delivery address: [address] [place] [address] Delivery date: 02/05/23 Questions or concerns for the pharmacist?: No [facility] Visit Assessment - Inflammatory Conditions: Assessment to use: Refill Vaccination Assessment: Date of influenza vaccination reminder: 05/06/2022 Date of most recent vaccination assessment: 05/06/2022 Claire Christianson ([employer]) documented in this encounter [facility] 01-03-2023 History of Presen t illness Narrative [facility] Refill Assessment Medication(s): Actemra Patient's current medication list and adherence status to current therapy were reviewed by Specialty Pharmacy clinical pharmacist to identify any new drug interactions or non-compliance to therapy. Therapy continues to be appropriate for disease, patient response, and medical condition. Verification of therapeutic benefit and effectiveness with current therapy was completed. Adverse events, barriers in adherence, and side effects were assessed and addressed if applicable. Will proceed with refill with no changes in therapy - patient progressing towards achieving therapeutic goals based on medication-specific laboratory parameters, disease state markers and outcomes. Joyce Lagunas, MckayD Clinical Pharmacist [facility] Pool: P [facility] Pool #: [id number] Orthotic And Prosthetic Technician Assessment Patient confirmed: Yes Med/dose confirmed: Yes Supplies needed: No supplies needed Missed doses: No Estimated days supply on hand: 1 Copay amount: 40 Copay form of payment: Credit card on file Payment confirmed: Yes Delivery method: FedEx Signature required: No Delivery address: [address] [place] [address], [facility] [address] Delivery date: 01/07/23 Questions or concerns for the pharmacist?: No [facility] Visit Assessment - Inflammatory Conditions: Ivent complete: No Assessment to use: Refill Vaccination Assessment: Date of influenza vaccination reminder: 05/06/2022 Date of most recent vaccination assessment: 05/06/2022 Refill Assessment: Concurrent med therapy and DMARD screening: Yes Assessment of injection issues: Yes Screening for infection: Yes Adverse reactions and mitigation: Yes COPD monitoring (Orencia): N/A Assessment of efficacy: Yes Maryuri Mccall ([employer] Install[employer]) documented in this encounter [facility] 12-13-2022 History of Presen t illness Narrative [facility] Refill Assessment Medication(s): Actemra Patient's current medication list and adherence status to current therapy were reviewed by Specialty Pharmacy clinical pharmacist to identify any new drug interactions or non-compliance to therapy. Therapy continues to be appropriate for disease, patient response, and medical condition. Verification of therapeutic benefit and effectiveness with current therapy was completed. Adverse events, barriers in adherence, and side effects were assessed and addressed if applicable. Will proceed with refill with no changes in therapy - patient progressing towards achieving therapeutic goals based on medication-specific laboratory parameters, disease state markers and outcomes. Joyce Lagunas, PharmD Clinical Pharmacist [facility] Pool: P [facility] Pool #: [id number] Orthotic And Prosthetic Technician Assessment Patient confirmed: Yes Med/dose confirmed: Yes Supplies needed: No supplies needed Missed doses: No Estimated days supply on hand: 0 Next cycle/dose due: 12/19/22 Copay amount: 40 Copay form of payment: Credit card on file ([id number]) Payment confirmed: Yes Delivery method: FedEx Signature required: Waived on patient request Delivery address: [facility] [address] [place] [id number] Delivery date: 12/17/22 Questions or concerns for the pharmacist?: No [facility] Visit Assessment - Inflammatory Conditions: Ivent complete: No Assessment to use: Refill Vaccination Assessment: Date of influenza vaccination reminder: 05/06/2022 Date of most recent vaccination assessment: 05/06/2022 Refill Assessment: Concurrent med therapy and DMARD screening: Yes Assessment of injection issues: Yes Screening for infection: Yes Adverse reactions and mitigation: Yes COPD monitoring (Orencia): N/A Assessment of efficacy: Yes Claire Christianson ([employer]) documented in this encounter [facility] 12-09-2022 Miscellaneous Notes Pt will be due for a refill of Actemra soon. If therapy is being continued, please sign this order request to send refill via eRx to [facility]. Thanks! Next office visit scheduled 03/06/2023 Requested Prescriptions Pending Prescriptions Disp Refills tocilizumab (ACTEMRA ACTPEN) 162 mg/0.9 mL 3.6 mL 3 Sig: Inject 1 pen (162 mg) under the skin once weekly Please review and advise. Joyce Lagunas RPh documented in this encounter [facility] 11-11-2022 History of Presen t illness Narrative [facility] Refill Assessment Medication(s): Actemra Patient's current medication list and adherence status to current therapy were reviewed by Specialty Pharmacy clinical pharmacist to identify any new drug interactions or non-compliance to therapy. Therapy continues to be appropriate for disease, patient response, and medical condition. Verification of therapeutic benefit and effectiveness with current therapy was completed. Adverse events, barriers in adherence, and side effects were assessed and addressed if applicable. Will proceed with refill with no changes in therapy - patient progressing towards achieving therapeutic goals based on medication-specific laboratory parameters, disease state markers and outcomes. Orthotic And Prosthetic Technician Assessment Patient confirmed: Yes Med/dose confirmed: Yes Supplies needed: No supplies needed Missed doses: No Estimated days supply on hand: 1 Next cycle/dose due: 11/14/22 Copay amount: 40 Copay form of payment: Credit card on file ([id number]) Payment confirmed: Yes Delivery method: FedEx Signature required: No Delivery address: [address] [place] [id number] Delivery date: 11/14/22 Questions or concerns for the pharmacist?: No [facility] Visit Assessment - Inflammatory Conditions: Assessment to use: Refill Vaccination Assessment: Date of influenza vaccination reminder: 05/06/2022 Date of most recent vaccination assessment: 05/06/2022 Claire Christianson ([employer]) documented in this encounter [facility] 10-14-2022 History of Presen t illness Narrative [facility] Refill Assessment Medication(s): Actemra Updated DEXA scan as appropriate Labs updated and reviewed 10/04/22 ALLERGIES Allergen Reactions Sudafed [Pseudoephe* Anu Simmons RPh Clinical Pharmacist, Hepatology & HCV [facility] P: ; F: Pool: P [facility] Patient's current medication list and adherence status to current therapy were reviewed by Specialty Pharmacy clinical pharmacist to identify any new drug interactions or non-compliance to therapy. Therapy continues to be appropriate for disease, patient response, and medical condition. Verification of therapeutic benefit and effectiveness with current therapy was completed. Adverse events, barriers in adherence, and side effects were assessed and addressed if applicable. Will proceed with refill with no changes in therapy - patient progressing towards achieving therapeutic goals based on medication-specific laboratory parameters, disease state markers and outcomes. Orthotic And Prosthetic Technician Assessment Patient confirmed: Yes Med/dose confirmed: Yes Supplies needed: Bandages Missed doses: No Estimated days supply on hand: 1 Copay amount: 40 Copay form of payment: Credit card on file ([id number]) Payment confirmed: Yes Delivery method: FedEx Signature required: No Delivery address: [address] [place] [id number] Delivery date: 10/16/22 Questions or concerns for the pharmacist?: No [facility] Visit Assessment - Inflammatory Conditions: Assessment to use: Refill Vaccination Assessment: Date of influenza vaccination reminder: 05/06/2022 Date of most recent vaccination assessment: 05/06/2022 Refill Assessment: Concurrent med therapy and DMARD screening: Yes Assessment of injection issues: Yes Screening for infection: Yes Adverse reactions and mitigation: Yes COPD monitoring (Orencia): N/A Assessment of efficacy: Yes Claire [employer]) documented in this encounter [facility] 09-16-2022 History of Presen t illness Narrative [facility] Refill Assessment Medication(s): Actemra Patient's current medication list and adherence status to current therapy were reviewed by Specialty Pharmacy clinical pharmacist to identify any new drug interactions or non-compliance to therapy. Therapy continues to be appropriate for disease, patient response, and medical condition. Verification of therapeutic benefit and effectiveness with current therapy was completed. Adverse events, barriers in adherence, and side effects were assessed and addressed if applicable. Will proceed with refill with no changes in therapy - patient progressing towards achieving therapeutic goals based on medication-specific laboratory parameters, disease state markers and outcomes. Orthotic And Prosthetic Technician Assessment Patient confirmed: Yes Med/dose confirmed: Yes Supplies needed: (bandages) Missed doses: No Estimated days supply on hand: 1 Next cycle/dose due: 09/26/22 Copay amount: 40 Copay form of payment: Credit card on file ([id number]) Payment confirmed: Yes Delivery method: FedEx Signature required: No Delivery address: [address] [place] [address] Delivery date: 09/24/22 Questions or concerns for the pharmacist?: No [facility] Visit Assessment - Inflammatory Conditions: Assessment to use: Refill Vaccination Assessment: Date of influenza vaccination reminder: 05/06/2022 Date of most recent vaccination assessment: 05/06/2022 Claire Christianson ([employer]) documented in this encounter [facility] 09-02-2022 Miscellaneous Notes Received bone density from [facility] plus labs from 09/02 See scanned docs documented in this encounter [facility] 08-23-2022 Miscellaneous Notes Phone call to patient. She had questions about coming salomón of the prednisone & staying on the Actemra. Patient has the taper from Dr. Gamboa & will be off of it in 9 weeks time. She wanted to know if she needed to see Dr. Gamboa in November or in February. Dr. Gamboa's note states follow up in 6 months. Made appointment in February & instructed patient to call if any symptoms return or if appointment needed sooner. Patient verbalized understanding. Humaira Wiseman RN Pt called regarding the predniSONE (DELTASONE) 2.5 mg, pt would like to go over current treatment plan for this medication. Best # to reach pt: . documented in this encounter [facility] 08-22-2022 Instructions Feli Maddox MD - 08/22/2022 11:48 AM EST PREDNISONE taper: - decrease dose to 7.5 mg/day for 3 weeks, then to 5 mg/day for 3 weeks, then to 2.5 mg/day for 3 weeks and stop BONE MINERAL DENSITY PATIENT INSTRUCTIONS ========= Bone mineral density testing measures the amount of calcium in certain parts of your bones. This information determines how strong your bones are. The test is used to detect osteoporosis, a disease in which the bone's mineral content and density are low, increasing a person's risk of fractures. The lumbar spine (lower back) and the hip are the skeletal sites usually examined. For the test, remember that: 1. You cannot take this test if you are . 2. Eat a normal diet on the day of the test. 3. Take your medications as you normally would. 4. DO NOT take calcium supplements (such as Tums) for 24 hours before the test. 5. On the day of the test, leave valuables (jewelry or credit cards) at home. 6. The test should be performed prior to oral, rectal or IV contrast studies, or at least 7 days after any of these studies. For the test, you may be asked to wear a hospital gown. You will lie on your back, on a padded table, in a comfortable position. Generally, you can resume your usual activities immediately. documented in this encounter [facility] 08-22-2022 History of Presen t illness Narrative Andreea Montes is a 72 year old female here for follow-up of Giant cell arteritis (hcc) (primary encounter diagnosis) Encounter for screening for osteoporosis Other specified menopausal and perimenopausal disorders intermediate current use of systemic steroids. Evaluation Date: 08/22/2022 Last Visit in Rheumatology: 05/09/2022 (with Nell Camarillo) ACTIVE PROBLEM LIST Personal History of Malignant Melanoma of Skin - 09/29/2006 INTERVAL HX: At today's visit Andreea Montes states that she has been doing well, no recurrence of pain in the back of her legs (since the first initiation of treatment), and reports sense of taste has improved with lowering the steroids, but still hasn't returned to baseline. On 10 mg of prednisone daily for a few weeks. Been doing Actemra weekly without issues, alternating sites. Had one episode of dull ache posterior to the right ear, took one regular tylenol, not extra strength. One episode Friday, did not return. Vision completely back to normal per patient. No headaches for a while, could not recall exactly when. Her R eye was the only one impacted in the beginning of the disease course with blurry vision. Never diplopia. She also had splitting fingernails for a while. Already improved. Review of Systems CONSTITUTION: Negative for: Fever and Recent weight change HEENT: Negative for: Nosebleeds, Mouth sores, Trouble swallowing and Dry mouth RESPIRATORY: Negative for: Cough, Shortness of breath and Pain with breathing GASTROINTESTINAL: Negative for: Melena, Diarrhea, Heartburn and Abdominal pain MUSCULOSKELETAL: Negative for: Arthralgias, Myalgias, Muscle weakness, Joint swelling and Morning Joint Stiffness NEUROLOGICAL: Negative for: Headaches, Numbness and Memory loss SKIN: Positive for: Nail changes Negative for: Rash, Skin changes and Hair loss EYES: Positive for: Eye dryness Negative for: Eye pain, Eye redness and visual disturbance CARDIOVASCULAR: Negative for: Chest pain and Leg swelling GENITOURINARY: Negative for: Dysuria and Hematuria HEMATOLOGIC/LYMPHATIC: Negative for: Swollen glands LARGE VESSEL VASCULITIS ROS: GENERAL: negative for, malaise, fatigue FEVER: none WEIGHT CHANGE: has gained 7 pounds (intended, better appetite after treatment) HEAD: negative for, scalp tenderness, jaw claudication, headache, temporal tenderness EYES: negative for , pain, redness, visual blurring, diplopia. Occasionally dry eyes RESPIRATORY: negative for, cough, pleuritic chest pain CARDIOVASCULAR: negative for, chest pain, palpitations, Raynaud's, peripheral edema GASTROINTESTINAL: negative for, abdominal pain, nausea, black stools, hematochezia MUSCULOSKELETAL: negative for, joint pain, joint swelling, back pain, myalgias, no proximal myalgias. NEUROLOGIC: negative for, numbness, weakness, paresthesias, dizziness SKIN: negative for, rash, ulcers, had some nail chipping, but not current REVIEW OF FAMILY AND/OR SOCIAL HISTORY: The family and/or social were reviewed at todays visit and no changes were noted. Date of last DEXA: None on file ([facility]), Lowest T-Score: unknown. Patient reports had a DEXA at OSH and we do not have the records. Thought it was October 2020. Location of last DEXA:outside hospital Early menopause, reports had oophorectomy in late Current Outpatient Medications Medication Sig tocilizumab (ACTEMRA ACTPEN) 162 mg/0.9 mL Inject 1 pen (162 mg) under the skin once weekly predniSONE (DELTASONE) 10 mg tablet TAKE 2 TABLETS BY MOUTH EVERY DAY predniSONE (DELTASONE) 5 mg tablet TAKE 3 TABLETS BY MOUTH EVERY DAY predniSONE (DELTASONE) 20 mg tablet Take 2 tablets by mouth once daily. SYNTHROID 88 mcg tablet famotidine (PEPCID) 20 mg tablet fenofibrate nanocrystallized (TRICOR) 145 mg tablet PREMARIN 0.625 MG/G VAGL CREA 2 times a week predniSONE (DELTASONE) 2.5 mg tablet Take 1 tablet by mouth once daily. No current facility-administered medications for this visit. PHYSICAL EXAMINATION Blood pressure 150/74, pulse 70, weight 61 kg (134 lb 8 oz). GENERAL APPEARANCE: well SKIN: normal without rashes or lesions HEAD: normal; temporal arteries with normal pulsation without nodularity or tenderness EYES: conjunctiva clear, PERRL, EOM normal OROPHARYNX: no oral lesions present, no oral ulcers. NECK: supple, without adenopathy. LUNGS: clear HEART: RRR, no gallops, rubs or murmurs MUSCULOSKELETAL: no joint tenderness or swelling VASCULAR EXAM Carotid: normal and equal bilaterally Brachial: normal and equal bilaterally Radial: normal and equal bilaterally Popliteal: normal and equal bilaterally Dorsalis pedis: normal and equal bilaterally Posterior tibial: normal and equal bilaterally Bruit over large vessels: negative NEURO: motor 5/5 Lab results: WBC Date Value Ref Range Status 08/09/2022 9.07 3.70 - 11.00 k/uL Final Hemoglobin Date Value Ref Range Status 08/09/2022 12.8 11.5 - 15.5 g/dL Final Hematocrit Date Value Ref Range Status 08/09/2022 40.3 36.0 - 46.0 % Final Platelet Count Date Value Ref Range Status 08/09/2022 275 150 - 400 k/uL Final Abs Lymph (Normal + Reactive) Date Value Ref Range Status 08/09/2022 6.62 (H) 1.00 - 4.00 k/uL Final Creatinine Date Value Ref Range Status 08/09/2022 0.81 0.58 - 0.96 mg/dL Final Glucose Date Value Ref Range Status 08/09/2022 98 74 - 99 mg/dL Final Comment: The [place] [employer] (ADA) provides guidance for cutoff values for fasting glucose and random glucose. The ADA defines fasting as no caloric intake for at least 8 hours. Fasting plasma glucose results between 100 to 125 mg/dL indicate increased risk for diabetes (prediabetes). Fasting plasma glucose results greater than or equal to 126 mg/dL meet the criteria for diagnosis of diabetes. In the absence of unequivocal hyperglycemia, results should be confirmed by repeat testing. In a patient with classic symptoms of hyperglycemia or hyperglycemic crisis, random plasma glucose results greater than or equal to 200 mg/dL meet the criteria for diagnosis of diabetes. Reference: Standards of Medical Care in Diabetes 2016, [place] [employer]. Diabetes Care. 2016.39(Suppl 1). AST Date Value Ref Range Status 08/09/2022 18 13 - 35 U/L Final ALT Date Value Ref Range Status 08/09/2022 14 7 - 38 U/L Final Sed Rate, Westergren Date Value Ref Range Status 08/09/2022 5 0 - 20 mm/hr Final CRP Date Value Ref Range Status 08/09/2022 <0.3 <0.9 mg/dL Final Alkaline Phosphatase Date Value Ref Range Status 08/09/2022 45 34 - 123 U/L Final 08/09/22 ESR 5 CRP < 0.3 ASSESSMENT: 1. Giant cell arteritis (hcc) (primary encounter diagnosis) Encounter for screening for osteoporosis Other specified menopausal and perimenopausal disorders intermediate current use of systemic steroids At today's visit the patient's disease appears to be in remission. No recurrence of GCA symptoms, tolerating medications well. Available laboratories were reviewed with the patient. Assessment and plan were discussed with the patient. PLAN: Decrease prednisone to 7.5 mg daily for 3 weeks, then 5 mg daily for 3 weeks, then 2.5 mg for 3 weeks before ceasing. Orders: Labs and asked patient to get a repeat DEXA ~ 10/2022, in addition to asking her to fax us the results from the OSH BMD scan. Consults: none Monitoring: Continue monthly labs Patient instructed to notify provider of any changes in medical condition. Follow-up: 6 months RHEUMATOLOGY STAFF: I have reviewed the history and physical examination obtained and documented by the fellow/resident and I personally participated in the moore components. I have discussed the case and management of the patient's care with the fellow/resident . Note was revised, edited and confirmed. Assessment and plan discussed with patient I spent a total of 40 minutes on the date of the service which included preparing to see the patient, [id number] patient care, completing clinical documentation, obtaining and/or reviewing separately obtained history, performing a medically appropriate examination, counseling and educating the patient/family/caregiver, and ordering medications, tests, or procedures. Feli Gamboa MD, MPH documented in this encounter [facility] 08-22-2022 History of Presen t illness Narrative [facility] Refill Assessment Medication(s): Actemra Patient's current medication list and adherence status to current therapy were reviewed by Specialty Pharmacy clinical pharmacist to identify any new drug interactions or non-compliance to therapy. Therapy continues to be appropriate for disease, patient response, and medical condition. Verification of therapeutic benefit and effectiveness with current therapy was completed. Adverse events, barriers in adherence, and side effects were assessed and addressed if applicable. Will proceed with refill with no changes in therapy - patient progressing towards achieving therapeutic goals based on medication-specific laboratory parameters, disease state markers and outcomes. Orthotic And Prosthetic Technician Assessment Patient confirmed: Yes Med/dose confirmed: Yes Supplies needed: No supplies needed Missed doses: No Estimated days supply on hand: 0 Next cycle/dose due: 08/29/22 Copay amount: 40 Copay form of payment: Credit card on file ([id number]) Payment confirmed: Yes Delivery method: FedEx Signature required: No Delivery address: [address], [place] [address] Delivery date: 08/27/22 Questions or concerns for the pharmacist?: No [facility] Visit Assessment - Inflammatory Conditions: Assessment to use: Refill Vaccination Assessment: Date of influenza vaccination reminder: 05/06/2022 Date of most recent vaccination assessment: 05/06/2022 Claire Christianson ([employer]) documented in this encounter [facility] 07-24-2022 History of Presen t illness Narrative [facility] Refill Assessment Medication(s): Actemra Patient's current medication list and adherence status to current therapy were reviewed by Specialty Pharmacy clinical pharmacist to identify any new drug interactions or non-compliance to therapy. Therapy continues to be appropriate for disease, patient response, and medical condition. Verification of therapeutic benefit and effectiveness with current therapy was completed. Adverse events, barriers in adherence, and side effects were assessed and addressed if applicable. Will proceed with refill with no changes in therapy - patient progressing towards achieving therapeutic goals based on medication-specific laboratory parameters, disease state markers and outcomes. Orthotic And Prosthetic Technician Assessment Patient confirmed: Yes Missed doses: No Estimated days supply on hand: 1 Next cycle/dose due: 07/25/22 Copay amount: 40 Copay form of payment: Credit card on file Payment confirmed: Yes Delivery method: FedEx Signature required: No Delivery address: [address] [place], [place] Delivery date: 07/31/22 Questions or concerns for the pharmacist?: No [facility] Visit Assessment - Inflammatory Conditions: Assessment to use: Refill Vaccination Assessment: Date of influenza vaccination reminder: 05/06/2022 Date of most recent vaccination assessment: 05/06/2022 Marisabel Weber CPhT [facility] [phone] documented in this encounter [facility] 06-26-2022 History of Presen t illness Narrative [facility] Refill Assessment Medication(s): Actemra Noted prednisone burst for flare Next appt 08/22/2022 ALLERGIES Allergen Reactions Sudafed [Pseudoephe* Anu Simmons [facility] Clinical Pharmacist, Hepatology & HCV [facility] P: ; F: Pool: P CC SPEC GROUP 2 ([id number]) Patient's current medication list and adherence status to current therapy were reviewed by Specialty Pharmacy clinical pharmacist to identify any new drug interactions or non-compliance to therapy. Therapy continues to be appropriate for disease, patient response, and medical condition. Verification of therapeutic benefit and effectiveness with current therapy was completed. Adverse events, barriers in adherence, and side effects were assessed and addressed if applicable. Will proceed with refill with no changes in therapy - patient progressing towards achieving therapeutic goals based on medication-specific laboratory parameters, disease state markers and outcomes. Orthotic And Prosthetic Technician Assessment Patient confirmed: Yes Med/dose confirmed: Yes Missed doses: No Estimated days supply on hand: 1 Next cycle/dose due: 06/27/22 Copay amount: 45 Copay form of payment: Credit card on file Payment confirmed: Yes Delivery method: FedEx Signature required: No Delivery address: [facility] [address] [place], [place] Delivery date: 07/03/22 Questions or concerns for the pharmacist?: No [facility] Visit Assessment - Inflammatory Conditions: Assessment to use: Refill Vaccination Assessment: Date of influenza vaccination reminder: 05/06/2022 Date of most recent vaccination assessment: 05/06/2022 Refill Assessment: Concurrent med therapy and DMARD screening: Yes Assessment of injection issues: Yes Screening for infection: Yes Adverse reactions and mitigation: Yes COPD monitoring ([place]rencia): N/A Assessment of efficacy: Yes Marisabel Weber CPhT [facility] [phone] documented in this encounter [facility] 05-29-2022 History of Presen t illness Narrative [facility] Refill Assessment Medication(s): Actemra Patient's current medication list and adherence status to current therapy were reviewed by Specialty Pharmacy clinical pharmacist to identify any new drug interactions or non-compliance to therapy. Therapy continues to be appropriate for disease, patient response, and medical condition. Verification of therapeutic benefit and effectiveness with current therapy was completed. Adverse events, barriers in adherence, and side effects were assessed and addressed if applicable. Will proceed with refill with no changes in therapy - patient progressing towards achieving therapeutic goals based on medication-specific laboratory parameters, disease state markers and outcomes. Orthotic And Prosthetic Technician Assessment Patient confirmed: Yes Med/dose confirmed: Yes Missed doses: No Estimated days supply on hand: 1 Next cycle/dose due: 05/30/22 Copay amount: 45 Copay form of payment: Credit card on file Payment confirmed: Yes Delivery method: FedEx Signature required: No Delivery address: [address] [place] [address] Delivery date: 06/04/22 Questions or concerns for the pharmacist?: No [facility] Visit Assessment - Inflammatory Conditions: Assessment to use: Refill Vaccination Assessment: Date of influenza vaccination reminder: 05/06/2022 Date of most recent vaccination assessment: 05/06/2022 Marisabel Weber CPhT [facility] [phone] documented in this encounter [facility] 05-09-2022 Miscellaneous Notes The following approved medication requests have been transmitted electronically. Requested Prescriptions Signed Prescriptions Disp Refills predniSONE (DELTASONE) 20 mg tablet 60 tablet 2 Sig: Take 2 tablets by mouth once daily. Authorizing Provider: FELI HEBERT MD Patient is electronically requesting refill: Requested Prescriptions Pending Prescriptions Disp Refills predniSONE (DELTASONE) 20 mg tablet 60 tablet 2 Sig: Take 2 tablets by mouth once daily. Please review and approve Bhavya Jaramillo documented in this encounter [facility] 05-03-2022 History of Presen t illness Narrative [facility] received prescription(s) for Actemra ACTPEN from Dr. Edson Maddox's office. Benefits investigation was conducted, indicating that a prior authorization was previously required and approved. Covers current medication strength/dose based on adjudication / claim rejections: yes (YES OR NO) Change in insurance: no Approval thru: 10/20/22 Previously approved PA for Actemra syringes covers the pens as well. Marisabel Weber CPhT [facility] [phone] documented in this encounter [facility] 04-22-2022 History of Presen t illness Narrative [facility] received prescription(s) for Actemra from Dr. Edson Maddox's office. Benefits investigation was conducted, indicating that a prior authorization is required by patient's insurance plan with [employer]. Encounter will be updated once prior authorization has been submitted by [facility]. Marisabel Weber CPhT [facility] [phone] documented in this encounter [facility] 04-11-2022 Miscellaneous Notes Received outside records from [facility] dated 04/05/2022 for upcoming appointment w/ Dr Edson Maddox on 04/22/2022. Scanned to chart and forwarded to doctor for review. documented in this encounter [facility] Evaluation note No assessment inform ation available [facility] Work Phone: Evaluation note Diagnosis Onset Date Temporal headache acute [facility] Work Phone: Evaluation note* Diagnosis Giant cell arteritis (HCC)- Primary Giant cell arteritis [facility] Diagnosis Giant cell arteritis (HCC)- Primary Giant cell arteritis [facility] Diagnosis Onset Date Resolution Status Temporal headache acute Temporal headache acute [facility] Work Phone: Evaluation note* Diagnosis Giant cell arteritis (HCC)- Primary Giant cell arteritis [facility] Diagnosis Giant cell arteritis (HCC)- Primary Giant cell arteritis [facility] Diagnosis Giant cell arteritis (HCC)- Primary Giant cell arteritis [facility] Diagnosis Giant cell arteritis (HCC)- Primary Giant cell arteritis Encounter for screening for osteoporosis Special screening for osteoporosis Other specified menopausal and perimenopausal disorders 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 Encounter for long-term (current) use of steroids [facility] Diagnosis Giant cell arteritis (HCC)- Primary Giant cell arteritis [facility] Diagnosis Giant cell arteritis (HCC)- Primary Giant cell arteritis [facility] Diagnosis Giant cell arteritis (HCC)- Primary Giant cell arteritis Steroid-induced osteopenia Disorder of bone and cartilage, unspecified [facility] Diagnosis Giant cell arteritis (HCC)- Primary Giant cell arteritis [facility] Diagnosis Giant cell arteritis (HCC)- Primary Giant cell arteritis [facility] Diagnosis Giant cell arteritis (HCC)- Primary Giant cell arteritis [facility] Diagnosis Giant cell arteritis (HCC)- Primary Giant cell arteritis Steroid-induced osteopenia Disorder of bone and cartilage, unspecified [facility] Diagnosis Giant cell arteritis (HCC)- Primary Giant cell arteritis [facility] Diagnosis Giant cell arteritis (HCC)- Primary Giant cell arteritis [facility] Diagnosis Giant cell arteritis (HCC)- Primary Giant cell arteritis [facility] Steroid-induced osteopenia Disorder of bone and cartilage, unspecified [facility] Diagnosis Large vessel vasculitis (HCC)- Primary Giant cell arteritis (HCC) Giant cell arteritis [facility] Diagnosis Giant cell arteritis (HCC)- Primary Giant cell arteritis [facility] Diagnosis Giant cell arteritis (HCC) Giant cell arteritis [facility] Diagnosis Giant cell arteritis (HCC)- Primary Giant cell arteritis [facility] Diagnosis Giant cell arteritis (HCC)- Primary Giant cell arteritis [facility]* Diagnosis Giant cell arteritis (HCC)- Primary Giant cell arteritis [facility] Diagnosis Large vessel vasculitis (HCC) [facility]* Diagnosis Giant cell arteritis (HCC)- Primary Giant cell arteritis [facility]* Diagnosis Giant cell arteritis (HCC)- Primary Giant cell arteritis [facility] Additional Instructions Please follow-up tomorrow for her Solu-Medrol infusion. If you are having issues please come to the emergency department. [facility]: Reason for referral (narrative)No reason for referral information availableWDayton [facility] Work Phone: Chief Complaint and Reason for Visit Chief Complaint VISION Chief Complaint VISION SOLUMEDROL INJECTION Chief Complaint VISION SOLUMEDROL INJECTION INFUSION Chief Complaint VISION SOLUMEDROL INJECTION INFUSION R TEMPORAL ARTERY BIOPSY Reason for Visit Temporal headache Chief Complaint VISION SOLUMEDROL INJECTION INFUSION R TEMPORAL ARTERY BIOPSY SCREENING SUDDEN VISUAL LOSS Reason for Visit Temporal headache Chief Complaint VISION SOLUMEDROL INJECTION INFUSION R TEMPORAL ARTERY BIOPSY SCREENING SUDDEN VISUAL LOSS TEMPORAL ARTERY BIOPSY 04/15 SUDDEN VISION LOSS Reason for Visit Temporal headache Temporal headache Chief Complaint intermediate (current) use of systemic steroids Chief Complaint SCREENING Chief Complaint Admit Date SCREENING July 01, 2024 9: 34am Advance Directives Advance Directive Response Recorded Date/ Time Name of Medical Power of Regional Sales Director Carl Montes April 05, 2022 6:42pm Living Will Yes April 05 6:42pm Power of Regional Sales Director Yes April 05 6:42pm Advance Directive Response Recorded Date/ Time Name of Medical Power of Regional Sales Director Carl Montes April 05, 2022 6:42pm Living Will Yes April 11 2:41pm Power of Regional Sales Director Yes April 11, 2022 2:41pm Advance Directive Response Recorded Date/ Time Name of Medical Power of Regional Sales Director Carl Montes April 05, 2022 6:42pm Name of Medical Power of Regional Sales Director SPOUSE April 11, 2022 2:41pm Living Will Yes April 11 2:41pm Power of Regional Sales Director Yes April 11, 2022 2:41pm Advance Directive Response Recorded Date/ Time Name of Medical Power of Regional Sales Director Carl Montes April 05, 2022 5:42pm Name of Medical Power of Regional Sales Director SPOUSE April 11, 2022 1:41pm Living Will Yes April 11 1:41pm Power of Regional Sales Director Yes April 11, 2022 1:41pm Advance Directive Response Recorded Date/ Time Living Will Yes April 11 2:41pm Power of Regional Sales Director Yes April 11, 2022 2:41pm Family History Relationship Condition Age at Onset Recorded Date/T ranjeet father Asthma Unknown Hypertension Unknown mother Malignant neoplasm of breast Unknown Disorder of thyroid Unknown sister Diabetes mellitus Unknown Reason for Referral Specialty Diagnoses / Procedures Referred By Hossein cortez Referred To Contact [facility] Diagnoses Large vessel vasculitis (HCC) Procedures MRA CAROTID WO IVCON MRA, NECK; W/O CONTRAST Feli Hebert MD [address] [place] [address] [place] [id number] Referral ID Status Reason Start Date Expiration Date Visits Requested Visits Authorized [id number] New Request Auto-Generat ed Referral 04/01/2024 05/01/2025 1 1 Specialty Diagnoses / Procedures Referred By Hossein cortez Referred To Contact MR IMAGING Diagnoses Large vessel vasculitis (HCC) Procedures MRA ABDOMEN WO/W IVCON MRA ABD WITH OR W/O CONT Feli Hebert MD [address] [place] [address] Mr Imaging [facility] Referral ID Status Reason Start Date Expiration Date Visits Requested Visits Authorized [id number] New Request Auto-Generat ed Referral 04/01/2024 05/01/2025 1 1 Specialty Diagnoses / Procedures Referred By Contac t Referred To Contact MR IMAGING Diagnoses Large vessel vasculitis (HCC) Procedures MRA CHEST CARDIOVASCULAR WO/W IVCON MRA CHEST WITH OR W/O CONT Feli Hebert MD [address] [place] [id number] Mr Imaging [facility] Referral ID Status Reason Start Date Expiration Date Visits Requested Visits Authorized [id number] New Request Auto-Generat ed Referral 04/01/2024 05/01/2025 1 1 Summary Purpose Additional Source Comments Goals (unrecognized section and content) Goals may be documented in a n alternate sectionGoals may be documented in an alternate sectionGoals may be documented in an alternate sectionGoals may be documented in an alternate sectionGoals may be documented in an alternate sectionGoals may be documented in an alternate sectionGoals may be documented in an alternate sectionGoals may be documented in an alternate sectionGoals may be documented in an alternate section Source Comments (unrecognize d section and content) In the event this informatio n is protected by the Federal Confidentiality of Alcohol and Drug Abuse Patient Records regulations: The Federal rules restrict any use of the information to criminally investigate or prosecute any alcohol or drug abuse patient.[facility] the event this information is protected by the Federal Confidentiality of Alcohol and Drug Abuse Patient Records regulations: The Federal rules restrict any use of the information to criminally investigate or prosecute any alcohol or drug abuse patient.[facility] the event this information is protected by the Federal Confidentiality of Alcohol and Drug Abuse Patient Records regulations: The Federal rules restrict any use of the information to criminally investigate or prosecute any alcohol or drug abuse patient.[facility] the event this information is protected by the Federal Confidentiality of Alcohol and Drug Abuse Patient Records regulations: The Federal rules restrict any use of the information to criminally investigate or prosecute any alcohol or drug abuse patient.[facility] Hospital[facility] the event this information is protected by the Federal Confidentiality of Alcohol and Drug Abuse Patient Records regulations: The Federal rules restrict any use of the information to criminally investigate or prosecute any alcohol or drug abuse patient.[facility] Hospital[facility] the event this information is protected by the Federal Confidentiality of Alcohol and Drug Abuse Patient Records regulations: The Federal rules restrict any use of the information to criminally investigate or prosecute any alcohol or drug abuse patient.[facility] the event this information is protected by the Federal Confidentiality of Alcohol and Drug Abuse Patient Records regulations: The Federal rules restrict any use of the information to criminally investigate or prosecute any alcohol or drug abuse patient.[facility] Hospital[facility] the event this information is protected by the Federal Confidentiality of Alcohol and Drug Abuse Patient Records regulations: The Federal rules restrict any use of the information to criminally investigate or prosecute any alcohol or drug abuse patient.[facility] the event this information is protected by the Federal Confidentiality of Alcohol and Drug Abuse Patient Records regulations: The Federal rules restrict any use of the information to criminally investigate or prosecute any alcohol or drug abuse patient.[facility] the event this information is protected by the Federal Confidentiality of Alcohol and Drug Abuse Patient Records regulations: The Federal rules restrict any use of the information to criminally investigate or prosecute any alcohol or drug abuse patient.[facility] the event this information is protected by the Federal Confidentiality of Alcohol and Drug Abuse Patient Records regulations: The Federal rules restrict any use of the information to criminally investigate or prosecute any alcohol or drug abuse patient.[facility] the event this information is protected by the Federal Confidentiality of Alcohol and Drug Abuse Patient Records regulations: The Federal rules restrict any use of the information to criminally investigate or prosecute any alcohol or drug abuse patient.[facility] HospitalIn the event this information is protected by the Federal Confidentiality of Alcohol and Drug Abuse Patient Records regulations: The Federal rules restrict any use of the information to criminally investigate or prosecute any alcohol or drug abuse patient.[facility] Hospital[facility] the event this information is protected by the Federal Confidentiality of Alcohol and Drug Abuse Patient Records regulations: The Federal rules restrict any use of the information to criminally investigate or prosecute any alcohol or drug abuse patient.[facility] the event this information is protected by the Federal Confidentiality of Alcohol and Drug Abuse Patient Records regulations: The Federal rules restrict any use of the information to criminally investigate or prosecute any alcohol or drug abuse patient.[facility] Hospital[facility] the event this information is protected by the Federal Confidentiality of Alcohol and Drug Abuse Patient Records regulations: The Federal rules restrict any use of the information to criminally investigate or prosecute any alcohol or drug abuse patient.[facility] the event this information is protected by the Federal Confidentiality of Alcohol and Drug Abuse Patient Records regulations: The Federal rules restrict any use of the information to criminally investigate or prosecute any alcohol or drug abuse patient.[facility] Hospital[facility] the event this information is protected by the Federal Confidentiality of Alcohol and Drug Abuse Patient Records regulations: The Federal rules restrict any use of the information to criminally investigate or prosecute any alcohol or drug abuse patient.[facility] HospitalIn the event this information is protected by the Federal Confidentiality of Alcohol and Drug Abuse Patient Records regulations: The Federal rules restrict any use of the information to criminally investigate or prosecute any alcohol or drug abuse patient.[facility] HospitalIn the event this information is protected by the Federal Confidentiality of Alcohol and Drug Abuse Patient Records regulations: The Federal rules restrict any use of the information to criminally investigate or prosecute any alcohol or drug abuse patient.[facility] HospitalIn the event this information is protected by the Federal Confidentiality of Alcohol and Drug Abuse Patient Records regulations: The Federal rules restrict any use of the information to criminally investigate or prosecute any alcohol or drug abuse patient.[facility] Hospital[facility] the event this information is protected by the Federal Confidentiality of Alcohol and Drug Abuse Patient Records regulations: The Federal rules restrict any use of the information to criminally investigate or prosecute any alcohol or drug abuse patient.[facility] Hospital[facility] the event this information is protected by the Federal Confidentiality of Alcohol and Drug Abuse Patient Records regulations: The Federal rules restrict any use of the information to criminally investigate or prosecute any alcohol or drug abuse patient.[facility] HospitalIn the event this information is protected by the Federal Confidentiality of Alcohol and Drug Abuse Patient Records regulations: The Federal rules restrict any use of the information to criminally investigate or prosecute any alcohol or drug abuse patient.[facility] HospitalIn the event this information is protected by the Federal Confidentiality of Alcohol and Drug Abuse Patient Records regulations: The Federal rules restrict any use of the information to criminally investigate or prosecute any alcohol or drug abuse patient.[facility] HospitalIn the event this information is protected by the Federal Confidentiality of Alcohol and Drug Abuse Patient Records regulations: The Federal rules restrict any use of the information to criminally investigate or prosecute any alcohol or drug abuse patient.[facility]In the event this information is protected by the Federal Confidentiality of Alcohol and Drug Abuse Patient Records regulations: The Federal rules restrict any use of the information to criminally investigate or prosecute any alcohol or drug abuse patient.[facility] HospitalIn the event this information is protected by the Federal Confidentiality of Alcohol and Drug Abuse Patient Records regulations: The Federal rules restrict any use of the information to criminally investigate or prosecute any alcohol or drug abuse patient.[facility] HospitalIn the event this information is protected by the Federal Confidentiality of Alcohol and Drug Abuse Patient Records regulations: The Federal rules restrict any use of the information to criminally investigate or prosecute any alcohol or drug abuse patient.[facility] HospitalIn the event this information is protected by the Federal Confidentiality of Alcohol and Drug Abuse Patient Records regulations: The Federal rules restrict any use of the information to criminally investigate or prosecute any alcohol or drug abuse patient.[facility] HospitalIn the event this information is protected by the Federal Confidentiality of Alcohol and Drug Abuse Patient Records regulations: The Federal rules restrict any use of the information to criminally investigate or prosecute any alcohol or drug abuse patient.[facility] HospitalIn the event this information is protected by the Federal Confidentiality of Alcohol and Drug Abuse Patient Records regulations: The Federal rules restrict any use of the information to criminally investigate or prosecute any alcohol or drug abuse patient.[facility] HospitalIn the event this information is protected by the Federal Confidentiality of Alcohol and Drug Abuse Patient Records regulations: The Federal rules restrict any use of the information to criminally investigate or prosecute any alcohol or drug abuse patient.[facility] HospitalIn the event this information is protected by the Federal Confidentiality of Alcohol and Drug Abuse Patient Records regulations: The Federal rules restrict any use of the information to criminally investigate or prosecute any alcohol or drug abuse patient.[facility] HospitalIn the event this information is protected by the Federal Confidentiality of Alcohol and Drug Abuse Patient Records regulations: The Federal rules restrict any use of the information to criminally investigate or prosecute any alcohol or drug abuse patient.[facility] HospitalIn the event this information is protected by the Federal Confidentiality of Alcohol and Drug Abuse Patient Records regulations: The Federal rules restrict any use of the information to criminally investigate or prosecute any alcohol or drug abuse patient.[facility] HospitalIn the event this information is protected by the Federal Confidentiality of Alcohol and Drug Abuse Patient Records regulations: The Federal rules restrict any use of the information to criminally investigate or prosecute any alcohol or drug abuse patient.[facility] HospitalIn the event this information is protected by the Federal Confidentiality of Alcohol and Drug Abuse Patient Records regulations: The Federal rules restrict any use of the information to criminally investigate or prosecute any alcohol or drug abuse patient.[facility] HospitalIn the event this information is protected by the Federal Confidentiality of Alcohol and Drug Abuse Patient Records regulations: The Federal rules restrict any use of the information to criminally investigate or prosecute any alcohol or drug abuse patient.[facility] HospitalIn the event this information is protected by the Federal Confidentiality of Alcohol and Drug Abuse Patient Records regulations: The Federal rules restrict any use of the information to criminally investigate or prosecute any alcohol or drug abuse patient.[facility] HospitalIn the event this information is protected by the Federal Confidentiality of Alcohol and Drug Abuse Patient Records regulations: The Federal rules restrict any use of the information to criminally investigate or prosecute any alcohol or drug abuse patient.[facility] HospitalIn the event this information is protected by the Federal Confidentiality of Alcohol and Drug Abuse Patient Records regulations: The Federal rules restrict any use of the information to criminally investigate or prosecute any alcohol or drug abuse patient.[facility] HospitalIn the event this information is protected by the Federal Confidentiality of Alcohol and Drug Abuse Patient Records regulations: The Federal rules restrict any use of the information to criminally investigate or prosecute any alcohol or drug abuse patient.[facility] HospitalIn the event this information is protected by the Federal Confidentiality of Alcohol and Drug Abuse Patient Records regulations: The Federal rules restrict any use of the information to criminally investigate or prosecute any alcohol or drug abuse patient.[facility] HospitalIn the event this information is protected by the Federal Confidentiality of Alcohol and Drug Abuse Patient Records regulations: The Federal rules restrict any use of the information to criminally investigate or prosecute any alcohol or drug abuse patient.[facility] HospitalIn the event this information is protected by the Federal Confidentiality of Alcohol and Drug Abuse Patient Records regulations: The Federal rules restrict any use of the information to criminally investigate or prosecute any alcohol or drug abuse patient.[facility] HospitalIn the event this information is protected by the Federal Confidentiality of Alcohol and Drug Abuse Patient Records regulations: The Federal rules restrict any use of the information to criminally investigate or prosecute any alcohol or drug abuse patient.[facility] HospitalIn the event this information is protected by the Federal Confidentiality of Alcohol and Drug Abuse Patient Records regulations: The Federal rules restrict any use of the information to criminally investigate or prosecute any alcohol or drug abuse patient.[facility] HospitalIn the event this information is protected by the Federal Confidentiality of Alcohol and Drug Abuse Patient Records regulations: The Federal rules restrict any use of the information to criminally investigate or prosecute any alcohol or drug abuse patient.[facility] HospitalIn the event this information is protected by the Federal Confidentiality of Alcohol and Drug Abuse Patient Records regulations: The Federal rules restrict any use of the information to criminally investigate or prosecute any alcohol or drug abuse patient.[facility] HospitalIn the event this information is protected by the Federal Confidentiality of Alcohol and Drug Abuse Patient Records regulations: The Federal rules restrict any use of the information to criminally investigate or prosecute any alcohol or drug abuse patient.[facility] HospitalIn the event this information is protected by the Federal Confidentiality of Alcohol and Drug Abuse Patient Records regulations: The Federal rules restrict any use of the information to criminally investigate or prosecute any alcohol or drug abuse patient.[facility] Reason for Visit (unrecogniz ed section and content) Reason Comments Received Outside Medical Records ophthal mology notes Reason Onset Date Comments SPP Inflammatory Conditions - Treatment Referral 04/22/2022 [facility] Insurance Authorization 04/22/2022 HARSHAD Ruth ssion Pending Reason Onset Date Comments SPP Inflammatory Conditions - Treatment Referral 05/03/2022 [facility] ACTPEN Insurance Authorization 05/03/2022 HARSHAD rivas on File Reason Onset Date Comments Refill Request 05/08/2022 Reason Onset Date Comments SPP Inflammatory Conditions - Medication Refill 05/29/2022 [facility] Reason Onset Date Comments SPP Inflammatory Conditions - Medication Refill 06/26/2022 [facility] Reason Onset Date Comments SPP Inflammatory Conditions - Medication Refill 07/24/2022 [facility] Reason Onset Date Comments SPP Inflammatory Conditions - Medication Refill 08/22/2022 [facility] Reason Comments Patient Question Patient Update Reason Comments Received Outside Medical Records Outside Lab Results Reason Onset Date Comments SPP Inflammatory Conditions - Medication Refill 09/16/2022 [facility] Reason Onset Date Comments SPP Inflammatory Conditions - Medication Refill 10/14/2022 [facility] Reason Onset Date Comments SPP Inflammatory Conditions - Medication Refill 11/11/2022 [facility] Reason Comments Refill Request Reason Onset Date Comments SPP Inflammatory Conditions - Medication Refill 12/13/2022 [facility] Reason Onset Date Comments SPP Inflammatory Conditions - Medication Refill 01/03/2023 [facility] Reason Onset Date Comments SPP Inflammatory Conditions - Medication Refill 01/28/2023 [facility] Reason Onset Date Comments SPP Inflammatory Conditions - Medication Refill 03/04/2023 [facility] Reason Onset Date Comments SPP Inflammatory Conditions - Medication Refill 04/28/2023 [facility] Reason Onset Date Comments SPP Inflammatory Conditions - Medication Refill 05/26/2023 [facility] Reason Onset Date Comments SPP Inflammatory Conditions - Medication Refill 06/19/2023 [facility] Reason Onset Date Comments Refill Request Refill Request 08/22/2023 Reason Onset Date Comments SPP Inflammatory Conditions - Medication Refill 09/15/2023 [facility] Reason Onset Date Comments SPP Inflammatory Conditions - Medication Refill 10/13/2023 [facility] Reason Onset Date Comments SPP Inflammatory Conditions - Medication Refill 11/10/2023 [facility] ActPen Reason Onset Date Comments SPP Inflammatory Conditions - Medication Refill 12/08/2023 [facility] - NCA 08/2024 Reason Onset Date Comments SPP Inflammatory Conditions - Medication Refill 01/05/2024 [facility] (NCA 08/2024) Reason Onset Date Comments SPP Inflammatory Conditions - Medication Refill 02/05/2024 [facility] Reason Onset Date Comments SPP Inflammatory Conditions - Medication Refill 03/02/2024 [facility] - NCA 08/2024 Reason Onset Date Comments SPP Inflammatory Conditions - Medication Refill 03/29/2024 [facility] -NCA 08/2024 Reason Onset Date Comments SPP Inflammatory Conditions - Medication Refill 04/26/2024 [facility] - NCA 08/2024 Reason Onset Date Comments SPP Inflammatory Conditions - Medication Refill 05/24/2024 [facility] NCA 08/2024 Reason Onset Date Comments SPP Inflammatory Conditions - Medication Refill 06/21/2024 [facility] Reason Onset Date Comments SPP Inflammatory Conditions - Medication Refill 07/20/2024 [facility] Reason Onset Date Comments SPP Inflammatory Conditions - Medication Refill 08/17/2024 [facility] Actpen Reason Onset Date Comments SPP Inflammatory Conditions - Medication Refill 09/13/2024 [facility] Actpen Reason Onset Date Comments SPP Inflammatory Conditions - Medication Refill 10/11/2024 [facility] Reason Onset Date Comments SPP Inflammatory Conditions - Medication Refill 11/08/2024 Reason Comments Radiology MRI Specialty Diagnoses / Procedures Referred By Contac t Referred To Contact [facility] Diagnoses Large vessel vasculitis (HCC) Procedures MRA CHEST CARDIOVASCULAR WO/W IVCON MRA CHEST WITH OR W/O CONT Feli Hebert MD [address] [place] [address] Phone: tel: fax: [place] [id number] Referral ID Status Reason Start Date Expiration Date V isits Requested Visits Authorized [id number] Closed Auto-Generate d Referral 04/01/2024 05/01/2025 1 1 Reason Onset Date Comments SPP Inflammatory Conditions - Medication Refill 11/30/2024 [facility] Care Teams (unrecognized sec tion and content) Launch Check Out Relationship Specialty Start Date End Date Pcp, No PCP - General 01/12/22 07/30/22 Alyssa Riggs MD [address] [place] [address] Referring Optometry 04/10/22 Launch Check Out Relationship Specialty Start Date End Date Berenice Tidwell MD [address] [facility] [place] [address] PCP - General Family Medicine 04/22/22 Alyssa Riggs MD [address] [place] [address] Referring Optometry 04/10/22 Launch Check Out Relationship Specialty Start Date End Date Berenice Tidwell MD [address] [place] [address] PCP - General Family Medicine 04/22/22 Alyssa Rgigs MD [address] [place] [address] Referring Optometry 04/10/22 Launch Check Out Relationship Specialty Start Date End Date Berenice Tidwell MD [address] [facility] [place] [address] PCP - General Family Medicine 04/22/22 Alyssa Riggs MD [address] [place] [address] Referring Optometry 04/10/22 Launch Check Out Relationship Specialty Start Date End Date Berenice Tidwell MD [address] [facility] [place] [address] PCP - General Family Medicine 04/22/22 Alyssa Riggs MD [address] [place] [address] Referring Optometry 04/10/22 Launch Check Out Relationship Specialty Start Date End Date Berenice Tidwell MD [address] [facility] [place] [address] PCP - General Family Medicine 04/22/22 Alyssa Riggs MD [address] [place] [address] Referring Optometry 04/10/22 Launch Check Out Relationship Specialty Start Date End Date Berenice Tidwell MD [address] [facility] [place] [address] PCP - General Family Medicine 04/22/22 Alyssa Riggs MD [address] [place] [address] Referring Optometry 04/10/22 Launch Check Out Relationship Specialty Start Date End Date Berenice Tidwell MD [address] [place] [address] PCP - General Family Medicine 04/22/22 Alyssa Riggs MD [address] [place] [address] Referring Optometry 04/10/22 Launch Check Out Relationship Specialty Start Date End Date Berenice Tidwell MD [address] [place] [address] PCP - General Family Medicine 04/22/22 Alyssa Riggs MD [address] [place] [address] Referring Optometry 04/10/22 Team Status: Active Member Role Status Dates Dr. Berenice Tidwell MD Family Provider Active Dr. Berenice Tidwell MD Primary Care Provider Active Team Status: Inactive Member Role Status Dates Dr. Berenice Tidwell MD Primary Care Provider, Attending Oswaldo chang Active Launch Check Out Relationship Specialty Start Date End Date Berenice Tidwell MD [address] [place] [address] PCP - General Family Medicine 04/22/22 Alyssa Riggs MD [address] [place] [address] Referring Optometry 04/10/22 Launch Check Out Relationship Specialty Start Date End Date Berenice Tidwell MD [address] [place] [address] PCP - General Family Medicine 04/22/22 Alyssa Riggs MD [facility] [place] [address] Referring Optometry 04/10/22 Launch Check Out Relationship Specialty Start Date End Date Berenice Tidwell MD [address] [place] [address] PCP - General Family Medicine 04/22/22 Alyssa Riggs MD [address] [place] [address] Referring Optometry 04/10/22 Launch Check Out Relationship Specialty Start Date End Date Berenice Tidwell MD [address] [place] [address] PCP - General Family Medicine 04/22/22 Alyssa Riggs MD [address] [place] [address] Referring Optometry 04/10/22 Team Status: Inactive Member Role Status Dates Dr. Berenice Tidwell MD Primary Care Provide r, Attending Provider, Referring Provider Active Launch Check Out Relationship Specialty Start Date End Date Berenice Tidwell MD [address] [place] [address] PCP - General Family Medicine 04/22/22 Alyssa Riggs MD [address] [place] [address] Referring Optometry 04/10/22 Launch Check Out Relationship Specialty Start Date End Date Berenice Tidwell MD [address] [place] [address] PCP - General Family Medicine 04/22/22 Alyssa Riggs MD [facility] [place] [address] Referring Optometry 04/10/22 Launch Check Out Relationship Specialty Start Date End Date Berenice Tidewll MD [address] [place] [address] PCP - General Family Medicine 04/22/22 Alyssa Riggs MD [facility] [place] [address] Referring Optometry 04/10/22 Launch Check Out Relationship Specialty Start Date End Date Berenice Tidwell MD [address] [place] [address] PCP - General Family Medicine 04/22/22 Alyssa Riggs MD [address] [place] [address] Referring Optometry 04/10/22 Launch Check Out Relationship Specialty Start Date End Date Berenice Tidwell MD [address] [facility] [facility] [place] [address] PCP - General Family Medicine 04/22/22 Alyssa Riggs MD [address] [place] [address] Referring Optometry 04/10/22 Launch Check Out Relationship Specialty Start Date End Date Berenice Tidwell MD [address] [facility] [place] [address] PCP - General Family Medicine 04/22/22 Alyssa Riggs MD [address] [place] [address] Referring Optometry 04/10/22 Launch Check Out Relationship Specialty Start Date End Date Berenice Tidwell MD [address] [place] [address] PCP - General Family Medicine 04/22/22 Alyssa Riggs MD [facility] [place] [address] Referring Optometry 04/10/22 Launch Check Out Relationship Specialty Start Date End Date Berenice Tidwell MD [address] [place] [address] PCP - General Family Medicine 04/22/22 Alyssa Riggs MD [facility] [place] [address] Referring Optometry 04/10/22 Launch Check Out Relationship Specialty Start Date End Date Berenice Tidwell MD [address] [place] [address] PCP - General Family Medicine 04/22/22 Alyssa Riggs MD [address] [place] [address] Referring Optometry 04/10/22 Launch Check Out Relationship Specialty Start Date End Date Berenice Tidwell MD [address] [facility] [place] [address] PCP - General Family Medicine 04/22/22 Alyssa Riggs MD [address] [facility], [place] [address] Referring Optometry 04/10/22 Team Status: Inactive Member Role Status Dates Dr. Berenice Tidwell MD Primary Care Provider Active Start: July 01, 2024 End: July 01, 2024 Dr. Berneice Tidwell MD Attending Provider Active St art: July 01, 2024 End: July 01, 2024 Dr. Berenice Tidwell MD Referring Provider Active St art: July 01, 2024 End: July 01, 2024 Launch Check Out Relationship Specialty Start Date End Date Berenice Tidwell MD [address] [facility], [place] [address] PCP - General Family Medicine 04/22/22 Alyssa Riggs MD [address] [facility], [place] [address] Referring Optometry 04/10/22 Launch Check Out Relationship Specialty Start Date End Date Berenice Tidwell MD [address] [place] [address] PCP - General Family Medicine 04/22/22 Alyssa Riggs MD [address] [facility] [place] [address] Referring Optometry 04/10/22 INFORMATION SOURCE (unrecogn ized section and content) DATE CREATED AUTHOR 10/05/2024 [facility] DATE CREATED AUTHOR AUTHOR'S ORGANIZ ATION 12/02/2024 [facility] FOR RECORDS PERTAINING TO PATIENTS WHO ARE OR HAVE BEEN ENROLLED IN A CHEMICAL DEPENDENCY/SUBSTANCEABUSE PROGRAM, SOME INFORMATION MAY BE OMITTED. This clinical summary was aggregated from multiple sources. Caution should be exercised in using it in the provision of clinical care. This summary normalizes information from multiple sources, and as a consequence, information in this document may materially change the coding, format and clinical context of patient data. In addition, data may be omitted in some cases. CLINICAL DECISIONS SHOULD BE BASED ON THE PRIMARY CLINICAL RECORDS. [facility] [employer] [facility]. provides no warranty or guarantee of the accuracy or completeness of information in this document.
[2024-12-17 11:09] LABS: Cholesterol 151 mg/dL (<=200); High Density Lipoprotein 36 mg/dL; Low Density Lipoprotein Calc. 92 mg/dL; Triglycerides 112 mg/dL; Very Low Density Lipoprotein 22 mg/dL (5-40); cholesterol:hdl ratio screen 4.15
== END | disposition home or self-care (01) ==
LOC: MFPLAB 08:50
PROVIDERS: PCP Family Medicine; Referring Provider Family Medicine; Visit Provider Family Medicine
DX: E03.9 Hypothyroidism, unspecified (principal); E78.1 Pure hyperglyceridemia
CPT/HCPCS: 36415; 80061; 84443

== ENCOUNTER → 2025-02-15 | Outpatient (CLI) | payer MEDICARE, SELFPAY ==
[2025-02-15 12:42] LABS: Hematocrit 37.3 % (37-47); Hemoglobin 11.9 g/dL (12.0-15.0); Immature Granulocytes Count 0.010 X10^3/uL (0.0-0.0); Mean Corp Hgb Conc 31.9 g/dL (32-36); Mean Corpuscular Volume 79.5 fL (81-99); Mean Platelet Vol. 10.4 fl (6.2-12.0); NRBC Flagged by Analyzer 0 % (0-5); Platelet Count 297 K/mm3 (150-450); RBC Distribution Width CV 16.1 % (11.6-14.6); RBC Distribution Width SD 45.8 fl (35.1-43.9); Red Blood Count 4.69 M/mm3 (4.2-5.4); White Blood Count 5.2 K/mm3 (4.4-11.0)
[2025-02-15 12:54] LABS: Creatinine, Urine (random) 36.70 mg/dL (28.00-217.00); Microalbumin,Random Urine < 12.0 mg/L (<20 mg/L)
[2025-02-15 12:55] LABS: AST(SGOT) 38 U/L (<=31); Alanine Aminotransfer ALT/SGPT 33 U/L (<=34); Albumin, Serum 4.6 g/dL (3.4-4.8); Alkaline Phosphatase 30 U/L (35-104); Anion Gap 12 (5-15); BUN 15 mg/dL (4-19); BUN/Creat Ratio 18.2 RATIO (10-20); Calcium,Total 9.4 mg/dL (7.6-11.0); Carbon Dioxide 24.8 mmol/L (21.0-32.0); Chloride 104 mmol/L (98-108); Cholesterol 164 mg/dL (<=200); Globulin 2.3 g/dL (2.2-4.2); Glucose 100 mg/dL (70-99); Low Density Lipoprotein Calc. 97 mg/dL; Potassium 4.7 mmol/L (3.3-5.1); Triglycerides 118 mg/dL; Very Low Density Lipoprotein 24 mg/dL (5-40); cholesterol:hdl ratio screen 3.81
== END | disposition home or self-care (01) ==
LOC: MFPLAB 10:55
PROVIDERS: PCP Family Medicine; Referring Provider Family Medicine; Visit Provider Family Medicine
DX: E03.9 Hypothyroidism, unspecified (principal); M31.6 Other giant cell arteritis; E78.1 Pure hyperglyceridemia; I10 Essential (primary) hypertension
CPT/HCPCS: 36415; 80053; 80061; 82043; 82570; 84443; 85025; 85652